=== PATIENT | female | born 1975 | race Caucasian/White ===

== ENCOUNTER → 2018-02-09 12:47 | Outpatient (CLI) | payer BC, SELFPAY ==
--- NOTE | 2018-02-10 11:01 | PFT ---
INTRODUCTION: The patient is a 42-year-old female currently under the care of Dr. Gonzalez that presents for pulmonary function testing secondary to a diagnosis of dyspnea. Respiratory therapy reports good patient effort and reports no other concerns. Bronchodilators were used during testing. INTERPRETATION: Forced expiration spirometry demonstrates no evidence of a large airways obstructive ventilatory defect. There was a significant response to aerosolized bronchodilators noted in both FVC and FEV1. Spirograms are of good quality and plateau normally. The respiratory flow volume loop appears normal. Body plethysmography was performed and reveals lung volumes to be within normal limits. Diffusing capacity by single breath CO is mildly reduced at 67% of predicted. IMPRESSION: These pulmonary function studies demonstrate the presence of a mild reduction in diffusing capacity. There was also a significant bronchodilator response noted. There are no previous pulmonary function studies available for comparison.
== END ==
PROVIDERS: Family Provider Family Medicine; PCP Family Medicine; Visit Provider Internal Medicine Critical Care Medicine
DX: R06.09 Other forms of dyspnea (principal)
CPT/HCPCS: 94060; 94726; 94729

== ENCOUNTER → 2018-03-22 07:48 | Outpatient (CLI) | payer BC, SELFPAY ==
--- NOTE | 2018-03-22 07:49 | CT_ITS ---
STUDY: CT CHEST WITHOUT CONTRAST REASON FOR EXAM: Female, 42 years old. Wheezing, hx asthma since childhood, denies chest pain or worsening SOB. RADIATION DOSAGE (If Supplied By Facility): CTDIvol = ( 20.10 ) mGy, DLP = ( 723.12 ) mGycm TECHNIQUE: Transaxial imaging was performed without the administration of intravenous contrast material. Individualized dose optimization techniques were used for this CT. COMPARISON: 02.08.14 FINDINGS: Calcified granuloma in the left midlung. This is stable. There is no demonstrated pleural abnormality. Normal heart and pericardium. Normal mediastinum. Normal hilar regions. Normal unenhanced pulmonary arteries. Normal aorta arch and descending thoracic aorta. There is endplate spondylosis of the vertebral body. The gallbladder is surgically absent. CT/Chest without Contrast IMPRESSION: Normal unenhanced CT Chest examination. Electronically Signed: Charles Rodríguez MD at 19:10 EDT , Service support ,
== END ==
PROVIDERS: Family Provider Family Medicine; PCP Family Medicine; Visit Provider Internal Medicine Critical Care Medicine
DX: J45.40 Moderate persistent asthma, uncomplicated (principal); R94.2 Abnormal results of pulmonary function studies
CPT/HCPCS: 71250

== ENCOUNTER → 2018-06-22 10:11 | Outpatient (CLI) | payer BC, SELFPAY ==
[2018-06-22 12:39] LABS: Absolute Lymphocyte Count 1.74 X10^3/ul (0.83-4.51); Absolute Neutrophil Count 6.9 X10^3/uL (2.0-7.7); Basophil# 0.02 X10^3/uL; Basophil% 0.2 % (0-1); Eosinophil# 0.16 X10^3/uL; Eosinophils% 1.7 % (0-5); Hematocrit 40.1 % (37-47); Hemoglobin 13.1 g/dl (12.0-15.0); Lymphocyte # 1.74 X10^3/ul (4.0); Mean Corp Hgb Conc 32.7 g/gl (32-36); Mean Corpuscular Hgb 29.4 pg (27.0-32.0); Mean Corpuscular Volume 89.9 fL (81-99); Mean Platelet Vol. 9.5 fl (6.2-12.0); Monocyte# 0.86 X10^3/uL; Monocyte% 8.9 % (0-10); Neutrophil # 6.87 X10^3/uL (2.7-7.7); Neutrophil % 70.9 % (47-70); POSITIVE COUNT NO; POSITIVE DIFFERENTIAL NO; POSITIVE MORPHOLOGY NO; Platelet Count 347 K/mm3 (150-450); RBC Distribution Width CV 13.3 % (11.6-14.6); RBC Distribution Width SD 43.1 fl (35.1-43.9); Red Blood Count 4.46 M/mm3 (4.2-5.4); White Blood Count 9.7 K/mm3 (4.4-11.0)
[2018-06-22 13:02] LABS: ALB/GLOB Ratio 0.8 RATIO (0.9-2.4); AST(SGOT) 14 U/L (15-37); Alanine Aminotransfer ALT/SGPT 21 U/L (13-56); Albumin, Serum 3.6 g/dL (3.2-5.0); Alkaline Phosphatase 70 U/L (45-117); Anion Gap 8 (5-15); BUN 13 mg/dL (7-18); BUN/Creat Ratio 10.9 RATIO (10-20); Calcium,Total 8.7 mg/dL (8.5-10.1); Chloride 106 mmol/L (98-107); Cholesterol 119 mg/dL (200); Creatinine, Serum 1.19 mg/dL (0.55-1.02); EST Glomerular Filtration Rate 52 mL/min (>60); Est Glom Filt Rate - Afr Amer 64 mL/min (>60); Free T3 1.7 pg/mL (2.18-3.98); Globulin 4.4 g/dL (2.2-4.2); Glucose 101 mg/dL (74-106); High Density Lipoprotein 40 mg/dL; Potassium 4.5 mmol/L (3.5-5.1); Sodium Level 138 mmol/L (136-145); T4 Free Direct 0.86 ng/dL (0.76-1.46); Thyroid Stim Hormone (TSH) 3.71 uIU/mL (0.358-3.74); Triglycerides 115 mg/dL; Very Low Density Lipoprotein 23 mg/dL (5-40)
== END ==
PROVIDERS: Visit Provider Family Medicine
DX: Z00.00 Encounter for general adult medical examination without abnormal findings (principal); E03.9 Hypothyroidism, unspecified; J45.909 Unspecified asthma, uncomplicated; K21.9 Gastro-esophageal reflux disease without esophagitis
CPT/HCPCS: 36415; 80053; 80061; 84439; 84443; 84481; 85025

== ENCOUNTER 2018-08-20 21:03 | Emergency (ER) | payer BC, SELFPAY ==
[2018-08-20 21:05] VITALS: BP 107/71; PULSE 88; RESP 16; TEMP 36.4; O2SAT 97; BMI 37.5
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
[2018-08-20 22:19] VITALS: PULSE 87; RESP 16; O2SAT 97
--- NOTE | 2018-08-20 22:22 | ED.RN ---
REVIEWED D/C INSTRUCTIONS, FOLLOW UP CARE, AND S/S THAT WOULD WARRANT A RETURN TO THE ED WITH PT. PT VERBALIZED AN UNDERSTANDING AND DENIES FURTHER QUESTIONS FOR THIS RN. PT SKIN P/W/D, RESP EVEN AND UNLABORED, PT A&O X 3, NO DISTRESS NOTED. PT AMBULATED OUT OF ED, GAIT STEADY.
== END 2018-08-20 22:24 | disposition home or self-care (01) ==
PROVIDERS: Emergency Provider Emergency Medicine; Family Provider Family Medicine; PCP Family Medicine
DX: S16.1XXA Strain of muscle, fascia and tendon at neck level, initial encounter (principal); S46.811A Strain of other muscles, fascia and tendons at shoulder and upper arm level, right arm, initial encounter; V43.62XA Car passenger injured in collision with other type car in traffic accident, initial encounter; Y93.89 Activity, other specified; Y92.410 Unspecified street and highway as the place of occurrence of the external cause; J45.909 Unspecified asthma, uncomplicated; F32.9 Major depressive disorder, single episode, unspecified; F41.9 Anxiety disorder, unspecified; Z79.899 Other long term (current) drug therapy
CPT/HCPCS: 99282

== ENCOUNTER → 2019-06-22 08:39 | Outpatient (CLI) | payer BC, SELFPAY ==
[2019-03-21 08:22] VITALS: BMI 37.8
[2019-06-22 12:12] LABS: Absolute Lymphocyte Count 1.57 X10^3/uL (0.83-4.51); Absolute Neutrophil Count 5.1 X10^3/uL (2.0-7.7); Basophil# 0.02 X10^3/uL; Basophil% 0.3 % (0-1); Eosinophil# 0.37 X10^3/uL; Eosinophils% 4.8 % (0-5); Hematocrit 38.4 % (37-47); Hemoglobin 12.6 g/dL (12.0-15.0); Lymphocyte # 1.57 X10^3/ul (4.0); Lymphocyte % 20.4 % (19-41); Mean Corp Hgb Conc 32.8 g/dL (32-36); Mean Corpuscular Hgb 30.1 pg (27.0-32.0); Mean Corpuscular Volume 91.6 fL (81-99); Mean Platelet Vol. 10.2 fl (6.2-12.0); Monocyte# 0.63 X10^3/uL; Monocyte% 8.2 % (0-10); NRBC Flagged by Analyzer 0 % (0-5); Neutrophil # 5.09 X10^3/uL (2.7-7.7); Platelet Count 308 K/mm3 (150-450); RBC Distribution Width SD 43.7 fl (35.1-43.9); Red Blood Count 4.19 M/mm3 (4.2-5.4); White Blood Count 7.7 K/mm3 (4.4-11.0)
[2019-06-22 12:50] LABS: Vitamin D,25 Hydroxy 10.4 ng/mL (29.95-100.01)
[2019-06-22 12:54] LABS: ALB/GLOB Ratio 0.8 RATIO (0.9-2.4); AST(SGOT) 11 U/L (15-37); Alanine Aminotransfer ALT/SGPT 18 U/L (13-56); Albumin, Serum 3.4 g/dL (3.2-5.0); Alkaline Phosphatase 67 U/L (45-117); Anion Gap 8 (5-15); BUN 12 mg/dL (7-18); BUN/Creat Ratio 11.7 RATIO (10-20); Calcium,Total 8.7 mg/dL (8.5-10.1); Chloride 107 mmol/L (98-107); Cholesterol 116 mg/dL (200); Creatinine, Serum 1.03 mg/dL (0.55-1.02); EST Glomerular Filtration Rate 62 mL/min (>60); Est Glom Filt Rate - Afr Amer 75 mL/min (>60); Globulin 4.2 g/dL (2.2-4.2); Glucose 118 mg/dL (74-106); High Density Lipoprotein 35 mg/dL; Potassium 3.7 mmol/L (3.5-5.1); Protein, Total 7.6 g/dL (6.4-8.2); Sodium Level 141 mmol/L (136-145); Thyroid Stim Hormone (TSH) 5.51 uIU/mL (0.358-3.74); Triglycerides 161 mg/dL; Very Low Density Lipoprotein 32 mg/dL (5-40)
== END ==
PROVIDERS: Family Provider Family Medicine; PCP Family Medicine; Visit Provider Family Medicine
DX: Z00.00 Encounter for general adult medical examination without abnormal findings (principal); E03.9 Hypothyroidism, unspecified; N18.3 Chronic kidney disease, stage 3 (moderate); E55.9 Vitamin D deficiency, unspecified
CPT/HCPCS: 36415; 80053; 80061; 82306; 84443; 85025

== ENCOUNTER → 2020-05-27 09:01 | Outpatient (CLI) | payer BC, SELFPAY ==
[2020-05-27 08:02] VITALS: BMI 39.9
== END ==
PROVIDERS: PCP Family Medicine; Visit Provider Nurse Practitioner Acute Care
DX: J45.40 Moderate persistent asthma, uncomplicated (principal)
CPT/HCPCS: 87070; 87205

== ENCOUNTER 2020-06-12 18:35 | Emergency (ER) | payer BC, SELFPAY ==
[2020-05-27 08:02] VITALS: BMI 39.9
[2020-06-12 18:36] VITALS: BP 155/83; PULSE 92; RESP 19; TEMP 36.8; O2SAT 100; BMI 40.0
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
--- NOTE | 2020-06-12 19:52 | ED.VISSUMM ---
- ER Visit Summary Date of Service: 06/12/20 Chief Complaint: Head injury History of Present Illness: The patient is a 44 F who presents with a head injury that occurred today. Patient states she bent over and hit her head on a metal pole. Patient admits to some dizziness but denies any loss of consciousness. Patient denies any paresthesias or weakness. Patient admits to an abrasion over the left eyebrow area near the nose. Patient admits to nausea but denies any vomiting. Patient denies any chest pain or shortness of breath. Patient denies any other injuries. Physical Examination: Vital signs are stable. Patient is afebrile. Patient is in no acute distress. Pupils are equal, round, and reactive to light bilaterally. Extraocular muscles are intact. Oral mucosa is pink and moist. Neck is supple. Trachea is midline. There is no JVD or lymphadenopathy. Cranial nerves II through XII are intact. Strength is 5/5 bilateral in the upper and lower extremities. There are no sensory deficits noted. Skin is warm dry. There is a superficial abrasion over the medial aspect of the left eyebrow near the nose. There is no active bleeding. There is no gapping of the wound margins. There is tenderness to palpation over this area. There is no bony crepitance or step-off noted. Test Results: CT scan of the brain was obtained. There is no acute intracranial abnormality. This was interpreted by the radiologist and reviewed by myself. Emergency Department Course and Treatment: Patient was given a tetanus booster. Patient was advised of her findings. Patient was instructed to take Tylenol as needed for pain. Patient was instructed to drink plenty of fluids. Patient was given head injury and concussion instructions. Patient was instructed to follow-up with her primary care physician in 5 to 7 days. Patient understood and was agreeable with the plan. All questions were answered. Disposition: Discharge home Impression: 1. Closed head injury This note was generated with [employer] dictation software. It may contain incorrect words, spelling, and punctuation that were not noted in review of the chart prior to signing ED Disposition - Plan for ED Patient: Disposition: Home or Assisted Living Diagnosis: Closed head injury Instructions: ED Head Injury Adult Referrals: Marlyn Smith MD [Primary Care Provider] - 5-7 Days
[2020-06-12] MEDS: Diphth,Pertuss(Acell),Tet Vac 0.5 ML Vial IM (20:37)
[2020-06-12] MEDS: Ketorolac 60 MG/2 ML Vial IM (20:39)
[2020-06-12 20:43] VITALS: RESP 16
== END 2020-06-12 20:49 | disposition home or self-care (01) ==
PROVIDERS: Emergency Provider Emergency Medicine; PCP Family Medicine
DX: S09.90XA Unspecified injury of head, initial encounter (principal); W22.8XXA Striking against or struck by other objects, initial encounter
CPT/HCPCS: 70450; 90471; 90715; 96372; 99283

== ENCOUNTER → 2020-06-27 11:35 | Outpatient (CLI) | payer BC, SELFPAY ==
[2020-06-12 18:36] VITALS: BMI 40.0
[2020-06-27 15:43] LABS: Absolute Lymphocyte Count 1.91 X10^3/uL (0.83-4.51); Absolute Neutrophil Count 6.4 X10^3/uL (2.0-7.7); Basophil# 0.03 X10^3/uL; Basophil% 0.3 % (0-1); Eosinophil# 0.19 X10^3/uL; Hematocrit 41.4 % (37-47); Hemoglobin 13.4 g/dL (12.0-15.0); Lymphocyte # 1.91 X10^3/ul (4.0); Lymphocyte % 20.5 % (19-41); Mean Corp Hgb Conc 32.4 g/dL (32-36); Mean Corpuscular Hgb 29.5 pg (27.0-32.0); Mean Corpuscular Volume 91.2 fL (81-99); Mean Platelet Vol. 10.1 fl (6.2-12.0); Monocyte# 0.68 X10^3/uL; Monocyte% 7.3 % (0-10); NRBC Flagged by Analyzer 0 % (0-5); Neutrophil # 6.43 X10^3/uL (2.7-7.7); Neutrophil % 69.3 % (47-70); Platelet Count 404 K/mm3 (150-450); RBC Distribution Width CV 12.4 % (11.6-14.6); RBC Distribution Width SD 41.1 fl (35.1-43.9); Red Blood Count 4.54 M/mm3 (4.2-5.4); White Blood Count 9.3 K/mm3 (4.4-11.0)
[2020-06-27 16:10] LABS: ALB/GLOB Ratio 0.8 RATIO (0.9-2.4); AST(SGOT) 26 U/L (15-37); Alanine Aminotransfer ALT/SGPT 33 U/L (13-56); Albumin, Serum 3.7 g/dL (3.2-5.0); Alkaline Phosphatase 73 U/L (45-117); Anion Gap 6 (5-15); BUN 11 mg/dL (7-18); Chloride 104 mmol/L (98-107); EST Glomerular Filtration Rate 64 mL/min (>60); Est Glom Filt Rate - Afr Amer 77 mL/min (>60); Globulin 4.4 g/dL (2.2-4.2); Glucose 107 mg/dL (74-106); Protein, Total 8.1 g/dL (6.4-8.2); Sodium Level 139 mmol/L (136-145); Thyroid Stim Hormone (TSH) 3.17 uIU/mL (0.358-3.74)
[2020-06-27 16:11] LABS: Vitamin D,25 Hydroxy 19.1 ng/mL
== END ==
PROVIDERS: PCP Family Medicine; Visit Provider Family Medicine
DX: E03.9 Hypothyroidism, unspecified (principal); N18.3 Chronic kidney disease, stage 3 (moderate); E55.9 Vitamin D deficiency, unspecified; Z83.3 Family history of diabetes mellitus
CPT/HCPCS: 36415; 80053; 82306; 84443; 85025

== ENCOUNTER → 2020-07-24 13:51 | Outpatient (CLI) | payer BC, SELFPAY ==
[2020-07-24 16:30] LABS: ALB/GLOB Ratio 0.9 RATIO (0.9-2.4); AST(SGOT) 17 U/L (15-37); Alanine Aminotransfer ALT/SGPT 21 U/L (13-56); Albumin, Serum 3.6 g/dL (3.2-5.0); Alkaline Phosphatase 76 U/L (45-117); Anion Gap 6 (5-15); BUN 13 mg/dL (7-18); Calcium,Total 9.3 mg/dL (8.5-10.1); Chloride 106 mmol/L (98-107); EST Glomerular Filtration Rate 64 mL/min (>60); Est Glom Filt Rate - Afr Amer 77 mL/min (>60); Globulin 4.2 g/dL (2.2-4.2); Glucose 97 mg/dL (74-106); Potassium 3.5 mmol/L (3.5-5.1); Protein, Total 7.8 g/dL (6.4-8.2); Sodium Level 140 mmol/L (136-145)
[2020-07-26 16:08] LABS: Endomysial Antibody IgA Negative (Negative)
[2020-07-26 17:11] LABS: Immunoglobulin A 283 mg/dL (87-352); t-Transglutaminase IgA <2 U/mL (0-3)
== END ==
PROVIDERS: PCP Family Medicine; Referring Provider Internal Medicine Gastroenterology; Visit Provider Internal Medicine Gastroenterology
DX: R19.7 Diarrhea, unspecified (principal)
CPT/HCPCS: 36415; 80053; 82784; 83516; 86140; 86255

== ENCOUNTER 2020-10-16 19:41 | Inpatient (IN) | payer BC, SELFPAY ==
[2020-10-16 19:42] VITALS: BP 106/86; PULSE 105; RESP 20; TEMP 37.4; O2SAT 98
[2020-10-16 19:43] VITALS: BP 106/86; PULSE 106; RESP 20; TEMP 37.4; O2SAT 98; BMI 41.7
--- NOTE | 2020-10-16 20:04 | CT_ITS ---
STUDY: CT ABDOMEN AND PELVIS WITH CONTRAST REASON FOR EXAM: Female, 45 years old. LOW ABD PAIN/CHILLS/SONGESTION/FEVER. Hx of IBS, hypothyroid, appendectomy, cholecystectomy, fistula(2013) and csection RADIATION DOSAGE (If Supplied By Facility): CTDIvol = ( 18.43 ) mGy, DLP = ( 1265.52 ) mGycm TECHNIQUE: Transaxial images were obtained from the dome of the diaphragm to the symphysis pubis without oral contrast. Oral and amp; IV Gastrografin and amp; 100mL Isovue-300 was administered. Sagittal and coronal images were reconstructed. Individualized dose optimization techniques were used for this CT. COMPARISON: None. FINDINGS: The visualized lung bases are unremarkable. The visualized portions of the heart are within normal limits. Normal liver. There are surgical clips in the gallbladder fossa consistent with a prior cholecystectomy. Normal spleen. Normal pancreas. Normal bilateral adrenal glands. Normal right kidney. Normal left kidney. Normal visualized stomach. Normal small intestine. There is diverticulosis, with thickening of the sigmoid colon wall, and pericolonic inflammation changes consistent with acute diverticulitis. There is punctate scattered air along the outside of the bowel extending superiorly along the course of the gonadal vein. There are surgical clips in the region of the appendix consistent with a prior appendectomy. Normal abdominal aorta. Normal inferior vena cava. Periaortic scattered likely reactive lymph nodes are present. Normal urinary bladder. Normal abdominal wall. Normal osseous structures. CT/Abdomen/Pelvis WITH Contrast IMPRESSION: 1. Sigmoid diverticulitis with mild areas of punctate air extending along the course of the gonadal vein consistent with a small perforation with no evidence of fluid collection or abscess. Otherwise no additional acute intra-abdominal process. Electronically Signed: Curt Almendarez DO at 22:10 EST , Service support ,
[2020-10-16] MEDS: 0.9% Normal Saline 1,000 ML 1000 ML IV (20:28)
[2020-10-16] MEDS: Morphine 4 MG/ML Syringe IV ×2 (20:28→23:24)
[2020-10-16 20:29] LABS: Absolute Lymphocyte Count 1.22 X10^3/uL (0.83-4.51); Basophil# 0.03 X10^3/uL; Basophil% 0.2 % (0-1); Eosinophil# 0.11 X10^3/uL; Eosinophils% 0.7 % (0-5); Hematocrit 42.4 % (37-47); Hemoglobin 14.1 g/dL (12.0-15.0); Lymphocyte # 1.22 X10^3/ul (4.0); Lymphocyte % 8.1 % (19-41); Mean Corp Hgb Conc 33.3 g/dL (32-36); Mean Corpuscular Hgb 29.7 pg (27.0-32.0); Mean Corpuscular Volume 89.5 fL (81-99); Mean Platelet Vol. 8.9 fl (6.2-12.0); Monocyte# 0.64 X10^3/uL; Monocyte% 4.2 % (0-10); NRBC Flagged by Analyzer 0 % (0-5); Neutrophil # 12.99 X10^3/uL (2.7-7.7); Neutrophil % 86.3 % (47-70); Platelet Count 305 K/mm3 (150-450); RBC Distribution Width CV 12.4 % (11.6-14.6); RBC Distribution Width SD 40.6 fl (35.1-43.9); Red Blood Count 4.74 M/mm3 (4.2-5.4); White Blood Count 15.1 K/mm3 (4.4-11.0)
--- NOTE | 2020-10-16 20:32 | ED.DCSUM_ITS ---
- ER Visit Summary Date of Service: 10/16/20 Chief Complaint: Abdominal pain History of Present Illness: The patient is a 45 F who presents with abdominal pain that began approximately 1-1/2 hours prior to arrival. Patient states the pain began suddenly. Patient states the pain is worse over the lower abdomen but is diffuse. Patient describes it as sharp and aching. Patient states nothing makes it better or worse. Patient admits to nausea but denies any vomiting. Patient was given Zofran by EMS and states the nausea is improved. Patient denies any diarrhea, melena, or hematochezia. Patient denies any dysuria or hematuria. Patient states her last menstrual period was 1 month ago but states they are somewhat irregular. Physical Examination: Vital signs are stable except for mild tachycardia of 105. Patient is afebrile. Patient is in no acute distress. Oral mucosa is pink and moist. Neck is supple. Trachea is midline. There is no JVD noted. Heart was regular and slightly tachycardic. Lungs are clear and equal bilaterally. Abdomen is soft. Bowel sounds are normal. There is lower abdominal tenderness. There is no rebound or guarding noted. Skin is warm dry. Cranial nerves II through XII are intact. There are no focal motor or sensory deficits noted. Extremities are intact. There is no calf tenderness or edema. Test Results: CBC shows a leukocytosis of 15.1. Comprehensive metabolic profile and lipase were within normal limits. Urinalysis was obtained. There is no evidence of urinary tract infection. Serum hCG was negative. CT scan of the abdomen pelvis with oral and IV contrast shows sigmoid diverticulitis with mild areas of punctate air consistent with a small perforation but no evidence of fluid collection or abscess. This was interpreted by the radiologist and reviewed by myself. Emergency Department Course and Treatment: Patient was given IV fluids and morphine. Patient was feeling better on reevaluation. Patient was started on Rocephin and Flagyl. Case was discussed with Dr. Brandan Reyes from general surgery. He recommended admitting to medicine and keeping the patient n.p.o. Case was discussed with the hospitalist. He will admit the patient to his service. Patient understood and was agreeable with the plan. All questions were answered. Disposition: Admit to hospital Impression: 1. Diverticulitis This note was generated with [employer] software. It may contain incorrect words, spelling, and punctuation that were not noted in review of the chart prior to signing ED Disposition - Plan for ED Patient: Disposition: Acute Care Hospital [facility] Diagnosis: Diverticulitis Referrals: Marlyn Smith MD [Primary Care Provider] -
[2020-10-16 20:40] LABS: Internal QC Validated? YES +Cl - CLEAR BKGD; Pregnancy, Serum, hCG Quali. NEGATIVE Negative
[2020-10-16 20:44] LABS: ALB/GLOB Ratio 0.9 RATIO (0.9-2.4); AST(SGOT) 13 U/L (15-37); Alanine Aminotransfer ALT/SGPT 22 U/L (13-56); Albumin, Serum 3.8 g/dL (3.2-5.0); Alkaline Phosphatase 72 U/L (45-117); Anion Gap 7 (5-15); BUN 14 mg/dL (7-18); Calcium,Total 9.1 mg/dL (8.5-10.1); Chloride 104 mmol/L (98-107); EST Glomerular Filtration Rate 64 mL/min (>60); Est Glom Filt Rate - Afr Amer 77 mL/min (>60); Globulin 4.4 g/dL (2.2-4.2); Glucose 135 mg/dL (74-106); Lipase 77 U/L (73-393); Protein, Total 8.2 g/dL (6.4-8.2); Sodium Level 138 mmol/L (136-145)
[2020-10-16 21:28] LABS: Bacteria 0 SEEN /hpf (None Seen); Mucous, Urine 0 SEEN /hpf (<or=2+); Red Blood Cells-Urine 0 SEEN /hpf (0-5); White Blood Cells 0 SEEN /hpf (0-5)
[2020-10-16 21:39] LABS: Color, Urine Yellow (Yellow); Glucose, Dipstick Normal (Normal); Ketone-Dipstick Negative (Negative); Leukocyte Esterase-Dipstick Negative /ul (Negative); Nitrite-Dipstick Negative (Negative); Occult Blood-Urine Negative /ul (Negative); Protein-Dipstick Negative (Negative); Urine Bilirubin Dipstick Negative (Negative); Urine Clarity Sl. Cloudy (Clear); Urine Urobilinogen Normal (Normal)
[2020-10-16 21:45] LABS: Squamous Epithelial Cells - UA 0-5 SEEN /hpf (5-10)
[2020-10-16 21:59] VITALS: BP 121/67; PULSE 110; RESP 17; O2SAT 98
[2020-10-16] MEDS: Ceftriaxone 1 GM/50 ML BAG IV (22:47)
[2020-10-16 22:53] VITALS: BP 95/75; PULSE 110; RESP 15; O2SAT 99
--- NOTE | 2020-10-16 23:08 | PCM.HP.STD ---
Problem List (1) Perforation of sigmoid colon due to diverticulitis Status: Acute (2) Diverticulitis Status: Acute (3) Obesity (BMI 30-39.9) Status: Chronic (4) Asthma, moderate persistent Status: Chronic Qualifiers: Asthma complication type: uncomplicated Qualified Code(s): J45.40 - Moderate persistent asthma, uncomplicated (5) Abnormal PFT Status: Chronic (6) Asthma, moderate persistent, poorly-controlled Status: Chronic (7) FREDY (obstructive sleep apnea) Status: Chronic (8) Fistula Status: Chronic (9) History of carpal tunnel surgery Status: Chronic (10) Hx of appendectomy Status: Chronic (11) S/P cholecystectomy Status: Chronic (12) [place] teeth extracted Status: Chronic (13) delivery delivered Status: Chronic (14) lazy eye repair Status: Chronic (15) Allergic rhinitis Status: Chronic Qualifiers: Allergic rhinitis trigger: pollen Allergic rhinitis seasonality: seasonal Qualified Code(s): J30.1 - Allergic rhinitis due to pollen (16) IBS (irritable bowel syndrome) Status: Chronic (17) Hypothyroid Status: Chronic (18) Anxiety Status: Chronic (19) PTSD (post-traumatic stress disorder) Status: Chronic (20) Sciatica Status: Chronic (21) Obesity Status: Chronic (22) Depression Status: Chronic (23) Asthma Status: Chronic History of Present Illness Date of Admission: 10/16/20 Chief Complaint: Abdominal pain The patient is a 45 year old F with a significant history of allergic rhinitis; anxiety; asthma; IBS; morbid obesity; and appendectomy who presents to the emergency department with sudden onset excruciating lower abdominal pain that started about 1 hour prior to presentation. Her pain was so excruciating that she doubled over and she could not move. She had to crawl. Her son had to call paramedics who brought patient to the emergency department. Her pain radiates to her pelvic area. Her pain was persistent and it progressively got worse. She described her pain as sharp and achy. She denies any ameliorating factors to the pain. Walking made the pain worse. En-route to the hospital she was nauseous and she was given nausea medicine by paramedics. Past Medical History Past Medical History (Chronic Problems): Chronic Problems (Last Reviewed 10/16/20 @ 23:[address] Jamil Perez MD) Obesity (BMI 30-39.9) (Chronic) Asthma, moderate persistent (Chronic) Abnormal PFT (Chronic) Asthma, moderate persistent, poorly-controlled (Chronic) FREDY (obstructive sleep apnea) (Chronic) Fistula (Chronic) History of carpal tunnel surgery (Chronic) Hx of appendectomy (Chronic) S/P cholecystectomy (Chronic) [place] teeth extracted (Chronic) delivery delivered (Chronic) lazy eye repair (Chronic) Allergic rhinitis (Chronic) IBS (irritable bowel syndrome) (Chronic) Hypothyroid (Chronic) Anxiety (Chronic) PTSD (post-traumatic stress disorder) (Chronic) Sciatica (Chronic) Obesity (Chronic) Depression (Chronic) Asthma (Chronic) Medical History: Medical History (Last Reviewed 10/16/20 @ 23:[address] Jamil Perez MD) Bronchitis (Inactive) J40 Allergic rhinitis (Chronic) J30.9 IBS (irritable bowel syndrome) (Chronic) K58.9 Hypothyroid (Chronic) E03.9 Anxiety (Chronic) F41.9 PTSD (post-traumatic stress disorder) (Chronic) F43.10 Sciatica (Chronic) M54.30 Obesity (Chronic) E66.9 Depression (Chronic) F32.9 Asthma (Chronic) J45.909 Allergies venom-honey bee [bee venom (honey bee)] Allergy (Severe, Verified 10/16/20 19:42) Anaphylaxis amoxicillin [From Augmentin] Allergy (Verified 10/16/20 19:42) Hives clavulanic acid [From Augmentin] Allergy (Verified 10/16/20 19:42) Hives fluticasone [From Advair Diskus] Allergy (Verified 10/16/20 19:42) Anaphylaxis salmeterol [From Advair Diskus] Allergy (Verified 10/16/20 19:42) Anaphylaxis ciprofloxacin [From Cipro] Adverse Reaction (Verified 10/16/20 19:42) Nausea/Vom/Diarrhea ENVIRONMENTAL Allergy (Mild, Uncoded 06/12/20 18:39) Other Home Medications: Ambulatory Orders Medication Instructions Recorded Levothyroxine [Synthroid] 88 mcg PO DAILY 02/01/14 fluticasone propionate 50 50 mcg INTRANASAL BID PRN 12/29/17 mcg/actuation nasal spray,suspension cetirizine 10 mg tablet 10 mg PO QDAY PRN 06/14/18 budesonide-formoterol HFA 160 2 puff INHALATION Q12H #3 device 02/27/20 mcg-4.5 mcg/actuation aerosol inhaler albuterol sulfate 2.5 mg INHALATION Q4H PRN #180 ml 04/26/20 benzonatate 200 mg capsule 200 mg PO TID PRN #90 cap 05/27/20 albuterol sulfate 90 mcg/actuation 2 puff INHALATION Q4H PRN PRN #3 08/26/20 aerosol inhaler device Pantoprazole Sodium [Protonix] 20 mg PO DAILY PRN 10/16/20 Surgical History: Surgical History (Last Reviewed 10/16/20 @ 23:[address] Jamil Perez MD) Fistula (Chronic) L98.8 History of carpal tunnel surgery (Chronic) Z92.89 Hx of appendectomy (Chronic) Z98.890, Z90.49 S/P cholecystectomy (Chronic) Z90.49 [place] teeth extracted (Chronic) Z98.890, K08.409 delivery delivered (Chronic) O82 lazy eye repair (Chronic) Surgical History: appendectomy, cholecystectomy, tubal ligation Smoking Status: Former smoker - Tried smoking when she was a teenager Review of Systems Constitutional: Reports: Anorexia, Chills, - - Rigors. Denies: Fever, Weight Change HEENT: Denies: Head Aches, Sinus Congestion, Sinus Drainage Cardiovascular: Denies: Chest Pain, Palpitations Respiratory: Denies: Cough, Shortness of breath at rest, Sputum production Gastrointestinal: Reports: Abdominal Pain, Nausea. Denies: Vomiting Genitourinary: Denies: Dysuria Musculoskeletal: Denies: Joint Pain, Joint Tenderness Skin: Denies: Rash, Wounds Neurological: Denies: Numbness, Tingling, Focal weakness Psychiatric: Denies: Anxiety, Depression, Homicidal Ideations, Suicidal Ideations Hematologic/ Lymphatic: Denies: Easy Bruising, Easy Bleeding VTE Information - Inpt Only VTE Present on Admission: No VTE Mechan Device Prophylaxis: SCD's VTE Pharm Prophylaxis ordered?: No Patient Problems: Active and Suspected Problems (Last Reviewed 10/16/20 @ 23:[address] Jamil Perez MD) Diverticulitis (Acute) Perforation of sigmoid colon due to diverticulitis (Acute) - Physical Exam Vitals/I&O's: Vital Signs Temp Pulse Resp BP Pulse Ox 99.4 F H 110 H 15 95/75 99 10/16/20 19:43 10/16/20 22:53 10/16/20 22:53 10/16/20 22:53 10/16/20 22:53 Oxygen Delivery Method Room Air Weight: 103.4 kg Body Mass Index (BMI) 41.7 Intake and Output for Last 24 Hours 10/14/20 10/15/20 10/16/20 23:59 23:59 23:59 Intake Total 1000 / 1000 Balance 1000 / 1000 General: Alert, Oriented x3, Cooperative HEENT: Atraumatic, PERRLA, EOMI, Normocephalic Neck: Supple, No JVD, Negative Carotid Bruits Lungs: Clear to auscultation, Normal air movement, No rhonchi, No wheeze, No rales Cardiovascular: Regular rate, Regular Rhythm, Normal S1, Normal S2, No murmurs Abdomen: Soft, Hyperactive Bowel Sounds, Tender Extremities: No edema, Capillary Refill Less than 3 Seconds Skin: No rashes, No breakdown Musculoskeletal: No Tenderness to Palpation of Joints or Extremities Neurological: Cranial nerves II-XII grossly intact Psych/Mental Status: Normal Affect, Appropriate Laboratory Results 10/16/20 20:15: WBC 15.1 H, RBC 4.74, Hgb 14.1, Hct 42.4, MCV 89.5, MCH 29.7, MCHC 33.3, RDW Std Deviation 40.6, RDW Coeff of [place] 12.4, Plt Count 305, MPV 8.9, Immature Gran % (Auto) 0.500, Neut % (Auto) 86.3 H, Lymph % (Auto) 8.1 L, [place] % (Auto) 4.2, Eos % (Auto) 0.7, Baso % (Auto) 0.2, Absolute Neuts (auto) 13.0 H, Absolute Lymphs (auto) 1.22, Nucleated RBC % 0 10/16/20 20:15: Sodium 138, Potassium 4.0, Chloride 104, Carbon Dioxide 27.0, Anion Gap 7, BUN 14, Creatinine 1.00, Estim Creat Clear Calc 55.60, Est GFR (MDRD) Af Amer 77, Est GFR (MDRD) Non-Af 64, BUN/Creatinine Ratio 14.0, Glucose 135 H, Calcium 9.1, Total Bilirubin 0.90, AST 13 L, ALT 22, Alkaline Phosphatase 72, Total Protein 8.2, Albumin 3.8, Globulin 4.4 H, Albumin/Globulin Ratio 0.9, Lipase 77 10/16/20 20:15: Serum , Qual NEGATIVE 10/16/20 21:25: Urine Color Yellow, Urine Clarity Sl. Cloudy, Urine pH 6.0, Ur Specific [place] 1.010, Urine Protein Negative, Urine Glucose (UA) Normal, Urine Ketones Negative, Urine Occult Blood Negative, Urine Nitrite Negative, Urine Bilirubin Negative, Urine Urobilinogen Normal, Ur Leukocyte Esterase Negative, Urine RBC 0 SEEN, Urine WBC 0 SEEN, Ur Squamous Epith Cells 0-5 SEEN, Urine Bacteria 0 SEEN, Urine Mucus 0 SEEN Current Medications Metronidazole (Flagyl) 500 mg in 100 mls @ 100 mls/hr IV X1 ONE Stop: 10/16/20 23:28 Assessment/Plan All Active Problems (Last Reviewed 10/16/20 @ 23:[address] Jamil Perez MD) Diverticulitis (Acute) Perforation of sigmoid colon due to diverticulitis (Acute) The patient is a 45 year old F with a significant history of allergic rhinitis; anxiety; asthma; IBS; morbid obesity; and appendectomy who presents emergency department with sudden onset excruciating lower abdominal pain and nausea and found to have abdominal tenderness and radiographic findings of acute sigmoid diverticulitis with small perforation on imaging Acute sigmoid diverticulitis with small perforation Impression of abdominal/pelvis CT: Sigmoid diverticulitis with mild areas of punctate air extending along the course of the gonadal vein consistent with a small perforation with no evidence of fluid collection or abscess. Actual abdomen/pelvis CT was independently interpreted. I agree with the radiologist interpretation. Received morphine IV x2 doses at emergency department. Morphine IV as needed for pain ordered. Zofran IV pain ordered. Supportive treatment with normal saline with 20 mEq of potassium ordered Received ceftriaxone and Flagyl at emergency department. Patient is allergic to ciprofloxacin. Ceftriaxone and metronidazole IV ordered inpatient. Emergency department doctor discussed the case with general surgery who recommended that patient be kept n.p.o. Per emergent department doctor general surgery will follow on consult. Order for n.p.o. placed. General surgery consult. GERD On home Protonix p.o.. Changed to Protonix IV in the setting of n.p.o. Hypothyroidism On home Synthroid. Hold home p.o. Synthroid in the setting of n.p.o status. Asthma and allergies Albuterol as needed continued. On home ceftriaxone as needed; hold in the setting of n.p.o. Fluticasone as needed continued. Obstructive sleep apnea Nursing communication to order CPAP/BiPAP nightly and as needed if patient uses same at home. Morbid Obesity: BMI: 41.7 kg/m?. Complicates care. Lifestyle modification recommended. DVT prophylaxis SCD ordered. Inpatient E&M: 00434 Init Hosp L3
[2020-10-16] MEDS: metroNIDAZOLE 500 MG/100 ML BAG 100 MG IV (23:26)
[2020-10-16 23:31] VITALS: BP 101/68; PULSE 110; RESP 15; TEMP 37.4; O2SAT 97
[2020-10-16 23:59] VITALS: BMI 39.5
[2020-10-17] VITALS (12 sets, daily range): BP systolic 98–107; BP diastolic 55–63; PULSE 76–108; RESP 16–18; TEMP 37.1–39.1; O2SAT 94–98; BMI 39.6
[2020-10-17] MEDS: Acetaminophen 325 MG Tablet 650 MG PO (01:07)
[2020-10-17] MEDS: Morphine 2 MG/ML Syringe IV ×6 (01:09→23:59)
--- NOTE | 2020-10-17 05:47 | CON.PCM_ITS ---
Problem List (1) Diverticulitis Status: Acute (2) Perforation of sigmoid colon due to diverticulitis Status: Acute Reason for Consult Date of Consultation: 10/17/20 History of Present Illness: The patient is a 45 year old F who I have been asked to see by surgical consultation regarding acute sigmoid diverticulitis with perforation and a written copy of my surgical consult recommendations will present in the charting. The patient states that yesterday she had acute onset of severe low abdominal pain. I asked her whether she had had any previous episodes and she thought for a minute and then said she did not think so. She states that the pain was very severe yesterday but has improved today. On her presentation to the emergency room her white blood cell count was 15.1 with a hemoglobin 14.1 hematocrit 42.4 platelet count of 305,000 with 86% neutrophils. BUN is 14 and creatinine 1. Liver function tests essentially normal. Lipase normal. CT scan was obtained with contrast. There is pericolonic inflammation consistent with acute diverticulitis punctate scattered air along the outside of the bowel extending superiorly on the course of the gonadal vein. Surgical clips in the region of the appendix. The impression was sigmoid diverticulitis with what was felt to be a small perforation with no fluid collection or abscess. She states that August 2020 Dr. Urban Bojorquez did a colonoscopy for her. She states that she had diverticulosis. She states he took biopsies. She states she was told everything was okay. She does have a family history with father and uncle both who had colon cancer. She states she has not had colon polyps nor malignancy. She does state that she thinks she might be prediabetic. She denies any history of DVT. She denies potential exposure to COVID-19 Her surgical history is complicated she states that several years ago I assisted her with a fistula in anal. She has had a previous cholecystectomy 1998. She states that in 2008 when she was she had acute appendicitis that required then a infraumbilical midline incision for appendectomy. She states that the wound dehisced and she had to have delayed superficial wound healing. Apparently she was able to deliver her child without consequence. Past Medical History Past Medical History (Chronic Problems): Chronic Problems (Last Reviewed 10/16/20 @ 23:[address] Jamil Perez MD) Obesity (BMI 30-39.9) (Chronic) Asthma, moderate persistent (Chronic) Abnormal PFT (Chronic) Asthma, moderate persistent, poorly-controlled (Chronic) FREDY (obstructive sleep apnea) (Chronic) Fistula (Chronic) History of carpal tunnel surgery (Chronic) Hx of appendectomy (Chronic) S/P cholecystectomy (Chronic) [place] teeth extracted (Chronic) delivery delivered (Chronic) lazy eye repair (Chronic) Allergic rhinitis (Chronic) IBS (irritable bowel syndrome) (Chronic) Hypothyroid (Chronic) Anxiety (Chronic) PTSD (post-traumatic stress disorder) (Chronic) Sciatica (Chronic) Obesity (Chronic) Depression (Chronic) Asthma (Chronic) Medical History: Medical History (Last Reviewed 10/16/20 @ 23:[address] Jamil Perez MD) Bronchitis (Inactive) J40 Allergic rhinitis (Chronic) J30.9 IBS (irritable bowel syndrome) (Chronic) K58.9 Hypothyroid (Chronic) E03.9 Anxiety (Chronic) F41.9 PTSD (post-traumatic stress disorder) (Chronic) F43.10 Sciatica (Chronic) M54.30 Obesity (Chronic) E66.9 Depression (Chronic) F32.9 Asthma (Chronic) J45.909 Allergies venom-honey bee [bee venom (honey bee)] Allergy (Severe, Verified 10/16/20 19:42) Anaphylaxis amoxicillin [From Augmentin] Allergy (Verified 10/16/20 19:42) Hives clavulanic acid [From Augmentin] Allergy (Verified 10/16/20 19:42) Hives fluticasone [From Advair Diskus] Allergy (Verified 10/16/20 19:42) Anaphylaxis salmeterol [From Advair Diskus] Allergy (Verified 10/16/20 19:42) Anaphylaxis ciprofloxacin [From Cipro] Adverse Reaction (Verified 10/16/20 19:42) Nausea/Vom/Diarrhea ENVIRONMENTAL Allergy (Mild, Uncoded 06/12/20 18:39) Other Home Medications: Ambulatory Orders Medication Instructions Recorded Levothyroxine [Synthroid] 88 mcg PO DAILY 02/01/14 fluticasone propionate 50 50 mcg INTRANASAL BID PRN PRN 12/29/17 mcg/actuation nasal spray,suspension cetirizine 10 mg tablet 10 mg PO QDAY PRN 06/14/18 budesonide-formoterol HFA 160 2 puff INHALATION Q12H #3 device 02/27/20 mcg-4.5 mcg/actuation aerosol inhaler albuterol sulfate 2.5 mg INHALATION Q4H PRN #180 ml 04/26/20 benzonatate 200 mg capsule 200 mg PO TID PRN #90 cap 05/27/20 albuterol sulfate 90 mcg/actuation 2 puff INHALATION Q4H PRN PRN #3 08/26/20 aerosol inhaler device Pantoprazole Sodium [Protonix] 20 mg PO DAILY PRN 10/16/20 Surgical History: Surgical History (Last Reviewed 10/16/20 @ 23:[address] Jamil Perez MD) Fistula (Chronic) L98.8 History of carpal tunnel surgery (Chronic) Z92.89 Hx of appendectomy (Chronic) Z98.890, Z90.49 S/P cholecystectomy (Chronic) Z90.49 [place] teeth extracted (Chronic) Z98.890, K08.409 delivery delivered (Chronic) O82 lazy eye repair (Chronic) Surgical History: appendectomy, cholecystectomy, tubal ligation Smoking Status: Never smoker Review of Systems HEENT: Denies: Difficulty Swallowing Cardiovascular: Denies: Chest Pain Respiratory: Denies: Cough, Shortness of Breath Gastrointestinal: Reports: Abdominal Pain. Denies: Melena, Vomiting Genitourinary: Denies: Dysuria Psychiatric: Reports: Anxiety Endocrine: Denies: Change in Body Habitus Patient Problems: Active and Suspected Problems (Last Reviewed 10/16/20 @ 23:[address] Jamil Perez MD) Diverticulitis (Acute) Perforation of sigmoid colon due to diverticulitis (Acute) - Physical Exam Vitals/I&O's: Vital Signs Temp Pulse Resp BP Pulse Ox 101.0 F H 108 H 18 107/55 L 97 10/17/20 02:36 10/17/20 00:30 10/17/20 00:21 10/17/20 00:21 10/17/20 00:32 Oxygen Delivery Method Room Air Weight: 216 lb 4.375 oz Body Mass Index (BMI) 39.5 Intake and Output for Last 24 Hours 10/15/20 10/16/20 10/17/20 23:59 23:59 23:59 Intake Total 1050 / 1050 100 / 100 Balance 1050 / 1050 100 / 100 General: Alert, Oriented x3, Cooperative, No apparent distress HEENT: Atraumatic Oral: Moist Mucosa Neck: Supple Lungs: Clear to auscultation, Normal air movement Cardiovascular: Regular rate, Regular Rhythm Abdomen: Soft, No Hepato-splenomegaly, Hypoactive Bowel Sounds, - - Diffusely tender throughout the lower abdomen. Right lower quadrant tenderness noted, left lower quadrant tenderness noted with guarding. Broad though healed infraumbilical midline incision Extremities: No Calf Tenderness Skin: No rashes Neurological: - - Normal cognition Psych/Mental Status: Anxious Laboratory Results 10/16/20 20:15: WBC 15.1 H, RBC 4.74, Hgb 14.1, Hct 42.4, MCV 89.5, MCH 29.7, MCHC 33.3, RDW Std Deviation 40.6, RDW Coeff of [place]eb[place] 12.4, Plt Count 305, MPV 8.9, Immature Gran % (Auto) 0.500, Neut % (Auto) 86.3 H, Lymph % (Auto) 8.1 L, [place] % (Auto) 4.2, Eos % (Auto) 0.7, Baso % (Auto) 0.2, Absolute Neuts (auto) 13.0 H, Absolute Lymphs (auto) 1.22, Nucleated RBC % 0 10/16/20 20:15: Sodium 138, Potassium 4.0, Chloride 104, Carbon Dioxide 27.0, Anion Gap 7, BUN 14, Creatinine 1.00, Estim Creat Clear Calc 55.60, Est GFR (MDRD) Af Amer 77, Est GFR (MDRD) Non-Af 64, BUN/Creatinine Ratio 14.0, Glucose 135 H, Calcium 9.1, Total Bilirubin 0.90, AST 13 L, ALT 22, Alkaline Phosphatase 72, Total Protein 8.2, Albumin 3.8, Globulin 4.4 H, Albumin/Globulin Ratio 0.9, Lipase 77 10/16/20 20:15: Serum , Qual NEGATIVE 10/16/20 21:25: Urine Color Yellow, Urine Clarity Sl. Cloudy, Urine pH 6.0, Ur Specific Ord 1.010, Urine Protein Negative, Urine Glucose (UA) Normal, Urine Ketones Negative, Urine Occult Blood Negative, Urine Nitrite Negative, Urine Bilirubin Negative, Urine Urobilinogen Normal, Ur Leukocyte Esterase Negative, Urine RBC 0 SEEN, Urine WBC 0 SEEN, Ur Squamous Epith Cells 0-5 SEEN, Urine Bacteria 0 SEEN, Urine Mucus 0 SEEN Current Medications Acetaminophen (Acetaminophen 325 Mg Tablet) 650 mg PO Q6H PRN PRN PRN Reason: fever >100.4 Last Admin: 10/17/20 01:07 Dose: 650 mg Documented by: Albuterol Sulfate (Albuterol 2.5 Mg/3 Ml Vial.Neb.) 2.5 mg INHALATION Q6HWA.RT [facility] Budesonide (Budesonide Respules 0.5 Mg/2 Ml Ampul.Neb.) 0.5 mg INHALATION Q12H.RT [facility] Fluticasone Propionate (Fluticasone 0.05% 1 [place] Nasal.Sry) 1 spray NASAL BID PRN PRN Reason: ALLERGIES Potassium Chloride/Sodium Chloride () 1,000 mls @ 75 mls/hr IV .[id number] [facility] Last Admin: 10/17/20 00:24 Dose: 75 mls/hr Documented by: Metronidazole (Flagyl) 500 mg in 100 mls @ 100 mls/hr IV Q8H [facility] Ceftriaxone Sodium (Rocephin) 1 gm in 50 mls @ 100 mls/hr IV Q24H [facility] Pantoprazole Sodium 40 mg/ (Sodium Chloride) 110 mls @ 330 mls/hr IV Q24 [facility] Sodium Chloride () 250 mls @ 15 mls/hr IV .[id number] PRN PRN Reason: Saline Flush Sodium Chloride () 250 mls @ 15 mls/hr IV .[id number] PRN PRN Reason: Additional IVPB Infusion Morphine Sulfate (Morphine 2 Mg/Ml Syringe) 2 mg IV Q3H PRN PRN PRN Reason: Pain Score 6-10 Last Admin: 10/17/20 01:09 Dose: 2 mg Documented by: Ondansetron HCl (Ondansetron 4 Mg/2 Ml Vial) 4 mg IV Q8H PRN PRN PRN Reason: NAUSEA/VOMITING Sodium Chloride (0.9% Saline Lock 10 Ml Syringe) 10 - 40 ml IV UD PRN PRN Reason: SALINE FLUSH Assessment/Plan All Active Problems (Last Reviewed 10/16/20 @ 23:[address] Jamil Perez MD) Diverticulitis (Acute) Perforation of sigmoid colon due to diverticulitis (Acute) 45-year-old female. Presentation consistent with acute sigmoid diverticulitis with perforation. I have personally reviewed her films and they are rather impressive. There is not an insignificant amount of air along the wall of the colon. Patient is aged 45. Body weight 216 pounds with a BMI of 39. She has had previous abdominal surgery including an open appendectomy with and by patient report incisional dehiscence. I certainly recommend aggressive effort at nonoperative medical management. She has had a recent colonoscopy and we will try to obtain reports from that procedure and pathology. She will not be requiring an update on that investigation. I have encouraged the patient to mobilize and utilize her incentive spirometer. At this point we will continue to hold her on sips and chips of water. I would not advance the diet at this point. Clearly she needs ongoing hospitalization and IV antibiotics. She has multiple drug allergies additionally complicating her medical treatment. I appreciate the opportunity of assisting with her surgical care. She is aware of the potential need for surgical intervention. She is aware that this could require a laparoscopic or open procedure. Could involve a sigmoid colectomy or a Theresa procedure with diverting colostomy. Ideally she will improve and resolved with medical treatment. I believe we need to be cautious in this case that she is at higher risk for developing a pericolonic abscess. If that is a single abscess that could potentially be drained. She is at risk for multiple smaller abscesses. We will follow with you. Brandan Reyes M.D., F.A.C.S.
[2020-10-17] MEDS: metroNIDAZOLE 500 MG/100 ML BAG 100 MG IV ×3 (06:31→21:48)
[2020-10-17 07:14] LABS: Absolute Lymphocyte Count 1.55 X10^3/uL (0.83-4.51); Basophil# 0.03 X10^3/uL; Basophil% 0.3 % (0-1); Eosinophil# 0.06 X10^3/uL; Eosinophils% 0.5 % (0-5); Hematocrit 37.3 % (37-47); Hemoglobin 12.2 g/dL (12.0-15.0); Lymphocyte # 1.55 X10^3/ul (4.0); Lymphocyte % 13.6 % (19-41); Mean Corp Hgb Conc 32.7 g/dL (32-36); Mean Corpuscular Hgb 29.5 pg (27.0-32.0); Mean Corpuscular Volume 90.3 fL (81-99); Mean Platelet Vol. 9.1 fl (6.2-12.0); Monocyte# 0.65 X10^3/uL; Monocyte% 5.7 % (0-10); NRBC Flagged by Analyzer 0 % (0-5); Neutrophil # 9.03 X10^3/uL (2.7-7.7); Neutrophil % 79.5 % (47-70); Platelet Count 270 K/mm3 (150-450); RBC Distribution Width CV 12.8 % (11.6-14.6); RBC Distribution Width SD 42.5 fl (35.1-43.9); Red Blood Count 4.13 M/mm3 (4.2-5.4); White Blood Count 11.4 K/mm3 (4.4-11.0)
[2020-10-17] MEDS: Budesonide Respules 0.5 MG/2 ML AMPUL.NEB. INHALATION ×2 (07:19→18:35)
[2020-10-17] MEDS: Albuterol 2.5 MG/3 ML VIAL.NEB. INHALATION ×3 (07:19→18:34)
[2020-10-17 07:35] LABS: Anion Gap 5 (5-15); BUN 10 mg/dL (7-18); BUN/Creat Ratio 9.9 RATIO (10-20); Calcium,Total 8.4 mg/dL (8.5-10.1); Chloride 106 mmol/L (98-107); Creatinine, Serum 1.01 mg/dL (0.55-1.02); EST Glomerular Filtration Rate 63 mL/min (>60); Est Glom Filt Rate - Afr Amer 76 mL/min (>60); Estimated Creatinine Clearance 55.05 ml/min; Glucose 157 mg/dL (74-106); Potassium 3.8 mmol/L (3.5-5.1); Sodium Level 138 mmol/L (136-145)
--- NOTE | 2020-10-17 08:11 | PCM.PN.HOSP ---
Patient Problems: Active and Suspected Problems (Last Reviewed 10/16/20 @ 23:[address] Jamil Perez MD) Diverticulitis (Acute) Perforation of sigmoid colon due to diverticulitis (Acute) Reason for Visit: Acute sigmoid diverticulitis with microperforation Subjective: Patient is a 45-year-old lady who presented with abdominal pain imaging studies obtained was consistent with acute sigmoid diverticulitis with small perforation with no evidence of fluid collection or abscess started on broad-spectrum antibiotic therapy admitted to regular nursing floor with consultation placed to general surgery Objective: GENERAL: cooperative HEENT: Atraumatic; EYES; Anicteric, Normal Conjunctiva NECK; supple, normal thyroid, RESPIRATORY: Diminished to auscultation CARDIOVASCULAR: Regular S1 S2, GI: soft, normoactive bowel sounds, abdominal tenderness : No Renal angle tenderness; EXTREMITIES: No edema, no clubbing, MUSCULOSKELETAL: no muscle waisting NEURO: Awake; no lateralizing signs. SKIN: No Rash PSYCH; Flat affect Vitals/I&O's: Vital Signs Temp Pulse Resp BP Pulse Ox 99.1 F 93 18 100/59 L 94 10/17/20 06:00 10/17/20 06:00 10/17/20 06:00 10/17/20 06:00 10/17/20 06:00 Oxygen Delivery Method Room Air Weight: 98.1 kg Body Mass Index (BMI) 39.5 Intake and Output for Last 24 Hours 10/15/20 10/16/20 10/17/20 23:59 23:59 23:59 Intake Total 1050 / 1050 200 / 200 Balance 1050 / 1050 200 / 200 Laboratory Results 10/16/20 20:15: WBC 15.1 H, RBC 4.74, Hgb 14.1, Hct 42.4, MCV 89.5, MCH 29.7, MCHC 33.3, RDW Std Deviation 40.6, RDW Coeff of Bebo 12.4, Plt Count 305, MPV 8.9, Immature Gran % (Auto) 0.500, Neut % (Auto) 86.3 H, Lymph % (Auto) 8.1 L, [place] % (Auto) 4.2, Eos % (Auto) 0.7, Baso % (Auto) 0.2, Absolute Neuts (auto) 13.0 H, Absolute Lymphs (auto) 1.22, Nucleated RBC % 0 10/16/20 20:15: Sodium 138, Potassium 4.0, Chloride 104, Carbon Dioxide 27.0, Anion Gap 7, BUN 14, Creatinine 1.00, Estim Creat Clear Calc 55.60, Est GFR (MDRD) Af Amer 77, Est GFR (MDRD) Non-Af 64, BUN/Creatinine Ratio 14.0, Glucose 135 H, Calcium 9.1, Total Bilirubin 0.90, AST 13 L, ALT 22, Alkaline Phosphatase 72, Total Protein 8.2, Albumin 3.8, Globulin 4.4 H, Albumin/Globulin Ratio 0.9, Lipase 77 10/16/20 20:15: Serum , Qual NEGATIVE 10/16/20 21:25: Urine Color Yellow, Urine Clarity Sl. Cloudy, Urine pH 6.0, Ur Specific [place] 1.010, Urine Protein Negative, Urine Glucose (UA) Normal, Urine Ketones Negative, Urine Occult Blood Negative, Urine Nitrite Negative, Urine Bilirubin Negative, Urine Urobilinogen Normal, Ur Leukocyte Esterase Negative, Urine RBC 0 SEEN, Urine WBC 0 SEEN, Ur Squamous Epith Cells 0-5 SEEN, Urine Bacteria 0 SEEN, Urine Mucus 0 SEEN 10/17/20 06:26: WBC 11.4 H, RBC 4.13 L, Hgb 12.2, Hct 37.3, MCV 90.3, MCH 29.5, MCHC 32.7, RDW Std Deviation 42.5, RDW Coeff of Bebo 12.8, Plt Count 270, MPV 9.1, Immature Gran % (Auto) 0.400, Neut % (Auto) 79.5 H, Lymph % (Auto) 13.6 L, [place] % (Auto) 5.7, Eos % (Auto) 0.5, Baso % (Auto) 0.3, Absolute Neuts (auto) 9.0 H, Absolute Lymphs (auto) 1.55, Nucleated RBC % 0 10/17/20 06:26: Sodium 138, Potassium 3.8, Chloride 106, Carbon Dioxide 27.0, Anion Gap 5, BUN 10, Creatinine 1.01, Estim Creat Clear Calc 55.05, Est GFR (MDRD) Af Amer 76, Est GFR (MDRD) Non-Af 63, BUN/Creatinine Ratio 9.9 L, Glucose 157 H, Calcium 8.4 L Current Medications Acetaminophen (Acetaminophen 325 Mg Tablet) 650 mg PO Q6H PRN PRN PRN Reason: fever >100.4 Last Admin: 10/17/20 01:07 Dose: 650 mg Documented by: Albuterol Sulfate (Albuterol 2.5 Mg/3 Ml Vial.Neb.) 2.5 mg INHALATION Q6HWA.RT [facility] Last Admin: 10/17/20 07:19 Dose: 2.5 mg Documented by: Budesonide (Budesonide Respules 0.5 Mg/2 Ml Ampul.Neb.) 0.5 mg INHALATION Q12H.RT [facility] Last Admin: 10/17/20 07:19 Dose: 0.5 mg Documented by: Fluticasone Propionate (Fluticasone 0.05% 1 [place] Nasal.Sry) 1 spray NASAL BID PRN PRN Reason: ALLERGIES Potassium Chloride/Sodium Chloride () 1,000 mls @ 75 mls/hr IV .[id number] [facility] Last Admin: 10/17/20 00:24 Dose: 75 mls/hr Documented by: Metronidazole (Flagyl) 500 mg in 100 mls @ 100 mls/hr IV Q8H [facility] Last Infusion: 10/17/20 07:31 Dose: Infused Documented by: Ceftriaxone Sodium (Rocephin) 1 gm in 50 mls @ 100 mls/hr IV Q24H [facility] Pantoprazole Sodium 40 mg/ (Sodium Chloride) 110 mls @ 330 mls/hr IV Q24 CARLOS Sodium Chloride () 250 mls @ 15 mls/hr IV .[id number] PRN PRN Reason: Saline Flush Sodium Chloride () 250 mls @ 15 mls/hr IV .[id number] PRN PRN Reason: Additional IVPB Infusion Morphine Sulfate (Morphine 2 Mg/Ml Syringe) 2 mg IV Q3H PRN PRN PRN Reason: Pain Score 6-10 Last Admin: 10/17/20 06:27 Dose: 2 mg Documented by: Ondansetron HCl (Ondansetron 4 Mg/2 Ml Vial) 4 mg IV Q8H PRN PRN PRN Reason: NAUSEA/VOMITING Sodium Chloride (0.9% Saline Lock 10 Ml Syringe) 10 - 40 ml IV UD PRN PRN Reason: SALINE FLUSH STROKE Vital Signs/Narrative: Vital Signs Temp Pulse Resp BP Pulse Ox 10/17/20 06:00 99.1 F 93 18 100/59 L 94 Medical Necessity - Tobacco Use Smoking Status: Never smoker Assessment/Plan All Active Problems (Last Reviewed 10/16/20 @ 23:[address] Jamil Perez MD) Diverticulitis (Acute) Perforation of sigmoid colon due to diverticulitis (Acute) Patient is a 45-year-old lady who presented with abdominal pain imaging studies obtained was consistent with acute sigmoid diverticulitis with small perforation with no evidence of fluid collection or abscess started on broad-spectrum antibiotic therapy admitted to regular nursing floor with consultation placed to general surgery 1. Acute sigmoid diverticulitis with microperforation ?Admitted to regular nursing floor started on hospital antibiotic therapy, IV fluids, pain medications, consult was placed to general surgery patient has been seen by Dr. Brandan Reyes his notes and recommendations reviewed 2. GERD ?Patient is on PPI 3. Hypothyroidism - Patient is on levothyroxine home dose continued 4. Allergic rhinitis ?Patient is on fluticasone did continue 5. Obstructive sleep apnea ?Patient is on CPAP at night 6. Morbid obesity with BMI of 39.6 ?Weight loss advised 7. DVT prophylaxis ?Lovenox Inpatient E&M: [id number] [facility] L3
[2020-10-17] MEDS: 0.9% Saline Lock 10 ML Syringe IV ×3 (10:05→18:00)
[2020-10-17] MEDS: Enoxaparin 40 MG/0.4 ML Syringe SC (10:06)
--- NOTE | 2020-10-17 11:50 | CASEMGMT ---
RN CM CHINA PAINTER CM to room to meet with patient for initial transition planning/care coordination assessment. RN ABRAHAM introduced self and role at [facility]. Pt voices understanding and consents to assessment at this time. Pt resting in bed in no distress at this time. Pt is A/O at this time and answers all questions appropriately. Care providers, pharmacy, and demographics verified/updated at this time. PCP: Dr Smith Specialists: Dr Bojorquez--GI, Dr Gonzalez--pulmonology, Dr Drummond--ENT Preferred Pharmacy: [facility] Insurance: [place] Prescription Benefit: Yes Living Will/HPOA: States does not have LW or HCPOA . Interested in more information but states does not want to talk with SW at this time to complete paperwork. Provided information on advanced directives and given Social Service rac card with number to call if chooses in the future to utilize [facility] social work for advanced directive completion. LNOK: , [place] Living Arrangements: Lives w/her and 11-yr-old daughter. Independent Transportation: Pt states drives self and states no transportation concerns at this time. DME: States has the following DME: CP)AP, nebulizer Pt states no need for further DME at this time. Pt wishes to return home and states has no concerns with going home at time of discharge. CM to follow for any discharge planning/needs. Pt voices no concerns/needs at this time. Advised pt to ask for CM if any questions/concerns/needs arise. Voices understanding. PLAN: Home Fouzia RAMIREZ RN, CM
--- NOTE | 2020-10-17 14:33 | PCM.PN.BLA ---
Progress Note Spoke with Dr. Childers in regards to appropriate antibiotic dosing. It was recommend to increase Rocephin to 2 gm every [address] Reyes patient to have an additional 1 gm now due to under dosing. STROKE Vital Signs/Narrative: Vital Signs Temp Pulse Resp BP Pulse Ox 10/17/20 12:58 79 16 10/17/20 10:52 98.7 F 102 H 18 98/61 95
[2020-10-17] MEDS: Ceftriaxone 1 GM/50 ML BAG IV (15:43)
[2020-10-18] VITALS (8 sets, daily range): BP systolic 101–119; BP diastolic 59–76; PULSE 88–111; RESP 16–20; TEMP 37–38.4; O2SAT 94–98
--- NOTE | 2020-10-18 05:53 | PN.SURG_ITS ---
Patient Problems: Active and Suspected Problems (Last Reviewed 10/16/20 @ 23:[address] Jamil Perez MD) Diverticulitis (Acute) Perforation of sigmoid colon due to diverticulitis (Acute) Subjective: Patient was soundly asleep. She is feeling some better but still is quite uncomfortable particularly with movement and walking. She has had some flatus no stool. Persistent fever to 100 was noted still yesterday. - Physical Exam Vitals/I&O's: Vital Signs Temp Pulse Resp BP Pulse Ox 99.0 F 102 H 18 103/61 94 10/18/20 03:00 10/18/20 03:00 10/18/20 03:00 10/18/20 03:00 10/18/20 03:00 Oxygen Delivery Method Room Air Weight: 216 lb 4.375 oz Body Mass Index (BMI) 39.5 Intake and Output for Last 24 Hours 10/16/20 10/17/20 10/18/20 23:59 23:59 23:59 Intake Total 1050 / 1050 2078.75 / 2128.75 50 / 50 Output Total 1150 / 1150 Balance 1050 / 1050 928.75 / 978.75 50 / 50 Abdomen: Bowel Sounds Present - Tender to palpation right and left lower quadrant. Guarding persistently noted left lower quadrant., Soft Microbiology Past 72 Hours 10/17/20 10:15 Mucosa - Nose SARS-CoV-2 Antigen (Rapid) - Final Laboratory Results 10/17/20 06:26: WBC 11.4 H, RBC 4.13 L, Hgb 12.2, Hct 37.3, MCV 90.3, MCH 29.5, MCHC 32.7, RDW Std Deviation 42.5, RDW Coeff of Bebo 12.8, Plt Count 270, MPV 9.1, Immature Gran % (Auto) 0.400, Neut % (Auto) 79.5 H, Lymph % (Auto) 13.6 L, [place] % (Auto) 5.7, Eos % (Auto) 0.5, Baso % (Auto) 0.3, Absolute Neuts (auto) 9.0 H, Absolute Lymphs (auto) 1.55, Nucleated RBC % 0 10/17/20 06:26: Sodium 138, Potassium 3.8, Chloride 106, Carbon Dioxide 27.0, Anion Gap 5, BUN 10, Creatinine 1.01, Estim Creat Clear Calc 55.05, Est GFR (MDRD) Af Amer 76, Est GFR (MDRD) Non-Af 63, BUN/Creatinine Ratio 9.9 L, Glucose 157 H, Calcium 8.4 L Current Medications Acetaminophen (Acetaminophen 325 Mg Tablet) 650 mg PO Q6H PRN PRN PRN Reason: fever >100.4 Last Admin: 10/17/20 01:07 Dose: 650 mg Documented by: Albuterol Sulfate (Albuterol 2.5 Mg/3 Ml Vial.Neb.) 2.5 mg INHALATION Q6HWA.RT [facility] Last Admin: 10/17/20 18:34 Dose: 2.5 mg Documented by: Budesonide (Budesonide Respules 0.5 Mg/2 Ml Ampul.Neb.) 0.5 mg INHALATION Q12H.RT [facility] Last Admin: 10/17/20 18:35 Dose: 0.5 mg Documented by: Enoxaparin Sodium (Enoxaparin 40 Mg/0.4 Ml Syringe) 40 mg SC DAILY [facility] Last Admin: 10/17/20 10:06 Dose: 40 mg Documented by: Fluticasone Propionate (Fluticasone 0.05% 1 [place] Nasal.Sry) 1 spray NASAL BID PRN PRN Reason: ALLERGIES Potassium Chloride/Sodium Chloride () 1,000 mls @ 75 mls/hr IV .[id number] [facility] Last Infusion: 10/17/20 22:48 Dose: 75 mls/hr Documented by: Metronidazole (Flagyl) 500 mg in 100 mls @ 100 mls/hr IV Q8H [facility] Last Infusion: 10/17/20 22:48 Dose: Infused Documented by: Pantoprazole Sodium 40 mg/ (Sodium Chloride) 110 mls @ 330 mls/hr IV Q24 [facility] Last Infusion: 10/17/20 10:25 Dose: Infused Documented by: Sodium Chloride () 250 mls @ 15 mls/hr IV .[id number] PRN PRN Reason: Saline Flush Sodium Chloride () 250 mls @ 15 mls/hr IV .[id number] PRN PRN Reason: Additional IVPB Infusion Sodium Chloride () 250 mls @ 15 mls/hr IV .[id number] PRN PRN Reason: Saline Flush Sodium Chloride () 250 mls @ 15 mls/hr IV .[id number] PRN PRN Reason: Additional IVPB Infusion Ceftriaxone Sodium 2 gm/ (Sodium Chloride) 50 mls @ 100 mls/hr IV Q24H [facility] Last Infusion: 10/17/20 21:43 Dose: Infused Documented by: Morphine Sulfate (Morphine 2 Mg/Ml Syringe) 2 mg IV Q3H PRN PRN PRN Reason: Pain Score 6-10 Last Admin: 10/17/20 23:59 Dose: 2 mg Documented by: Ondansetron HCl (Ondansetron 4 Mg/2 Ml Vial) 4 mg IV Q8H PRN PRN PRN Reason: NAUSEA/VOMITING Sodium Chloride (0.9% Saline Lock 10 Ml Syringe) 10 - 40 ml IV UD PRN PRN Reason: SALINE FLUSH Last Admin: 10/17/20 18:00 Dose: 10 ml Documented by: Medical Necessity - Tobacco Use Smoking Status: Never smoker Assessment/Plan All Active Problems (Last Reviewed 10/16/20 @ 23:[address] Jamil Perez MD) Diverticulitis (Acute) Perforation of sigmoid colon due to diverticulitis (Acute) Patient with a complicated sigmoid diverticulitis with perforation and extensive pericolonic air although without free perforation. Persistent tenderness. Persistent intermittent fever. She is currently strictly n.p.o. except water and ice. I will await current laboratory. She might be allowed minimal sips of clears. She clearly is persistently symptomatic. She will require ongoing medical care and intravenous antibiotics. She is still at significant risk for abscess formation or requirement for surgical intervention. Brandan Reyes M.D., F.A.C.S. Leukocytosis and left shift persist. We will allow minimal sips of clears. No carbonation
[2020-10-18] MEDS: metroNIDAZOLE 500 MG/100 ML BAG 100 MG IV ×3 (06:09→22:24)
[2020-10-18] MEDS: Morphine 2 MG/ML Syringe IV ×3 (06:14→15:51)
[2020-10-18] MEDS: Albuterol 2.5 MG/3 ML VIAL.NEB. INHALATION ×3 (07:09→19:57)
[2020-10-18] MEDS: Budesonide Respules 0.5 MG/2 ML AMPUL.NEB. INHALATION ×2 (07:09→19:57)
[2020-10-18 07:22] LABS: Absolute Lymphocyte Count 1.17 X10^3/uL (0.83-4.51); Absolute Neutrophil Count 9.1 X10^3/uL (2.0-7.7); Basophil# 0.02 X10^3/uL; Basophil% 0.2 % (0-1); Eosinophil# 0.21 X10^3/uL; Eosinophils% 1.9 % (0-5); Hematocrit 37.2 % (37-47); Hemoglobin 11.7 g/dL (12.0-15.0); Lymphocyte # 1.17 X10^3/ul (4.0); Lymphocyte % 10.6 % (19-41); Mean Corp Hgb Conc 31.5 g/dL (32-36); Mean Corpuscular Hgb 28.9 pg (27.0-32.0); Mean Corpuscular Volume 91.9 fL (81-99); Mean Platelet Vol. 8.9 fl (6.2-12.0); Monocyte% 5.4 % (0-10); NRBC Flagged by Analyzer 0 % (0-5); Neutrophil # 9.05 X10^3/uL (2.7-7.7); Neutrophil % 81.6 % (47-70); Platelet Count 258 K/mm3 (150-450); RBC Distribution Width CV 12.8 % (11.6-14.6); Red Blood Count 4.05 M/mm3 (4.2-5.4); White Blood Count 11.1 K/mm3 (4.4-11.0)
[2020-10-18 07:54] LABS: Anion Gap 6 (5-15); BUN 7 mg/dL (7-18); BUN/Creat Ratio 7.7 RATIO (10-20); Calcium,Total 8.7 mg/dL (8.5-10.1); Chloride 105 mmol/L (98-107); Creatinine, Serum 0.91 mg/dL (0.55-1.02); EST Glomerular Filtration Rate 71 mL/min (>60); Est Glom Filt Rate - Afr Amer 85 mL/min (>60); Glucose 140 mg/dL (74-106); Magnesium 2.1 mg/dL (1.6-2.6); Potassium 4.1 mmol/L (3.5-5.1); Sodium Level 136 mmol/L (136-145)
--- NOTE | 2020-10-18 08:25 | PN_ITS ---
Patient Problems: Active and Suspected Problems (Last Reviewed 10/16/20 @ 23:[address] Jamil Perez MD) Diverticulitis (Acute) Perforation of sigmoid colon due to diverticulitis (Acute) Reason for Visit: Acute diverticulitis with microperforation Subjective: Patient is a 45-year-old lady who presented with abdominal pain imaging studies obtained was consistent with acute sigmoid diverticulitis with small perforation with no evidence of fluid collection or abscess started on broad-spectrum antibi otic therapy admitted to regular nursing floor with consultation placed to general surgery 10/18/2020. Patient seen still complains of lower abdominal pain admitted to have not passed gas and bowel movement. Patient still remains n.p.o. and on broad-spectrum antibiotics Objective: GENERAL: cooperative HEENT: Atraumatic; EYES; Anicteric, Normal Conjunctiva NECK; supple, normal thyroid, RESPIRATORY: Diminished to auscultation CARDIOVASCULAR: Regular S1 S2, GI: soft, normoactive bowel sounds, abdominal tenderness : No Renal angle tenderness; EXTREMITIES: No edema, no clubbing, MUSCULOSKELETAL: no muscle waisting NEURO: Awake; no lateralizing signs. SKIN: No Rash PSYCH; Flat affect Vitals/I&O's: Vital Signs Temp Pulse Resp BP Pulse Ox 99.0 F 88 20 H 103/61 98 10/18/20 03:00 10/18/20 07:09 10/18/20 07:09 10/18/20 03:00 10/18/20 07:09 Oxygen Delivery Method Room Air Weight: 98.1 kg Body Mass Index (BMI) 39.5 Intake and Output for Last 24 Hours 10/16/20 10/17/20 10/18/20 23:59 23:59 23:59 Intake Total 1050 / 1050 2078.75 / 2128.75 731.25 / 731.25 Output Total 1150 / 1150 Balance 1050 / 1050 928.75 / 978.75 731.25 / 731.25 Microbiology Past 72 Hours 10/17/20 10:15 Mucosa - Nose SARS-CoV-2 Antigen (Rapid) - Final Laboratory Results 10/18/20 06:59: WBC 11.1 H, RBC 4.05 L, Hgb 11.7 L, Hct 37.2, MCV 91.9, MCH 28.9, MCHC 31.5 L, RDW Std Deviation 43.0, RDW Coeff of Bebo 12.8, Plt Count 258, MPV 8.9, Immature Gran % (Auto) 0.300, Neut % (Auto) 81.6 H, Lymph % (Auto) 10.6 L, [place] % (Auto) 5.4, Eos % (Auto) 1.9, Baso % (Auto) 0.2, Absolute Neuts (auto) 9.1 H, Absolute Lymphs (auto) 1.17, Nucleated RBC % 0 10/18/20 06:59: Sodium 136, Potassium 4.1, Chloride 105, Carbon Dioxide 25.0, Anion Gap 6, BUN 7, Creatinine 0.91, Estim Creat Clear Calc 61.10, Est GFR (MDRD) Af Amer 85, Est GFR (MDRD) Non-Af 71, BUN/Creatinine Ratio 7.7 L, Glucose 140 H, Calcium 8.7, Magnesium 2.1 Current Medications Acetaminophen (Acetaminophen 325 Mg Tablet) 650 mg PO Q6H PRN PRN PRN Reason: fever >100.4 Last Admin: 10/17/20 01:07 Dose: 650 mg Documented by: Albuterol Sulfate (Albuterol 2.5 Mg/3 Ml Vial.Neb.) 2.5 mg INHALATION Q6HWA.RT [facility] Last Admin: 10/18/20 07:09 Dose: 2.5 mg Documented by: Budesonide (Budesonide Respules 0.5 Mg/2 Ml Ampul.Neb.) 0.5 mg INHALATION Q12H.RT [facility] Last Admin: 10/18/20 07:09 Dose: 0.5 mg Documented by: Enoxaparin Sodium (Enoxaparin 40 Mg/0.4 Ml Syringe) 40 mg SC DAILY [facility] Last Admin: 10/17/20 10:06 Dose: 40 mg Documented by: Fluticasone Propionate (Fluticasone 0.05% 1 [place] Nasal.Sry) 1 spray NASAL BID PRN PRN Reason: ALLERGIES Potassium Chloride/Sodium Chloride () 1,000 mls @ 75 mls/hr IV .[id number] [facility] Last Admin: 10/18/20 06:09 Dose: 75 mls/hr Documented by: Metronidazole (Flagyl) 500 mg in 100 mls @ 100 mls/hr IV Q8H [facility] Last Infusion: 10/18/20 07:09 Dose: Infused Documented by: Pantoprazole Sodium 40 mg/ (Sodium Chloride) 110 mls @ 330 mls/hr IV Q24 [facility] Last Infusion: 10/17/20 10:25 Dose: Infused Documented by: Sodium Chloride () 250 mls @ 15 mls/hr IV .[id number] PRN PRN Reason: Saline Flush Sodium Chloride () 250 mls @ 15 mls/hr IV .[id number] PRN PRN Reason: Additional IVPB Infusion Sodium Chloride () 250 mls @ 15 mls/hr IV .[id number] PRN PRN Reason: Saline Flush Sodium Chloride () 250 mls @ 15 mls/hr IV .[id number] PRN PRN Reason: Additional IVPB Infusion Ceftriaxone Sodium 2 gm/ (Sodium Chloride) 50 mls @ 100 mls/hr IV Q24H [facility] Last Infusion: 10/17/20 21:43 Dose: Infused Documented by: Morphine Sulfate (Morphine 2 Mg/Ml Syringe) 2 mg IV Q3H PRN PRN PRN Reason: Pain Score 6-10 Last Admin: 10/18/20 06:14 Dose: 2 mg Documented by: Ondansetron HCl (Ondansetron 4 Mg/2 Ml Vial) 4 mg IV Q8H PRN PRN PRN Reason: NAUSEA/VOMITING Sodium Chloride (0.9% Saline Lock 10 Ml Syringe) 10 - 40 ml IV UD PRN PRN Reason: SALINE FLUSH Last Admin: 10/17/20 18:00 Dose: 10 ml Documented by: STROKE Vital Signs/Narrative: Vital Signs Pulse Resp Pulse Ox 10/18/20 07:09 88 20 H 98 Medical Necessity - Tobacco Use Smoking Status: Never smoker Assessment/Plan All Active Problems (Last Reviewed 10/16/20 @ 23:[address] Jamil Perez MD) Diverticulitis (Acute) Perforation of sigmoid colon due to diverticulitis (Acute) Patient is a 45-year-old lady who presented with abdominal pain imaging studies obtained was consistent with acute sigmoid diverticulitis with small perforation with no evidence of fluid collection or abscess started on broad-spectrum antibiotic therapy admitted to regular nursing floor with consultation placed to general surgery 1. Acute sigmoid diverticulitis with microperforation ?Admitted to regular nursing floor started on hospital antibiotic therapy, IV fluids, pain medications, consult was placed to general surgery patient has been seen by Dr. Brandan Reyes his notes and recommendations reviewed - 10/18/2020. Patient seen still complains of lower abdominal pain admitted to have not passed gas and bowel movement. Patient still remains n.p.o. and on broad-spectrum antibiotics 2. GERD ?Patient is on PPI 3. Hypothyroidism - Patient is on levothyroxine home dose continued 4. Allergic rhinitis ?Patient is on fluticasone did continue 5. Obstructive sleep apnea ?Patient is on CPAP at night 6. Morbid obesity with BMI of 39.6 ?Weight loss advised 7. DVT prophylaxis ?[facility] Inpatient E&M: [id number] [facility] H[facility] L2
[2020-10-18] MEDS: Enoxaparin 40 MG/0.4 ML Syringe SC (09:35)
[2020-10-18] MEDS: 0.9% Saline Lock 10 ML Syringe IV ×2 (09:48→15:53)
--- NOTE | 2020-10-18 20:12 | PCS.PANDOC ---
PANDEMIC DOCUMENTATION INITIATED: Date: 10/18/20 Time: 1904
[2020-10-18] MEDS: Acetaminophen 325 MG Tablet 650 MG PO (20:50)
[2020-10-19] VITALS (7 sets, daily range): BP systolic 105–129; BP diastolic 70–96; PULSE 86–106; RESP 18–20; TEMP 36.9–37.3; O2SAT 96–99
--- NOTE | 2020-10-19 06:24 | PN.SURG_ITS ---
Patient Problems: Active and Suspected Problems (Last Reviewed 10/16/20 @ 23:[address] Jamil Perez MD) Diverticulitis (Acute) Perforation of sigmoid colon due to diverticulitis (Acute) Subjective: Patient noted that when she was walking yesterday evening she had some increased pain and just was not feeling well. She has been having some loose stools. Temperature slightly elevated last night to 99.6. She generally claims that her abdominal pain is better. - Physical Exam Vitals/I&O's: Vital Signs Temp Pulse Resp BP Pulse Ox 98.6 F 91 18 107/70 96 10/19/20 03:20 10/19/20 03:20 10/19/20 03:20 10/19/20 03:20 10/19/20 03:20 Oxygen Delivery Method Room Air Weight: 216 lb 4.375 oz Body Mass Index (BMI) 39.5 Intake and Output for Last 24 Hours 10/17/20 10/18/20 10/19/20 23:59 23:59 23:59 Intake Total 2078.75 / 2128.75 2820.00 / 2820.00 Output Total 1150 / 1150 1500 / 1500 Balance 928.75 / 978.75 1320.00 / 1320.00 Abdomen: - - Persistent mild tenderness right lower quadrant with persistent focal tenderness left lower quadrant with persistent guarding Microbiology Past 72 Hours 10/17/20 10:15 Mucosa - Nose SARS-CoV-2 Antigen (Rapid) - Final Laboratory Results 10/18/20 06:59: WBC 11.1 H, RBC 4.05 L, Hgb 11.7 L, Hct 37.2, MCV 91.9, MCH 28.9, MCHC 31.5 L, RDW Std Deviation 43.0, RDW Coeff of Bebo 12.8, Plt Count 258, MPV 8.9, Immature Gran % (Auto) 0.300, Neut % (Auto) 81.6 H, Lymph % (Auto) 10.6 L, [place] % (Auto) 5.4, Eos % (Auto) 1.9, Baso % (Auto) 0.2, Absolute Neuts (auto) 9.1 H, Absolute Lymphs (auto) 1.17, Nucleated RBC % 0 10/18/20 06:59: Sodium 136, Potassium 4.1, Chloride 105, Carbon Dioxide 25.0, Anion Gap 6, BUN 7, Creatinine 0.91, Estim Creat Clear Calc 61.10, Est GFR (MDRD) Af Amer 85, Est GFR (MDRD) Non-Af 71, BUN/Creatinine Ratio 7.7 L, Glucose 140 H, Calcium 8.7, Magnesium 2.1 Current Medications Acetaminophen (Acetaminophen 325 Mg Tablet) 650 mg PO Q6H PRN PRN PRN Reason: fever >100.4 Last Admin: 10/18/20 20:50 Dose: 650 mg Documented by: Albuterol Sulfate (Albuterol 2.5 Mg/3 Ml Vial.Neb.) 2.5 mg INHALATION Q6HWA.RT [facility] Last Admin: 10/18/20 19:57 Dose: 2.5 mg Documented by: Budesonide (Budesonide Respules 0.5 Mg/2 Ml Ampul.Neb.) 0.5 mg INHALATION Q12H.RT [facility] Last Admin: 10/18/20 19:57 Dose: 0.5 mg Documented by: Enoxaparin Sodium (Enoxaparin 40 Mg/0.4 Ml Syringe) 40 mg SC DAILY [facility] Last Admin: 10/18/20 09:35 Dose: 40 mg Documented by: Fluticasone Propionate (Fluticasone 0.05% 1 [place] Nasal.Sry) 1 spray NASAL BID PRN PRN Reason: ALLERGIES Potassium Chloride/Sodium Chloride () 1,000 mls @ 75 mls/hr IV .[id number] [facility] Last Admin: 10/18/20 19:04 Dose: 75 mls/hr Documented by: Metronidazole (Flagyl) 500 mg in 100 mls @ 100 mls/hr IV Q8H [facility] Last Infusion: 10/18/20 23:35 Dose: Infused Documented by: Pantoprazole Sodium 40 mg/ (Sodium Chloride) 110 mls @ 330 mls/hr IV Q24 [facility] Last Infusion: 10/18/20 09:54 Dose: Infused Documented by: Sodium Chloride () 250 mls @ 15 mls/hr IV .[id number] PRN PRN Reason: Saline Flush Sodium Chloride () 250 mls @ 15 mls/hr IV .[id number] PRN PRN Reason: Additional IVPB Infusion Sodium Chloride () 250 mls @ 15 mls/hr IV .[id number] PRN PRN Reason: Saline Flush Sodium Chloride () 250 mls @ 15 mls/hr IV .[id number] PRN PRN Reason: Additional IVPB Infusion Ceftriaxone Sodium 2 gm/ (Sodium Chloride) 50 mls @ 100 mls/hr IV Q24H [facility] Last Infusion: 10/18/20 22:00 Dose: Infused Documented by: Morphine Sulfate (Morphine 2 Mg/Ml Syringe) 2 mg IV Q3H PRN PRN PRN Reason: Pain Score 6-10 Last Admin: 10/18/20 15:51 Dose: 2 mg Documented by: Ondansetron HCl (Ondansetron 4 Mg/2 Ml Vial) 4 mg IV Q8H PRN PRN PRN Reason: NAUSEA/VOMITING Sodium Chloride (0.9% Saline Lock 10 Ml Syringe) 10 - 40 ml IV UD PRN PRN Reason: SALINE FLUSH Last Admin: 10/18/20 15:53 Dose: 10 ml Documented by: Medical Necessity - Tobacco Use Smoking Status: Never smoker Assessment/Plan All Active Problems (Last Reviewed 10/16/20 @ 23:[address] Jamil Perez MD) Diverticulitis (Acute) Perforation of sigmoid colon due to diverticulitis (Acute) With the slight cyclical evening fever I am suspicious about an evolving abscess. I will plan a CT scan of the pelvis tomorrow. I have contacted CT and tentatively arrange for possible CT scan guided drainage of the abscess on Wednesday. If a multifocal abscess is identified and not treatable by CT drainage then I have discussed with the patient anticipation for a sigmoid colectomy on Wednesday. She is encouraged to remain mobilized. We will allow clear liquids and I will keep the patient n.p.o. after midnight on Wednesday. I will allow further time to evolve so as to hopefully better distinguish phlegmon from an abscess and will hold the CAT scan till tomorrow so that then more definitive plans can be made for Wednesday. Brandan Reyes M.D., F.A.C.S.
[2020-10-19] MEDS: metroNIDAZOLE 500 MG/100 ML BAG 100 MG IV ×3 (06:34→21:43)
[2020-10-19] MEDS: Albuterol 2.5 MG/3 ML VIAL.NEB. INHALATION ×2 (06:50→18:49)
[2020-10-19] MEDS: Budesonide Respules 0.5 MG/2 ML AMPUL.NEB. INHALATION ×2 (06:51→18:49)
[2020-10-19 07:12] LABS: Absolute Lymphocyte Count 0.86 X10^3/uL (0.83-4.51); Absolute Neutrophil Count 5.8 X10^3/uL (2.0-7.7); Basophil# 0.01 X10^3/uL; Basophil% 0.1 % (0-1); Eosinophil# 0.24 X10^3/uL; Eosinophils% 3.2 % (0-5); Hematocrit 36.6 % (37-47); Hemoglobin 11.8 g/dL (12.0-15.0); Lymphocyte # 0.86 X10^3/ul (4.0); Lymphocyte % 11.6 % (19-41); Mean Corp Hgb Conc 32.2 g/dL (32-36); Mean Corpuscular Hgb 29.5 pg (27.0-32.0); Mean Corpuscular Volume 91.5 fL (81-99); Mean Platelet Vol. 9.1 fl (6.2-12.0); Monocyte# 0.49 X10^3/uL; Monocyte% 6.6 % (0-10); NRBC Flagged by Analyzer 0 % (0-5); Neutrophil # 5.78 X10^3/uL (2.7-7.7); Neutrophil % 78.1 % (47-70); Platelet Count 243 K/mm3 (150-450); RBC Distribution Width CV 12.7 % (11.6-14.6); RBC Distribution Width SD 42.5 fl (35.1-43.9); White Blood Count 7.4 K/mm3 (4.4-11.0)
[2020-10-19 07:43] LABS: Anion Gap 4 (5-15); BUN 6 mg/dL (7-18); BUN/Creat Ratio 7.1 RATIO (10-20); Calcium,Total 8.8 mg/dL (8.5-10.1); Chloride 107 mmol/L (98-107); Creatinine, Serum 0.85 mg/dL (0.55-1.02); EST Glomerular Filtration Rate 76 mL/min (>60); Est Glom Filt Rate - Afr Amer 93 mL/min (>60); Estimated Creatinine Clearance 65.41 ml/min; Glucose 119 mg/dL (74-106); Potassium 4.1 mmol/L (3.5-5.1); Sodium Level 137 mmol/L (136-145)
--- NOTE | 2020-10-19 07:44 | PCM.PN.HOSP ---
Patient Problems: Active and Suspected Problems (Last Reviewed 10/16/20 @ 23:[address] Jamil Perez MD) Diverticulitis (Acute) Perforation of sigmoid colon due to diverticulitis (Acute) Reason for Visit: Acute sigmoid diverticulitis Subjective: Patient seen has intermittent pain. Has been seen by Dr. Reyes who ordered CT of the abdomen and pelvis for subsequent evaluation. Patient may either undergo CT-guided drainage or sigmoid electively based on findings on CT Objective: GENERAL: cooperative HEENT: Atraumatic; EYES; Anicteric, Normal Conjunctiva NECK; supple, normal thyroid, RESPIRATORY: Diminished to auscultation CARDIOVASCULAR: Regular S1 S2, GI: soft, normoactive bowel sounds, abdominal tenderness : No Renal angle tenderness; EXTREMITIES: No edema, no clubbing, MUSCULOSKELETAL: no muscle waisting NEURO: Awake; no lateralizing signs. SKIN: No Rash PSYCH; Flat affect Vitals/I&O's: Vital Signs Temp Pulse Resp BP Pulse Ox 98.6 F 100 20 H 107/70 96 10/19/20 03:20 10/19/20 07:23 10/19/20 07:23 10/19/20 03:20 10/19/20 03:20 Oxygen Delivery Method Room Air Weight: 98.1 kg Body Mass Index (BMI) 39.5 Intake and Output for Last 24 Hours 10/17/20 10/18/20 10/19/20 23:59 23:59 23:59 Intake Total 2078.75 / 2128.75 2820.00 / 2820.00 991.25 / 991.25 Output Total 1150 / 1150 1500 / 1500 325 / 325 Balance 928.75 / 978.75 1320.00 / 1320.00 666.25 / 666.25 Microbiology Past 72 Hours 10/17/20 10:15 Mucosa - Nose SARS-CoV-2 Antigen (Rapid) - Final Laboratory Results 10/18/20 06:59: Sodium 136, Potassium 4.1, Chloride 105, Carbon Dioxide 25.0, Anion Gap 6, BUN 7, Creatinine 0.91, Estim Creat Clear Calc 61.10, Est GFR (MDRD) Af Amer 85, Est GFR (MDRD) Non-Af 71, BUN/Creatinine Ratio 7.7 L, Glucose 140 H, Calcium 8.7, Magnesium 2.1 10/19/20 06:40: WBC 7.4, RBC 4.00 L, Hgb 11.8 L, Hct 36.6 L, MCV 91.5, MCH 29.5, MCHC 32.2, RDW Std Deviation 42.5, RDW Coeff of Bebo 12.7, Plt Count 243, MPV 9.1, Immature Gran % (Auto) 0.400, Neut % (Auto) 78.1 H, Lymph % (Auto) 11.6 L, [place] % (Auto) 6.6, Eos % (Auto) 3.2, Baso % (Auto) 0.1, Absolute Neuts (auto) 5.8, Absolute Lymphs (auto) 0.86, Nucleated RBC % 0 10/19/20 06:40: Sodium 137, Potassium 4.1, Chloride 107, Carbon Dioxide 26.0, Anion Gap 4 L, BUN 6 L, Creatinine 0.85, Estim Creat Clear Calc 65.41, Est GFR (MDRD) Af Amer 93, Est GFR (MDRD) Non-Af 76, BUN/Creatinine Ratio 7.1 L, Glucose 119 H, Calcium 8.8 Current Medications Acetaminophen (Acetaminophen 325 Mg Tablet) 650 mg PO Q6H PRN PRN PRN Reason: fever >100.4 Last Admin: 10/18/20 20:50 Dose: 650 mg Documented by: Albuterol Sulfate (Albuterol 2.5 Mg/3 Ml Vial.Neb.) 2.5 mg INHALATION Q6HWA.RT [facility] Last Admin: 10/19/20 06:50 Dose: 2.5 mg Documented by: Budesonide (Budesonide Respules 0.5 Mg/2 Ml Ampul.Neb.) 0.5 mg INHALATION Q12H.RT [facility] Last Admin: 10/19/20 06:51 Dose: 0.5 mg Documented by: Enoxaparin Sodium (Enoxaparin 40 Mg/0.4 Ml Syringe) 40 mg SC DAILY [facility] Last Admin: 10/18/20 09:35 Dose: 40 mg Documented by: Fluticasone Propionate (Fluticasone 0.05% 1 [place] Nasal.Sry) 1 spray NASAL BID PRN PRN Reason: ALLERGIES Potassium Chloride/Sodium Chloride () 1,000 mls @ 75 mls/hr IV .[id number] [facility] Last Admin: 10/19/20 06:57 Dose: 75 mls/hr Documented by: Metronidazole (Flagyl) 500 mg in 100 mls @ 100 mls/hr IV Q8H [facility] Last Admin: 10/19/20 06:34 Dose: 100 mls/hr Documented by: Pantoprazole Sodium 40 mg/ (Sodium Chloride) 110 mls @ 330 mls/hr IV Q24 [facility] Last Infusion: 10/18/20 09:54 Dose: Infused Documented by: Sodium Chloride () 250 mls @ 15 mls/hr IV .[id number] PRN PRN Reason: Saline Flush Sodium Chloride () 250 mls @ 15 mls/hr IV .[id number] PRN PRN Reason: Additional IVPB Infusion Sodium Chloride () 250 mls @ 15 mls/hr IV .[id number] PRN PRN Reason: Saline Flush Sodium Chloride () 250 mls @ 15 mls/hr IV .[id number] PRN PRN Reason: Additional IVPB Infusion Ceftriaxone Sodium 2 gm/ (Sodium Chloride) 50 mls @ 100 mls/hr IV Q24H [facility] Last Infusion: 10/18/20 22:00 Dose: Infused Documented by: Morphine Sulfate (Morphine 2 Mg/Ml Syringe) 2 mg IV Q3H PRN PRN PRN Reason: Pain Score 6-10 Last Admin: 10/18/20 15:51 Dose: 2 mg Documented by: Ondansetron HCl (Ondansetron 4 Mg/2 Ml Vial) 4 mg IV Q8H PRN PRN PRN Reason: NAUSEA/VOMITING Sodium Chloride (0.9% Saline Lock 10 Ml Syringe) 10 - 40 ml IV UD PRN PRN Reason: SALINE FLUSH Last Admin: 10/18/20 15:53 Dose: 10 ml Documented by: STROKE Vital Signs/Narrative: Vital Signs Pulse Resp 10/19/20 07:23 100 20 H Medical Necessity - Tobacco Use Smoking Status: Never smoker Assessment/Plan All Active Problems (Last Reviewed 10/16/20 @ 23:[address] Jamil Perez MD) Diverticulitis (Acute) Perforation of sigmoid colon due to diverticulitis (Acute) Patient is a 45-year-old lady who presented with abdominal pain imaging studies obtained was consistent with acute sigmoid diverticulitis with small perforation with no evidence of fluid collection or abscess started on broad-spectrum antibiotic therapy admitted to regular nursing floor with consultation placed to general surgery 1. Acute sigmoid diverticulitis with microperforation ?Admitted to regular nursing floor started on hospital antibiotic therapy, IV fluids, pain medications, consult was placed to general surgery patient has been seen by Dr. Brandan Reyes his notes and recommendations reviewed - 10/18/2020. Patient seen still complains of lower abdominal pain admitted to have not passed gas and bowel movement. Patient still remains n.p.o. and on broad-spectrum antibiotics -10/19/2020 Patient seen has intermittent pain. Has been seen by Dr. Reyes who ordered CT of the abdomen and pelvis for subsequent evaluation. Patient may either undergo CT-guided drainage or sigmoid electively based on findings on CT 2. GERD ?Patient is on PPI 3. Hypothyroidism - Patient is on levothyroxine home dose continued 4. Allergic rhinitis ?Patient is on fluticasone did continue 5. Obstructive sleep apnea ?Patient is on CPAP at night 6. Morbid obesity with BMI of 39.6 ?Weight loss advised 7. [facility] [id number] L2
[2020-10-19] MEDS: Morphine 2 MG/ML Syringe IV ×5 (09:52→22:52)
[2020-10-19] MEDS: Enoxaparin 40 MG/0.4 ML Syringe SC (09:56)
[2020-10-19] MEDS: 0.9% Saline Lock 10 ML Syringe IV ×2 (19:48→22:52)
[2020-10-20] VITALS (8 sets, daily range): BP systolic 105–110; BP diastolic 67–70; PULSE 72–107; RESP 16–18; TEMP 36.7–36.9; O2SAT 95–98
[2020-10-20] MEDS: metroNIDAZOLE 500 MG/100 ML BAG 100 MG IV ×3 (06:01→21:42)
--- NOTE | 2020-10-20 07:03 | PN.SURG_ITS ---
Patient Problems: Active and Suspected Problems (Last Reviewed 10/16/20 @ 23:[address] Jamil Perez MD) Diverticulitis (Acute) Perforation of sigmoid colon due to diverticulitis (Acute) Subjective: Patient states her left lower quadrant pain is a little bit better rates it 4?5/10. Patient is drinking her contrast for her CT this morning. White blood count still normal. - Physical Exam Vitals/I&O's: Vital Signs Temp Pulse Resp BP Pulse Ox 98.2 F 86 16 108/68 98 10/20/20 05:58 10/20/20 05:58 10/20/20 05:58 10/20/20 05:58 10/20/20 05:58 Oxygen Delivery Method Room Air Weight: 216 lb 4.375 oz Body Mass Index (BMI) 39.5 Intake and Output for Last 24 Hours 10/18/20 10/19/20 10/20/20 23:59 23:59 23:59 Intake Total 2820.00 / 2820.00 2651.25 / 2851.25 947.5 / 947.5 Output Total 1500 / 1500 1875 / 2200 1125 / 1125 Balance 1320.00 / 1320.00 776.25 / 651.25 -177.5 / -177.5 General: Alert, Oriented x3, Cooperative, No apparent distress HEENT: Atraumatic Lungs: Normal air movement Cardiovascular: Regular rate Abdomen: Soft, Non-Distended, Tender - Left lower quadrant, mild, no peritoneal signs Extremities: No clubbing, No cyanosis, No edema Neurological: Cranial nerves II-XII grossly intact Psych/Mental Status: Normal Affect Microbiology Past 72 Hours 10/17/20 10:15 Mucosa - Nose SARS-CoV-2 Antigen (Rapid) - Final Laboratory Results 10/19/20 06:40: WBC 7.4, RBC 4.00 L, Hgb 11.8 L, Hct 36.6 L, MCV 91.5, MCH 29.5, MCHC 32.2, RDW Std Deviation 42.5, RDW Coeff of Bebo 12.7, Plt Count 243, MPV 9.1, Immature Gran % (Auto) 0.400, Neut % (Auto) 78.1 H, Lymph % (Auto) 11.6 L, [place] % (Auto) 6.6, Eos % (Auto) 3.2, Baso % (Auto) 0.1, Absolute Neuts (auto) 5.8, Absolute Lymphs (auto) 0.86, Nucleated RBC % 0 10/19/20 06:40: Sodium 137, Potassium 4.1, Chloride 107, Carbon Dioxide 26.0, Anion Gap 4 L, BUN 6 L, Creatinine 0.85, Estim Creat Clear Calc 65.41, Est GFR (MDRD) Af Amer 93, Est GFR (MDRD) Non-Af 76, BUN/Creatinine Ratio 7.1 L, Glucose 119 H, Calcium 8.8 Current Medications Acetaminophen (Acetaminophen 325 Mg Tablet) 650 mg PO Q6H PRN PRN PRN Reason: fever >100.4 Last Admin: 10/18/20 20:50 Dose: 650 mg Documented by: Albuterol Sulfate (Albuterol 2.5 Mg/3 Ml Vial.Neb.) 2.5 mg INHALATION Q6HWA.RT [facility] Last Admin: 10/19/20 18:49 Dose: 2.5 mg Documented by: Budesonide (Budesonide Respules 0.5 Mg/2 Ml Ampul.Neb.) 0.5 mg INHALATION Q12H.RT [facility] Last Admin: 10/19/20 18:49 Dose: 0.5 mg Documented by: Enoxaparin Sodium (Enoxaparin 40 Mg/0.4 Ml Syringe) 40 mg SC DAILY [facility] Last Admin: 10/19/20 09:56 Dose: 40 mg Documented by: Fluticasone Propionate (Fluticasone 0.05% 1 [place] Nasal.Sry) 1 spray NASAL BID PRN PRN Reason: ALLERGIES Potassium Chloride/Sodium Chloride () 1,000 mls @ 75 mls/hr IV .[id number] [facility] Last Infusion: 10/20/20 06:01 Dose: 0 mls/hr Documented by: Metronidazole (Flagyl) 500 mg in 100 mls @ 100 mls/hr IV Q8H [facility] Last Admin: 10/20/20 06:01 Dose: 100 mls/hr Documented by: Pantoprazole Sodium 40 mg/ (Sodium Chloride) 110 mls @ 330 mls/hr IV Q24 [facility] Last Infusion: 10/19/20 10:16 Dose: Infused Documented by: Sodium Chloride () 250 mls @ 15 mls/hr IV .[id number] PRN PRN Reason: Saline Flush Sodium Chloride () 250 mls @ 15 mls/hr IV .[id number] PRN PRN Reason: Additional IVPB Infusion Sodium Chloride () 250 mls @ 15 mls/hr IV .[id number] PRN PRN Reason: Saline Flush Sodium Chloride () 250 mls @ 15 mls/hr IV .[id number] PRN PRN Reason: Additional IVPB Infusion Ceftriaxone Sodium 2 gm/ (Sodium Chloride) 50 mls @ 100 mls/hr IV Q24H [facility] Last Infusion: 10/19/20 23:22 Dose: Infused Documented by: Morphine Sulfate (Morphine 2 Mg/Ml Syringe) 2 mg IV Q3H PRN PRN PRN Reason: Pain Score 6-10 Last Admin: 10/19/20 22:52 Dose: 2 mg Documented by: Ondansetron HCl (Ondansetron 4 Mg/2 Ml Vial) 4 mg IV Q8H PRN PRN PRN Reason: NAUSEA/VOMITING Sodium Chloride (0.9% Saline Lock 10 Ml Syringe) 10 - 40 ml IV UD PRN PRN Reason: SALINE FLUSH Last Admin: 10/19/20 22:52 Dose: 10 ml Documented by: Medical Necessity - Tobacco Use Smoking Status: Never smoker Assessment/Plan All Active Problems (Last Reviewed 10/16/20 @ 23:[address] Jamil Perez MD) Diverticulitis (Acute) Perforation of sigmoid colon due to diverticulitis (Acute) -Continue clear liquids today plan to be n.p.o. at midnight ?Continue IV antibiotics ?CT pelvis planned for this morning. Fely Herrera M.D. Pager: [phone] [facility] [address] [place] [address], Outpatient [place], [address] [place] [address] Office: [phone] Inpatient E&M: [id number] [facility] L[facility]
--- NOTE | 2020-10-20 07:05 | PCS.PANDOC ---
PANDEMIC DOCUMENTATION INITIATED: Date: 10/16/2020 Time: 2300
[2020-10-20 07:28] LABS: Absolute Lymphocyte Count 0.87 X10^3/uL (0.83-4.51); Absolute Neutrophil Count 4.9 X10^3/uL (2.0-7.7); Basophil# 0.02 X10^3/uL; Basophil% 0.3 % (0-1); Eosinophil# 0.19 X10^3/uL; Eosinophils% 2.9 % (0-5); Hematocrit 37.1 % (37-47); Hemoglobin 11.9 g/dL (12.0-15.0); Lymphocyte # 0.87 X10^3/ul (4.0); Lymphocyte % 13.2 % (19-41); Mean Corp Hgb Conc 32.1 g/dL (32-36); Mean Corpuscular Hgb 29.2 pg (27.0-32.0); Mean Corpuscular Volume 91.2 fL (81-99); Mean Platelet Vol. 8.7 fl (6.2-12.0); Monocyte# 0.58 X10^3/uL; Monocyte% 8.8 % (0-10); NRBC Flagged by Analyzer 0 % (0-5); Neutrophil % 74.3 % (47-70); Platelet Count 271 K/mm3 (150-450); RBC Distribution Width CV 12.8 % (11.6-14.6); RBC Distribution Width SD 42.5 fl (35.1-43.9); Red Blood Count 4.07 M/mm3 (4.2-5.4); White Blood Count 6.6 K/mm3 (4.4-11.0)
--- NOTE | 2020-10-20 07:48 | PCM.PN.HOSP ---
Patient Problems: Active and Suspected Problems (Last Reviewed 10/16/20 @ 23:[address] Jamil Perez MD) Diverticulitis (Acute) Perforation of sigmoid colon due to diverticulitis (Acute) Reason for Visit: Acute sigmoid diverticulitis Subjective: Patient seen has intermittent pain. Has been seen by Dr. Reyes who ordered CT of the abdomen and pelvis for subsequent evaluation. Patient may either undergo CT-guided drainage or sigmoid electively based on findings on CT 10/20/2020; CT scheduled to be performed this morning Objective: GENERAL: cooperative HEENT: Atraumatic; EYES; Anicteric, Normal Conjunctiva NECK; supple, normal thyroid, RESPIRATORY: Diminished to auscultation CARDIOVASCULAR: Regular S1 S2, GI: soft, normoactive bowel sounds, abdominal tenderness : No Renal angle tenderness; EXTREMITIES: No edema, no clubbing, MUSCULOSKELETAL: no muscle waisting NEURO: Awake; no lateralizing signs. SKIN: No Rash PSYCH; Flat affect Vitals/I&O's: Vital Signs Temp Pulse Resp BP Pulse Ox 98.2 F 86 16 108/68 98 10/20/20 05:58 10/20/20 05:58 10/20/20 05:58 10/20/20 05:58 10/20/20 05:58 Oxygen Delivery Method Room Air Weight: 98.1 kg Body Mass Index (BMI) 39.5 Intake and Output for Last 24 Hours 10/18/20 10/19/20 10/20/20 23:59 23:59 23:59 Intake Total 2820.00 / 2820.00 2651.25 / 2851.25 1047.5 / 1047.5 Output Total 1500 / 1500 1875 / 2200 1125 / 1125 Balance 1320.00 / 1320.00 776.25 / 651.25 -77.5 / -77.5 Microbiology Past 72 Hours 10/17/20 10:15 Mucosa - Nose SARS-CoV-2 Antigen (Rapid) - Final Laboratory Results 10/20/20 07:20: WBC 6.6, RBC 4.07 L, Hgb 11.9 L, Hct 37.1, MCV 91.2, MCH 29.2, MCHC 32.1, RDW Std Deviation 42.5, RDW Coeff of Bebo 12.8, Plt Count 271, MPV 8.7, Immature Gran % (Auto) 0.500, Neut % (Auto) 74.3 H, Lymph % (Auto) 13.2 L, [place] % (Auto) 8.8, Eos % (Auto) 2.9, Baso % (Auto) 0.3, Absolute Neuts (auto) 4.9, Absolute Lymphs (auto) 0.87, Nucleated RBC % 0 10/20/20 07:20: Sodium Pending, Potassium Pending, Chloride Pending, Carbon Dioxide Pending, Anion Gap Pending, BUN Pending, Creatinine Pending, Est GFR (MDRD) Af Amer Pending, Est GFR (MDRD) Non-Af Pending, BUN/Creatinine Ratio Pending, Glucose Pending, Calcium Pending Current Medications Acetaminophen (Acetaminophen 325 Mg Tablet) 650 mg PO Q6H PRN PRN PRN Reason: fever >100.4 Last Admin: 10/18/20 20:50 Dose: 650 mg Documented by: Albuterol Sulfate (Albuterol 2.5 Mg/3 Ml Vial.Neb.) 2.5 mg INHALATION Q6HWA.RT [facility] Last Admin: 10/19/20 18:49 Dose: 2.5 mg Documented by: Budesonide (Budesonide Respules 0.5 Mg/2 Ml Ampul.Neb.) 0.5 mg INHALATION Q12H.RT [facility] Last Admin: 10/19/20 18:49 Dose: 0.5 mg Documented by: Enoxaparin Sodium (Enoxaparin 40 Mg/0.4 Ml Syringe) 40 mg SC DAILY [facility] Last Admin: 10/19/20 09:56 Dose: 40 mg Documented by: Fluticasone Propionate (Fluticasone 0.05% 1 [place] Nasal.Sry) 1 spray NASAL BID PRN PRN Reason: ALLERGIES Potassium Chloride/Sodium Chloride () 1,000 mls @ 75 mls/hr IV .[id number] [facility] Last Infusion: 10/20/20 07:04 Dose: 75 mls/hr Documented by: Metronidazole (Flagyl) 500 mg in 100 mls @ 100 mls/hr IV Q8H [facility] Last Infusion: 10/20/20 07:04 Dose: Infused Documented by: Pantoprazole Sodium 40 mg/ (Sodium Chloride) 110 mls @ 330 mls/hr IV Q24 [facility] Last Infusion: 10/19/20 10:16 Dose: Infused Documented by: Sodium Chloride () 250 mls @ 15 mls/hr IV .[id number] PRN PRN Reason: Saline Flush Sodium Chloride () 250 mls @ 15 mls/hr IV .[id number] PRN PRN Reason: Additional IVPB Infusion Sodium Chloride () 250 mls @ 15 mls/hr IV .[id number] PRN PRN Reason: Saline Flush Sodium Chloride () 250 mls @ 15 mls/hr IV .[id number] PRN PRN Reason: Additional IVPB Infusion Ceftriaxone Sodium 2 gm/ (Sodium Chloride) 50 mls @ 100 mls/hr IV Q24H [facility] Last Infusion: 10/19/20 23:22 Dose: Infused Documented by: Morphine Sulfate (Morphine 2 Mg/Ml Syringe) 2 mg IV Q3H PRN PRN PRN Reason: Pain Score 6-10 Last Admin: 10/19/20 22:52 Dose: 2 mg Documented by: Ondansetron HCl (Ondansetron 4 Mg/2 Ml Vial) 4 mg IV Q8H PRN PRN PRN Reason: NAUSEA/VOMITING Sodium Chloride (0.9% Saline Lock 10 Ml Syringe) 10 - 40 ml IV UD PRN PRN Reason: SALINE FLUSH Last Admin: 10/19/20 22:52 Dose: 10 ml Documented by: STROKE Vital Signs/Narrative: Vital Signs Temp Pulse Resp BP Pulse Ox 10/20/20 05:58 98.2 F 86 16 108/68 98 Medical Necessity - Tobacco Use Smoking Status: Never smoker Assessment/Plan All Active Problems (Last Reviewed 10/16/20 @ 23:[address] Jamil Perez MD) Diverticulitis (Acute) Perforation of sigmoid colon due to diverticulitis (Acute) Patient is a 45-year-old lady who presented with abdominal pain imaging studies obtained was consistent with acute sigmoid diverticulitis with small perforation with no evidence of fluid collection or abscess started on broad-spectrum antibiotic therapy admitted to regular nursing floor with consultation placed to general surgery 1. Acute sigmoid diverticulitis with microperforation ?Admitted to regular nursing floor started on hospital antibiotic therapy, IV fluids, pain medications, consult was placed to general surgery patient has been seen by Dr. Brandan Reyes his notes and recommendations reviewed - 10/18/2020. Patient seen still complains of lower abdominal pain admitted to have not passed gas and bowel movement. Patient still remains n.p.o. and on broad-spectrum antibiotics -10/19/2020 Patient seen has intermittent pain. Has been seen by Dr. Reyes who ordered CT of the abdomen and pelvis for subsequent evaluation. Patient may either undergo CT-guided drainage or sigmoid electively based on findings on CT -10/20/2020; 10/20/2020; CT scheduled to be performed this morning 2. GERD ?Patient is on PPI 3. Hypothyroidism - Patient is on levothyroxine home dose continued 4. Allergic rhinitis ?Patient is on fluticasone did continue 5. Obstructive sleep apnea ?Patient is on CPAP at night 6. Morbid obesity with BMI of 39.6 ?Weight loss advised 7. DVT prophylaxis ?Lovenox Inpatient E&M: [id number] [facility] Hosp L2
[2020-10-20 07:50] LABS: Anion Gap 5 (5-15); BUN 8 mg/dL (7-18); BUN/Creat Ratio 9.8 RATIO (10-20); Calcium,Total 8.9 mg/dL (8.5-10.1); Chloride 107 mmol/L (98-107); Creatinine, Serum 0.82 mg/dL (0.55-1.02); EST Glomerular Filtration Rate 80 mL/min (>60); Est Glom Filt Rate - Afr Amer 97 mL/min (>60); Glucose 109 mg/dL (74-106); Potassium 4.6 mmol/L (3.5-5.1); Sodium Level 136 mmol/L (136-145)
[2020-10-20] MEDS: Budesonide Respules 0.5 MG/2 ML AMPUL.NEB. INHALATION ×2 (07:51→19:37)
[2020-10-20] MEDS: Albuterol 2.5 MG/3 ML VIAL.NEB. INHALATION ×2 (07:51→19:37)
--- NOTE | 2020-10-20 09:00 | CT_ITS ---
STUDY: CT ABDOMEN AND PELVIS WITH CONTRAST REASON FOR EXAM: Female, 45 years old. SIGMOID DIVERTICULITIS W/ PERFORATION -- HAS BEEN ON ANTIBIOTICS X6 DAYS -- SURG-APPY,GB,ANAL FISTULA REPAIR, X2 RADIATION DOSAGE (If Supplied By Facility): CTDIvol = ( 16.63 ) mGy, DLP = ( 1189.35 ) mGycm TECHNIQUE: Transaxial images were obtained from the dome of the diaphragm to the symphysis pubis with oral contrast. 100 mL of IV ISOVUE-300 was administered. Sagittal and coronal images were reconstructed. Individualized dose optimization techniques were used for this CT. COMPARISON: CT abdomen and pelvis with contrast 10/16/2020. FINDINGS: The visualized lung bases are unremarkable. The visualized portions of the heart are within normal limits. Moderate diffuse hepatic steatosis is unchanged. The liver measures 23.4 cm craniocaudally. Postsurgical absence of the gallbladder. Normal spleen. Normal pancreas. Normal bilateral adrenal glands. Normal right kidney. Normal left kidney. Normal visualized stomach. Normal small intestine. Multiple small pockets of rim-enhancing hypodense abscesses along the sigmoid colon but mild improvement of the inflammatory stranding of the pericolic fat. Postsurgical absence of the appendix. Normal abdominal aorta. Normal inferior vena cava. Normal retroperitoneum. Normal nearly empty urinary bladder. No suspicious abnormality of the minimally retroverted uterus. Normal abdominal wall. Normal osseous structures. CT/Abdomen/Pelvis WITH Contrast IMPRESSION: 1. Multiple small pockets of rim-enhancing early abscesses along the sigmoid colon but improving inflammatory changes of the pericolic fat when compared to 10/16/2020. 2. Hepatomegaly with moderate hepatic steatosis is unchanged. 3. No other additional findings or changes. Electronically Signed: Chip Beasley MD at 10:01 EST , Service support ,
[2020-10-20] MEDS: 0.9% Saline Lock 10 ML Syringe IV ×2 (09:24→21:08)
[2020-10-20] MEDS: Enoxaparin 40 MG/0.4 ML Syringe SC (10:36)
[2020-10-20] MEDS: Ondansetron 4 MG/2 ML Vial IV ×2 (13:30→22:31)
[2020-10-20] MEDS: proMETHazine 25 MG/ML Syringe 12.5 MG IM ×2 (14:47→23:55)
[2020-10-21] VITALS (16 sets, daily range): BP systolic 99–130; BP diastolic 60–88; PULSE 79–97; RESP 16–18; TEMP 36.3–37; O2SAT 92–100; BMI 39.5
[2020-10-21] MEDS: Morphine 2 MG/ML Syringe IV ×2 (02:49→20:41)
[2020-10-21] MEDS: 0.9% Saline Lock 10 ML Syringe IV (02:49)
[2020-10-21 05:12] LABS: Absolute Lymphocyte Count 1.41 X10^3/uL (0.83-4.51); Absolute Neutrophil Count 7.1 X10^3/uL (2.0-7.7); Basophil# 0.03 X10^3/uL; Basophil% 0.3 % (0-1); Eosinophil# 0.12 X10^3/uL; Eosinophils% 1.3 % (0-5); Hematocrit 38.2 % (37-47); Hemoglobin 12.3 g/dL (12.0-15.0); Lymphocyte # 1.41 X10^3/ul (4.0); Lymphocyte % 14.9 % (19-41); Mean Corp Hgb Conc 32.2 g/dL (32-36); Mean Corpuscular Hgb 29.2 pg (27.0-32.0); Mean Corpuscular Volume 90.7 fL (81-99); Mean Platelet Vol. 8.9 fl (6.2-12.0); Monocyte# 0.72 X10^3/uL; Monocyte% 7.6 % (0-10); NRBC Flagged by Analyzer 0 % (0-5); Neutrophil # 7.14 X10^3/uL (2.7-7.7); Neutrophil % 75.5 % (47-70); Platelet Count 313 K/mm3 (150-450); RBC Distribution Width CV 12.6 % (11.6-14.6); RBC Distribution Width SD 41.6 fl (35.1-43.9); Red Blood Count 4.21 M/mm3 (4.2-5.4); White Blood Count 9.5 K/mm3 (4.4-11.0)
[2020-10-21] MEDS: metroNIDAZOLE 500 MG/100 ML BAG 100 MG IV ×3 (05:22→21:54)
--- NOTE | 2020-10-21 05:36 | PCM.PN.SRG ---
Patient Problems: Active and Suspected Problems (Last Reviewed 10/16/20 @ 23:[address] Jamil Perez MD) Diverticulitis (Acute) Perforation of sigmoid colon due to diverticulitis (Acute) Subjective: Patient is still having soreness left lower quadrant. She was intolerant to the oral antibiotic prep utilized for colectomies. She had severe nausea and additional dosing had to be held. - Physical Exam Vitals/I&O's: Vital Signs Temp Pulse Resp BP Pulse Ox 98.6 F 89 18 103/61 97 10/21/20 02:43 10/21/20 02:43 10/21/20 02:43 10/21/20 02:43 10/21/20 02:43 Oxygen Delivery Method Room Air Weight: 216 lb 4.375 oz Body Mass Index (BMI) 39.5 Intake and Output for Last 24 Hours 10/19/20 10/20/20 10/21/20 23:59 23:59 23:59 Intake Total 2651.25 / 2851.25 2297.50 / 2697.50 893.75 / 893.75 Output Total 1875 / 2200 2725 / 2725 550 / 550 Balance 776.25 / 651.25 -427.50 / -27.50 343.75 / 343.75 Abdomen: - - Persistent left greater than right lower quadrant tenderness to light palpation, guarding persists on the left Laboratory Results 10/20/20 07:20: WBC 6.6, RBC 4.07 L, Hgb 11.9 L, Hct 37.1, MCV 91.2, MCH 29.2, MCHC 32.1, RDW Std Deviation 42.5, RDW Coeff of Bebo 12.8, Plt Count 271, MPV 8.7, Immature Gran % (Auto) 0.500, Neut % (Auto) 74.3 H, Lymph % (Auto) 13.2 L, [place] % (Auto) 8.8, Eos % (Auto) 2.9, Baso % (Auto) 0.3, Absolute Neuts (auto) 4.9, Absolute Lymphs (auto) 0.87, Nucleated RBC % 0 10/20/20 07:20: Sodium 136, Potassium 4.6, Chloride 107, Carbon Dioxide 24.0, Anion Gap 5, BUN 8, Creatinine 0.82, Estim Creat Clear Calc 67.80, Est GFR (MDRD) Af Amer 97, Est GFR (MDRD) Non-Af 80, BUN/Creatinine Ratio 9.8 L, Glucose 109 H, Calcium 8.9 10/21/20 04:47: WBC 9.5, RBC 4.21, Hgb 12.3, Hct 38.2, MCV 90.7, MCH 29.2, MCHC 32.2, RDW Std Deviation 41.6, RDW Coeff of Bebo 12.6, Plt Count 313, MPV 8.9, Immature Gran % (Auto) 0.400, Neut % (Auto) 75.5 H, Lymph % (Auto) 14.9 L, [place] % (Auto) 7.6, Eos % (Auto) 1.3, Baso % (Auto) 0.3, Absolute Neuts (auto) 7.1, Absolute Lymphs (auto) 1.41, Nucleated RBC % 0 10/21/20 04:47: TSH 10.80 H Current Medications Acetaminophen (Acetaminophen 325 Mg Tablet) 650 mg PO Q6H PRN PRN PRN Reason: fever >100.4 Last Admin: 10/18/20 20:50 Dose: 650 mg Documented by: Albuterol Sulfate (Albuterol 2.5 Mg/3 Ml Vial.Neb.) 2.5 mg INHALATION Q6HWA.RT [facility] Last Admin: 10/20/20 19:37 Dose: 2.5 mg Documented by: Budesonide (Budesonide Respules 0.5 Mg/2 Ml Ampul.Neb.) 0.5 mg INHALATION Q12H.RT [facility] Last Admin: 10/20/20 19:37 Dose: 0.5 mg Documented by: Enoxaparin Sodium (Enoxaparin 40 Mg/0.4 Ml Syringe) 40 mg SC DAILY [facility] Last Admin: 10/20/20 10:36 Dose: 40 mg Documented by: Fluticasone Propionate (Fluticasone 0.05% 1 [place] Nasal.Sry) 1 spray NASAL BID PRN PRN Reason: ALLERGIES Potassium Chloride/Sodium Chloride () 1,000 mls @ 75 mls/hr IV .[id number] [facility] Last Infusion: 10/21/20 05:22 Dose: 0 mls/hr Documented by: Metronidazole (Flagyl) 500 mg in 100 mls @ 100 mls/hr IV Q8H [facility] Last Admin: 10/21/20 05:22 Dose: 100 mls/hr Documented by: Pantoprazole Sodium 40 mg/ (Sodium Chloride) 110 mls @ 330 mls/hr IV Q24 [facility] Last Infusion: 10/20/20 09:43 Dose: Infused Documented by: Sodium Chloride () 250 mls @ 15 mls/hr IV .[id number] PRN PRN Reason: Saline Flush Sodium Chloride () 250 mls @ 15 mls/hr IV .[id number] PRN PRN Reason: Additional IVPB Infusion Sodium Chloride () 250 mls @ 15 mls/hr IV .[id number] PRN PRN Reason: Saline Flush Sodium Chloride () 250 mls @ 15 mls/hr IV .[id number] PRN PRN Reason: Additional IVPB Infusion Ceftriaxone Sodium 2 gm/ (Sodium Chloride) 50 mls @ 100 mls/hr IV Q24H [facility] Last Infusion: 10/20/20 21:39 Dose: Infused Documented by: Morphine Sulfate (Morphine 2 Mg/Ml Syringe) 2 mg IV Q3H PRN PRN PRN Reason: Pain Score 6-10 Last Admin: 10/21/20 02:49 Dose: 2 mg Documented by: Ondansetron HCl (Ondansetron 4 Mg/2 Ml Vial) 4 mg IV Q8H PRN PRN PRN Reason: NAUSEA/VOMITING Last Admin: 10/20/20 22:31 Dose: 4 mg Documented by: Prochlorperazine Edisylate (Prochlorperazine 10 Mg/2 Ml Vial) 5 mg IV Q6H PRN PRN PRN Reason: NAUSEA/VOMITING Sodium Chloride (0.9% Saline Lock 10 Ml Syringe) 10 - 40 ml IV UD PRN PRN Reason: SALINE FLUSH Last Admin: 10/21/20 02:49 Dose: 10 ml Documented by: Medical Necessity - Tobacco Use Smoking Status: Never smoker Assessment/Plan All Active Problems (Last Reviewed 10/16/20 @ 23:[address] Jamil Perez MD) Diverticulitis (Acute) Perforation of sigmoid colon due to diverticulitis (Acute) I have personally reviewed the patient's CT scan and the sigmoid colon has evidence of multiple abscesses. I do not believe that this will resolve with ongoing nonoperative management. The number of abscesses present prohibit attempts at percutaneous drainage. I have asked extensively discussed with her recommendations for a laparoscopic possible hand-assisted possible open sigmoid colectomy. We have discussed the potential need for a Theresa procedure with diverting sigmoid colostomy. We have additionally potentially discussed the need for diverting ileostomy. She is aware of technique, benefit, risks, alternatives. We will proceed as noted as timing permits in the operating room today. Brandan Reyes M.D., F.A.C.S.
--- NOTE | 2020-10-21 05:55 | EKG12_ITS ---
Test Reason : AM EKG Blood Pressure : / mmHG Vent. Rate : 080 BPM Atrial Rate : 080 BPM P-R Int : 174 ms QRS Dur : 088 ms QT Int : 414 ms P-R-T Axes : 042 090 033 degrees QTc Int : 477 ms Normal sinus rhythm Low voltage QRS Borderline ECG Confirmed by LARRY NGUYEN, MAYRA ([id number]), associate entertainment editor GEMMA RODRIGUEZ ([id number]) on 10/24/2020 8:49:19 AM Referred By: GHANSHYAM Confirmed By:MAYRA JUAREZ MD
[2020-10-21] MEDS: Budesonide Respules 0.5 MG/2 ML AMPUL.NEB. INHALATION (07:15)
[2020-10-21] MEDS: Albuterol 2.5 MG/3 ML VIAL.NEB. INHALATION (07:15)
--- NOTE | 2020-10-21 10:43 | PCM.PN.HOSP ---
Patient Problems: Active and Suspected Problems (Last Reviewed 10/16/20 @ 23:[address] Jamil Perez MD) Diverticulitis (Acute) Perforation of sigmoid colon due to diverticulitis (Acute) Subjective: CT shows multiple abscesses. Pt having continued LLQ pain. OR today per Dr. Reyes's note Vitals/I&O's: Vital Signs Temp Pulse Resp BP Pulse Ox 98.4 F 90 16 99/60 97 10/21/20 07:38 10/21/20 07:38 10/21/20 07:38 10/21/20 07:38 10/21/20 07:38 Oxygen Delivery Method Room Air Weight: 98.1 kg Body Mass Index (BMI) 39.5 Intake and Output for Last 24 Hours 10/19/20 10/20/20 10/21/20 23:59 23:59 23:59 Intake Total 2651.25 / 2851.25 2297.50 / 2697.50 1293.75 / 1293.75 Output Total 1875 / 2200 2725 / 2725 550 / 550 Balance 776.25 / 651.25 -427.50 / -27.50 743.75 / 743.75 General: Alert, Oriented x3, Cooperative, No apparent distress, Well developed, Well nourished Oral: Moist Mucosa Lungs: Clear to auscultation, Normal air movement, No rhonchi, No wheeze, No rales, Diminished Cardiovascular: Regular rate, Regular Rhythm, Normal S1, Normal S2, No murmurs, No Ectopic Activity, No rub noted, No Gallop Abdomen: Bowel Sounds Present, Soft, Non-Distended, Tender - LLQ Extremities: No clubbing, No cyanosis, No edema, Capillary Refill Less than 3 Seconds, Peripheral Pulses Normal Neurological: Cranial nerves II-XII grossly intact, Neuro grossly intact Psych/Mental Status: Normal Affect, Appropriate Laboratory Results 10/21/20 04:47: WBC 9.5, RBC 4.21, Hgb 12.3, Hct 38.2, MCV 90.7, MCH 29.2, MCHC 32.2, RDW Std Deviation 41.6, RDW Coeff of Bebo 12.6, Plt Count 313, MPV 8.9, Immature Gran % (Auto) 0.400, Neut % (Auto) 75.5 H, Lymph % (Auto) 14.9 L, [place] % (Auto) 7.6, Eos % (Auto) 1.3, Baso % (Auto) 0.3, Absolute Neuts (auto) 7.1, Absolute Lymphs (auto) 1.41, Nucleated RBC % 0 10/21/20 04:47: TSH 10.80 H Current Medications Acetaminophen (Acetaminophen 325 Mg Tablet) 650 mg PO Q6H PRN PRN PRN Reason: fever >100.4 Last Admin: 10/18/20 20:50 Dose: 650 mg Documented by: Albuterol Sulfate (Albuterol 2.5 Mg/3 Ml Vial.Neb.) 2.5 mg INHALATION Q6HWA.RT [facility] Last Admin: 10/21/20 07:15 Dose: 2.5 mg Documented by: Budesonide (Budesonide Respules 0.5 Mg/2 Ml Ampul.Neb.) 0.5 mg INHALATION Q12H.RT [facility] Last Admin: 10/21/20 07:15 Dose: 0.5 mg Documented by: Enoxaparin Sodium (Enoxaparin 40 Mg/0.4 Ml Syringe) 40 mg SC DAILY [facility] Last Admin: 10/20/20 10:36 Dose: 40 mg Documented by: Fluticasone Propionate (Fluticasone 0.05% 1 [place] Nasal.Sry) 1 spray NASAL BID PRN PRN Reason: ALLERGIES Potassium Chloride/Sodium Chloride () 1,000 mls @ 75 mls/hr IV .[id number] [facility] Last Infusion: 10/21/20 09:45 Dose: 75 mls/hr Documented by: Metronidazole (Flagyl) 500 mg in 100 mls @ 100 mls/hr IV Q8H [facility] Last Infusion: 10/21/20 06:22 Dose: Infused Documented by: Pantoprazole Sodium 40 mg/ (Sodium Chloride) 110 mls @ 330 mls/hr IV Q24 [facility] Last Infusion: 10/21/20 09:46 Dose: Infused Documented by: Sodium Chloride () 250 mls @ 15 mls/hr IV .[id number] PRN PRN Reason: Saline Flush Sodium Chloride () 250 mls @ 15 mls/hr IV .[id number] PRN PRN Reason: Additional IVPB Infusion Sodium Chloride () 250 mls @ 15 mls/hr IV .[id number] PRN PRN Reason: Saline Flush Sodium Chloride () 250 mls @ 15 mls/hr IV .[id number] PRN PRN Reason: Additional IVPB Infusion Ceftriaxone Sodium 2 gm/ (Sodium Chloride) 50 mls @ 100 mls/hr IV Q24H [facility] Last Infusion: 10/20/20 21:39 Dose: Infused Documented by: Morphine Sulfate (Morphine 2 Mg/Ml Syringe) 2 mg IV Q3H PRN PRN PRN Reason: Pain Score 6-10 Last Admin: 10/21/20 02:49 Dose: 2 mg Documented by: Ondansetron HCl (Ondansetron 4 Mg/2 Ml Vial) 4 mg IV Q8H PRN PRN PRN Reason: NAUSEA/VOMITING Last Admin: 10/20/20 22:31 Dose: 4 mg Documented by: Prochlorperazine Edisylate (Prochlorperazine 10 Mg/2 Ml Vial) 5 mg IV Q6H PRN PRN PRN Reason: NAUSEA/VOMITING Sodium Chloride (0.9% Saline Lock 10 Ml Syringe) 10 - 40 ml IV UD PRN PRN Reason: SALINE FLUSH Last Admin: 10/21/20 02:49 Dose: 10 ml Documented by: STROKE Vital Signs/Narrative: Vital Signs Temp Pulse Resp BP Pulse Ox 10/21/20 07:38 98.4 F 90 16 99/60 97 10/21/20 07:16 86 18 Medical Necessity - Tobacco Use Smoking Status: Never smoker Assessment/Plan All Active Problems (Last Reviewed 10/16/20 @ 23:[address] Jamil Perez MD) Diverticulitis (Acute) Perforation of sigmoid colon due to diverticulitis (Acute) Acute Diverticulitis with Perforation -multiple abscesses on CT--> too many for perc drainage -OR today for Lap nae vs possible open and potential Theresa procedure with diverting ostomy -OR time unknown -NPO -cont IVF -pain meds per surgery -continue abx CTX/Flagyl Leukocytosis -Resolved GERD -PPI Hypothryoism -Elevated TSH -10.8 -check Free T4 and r/o euthyroid sick -continue synthroid doseing Allergic Rhinitis -continue fluticasone NS Asthma -cont home inhalers FREDY -CPAP ordered MO -recommend wgt loss DVT Prophylaxis -Lovenox -on hold for OR Code Status -Full Inpatient E&M: 56866 Subs Hosp L2
--- NOTE | 2020-10-21 12:07 | NURSING ---
pt left for surgery
--- NOTE | 2020-10-21 13:30 | COL_PTH ---
PATIENT: MADDIE JONES LOC: [facility]3 U#:[id number] AGE/SX: 45/F ROOM: MS309 RE10/16/[address]: Dr. Macario Hartley DO : 1975 BED: 1 DIS: 10/24/2020 SPEC #: [id number] RECD: 10/22/20 08:04 STATUS: RADHA REQ #: [id number] MILIND: 10/21/20 13:[address]: Brandan Reyes DEPT: SURGICAL PATHOLOGY RECD BY: Gemini Greenfield ENTERED: 10/22/20 08:49 SP TYPE: COLON OTHR DR: MD Dr. Jamil Rios MD Dr. Kathryn Lee, DO Dr. Robert D Cebul, MD Tissues: A - Colon, NOS B - Colon Donuts C - Colon Donuts Procedures: Surgery Specimen Level III Surgery Specimen Level V Comments: @ Ordering doctor for SUIII edited from to @ ryan COTE at 10/22/20 0946 @ Ordering doctor for SUV edited from to @ ryan COTE at 10/22/20 0946 @ Submitting doctor edited from to @ ryan COTE at 10/22/2046 HEADER OPERATION: Laparoscopic possible open sigmoid colectomy PRE-OP DIAGNOSIS: Diverticulitis, perforation of sigmoid colon due to diverticulitis TISSUE SUBMITTED: A - Sigmoid colon, B - Proximal donut, C - Distal donut MICROSCOPIC DIAGNOSIS A. Sigmoid colon, colectomy: Diverticulosis and diverticulitis. Two pericolonic lymph nodes with reactive changes. B. Proximal donut: Colonic donut, no pathologic diagnosis. C. Distal donut: Colonic donut, no pathologic diagnosis. SJ:jazlyn 10/24/20 MICROSCOPIC DESCRIPTION Slides are reviewed. GROSS DESCRIPTION A - Received in fixative is one container labeled with the patient's name and designated sigmoid colon. The specimen consists of a segment of colon with attached pericolonic adipose tissue measuring 16 cm in length. The serosa focally shows area of hemorrhage and covered with cash, purulent exudate. One resection margin is stapled and other resection margin is open. The mucosa does not reveal any obvious mass lesion. Also present in the container are multiple fragments of blood clot measuring in aggregate 6 x 7 x 3 cm and weighing 45 gm. More dictation will follow after overnight fixation. / : 10/22/20 Sections reveal multiple diverticula. Many of the diverticula are protruding up through the pericolonic adipose tissue. Focal areas suspicious for ruptured diverticula are noted. Sections of pericolonic adipose tissue do not reveal any obviously enlarged lymph node. Provider Relations Representative sections are submitted in eight cassettes as follows: 1 - open resection margin, 2 - stapled resection margin, 3-5 - diverticula, 6 & 7 - area of diverticular rupture, 8 - pericolonic adipose tissue. / : 10/23/20 B - Received in fixative is one container labeled with the patient's name and designated distal donut. The specimen consists of a donut-shaped piece of colonic tissue measuring 1.5 x 1.5 x 1 cm. Multiple sutures are noted. Provider Relations Representative sections are submitted in one cassette. / : 10/22/20 C - Received in fixative is one container labeled with the patient's name and designated distal donut. The specimen consists of a donut-shaped piece of colonic tissue measuring 1.5 x 1.5 x 1.5 cm. The mucosa is focally congested. The entire specimen is submitted in one cassette. / : 10/22/20 TC:5 CPT: 77100, 27810 x2
[2020-10-21] MEDS: Lubricating Jelly 60 GM Tube 30 GM TOPICAL (15:15)
[2020-10-21] MEDS: Bupivacaine 0.25% 30 ML Vial (16:04)
[2020-10-21] MEDS: 0.9% Normal Saline (Pres. free 10 ML Vial (16:04)
[2020-10-21] MEDS: BUPIVACAINE LIPOSOME/PF 20 ML VIAL OPERA.SITE (16:04)
--- NOTE | 2020-10-21 16:10 | PCM.OPRPT ---
Problem List (1) Diverticulitis Status: Acute (2) Perforation of sigmoid colon due to diverticulitis Status: Acute (3) Intra-abdominal adhesions Status: Acute (4) Abscess of sigmoid colon due to diverticulitis Status: Acute Report of Operation Date of Procedure: 10/21/20 Pre-Operative Diagnosis: Multiple sigmoid abscesses secondary to diverticular perforation Post-Operative Diagnosis: Multiple sigmoid abscesses secondary to diverticular perforation, multiple intra-abdominal adhesions from previous surgery Surgery/Procedure Performed:: Laparoscopic lysis of intra-abdominal adhesions, conversion to hand-assisted sigmoid colectomy. Bilateral tap block Description of Surgical Findings:: Timeout and informed consent was obtained. 45-year-old female was taken the operating placed supine on the table underwent general endotracheal intubation esthesia she is on therapeutic Rocephin and metronidazole. She was placed in a low lithotomy position. Beanbag was in place. The abdomen and perineum were sterilely prepped and draped. [place]an draping was utilized to help hold dressings in place. The to the right of the umbilicus 20 cc of Exparel diluted with 60 cc of 0.5% Marcaine and then diluted with normal saline 200 cc was used as my local anesthetic throughout the entire procedure.. Once again accessed using a 5 mm Visiport technology cleanly without any evidence of bowel injury the abdomen was insufflated with CO2 to a pressure of 15 mmHg pressure required because of the patient's body habitus with a BMI of approximately 40. I placed 2 more 5 mm trochars in the right lower quadrant. There were extensive adhesions of omentum to the anterior abdominal wall superior to the umbilicus all the way down to the pelvis. I had to transect those carefully with Enseal device. This gave range then to the sigmoid colon which was densely adherent to the left tube and ovary and upon mobilizing that laparoscopically purulence emanated them there from from an abscess. Specimen was attempted be obtained for Gram stain OVERSIZE LOAD PILOT ESCORT. That was irrigated and aspirated. Upon further inspection it was apparent that there was pretty significantly dense adhesions and I did not feel was good to be able to expeditiously identify the course of the colon and remove the specimen. My typical Pfannenstiel incision would be inappropriate due to the overlying pannus. I elected then to convert at this point to a hand-assisted approach. Prior to doing that I did a laparoscopic and controlled bilateral tap block with a local anesthetic including the Exparel. I then made a infraumbilical vertical incision approximately 6 cm. That was carried down through the fibrofatty tissue and the fascia was incised. I placed a GelPort. The abdomen was reinsufflated. I was then able to finger fracture and bluntly dissected free the sigmoid colon from the left pelvic sidewall. The abscess was involving the left tube and ovary. I was able to debride that. I then was able to do finger fracture and released the distal sigmoid rectosigmoid area. I used the Enseal device to transect the mesentery of the bowel close to the bowel down to the pelvic rim superior to the pelvic reflection however due to the urgency of the case and quite a sizable uterus making more distal inspection quite difficult. I freed up the white line of Toldt all the way up to the spleen. For some reason there were adhesions of omentum to the anterior and left abdominal wall up at the level of the spleen I did not transect all of those adhesions. I was able to get the entire descending colon however freed up with simple hand dissection. I then was able to transect the distal sigmoid using single firing of the 60 mm [place]. This was using a heavy gold load. I remove the sigmoid colon out through the hand port finished the dissection the mesentery up to the bowel used a Hanh clamp transected the bowel placed a whip suture of 2-0 Prolene in placed a 29 mm anvil as a larger one would not fit. I secured the pursestring of Prolene and actually had to place a slight second 1 to assure good positioning. I then placed that back within the abdomen. wet process miller head assistant assisted with irrigating the rectum with dilute Betadine. Then the circular anastomotic stapler was very carefully inserted per rectum and I helped guided into position. We came just short of the staple line at that point I elected to take it out the anterior surface of the rectosigmoid. Under careful palpation visualization the trocar was exited. I made it to the antral and then I cleanly assured good approximation. The device was then fired. After appropriate waiting time the device was removed the donuts were inspected and noted to be completely intact. I then placed fluid in the pelvis and a rigid sigmoidoscope was inserted air was insufflated and there was absolutely no evidence of any air leak. The pelvis was then irrigated and aspirated free. Hemostasis was nicely intact. I made a stab incision in the left lower quadrant placed a 15 round ES drain trimmed that to length so that the tip would be very close to the abscess cavity at the left tube and ovary but I did not extend the drain down to the staple line. That drain was secured to skin with interrupted 3-0 nylon. I closed the 10 mm trocar site which I had upsized in the right lower quadrant with a simple suture of a 0 Vicryl using a GraNee needle. Having achieved that final trochars were removed after the air was exited through an antiviral valve. The abdomen was allowed to deflate appropriate. The midline wound was then closed carefully with a small bite technique with a running #1 Prolene. The greater omentum then placed overlying the small bowel the greater omentum would not reach the pelvis per se. The trocar sites were closed with interrupted 4-0 Monocryl subdermal stitches. A 1/2 inch Humaira drain was placed in the base of the midline incision and it was secured at the inferior portion with to holding sutures of 3-0 nylon and a safety pin. That midline wound was loosely closed with interrupted 4-0 Monocryl subdermal stitches. The drain was placed to close suction. Sponge and instrument and needle counts were reported to the surgeon to be correct. Blood loss 250 cc. Specimen includes the sigmoid colon with 2 donuts. Drains include a 15 round ES to the left lower quadrant and 1/2 inch [place] drain to the subcutaneous tissue of the midline wound. Blood loss 250 cc. The patient was taken to the recovery area in satisfactory edition without apparent complication Brandan Reyes M.D., F.A.C.S. Type of Anesthesia:: General Anesthesiologist: Ashley Bell
[2020-10-22 02:35] VITALS: BP 127/71; PULSE 85; RESP 18; TEMP 37.2; O2SAT 95
[2020-10-22] MEDS: Morphine 2 MG/ML Syringe IV ×3 (02:36→18:18)
--- NOTE | 2020-10-22 05:37 | PN.SURG_ITS ---
Patient Problems: Active and Suspected Problems (Last Reviewed 10/16/20 @ 23:[address] Jamil Perez MD) Diverticulitis (Acute) Perforation of sigmoid colon due to diverticulitis (Acute) Intra-abdominal adhesions (Acute) Abscess of sigmoid colon due to diverticulitis (Acute) Subjective: Notes abdominal soreness. She did have some nausea overnight. Nursing has had some difficulty in getting her to mobilize. - Physical Exam Vitals/I&O's: Vital Signs Temp Pulse Resp BP Pulse Ox 98.9 F 85 18 127/71 H 95 10/22/20 02:35 10/22/20 02:35 10/22/20 02:35 10/22/20 02:35 10/22/20 02:35 Oxygen Flow Rate (L/min) 2 Oxygen Delivery Method Nasal Cannula Weight: 216 lb 4.375 oz Body Mass Index (BMI) 39.5 Intake and Output for Last 24 Hours 10/20/20 10/21/20 10/22/20 23:59 23:59 23:59 Intake Total 2297.50 / 2697.50 1922.50 / 1922.50 296.25 / 296.25 Output Total 2725 / 2725 2305 / 2305 Balance -427.50 / -27.50 -382.50 / -382.50 296.25 / 296.25 General: Alert, Oriented x3 Abdomen: Soft, Bowel Sounds Not Present Current Medications Acetaminophen (Acetaminophen 325 Mg Tablet) 650 mg PO Q6H PRN PRN PRN Reason: fever >100.4 Last Admin: 10/18/20 20:50 Dose: 650 mg Documented by: Albuterol Sulfate (Albuterol 2.5 Mg/3 Ml Vial.Neb.) 2.5 mg INHALATION Q6HWA.RT [facility] Last Admin: 10/21/20 07:15 Dose: 2.5 mg Documented by: Budesonide (Budesonide Respules 0.5 Mg/2 Ml Ampul.Neb.) 0.5 mg INHALATION Q12H.RT [facility] Last Admin: 10/21/20 07:15 Dose: 0.5 mg Documented by: Enoxaparin Sodium (Enoxaparin 40 Mg/0.4 Ml Syringe) 40 mg SC DAILY [facility] Last Admin: 10/20/20 10:36 Dose: 40 mg Documented by: Fluticasone Propionate (Fluticasone 0.05% 1 [place] Nasal.Sry) 1 spray NASAL BID PRN PRN Reason: ALLERGIES Potassium Chloride/Sodium Chloride () 1,000 mls @ 75 mls/hr IV .[id number] [facility] Last Admin: 10/22/20 02:51 Dose: 75 mls/hr Documented by: Metronidazole (Flagyl) 500 mg in 100 mls @ 100 mls/hr IV Q8H [facility] Last Infusion: 10/21/20 22:54 Dose: Infused Documented by: Pantoprazole Sodium 40 mg/ (Sodium Chloride) 110 mls @ 330 mls/hr IV Q24 [facility] Last Infusion: 10/21/20 09:46 Dose: Infused Documented by: Ceftriaxone Sodium 2 gm/ (Sodium Chloride) 50 mls @ 100 mls/hr IV Q24H [facility] Last Infusion: 10/21/20 21:51 Dose: Infused Documented by: Morphine Sulfate (Morphine 2 Mg/Ml Syringe) 2 mg IV Q3H PRN PRN PRN Reason: Pain Score 6-10 Last Admin: 10/22/20 02:36 Dose: 2 mg Documented by: Ondansetron HCl (Ondansetron 4 Mg/2 Ml Vial) 4 mg IV Q8H PRN PRN PRN Reason: NAUSEA/VOMITING Last Admin: 10/20/20 22:31 Dose: 4 mg Documented by: Prochlorperazine Edisylate (Prochlorperazine 10 Mg/2 Ml Vial) 5 mg IV Q6H PRN PRN PRN Reason: NAUSEA/VOMITING Medical Necessity - Tobacco Use Smoking Status: Never smoker Assessment/Plan All Active Problems (Last Reviewed 10/16/20 @ 23:[address] Jamil Perez MD) Diverticulitis (Acute) Perforation of sigmoid colon due to diverticulitis (Acute) Intra-abdominal adhesions (Acute) Abscess of sigmoid colon due to diverticulitis (Acute) Patient underwent a hand-assisted laparoscopic sigmoid colectomy with lysis of intra-abdominal adhesions a primary anastomosis. A ES drain was left on left lower quadrant and [place] drain was left in the incision. A bilateral tap block was performed as well. At this point I have strongly encouraged the patient on the critical nature of mobilization. I am hoping that she will spend the majority of the day out of bed either sitting in a chair hopefully going for walks. The ES drain is not draining much and it appears quite benign. Anticipate ES drain removal tomorrow. Patient has a Humaira drain in the midline plan on advancing that drain tomorrow. Dressing changes were ordered for today. We will start clear liquids and remove the Lezama catheter in moderate IV fluids
[2020-10-22] MEDS: metroNIDAZOLE 500 MG/100 ML BAG 100 MG IV ×3 (05:40→22:01)
--- NOTE | 2020-10-22 06:24 | PCM.DC.GS ---
<Brandan Reyes - Last Filed: 10/22/20 06:24> Discharge Diet: Light diet - advance as tolerated - if you have questions about your diet instructions, please talk to you doctor. Discharge Activity: May Not Drive - for 1 week or while taking narcotic pain medicine. May shower in (days): 0 - May shower after the Humaira incisional drain is removed Lifting Restrictions: 10 pounds Call your doctor if your incision/area has: Continuous Slow Oozing, Sudden Increased Bleeding, Increased Pain/ Swelling, Increased Redness, Foul Smelling Discharge Call your doctor if you observe: Fever of 101 or Higher Suture Line Care: Avoid Pulling/Pushing, Avoid Pinching/Bending Additional Dressing/Incision Instructions:: Please daily change dry absorptive dressings to the left lower quadrant ES drain site and to the midline incisional wound to keep clean and dry. You may remove the plastic dressings in 2 days. Leave the Steri-Strips in place for 1 week. Allergies/Adverse Reactions: Allergies venom-honey bee [bee venom (honey bee)] Allergy (Severe, Verified 10/16/20 19:42) Anaphylaxis amoxicillin [From Augmentin] Allergy (Verified 10/16/20 19:42) Hives clavulanic acid [From Augmentin] Allergy (Verified 10/16/20 19:42) Hives fluticasone [From Advair Diskus] Allergy (Verified 10/16/20 19:42) Anaphylaxis salmeterol [From Advair Diskus] Allergy (Verified 10/16/20 19:42) Anaphylaxis ciprofloxacin [From Cipro] Adverse Reaction (Verified 10/16/20 19:42) Nausea/Vom/Diarrhea ENVIRONMENTAL Allergy (Mild, Uncoded 06/12/20 18:39) Other Medications to take at Discharge Levothyroxine [Synthroid] 88 mcg PO DAILY 02/01/14 fluticasone propionate 50 mcg/actuation nasal spray,suspension 50 mcg INTRANASAL BID PRN PRN 12/29/17 cetirizine 10 mg tablet 10 mg PO QDAY PRN 06/14/18 budesonide-formoterol HFA 160 mcg-4.5 mcg/actuation aerosol inhaler 2 puff INHALATION Q12H #3 device 02/27/20 albuterol sulfate 2.5 mg INHALATION Q4H PRN #180 ml 04/26/20 benzonatate 200 mg capsule 200 mg PO TID PRN #90 cap 05/27/20 albuterol sulfate 90 mcg/actuation aerosol inhaler 2 puff INHALATION Q4H PRN PRN #3 device 08/26/20 Pantoprazole Sodium [Protonix] 20 mg PO DAILY PRN 10/16/20 Ketorolac [Toradol] 10 mg PO Q6H PRN PRN 5 Days #18 tab 10/23/20 Levofloxacin 750 mg PO DAILY 3 Days #3 tab 10/23/20 metroNIDAZOLE [Flagyl] 500 mg PO Q6H 3 Days #9 tab 10/23/20 The following prescriptions were given: metroNIDAZOLE [Flagyl] 500 mg PO Q6H 3 Days #9 tab Transmission Status: Received by [id number] Levofloxacin 750 mg PO DAILY 3 Days #3 tab Transmission Status: Received by [id number] Ketorolac [Toradol] 10 mg PO Q6H PRN PRN 5 Days #18 tab PRN Reason: Pain Score 1-10 Transmission Status: Received by [id number] Primary Care Physician: Marlyn Smith MD [Primary Care Provider] - Test Results: Test results from this visit will be discussed in further detail at your follow-up appointment, if applicable. Please Follow Up With: Brandan Reyes MD - [phone] When: Call to make an appointment to be seen in about 10 days. <Leigh Ann Martinez - Last Filed: 10/24/20 08:38> Discharge Diet: - - Recommend full liquid diet with applesauce and mashed potatoes Additional Instructions: Recommend Heating pad throughout the day. Dressing supplies will include ABD pads (thick pads), 4 x 4 gauze dressings, paper tape. Change dressings daily until we see you in the office. May shower once left lower quadrant and midline drain sites are completely closed. You will be taking an antibiotic for 7 additional days from discharge. Recommend alternating Toradol and Tylenol throughout the day for pain control as needed. If you become nauseated with your diet once at home, go back down to just drinking clear liquids for 1-2 days. Recommend supplemental nutrition with Ensure or [place] breakfast for protein. Dr. Dejesus is the on-call surgeon this weekend. Please call [phone] Test Results: Test results from this visit will be discussed in further detail at your follow-up appointment, if applicable. When: Appointment scheduled for Wednesday at 1:00 pm in our office. Proposed Discharge Date: 10/23/20
[2020-10-22 06:45] LABS: Absolute Lymphocyte Count 0.57 X10^3/uL (0.83-4.51); Absolute Neutrophil Count 13.2 X10^3/uL (2.0-7.7); Basophil# 0.02 X10^3/uL; Basophil% 0.1 % (0-1); Hematocrit 36.7 % (37-47); Hemoglobin 11.7 g/dL (12.0-15.0); Lymphocyte # 0.57 X10^3/ul (4.0); Lymphocyte % 3.9 % (19-41); Mean Corp Hgb Conc 31.9 g/dL (32-36); Mean Corpuscular Hgb 28.8 pg (27.0-32.0); Mean Corpuscular Volume 90.4 fL (81-99); Monocyte# 0.64 X10^3/uL; Monocyte% 4.4 % (0-10); NRBC Flagged by Analyzer 0 % (0-5); Neutrophil # 13.19 X10^3/uL (2.7-7.7); POSITIVE DIFFERENTIAL YES; Platelet Count 367 K/mm3 (150-450); RBC Distribution Width CV 12.5 % (11.6-14.6); RBC Distribution Width SD 41.4 fl (35.1-43.9); Red Blood Count 4.06 M/mm3 (4.2-5.4); White Blood Count 14.5 K/mm3 (4.4-11.0)
[2020-10-22 06:46] LABS: Differential Indicated SCAN CRITERIA MET
[2020-10-22] MEDS: Ketorolac 10 MG Tablet PO ×2 (06:48→19:38)
[2020-10-22 06:56] VITALS: PULSE 88; RESP 20; O2SAT 94
[2020-10-22] MEDS: Budesonide Respules 0.5 MG/2 ML AMPUL.NEB. INHALATION (06:56)
[2020-10-22] MEDS: Albuterol 2.5 MG/3 ML VIAL.NEB. INHALATION ×2 (06:56→13:08)
[2020-10-22 07:08] LABS: Anion Gap 7 (5-15); BUN 10 mg/dL (7-18); BUN/Creat Ratio 11.9 RATIO (10-20); Calcium,Total 8.3 mg/dL (8.5-10.1); Chloride 109 mmol/L (98-107); Creatinine, Serum 0.84 mg/dL (0.55-1.02); EST Glomerular Filtration Rate 77 mL/min (>60); Est Glom Filt Rate - Afr Amer 94 mL/min (>60); Estimated Creatinine Clearance 66.19 ml/min; Glucose 167 mg/dL (74-106); Potassium 4.5 mmol/L (3.5-5.1); Sodium Level 136 mmol/L (136-145); T4 Free Direct 1.14 ng/dL (0.76-1.46)
[2020-10-22 07:21] VITALS: BP 112/70; PULSE 93; RESP 16; TEMP 36.9; O2SAT 97
[2020-10-22 07:26] LABS: Differential Comment SCANNED
[2020-10-22] MEDS: Magnesium Chloride 64 MG Delay Rel.Tablet 128 MG PO (10:06)
[2020-10-22] MEDS: Enoxaparin 40 MG/0.4 ML Syringe SC (10:06)
[2020-10-22] MEDS: Pantoprazole Sodium 40 MG Tablet PO (10:07)
[2020-10-22] MEDS: Docusate Sodium 100 MG Capsule PO ×2 (10:07→21:27)
[2020-10-22] MEDS: Ensure Clear 120 ML Liquid PO ×3 (10:41→21:31)
[2020-10-22] MEDS: 0.9% Saline Lock 10 ML Syringe IV (10:44)
--- NOTE | 2020-10-22 12:01 | PN_ITS ---
Patient Problems: Active and Suspected Problems (Last Reviewed 10/16/20 @ 23:[address] Jamil Perez MD) Diverticulitis (Acute) Perforation of sigmoid colon due to diverticulitis (Acute) Intra-abdominal adhesions (Acute) Abscess of sigmoid colon due to diverticulitis (Acute) Subjective: Feeling ok. Tolerating CLD. NO flatus. Is sitting up and has been walking the halls. Vitals/I&O's: Vital Signs Temp Pulse Resp BP Pulse Ox 98.4 F 93 16 112/70 97 10/22/20 07:21 10/22/20 07:21 10/22/20 07:21 10/22/20 07:21 10/22/20 07:21 Oxygen Flow Rate (L/min) 2 Oxygen Delivery Method Room Air Weight: 98.1 kg Body Mass Index (BMI) 39.5 Intake and Output for Last 24 Hours 10/20/20 10/21/20 10/22/20 23:59 23:59 23:59 Intake Total 2297.50 / 2697.50 1922.50 / 1922.50 610.00 / 610.00 Output Total 2725 / 2725 2305 / 2305 835 / 835 Balance -427.50 / -27.50 -382.50 / -382.50 -225.00 / -225.00 General: Alert, Oriented x3, Cooperative, No apparent distress, Well developed, Well nourished, - - middle aged WF sitting up in bed, appears comfortable Lungs: Clear to auscultation, Normal air movement, No rhonchi, No wheeze, No rales Cardiovascular: Regular rate, Regular Rhythm, Normal S1, Normal S2, No murmurs, No Ectopic Activity, No rub noted, No Gallop Abdomen: Soft, Non-Distended, Hypoactive Bowel Sounds, Tender, - - drain in place with minimal drainage, incision is CDI Extremities: No clubbing, No cyanosis, No edema, Capillary Refill Less than 3 Seconds, Peripheral Pulses Normal Neurological: Cranial nerves II-XII grossly intact, Neuro grossly intact Psych/Mental Status: Normal Affect, Appropriate Microbiology Past 72 Hours 10/21/20 14:30 Aspirate - Abdominal Gram Stain - Final 10/21/20 14:30 Aspirate - Abdominal Wound Culture - Preliminary GPC Poss Enterococcus sp Laboratory Results 10/22/20 06:00: WBC 14.5 H, RBC 4.06 L, Hgb 11.7 L, Hct 36.7 L, MCV 90.4, MCH 28.8, MCHC 31.9 L, RDW Std Deviation 41.4, RDW Coeff of Bebo 12.5, Plt Count 367, MPV 9.0, Immature Gran % (Auto) 0.600, Neut % (Auto) 91.0 H, Lymph % (Auto) 3.9 L, [place] % (Auto) 4.4, Eos % (Auto) 0.0, Baso % (Auto) 0.1, Absolute Neuts (auto) 13.2 H, Absolute Lymphs (auto) 0.57 L, Nucleated RBC % 0, Differential Comment SCANNED 10/22/20 06:00: Sodium 136, Potassium 4.5, Chloride 109 H, Carbon Dioxide 20.0 L , Anion Gap 7, BUN 10, Creatinine 0.84, Estim Creat Clear Calc 66.19, Est GFR (MDRD) Af Amer 94, Est GFR (MDRD) Non-Af 77, BUN/Creatinine Ratio 11.9, Glucose 167 H, Calcium 8.3 L, Free T4 1.14 Current Medications Acetaminophen (Acetaminophen 325 Mg Tablet) 650 mg PO Q6H PRN PRN PRN Reason: fever >100.4 Last Admin: 10/18/20 20:50 Dose: 650 mg Documented by: Albuterol Sulfate (Albuterol 2.5 Mg/3 Ml Vial.Neb.) 2.5 mg INHALATION Q6HWA.RT [facility] Last Admin: 10/22/20 06:56 Dose: 2.5 mg Documented by: Budesonide (Budesonide Respules 0.5 Mg/2 Ml Ampul.Neb.) 0.5 mg INHALATION Q12H.RT [facility] Last Admin: 10/22/20 06:56 Dose: 0.5 mg Documented by: Docusate Sodium (Docusate Sodium 100 Mg Capsule) 100 mg PO BID [facility] Last Admin: 10/22/20 10:07 Dose: 100 mg Documented by: Enoxaparin Sodium (Enoxaparin 40 Mg/0.4 Ml Syringe) 40 mg SC DAILY [facility] Last Admin: 10/22/20 10:06 Dose: 40 mg Documented by: Fluticasone Propionate (Fluticasone 0.05% 1 [place] Nasal.Sry) 1 spray NASAL BID PRN PRN Reason: ALLERGIES Potassium Chloride/Sodium Chloride () 1,000 mls @ 30 mls/hr IV .[id number] [facility] Last Infusion: 10/22/20 06:34 Dose: 30 mls/hr Documented by: Metronidazole (Flagyl) 500 mg in 100 mls @ 100 mls/hr IV Q8H [facility] Last Infusion: 10/22/20 06:40 Dose: Infused Documented by: Ceftriaxone Sodium 2 gm/ (Sodium Chloride) 50 mls @ 100 mls/hr IV Q24H [facility] Last Infusion: 10/21/20 21:51 Dose: Infused Documented by: Ketorolac Tromethamine (Ketorolac 10 Mg Tablet) 10 mg PO Q6H PRN PRN PRN Reason: Pain Score 1-10 Stop: 10/27/20 06:19 Last Admin: 10/22/20 06:48 Dose: 10 mg Documented by: Magnesium Chloride (Magnesium Chloride 64 Mg Delay Rel.Tablet) 128 mg PO DAILY [facility] Last Admin: 10/22/20 10:06 Dose: 128 mg Documented by: Morphine Sulfate (Morphine 2 Mg/Ml Syringe) 1 - 2 mg IV Q3H PRN PRN PRN Reason: Pain Score 6-10 Last Admin: 10/22/20 10:44 Dose: 1 mg Documented by: Nutritional Formula (Lactose Free) (Ensure Clear 120 Ml Liquid) 120 ml PO 4X/DAY [facility] Last Admin: 10/22/20 10:41 Dose: 120 ml Documented by: Ondansetron HCl (Ondansetron 4 Mg/2 Ml Vial) 4 mg IV Q8H PRN PRN PRN Reason: NAUSEA/VOMITING Last Admin: 10/20/20 22:31 Dose: 4 mg Documented by: Pantoprazole Sodium (Pantoprazole Sodium 40 Mg Tablet) 40 mg PO DAILY [facility] Last Admin: 10/22/20 10:07 Dose: 40 mg Documented by: Prochlorperazine Edisylate (Prochlorperazine 10 Mg/2 Ml Vial) 5 mg IV Q6H PRN PRN PRN Reason: NAUSEA/VOMITING Medical Necessity - Tobacco Use Smoking Status: Never smoker Assessment/Plan All Active Problems (Last Reviewed 10/16/20 @ 23:[address] Jamil Perez MD) Diverticulitis (Acute) Perforation of sigmoid colon due to diverticulitis (Acute) Intra-abdominal adhesions (Acute) Abscess of sigmoid colon due to diverticulitis (Acute) Acute Diverticulitis with Perforation S/P Laparoscopic lysis of intra-abdominal adhesions, conversion to hand-assisted sigmoid colectomy and Bilateral tap block -multiple abscesses on CT--> too many for perc drainage -OR on 10/21 for sigmoid colectomy (Dr. Reyes) -continue abx CTX/Flagyl with abscesses -CLD per GS -ES in place but removal is anticipated for tomorrow -continue IVF for now -intraoperative cx sent Leukocytosis -up a bit today but suspect reactive from surgery -had normalized -repeat in am GERD -PPI Mild Anemia -monitor Hypothyroidism -Elevated TSH -10.8 -check Free T4 and r/o euthyroid sick -continue Synthroid dosing Allergic Rhinitis -continue fluticasone NS Asthma -cont home inhalers FREDY -CPAP ordered [place] -recommend wgt loss DVT Prophylaxis -Lovenox Code Status -Full Inpatient E&M: 38114 Subs Hosp L2
[2020-10-22 13:08] VITALS: PULSE 82; RESP 16
[2020-10-22 13:48] VITALS: BP 94/58; PULSE 89; RESP 16; TEMP 36.8; O2SAT 97
[2020-10-22] MEDS: Acetaminophen 325 MG Tablet 650 MG PO (19:39)
[2020-10-22 20:30] VITALS: BP 98/60; PULSE 83; RESP 18; TEMP 36.8; O2SAT 96
[2020-10-23] MEDS: Acetaminophen 325 MG Tablet 650 MG PO ×2 (01:44→16:31)
[2020-10-23] MEDS: Ketorolac 10 MG Tablet PO ×3 (01:44→19:48)
[2020-10-23 01:54] VITALS: BP 97/62; PULSE 79; RESP 18; TEMP 36.9; O2SAT 97
[2020-10-23] MEDS: metroNIDAZOLE 500 MG/100 ML BAG 100 MG IV ×3 (05:00→21:40)
[2020-10-23 06:33] LABS: Absolute Lymphocyte Count 2.23 X10^3/uL (0.83-4.51); Absolute Neutrophil Count 9.4 X10^3/uL (2.0-7.7); Basophil# 0.03 X10^3/uL; Basophil% 0.2 % (0-1); Eosinophil# 0.18 X10^3/uL; Eosinophils% 1.4 % (0-5); Hematocrit 36.4 % (37-47); Hemoglobin 11.5 g/dL (12.0-15.0); Lymphocyte # 2.23 X10^3/ul (4.0); Lymphocyte % 17.6 % (19-41); Mean Corp Hgb Conc 31.6 g/dL (32-36); Mean Corpuscular Hgb 28.8 pg (27.0-32.0); Mean Platelet Vol. 8.9 fl (6.2-12.0); Monocyte# 0.74 X10^3/uL; Monocyte% 5.8 % (0-10); NRBC Flagged by Analyzer 0 % (0-5); Neutrophil % 74.3 % (47-70); Platelet Count 392 K/mm3 (150-450); RBC Distribution Width CV 12.9 % (11.6-14.6); RBC Distribution Width SD 43.3 fl (35.1-43.9); White Blood Count 12.7 K/mm3 (4.4-11.0)
[2020-10-23] MEDS: Albuterol 2.5 MG/3 ML VIAL.NEB. INHALATION ×2 (06:55→20:17)
[2020-10-23] MEDS: Budesonide Respules 0.5 MG/2 ML AMPUL.NEB. INHALATION ×2 (06:55→20:17)
[2020-10-23 06:57] LABS: Anion Gap 8 (5-15); BUN 11 mg/dL (7-18); BUN/Creat Ratio 12.8 RATIO (10-20); Calcium,Total 8.7 mg/dL (8.5-10.1); Chloride 108 mmol/L (98-107); Creatinine, Serum 0.86 mg/dL (0.55-1.02); EST Glomerular Filtration Rate 75 mL/min (>60); Est Glom Filt Rate - Afr Amer 91 mL/min (>60); Estimated Creatinine Clearance 64.65 ml/min; Glucose 110 mg/dL (74-106); Potassium 3.6 mmol/L (3.5-5.1); Sodium Level 138 mmol/L (136-145)
[2020-10-23 06:59] VITALS: PULSE 91; RESP 20; O2SAT 96
[2020-10-23] MEDS: Ensure Clear 120 ML Liquid PO ×4 (07:56→19:50)
[2020-10-23 08:07] VITALS: RESP 18; O2SAT 95
[2020-10-23 08:12] VITALS: BP 112/77; PULSE 60; RESP 18; TEMP 37.1; O2SAT 95
[2020-10-23] MEDS: Enoxaparin 40 MG/0.4 ML Syringe SC (09:09)
[2020-10-23] MEDS: Pantoprazole Sodium 40 MG Tablet PO (09:10)
[2020-10-23] MEDS: Docusate Sodium 100 MG Capsule PO ×2 (09:10→21:03)
--- NOTE | 2020-10-23 09:30 | PN.SURG_ITS ---
Patient Problems: Active and Suspected Problems (Last Reviewed 10/16/20 @ 23:[address] Jamil Perez MD) Diverticulitis (Acute) Perforation of sigmoid colon due to diverticulitis (Acute) Intra-abdominal adhesions (Acute) Abscess of sigmoid colon due to diverticulitis (Acute) Subjective: Patient evaluated resting comfortably in bed. She denies nausea, vomiting and fever. She notes pain has improved although still uncomfortable with movement. Negative flatus, BM. Tolerating clear liquid diet. Urinating well. She has walked the halls twice already this morning. She notes the Toradol and Tylenol combination has worked well for pain management for her. Microbiology grew out enterococcus faecalis. - Physical Exam Vitals/I&O's: Vital Signs Temp Pulse Resp BP Pulse Ox 98.7 F 60 18 112/77 95 10/23/20 08:12 10/23/20 08:12 10/23/20 08:12 10/23/20 08:12 10/23/20 08:12 Oxygen Flow Rate (L/min) 2 Oxygen Delivery Method Room Air Weight: 216 lb 4.375 oz Body Mass Index (BMI) 39.5 Intake and Output for Last 24 Hours 10/21/20 10/22/20 10/23/20 23:59 23:59 23:59 Intake Total 1922.50 / 1922.50 1306.50 / 1306.50 377.0 / 377.0 Output Total 2305 / 2305 835 / 1345 920 / 920 Balance -382.50 / -382.50 471.50 / -38.50 -543.0 / -543.0 General: Alert, Oriented x3, Cooperative Abdomen: Soft, Hypoactive Bowel Sounds, Distended - slightly, Obese, Tender - slightly generalized, - - ES drain was removed and dressing placed. NO bleeding noted and tip of drain intact. [place]air[place] drain advanced. ABD dressing and gauze dressing placed. Op-sites removed from all incisions. Microbiology Past 72 Hours 10/21/20 14:30 Aspirate - Abdominal Gram Stain - Final 10/21/20 14:30 Aspirate - Abdominal Wound Culture - Final Enterococcus faecalis 10/21/20 14:30 Aspirate - Abdominal Anaerobic Culture - Preliminary Checking for anaerobes, further studies to follow. Laboratory Results 10/23/20 05:35: WBC 12.7 H, RBC 4.00 L, Hgb 11.5 L, Hct 36.4 L, MCV 91.0, MCH 28.8, MCHC 31.6 L, RDW Std Deviation 43.3, RDW Coeff of Bebo 12.9, Plt Count 392, MPV 8.9, Immature Gran % (Auto) 0.700, Neut % (Auto) 74.3 H, Lymph % (Auto) 17.6 L, [place] % (Auto) 5.8, Eos % (Auto) 1.4, Baso % (Auto) 0.2, Absolute Neuts (auto) 9.4 H, Absolute Lymphs (auto) 2.23, Nucleated RBC % 0 10/23/20 05:35: Sodium 138, Potassium 3.6, Chloride 108 H, Carbon Dioxide 22.0, Anion Gap 8, BUN 11, Creatinine 0.86, Estim Creat Clear Calc 64.65, Est GFR (MDRD) Af Amer 91, Est GFR (MDRD) Non-Af 75, BUN/Creatinine Ratio 12.8, Glucose 110 H, Calcium 8.7 Current Medications Acetaminophen (Acetaminophen 325 Mg Tablet) 650 mg PO Q6H PRN PRN PRN Reason: fever >100.4 Last Admin: 10/23/20 01:44 Dose: 650 mg Documented by: Albuterol Sulfate (Albuterol 2.5 Mg/3 Ml Vial.Neb.) 2.5 mg INHALATION Q6HWA.RT [facility] Last Admin: 10/23/20 06:55 Dose: 2.5 mg Documented by: Budesonide (Budesonide Respules 0.5 Mg/2 Ml Ampul.Neb.) 0.5 mg INHALATION Q12H.RT [facility] [place] Last Admin: 10/23/20 06:55 Dose: 0.5 mg Documented by: Docusate Sodium (Docusate Sodium 100 Mg Capsule) 100 mg PO BID [facility] [place] Last Admin: 10/23/20 09:10 Dose: 100 mg Documented by: Enoxaparin Sodium (Enoxaparin 40 Mg/0.4 Ml Syringe) 40 mg SC DAILY [facility] Last Admin: 10/23/20 09:09 Dose: 40 mg Documented by: Fluticasone Propionate (Fluticasone 0.05% 1 [place] Nasal.Sry) 1 spray NASAL BID PRN PRN Reason: ALLERGIES Potassium Chloride/Sodium Chloride () 1,000 mls @ 30 mls/hr IV .[id number] [facility] [place] Last Admin: 10/23/20 09:15 Dose: 30 mls/hr Documented by: Metronidazole (Flagyl) 500 mg in 100 mls @ 100 mls/hr IV Q8H [facility] Last Infusion: 10/23/20 06:00 Dose: Infused Documented by: Ceftriaxone Sodium 2 gm/ (Sodium Chloride) 50 mls @ 100 mls/hr IV Q24H [facility] [place] Last Infusion: 10/22/20 21:57 Dose: Infused Documented by: Ketorolac Tromethamine (Ketorolac 10 Mg Tablet) 10 mg PO Q6H PRN PRN PRN Reason: Pain Score 1-10 Stop: 10/27/20 06:19 Last Admin: 10/23/20 09:08 Dose: 10 mg Documented by: Magnesium Chloride (Magnesium Chloride 64 Mg Delay Rel.Tablet) 128 mg PO DAILY [facility] [place] Last Admin: 10/22/20 10:06 Dose: 128 mg Documented by: Morphine Sulfate (Morphine 2 Mg/Ml Syringe) 1 - 2 mg IV Q3H PRN PRN PRN Reason: Pain Score 6-10 Last Admin: 10/22/20 18:18 Dose: 2 mg Documented by: Nutritional Formula (Lactose Free) (Ensure Clear 120 Ml Liquid) 120 ml PO 4X/DAY [facility] Last Admin: 10/23/20 07:56 Dose: 120 ml Documented by: Ondansetron HCl (Ondansetron 4 Mg/2 Ml Vial) 4 mg IV Q8H PRN PRN PRN Reason: NAUSEA/VOMITING Last Admin: 10/20/20 22:31 Dose: 4 mg Documented by: Pantoprazole Sodium (Pantoprazole Sodium 40 Mg Tablet) 40 mg PO DAILY [facility] [place] Last Admin: 10/23/20 09:10 Dose: 40 mg Documented by: Prochlorperazine Edisylate (Prochlorperazine 10 Mg/2 Ml Vial) 5 mg IV Q6H PRN PRN PRN Reason: NAUSEA/VOMITING Medical Necessity - Tobacco Use Smoking Status: Never smoker Assessment/Plan All Active Problems (Last Reviewed 10/16/20 @ 23:[address] Jamil Perez MD) Diverticulitis (Acute) Perforation of sigmoid colon due to diverticulitis (Acute) Intra-abdominal adhesions (Acute) Abscess of sigmoid colon due to diverticulitis (Acute) I am following this patient in conjunction with Dr. Dejesus in Dr. Reyes's absence S/p Laparoscopic lysis of intra-abdominal adhesions, conversion to hand-assisted sigmoid colectomy. Bilateral tap block WBC decreasing Pain is improving. Will switch to all oral pain medication today. Will advance diet to full liquids with applesauce and mashed potatoes. She will go home on this diet. Will plan to send patient home on 3 days worth of oral antibiotics Plan to remove humaira drain tomorrow morning Discharge planning for tomorrow morning We will continue to monitor this patient
--- NOTE | 2020-10-23 14:54 | PN_ITS ---
Patient Problems: Active and Suspected Problems (Last Reviewed 10/16/20 @ 23:[address] Jamil Perez MD) Diverticulitis (Acute) Perforation of sigmoid colon due to diverticulitis (Acute) Intra-abdominal adhesions (Acute) Abscess of sigmoid colon due to diverticulitis (Acute) Reason for Visit: diverticulitis Subjective: minimal flatus Vitals/I&O's: Vital Signs Temp Pulse Resp BP Pulse Ox 37.1 C 60 18 112/77 95 10/23/20 08:12 10/23/20 08:12 10/23/20 08:12 10/23/20 08:12 10/23/20 08:12 Oxygen Flow Rate (L/min) 2 Oxygen Delivery Method Room Air Weight: 98.1 kg Body Mass Index (BMI) 39.5 Intake and Output for Last 24 Hours 10/21/20 10/22/20 10/23/20 23:59 23:59 23:59 Intake Total 1922.50 / 1922.50 1306.50 / 1306.50 716.5 / 716.5 Output Total 2305 / 2305 835 / 1345 1220 / 1220 Balance -382.50 / -382.50 471.50 / -38.50 -503.5 / -503.5 General: Alert, No apparent distress HEENT: Atraumatic, Normocephalic Oral: Moist Mucosa, No Gingival or Mucosal Lesions/ Ulcerations Neck: No Nodes, Thyroid Normal Size and Texture Lungs: Clear to auscultation, Normal air movement, No rhonchi, No wheeze Cardiovascular: Regular rate, Regular Rhythm, Normal S1, Normal S2 Abdomen: Soft, Hypoactive Bowel Sounds, Distended, Tender Extremities: No edema, No Calf Tenderness Psych/Mental Status: Normal Affect, Appropriate Microbiology Past 72 Hours 10/21/20 14:30 Aspirate - Abdominal Gram Stain - Final 10/21/20 14:30 Aspirate - Abdominal Wound Culture - Final Enterococcus faecalis 10/21/20 14:30 Aspirate - Abdominal Anaerobic Culture - Preliminary Checking for anaerobes, further studies to follow. Laboratory Results 10/23/20 05:35: WBC 12.7 H, RBC 4.00 L, Hgb 11.5 L, Hct 36.4 L, MCV 91.0, MCH 28.8, MCHC 31.6 L, RDW Std Deviation 43.3, RDW Coeff of Bebo 12.9, Plt Count 392, MPV 8.9, Immature Gran % (Auto) 0.700, Neut % (Auto) 74.3 H, Lymph % (Auto) 17.6 L, [place] % (Auto) 5.8, Eos % (Auto) 1.4, Baso % (Auto) 0.2, Absolute Neuts (auto) 9.4 H, Absolute Lymphs (auto) 2.23, Nucleated RBC % 0 10/23/20 05:35: Sodium 138, Potassium 3.6, Chloride 108 H, Carbon Dioxide 22.0, Anion Gap 8, BUN 11, Creatinine 0.86, Estim Creat Clear Calc 64.65, Est GFR (MDRD) Af Amer 91, Est GFR (MDRD) Non-Af 75, BUN/Creatinine Ratio 12.8, Glucose 110 H, Calcium 8.7 Current Medications Acetaminophen (Acetaminophen 325 Mg Tablet) 650 mg PO Q6H PRN PRN PRN Reason: fever >100.4 Last Admin: 10/23/20 01:44 Dose: 650 mg Documented by: Albuterol Sulfate (Albuterol 2.5 Mg/3 Ml Vial.Neb.) 2.5 mg INHALATION Q6HWA.RT [facility] Last Admin: 10/23/20 06:55 Dose: 2.5 mg Documented by: Budesonide (Budesonide Respules 0.5 Mg/2 Ml Ampul.Neb.) 0.5 mg INHALATION Q12H.RT [facility] Last Admin: 10/23/20 06:55 Dose: 0.5 mg Documented by: Docusate Sodium (Docusate Sodium 100 Mg Capsule) 100 mg PO BID [facility] Last Admin: 10/23/20 09:10 Dose: 100 mg Documented by: Enoxaparin Sodium (Enoxaparin 40 Mg/0.4 Ml Syringe) 40 mg SC DAILY [facility] Last Admin: 10/23/20 09:09 Dose: 40 mg Documented by: Fluticasone Propionate (Fluticasone 0.05% 1 [place] Nasal.Sry) 1 spray NASAL BID PRN PRN Reason: ALLERGIES Potassium Chloride/Sodium Chloride () 1,000 mls @ 30 mls/hr IV .[id number] [facility] Last Admin: 10/23/20 10:34 Dose: 30 mls/hr Documented by: Metronidazole (Flagyl) 500 mg in 100 mls @ 100 mls/hr IV Q8H [facility] Last Admin: 10/23/20 14:05 Dose: 100 mls/hr Documented by: Ceftriaxone Sodium 2 gm/ (Sodium Chloride) 50 mls @ 100 mls/hr IV Q24H [facility] Last Infusion: 10/22/20 21:57 Dose: Infused Documented by: Ketorolac Tromethamine (Ketorolac 10 Mg Tablet) 10 mg PO Q6H PRN PRN PRN Reason: Pain Score 1-10 Stop: 10/27/20 06:19 Last Admin: 10/23/20 09:08 Dose: 10 mg Documented by: Magnesium Chloride (Magnesium Chloride 64 Mg Delay Rel.Tablet) 128 mg PO DAILY [facility] Last Admin: 10/22/20 10:06 Dose: 128 mg Documented by: Morphine Sulfate (Morphine 2 Mg/Ml Syringe) 1 - 2 mg IV Q3H PRN PRN PRN Reason: Pain Score 6-10 Last Admin: 10/22/20 18:18 Dose: 2 mg Documented by: Nutritional Formula (Lactose Free) (Ensure Clear 120 Ml Liquid) 120 ml PO 4X/DAY [facility] Last Admin: 10/23/20 14:05 Dose: 120 ml Documented by: Ondansetron HCl (Ondansetron 4 Mg/2 Ml Vial) 4 mg IV Q8H PRN PRN PRN Reason: NAUSEA/VOMITING Last Admin: 10/20/20 22:31 Dose: 4 mg Documented by: Pantoprazole Sodium (Pantoprazole Sodium 40 Mg Tablet) 40 mg PO DAILY [facility] Last Admin: 10/23/20 09:10 Dose: 40 mg Documented by: Prochlorperazine Edisylate (Prochlorperazine 10 Mg/2 Ml Vial) 5 mg IV Q6H PRN PRN PRN Reason: NAUSEA/VOMITING Medical Necessity - Tobacco Use Smoking Status: Never smoker Assessment/Plan All Active Problems (Last Reviewed 10/16/20 @ 23:[address] Jamil Perez MD) Diverticulitis (Acute) Perforation of sigmoid colon due to diverticulitis (Acute) Intra-abdominal adhesions (Acute) Abscess of sigmoid colon due to diverticulitis (Acute) 1. acute diverticulitis * s/p sigmoid colectomy 10/21 * on ctx and metronidazole * diet advanced to fulls * possible DC 10/24 2. leukocytosis * improving * monitor 3. chronic condition: * GERD: PPI * anemia: stable * hypothyroidism: TSH 10.8, however, free T4 1.14. * allergic rhinitis * asthma: BDs * FREDY: CPAP * morbid obesity: weight loss 4. VTE prophylaxis: LMWH Inpatient E&M: 98972 Subs Hosp L2
[2020-10-23] MEDS: Magnesium Chloride 64 MG Delay Rel.Tablet 128 MG PO (16:32)
[2020-10-23 19:30] VITALS: BP 106/63; PULSE 91; RESP 18; TEMP 36.8; O2SAT 97
[2020-10-23 20:17] VITALS: PULSE 92; RESP 18
[2020-10-24 01:50] VITALS: BP 105/63; PULSE 86; RESP 18; TEMP 36.9; O2SAT 97
[2020-10-24] MEDS: Ketorolac 10 MG Tablet PO ×2 (05:26→11:30)
[2020-10-24] MEDS: metroNIDAZOLE 500 MG/100 ML BAG 100 MG IV (05:26)
[2020-10-24 05:56] LABS: Absolute Lymphocyte Count 1.51 X10^3/uL (0.83-4.51); Absolute Neutrophil Count 5.6 X10^3/uL (2.0-7.7); Basophil# 0.02 X10^3/uL; Basophil% 0.3 % (0-1); Eosinophil# 0.22 X10^3/uL; Eosinophils% 2.8 % (0-5); Hematocrit 33.4 % (37-47); Hemoglobin 10.5 g/dL (12.0-15.0); Lymphocyte # 1.51 X10^3/ul (4.0); Lymphocyte % 19.1 % (19-41); Mean Corp Hgb Conc 31.4 g/dL (32-36); Mean Corpuscular Hgb 28.8 pg (27.0-32.0); Mean Corpuscular Volume 91.5 fL (81-99); Monocyte# 0.48 X10^3/uL; Monocyte% 6.1 % (0-10); NRBC Flagged by Analyzer 0 % (0-5); Neutrophil # 5.58 X10^3/uL (2.7-7.7); Neutrophil % 70.7 % (47-70); Platelet Count 325 K/mm3 (150-450); RBC Distribution Width CV 12.8 % (11.6-14.6); RBC Distribution Width SD 42.5 fl (35.1-43.9); Red Blood Count 3.65 M/mm3 (4.2-5.4); White Blood Count 7.9 K/mm3 (4.4-11.0)
[2020-10-24 06:19] LABS: Anion Gap 6 (5-15); BUN 7 mg/dL (7-18); BUN/Creat Ratio 9.8 RATIO (10-20); Calcium,Total 8.4 mg/dL (8.5-10.1); Chloride 111 mmol/L (98-107); Creatinine, Serum 0.71 mg/dL (0.55-1.02); EST Glomerular Filtration Rate 94 mL/min (>60); Est Glom Filt Rate - Afr Amer 114 mL/min (>60); Estimated Creatinine Clearance 78.31 ml/min; Glucose 115 mg/dL (74-106); Potassium 3.5 mmol/L (3.5-5.1); Sodium Level 140 mmol/L (136-145)
[2020-10-24] MEDS: Albuterol 2.5 MG/3 ML VIAL.NEB. INHALATION (07:23)
[2020-10-24 07:24] VITALS: PULSE 95; RESP 18; O2SAT 95
[2020-10-24] MEDS: Budesonide Respules 0.5 MG/2 ML AMPUL.NEB. INHALATION (07:24)
[2020-10-24 07:41] VITALS: BP 110/67; PULSE 92; RESP 14; TEMP 36.6; O2SAT 95
--- NOTE | 2020-10-24 08:38 | PN_ITS ---
Progress Note Patient evaluated. Positive flatus and two loose BM's. Negative nausea, vomiting. Tolerating full liquid diet with mashed potatoes and applesauce. [place] drain completely removed. Dressing midline and ES changed this morning. Diet reviewed with patient. STROKE Vital Signs/Narrative: Vital Signs Temp Pulse Resp BP Pulse Ox 10/24/20 07:41 97.8 F 92 14 110/67 95 Inpatient E&M: 22604 Subs Hosp L1 - No charge
[2020-10-24] MEDS: Magnesium Chloride 64 MG Delay Rel.Tablet 128 MG PO (09:50)
[2020-10-24] MEDS: Enoxaparin 40 MG/0.4 ML Syringe SC (09:50)
[2020-10-24] MEDS: Acetaminophen 325 MG Tablet 650 MG PO (09:51)
[2020-10-24] MEDS: Pantoprazole Sodium 40 MG Tablet PO (09:51)
--- NOTE | 2020-10-24 10:21 | PCM.DC.SUM ---
Discharge Date and Diagnosis - Problem List Patient Problems: Active and Suspected Problems (Last Reviewed 10/16/20 @ 23:[address] Jamil Perez MD) Diverticulitis (Acute) Perforation of sigmoid colon due to diverticulitis (Acute) Intra-abdominal adhesions (Acute) Abscess of sigmoid colon due to diverticulitis (Acute) Date of Admission: 10/16/20 Date of Discharge: 10/24/20 - Primary Discharge Diagnosis Acute Problems: Active Problems (Last Reviewed 10/16/20 @ 23:[address] Jamil Perez MD) Diverticulitis (Acute) Perforation of sigmoid colon due to diverticulitis (Acute) Intra-abdominal adhesions (Acute) Abscess of sigmoid colon due to diverticulitis (Acute) - Secondary Discharge Diagnosis Chronic Problems: Chronic Problems (Last Reviewed 10/16/20 @ 23:[address] Jamil Perez MD) Obesity (BMI 30-39.9) (Chronic) Asthma, moderate persistent (Chronic) Abnormal PFT (Chronic) Asthma, moderate persistent, poorly-controlled (Chronic) FREDY (obstructive sleep apnea) (Chronic) Fistula (Chronic) History of carpal tunnel surgery (Chronic) Hx of appendectomy (Chronic) S/P cholecystectomy (Chronic) [place] teeth extracted (Chronic) delivery delivered (Chronic) lazy eye repair (Chronic) Allergic rhinitis (Chronic) IBS (irritable bowel syndrome) (Chronic) Hypothyroid (Chronic) Anxiety (Chronic) PTSD (post-traumatic stress disorder) (Chronic) Sciatica (Chronic) Obesity (Chronic) Depression (Chronic) Asthma (Chronic) Hospital Course and Treatment Operations: colectomy - Laparoscopic lysis of intra-abdominal adhesions, conversion to hand-assisted sigmoid colectomy. Bilateral tap block Summary of Care Provided: The patient is a 45 year old F who presented with abdominal pain. CT scan of the ab/pel demonstrated IMPRESSION: 1. Multiple small pockets of rim-enhancing early abscesses along the sigmoid colon but improving inflammatory changes of the pericolic fat when compared to 10/16/2020. 2. Hepatomegaly with moderate hepatic steatosis is unchanged. 3. No other additional findings or changes. Patient was observed with bowel rest, IV antibiotics. Her symptoms progressed and Dr. Reyes performed a Laparoscopic lysis of intra-abdominal adhesions, conversion to hand-assisted sigmoid colectomy. Bilateral tap block on 08/21/2020. Patient had an uncomplicated hospitalization. Upon discharge, patient tolerated a full liquid diet. She had passed multiple bouts of gas. She has had bowel movements. She denies nausea, vomiting. She is urinating well. ES drain and dar drain was removed prior to discharge. Patient was discharged home on full liquids, 3 days of antibiotics, dressing change instructions, pain medication as needed. Patient Problems: Active and Suspected Problems (Last Reviewed 10/16/20 @ 23:[address] Jamil Perez MD) Diverticulitis (Acute) Perforation of sigmoid colon due to diverticulitis (Acute) Intra-abdominal adhesions (Acute) Abscess of sigmoid colon due to diverticulitis (Acute) - Physical Exam Vitals/I&O's: Vital Signs Temp Pulse Resp BP Pulse Ox 97.8 F 92 14 110/67 95 10/24/20 07:41 10/24/20 07:41 10/24/20 07:41 10/24/20 07:41 10/24/20 07:41 Oxygen Flow Rate (L/min) 2 Oxygen Delivery Method Room Air Weight: 216 lb 4.375 oz Body Mass Index (BMI) 39.5 Intake and Output for Last 24 Hours 10/22/20 10/23/20 10/24/20 23:59 23:59 23:59 Intake Total 1306.50 / 1306.50 1072.0 / 1072.0 405.0 / 405.0 Output Total 835 / 1345 1220 / 1520 700 / 700 Balance 471.50 / -38.50 -148.0 / -448.0 -295.0 / -295.0 General: Alert, Oriented x3, Cooperative Abdomen: Bowel Sounds Present, Soft, Tender - slightly generalized, - - Incisions clean and intact. Small amount of drainage from midline incision Microbiology Past 72 Hours 10/21/20 14:30 Aspirate - Abdominal Gram Stain - Final 10/21/20 14:30 Aspirate - Abdominal Wound Culture - Final Enterococcus faecalis 10/21/20 14:30 Aspirate - Abdominal Anaerobic Culture - Final No anaerobic bacteria isolated. Laboratory Results 10/24/20 05:35: WBC 7.9, RBC 3.65 L, Hgb 10.5 L, Hct 33.4 L, MCV 91.5, MCH 28.8, MCHC 31.4 L, RDW Std Deviation 42.5, RDW Coeff of Bebo 12.8, Plt Count 325, MPV 9.0, Immature Gran % (Auto) 1.000 H, Neut % (Auto) 70.7 H, Lymph % (Auto) 19.1, [place] % (Auto) 6.1, Eos % (Auto) 2.8, Baso % (Auto) 0.3, Absolute Neuts (auto) 5.6, Absolute Lymphs (auto) 1.51, Nucleated RBC % 0 10/24/20 05:35: Sodium 140, Potassium 3.5, Chloride 111 H, Carbon Dioxide 23.0, Anion Gap 6, BUN 7, Creatinine 0.71, Estim Creat Clear Calc 78.31, Est GFR (MDRD) Af Amer 114, Est GFR (MDRD) Non-Af 94, BUN/Creatinine Ratio 9.8 L, Glucose 115 H, Calcium 8.4 L Current Medications Acetaminophen (Acetaminophen 325 Mg Tablet) 650 mg PO Q6H PRN PRN PRN Reason: fever >100.4 Last Admin: 10/24/20 09:51 Dose: 650 mg Documented by: Albuterol Sulfate (Albuterol 2.5 Mg/3 Ml Vial.Neb.) 2.5 mg INHALATION Q6HWA.RT [facility] Last Admin: 10/24/20 07:23 Dose: 2.5 mg Documented by: Budesonide (Budesonide Respules 0.5 Mg/2 Ml Ampul.Neb.) 0.5 mg INHALATION Q12H.RT [facility] Last Admin: 10/24/20 07:24 Dose: 0.5 mg Documented by: Docusate Sodium (Docusate Sodium 100 Mg Capsule) 100 mg PO BID [facility] Last Admin: 10/24/20 09:52 Dose: Not Given Documented by: Enoxaparin Sodium (Enoxaparin 40 Mg/0.4 Ml Syringe) 40 mg SC DAILY [facility] Last Admin: 10/24/20 09:50 Dose: 40 mg Documented by: Fluticasone Propionate (Fluticasone 0.05% 1 [place] Nasal.Sry) 1 spray NASAL BID PRN PRN Reason: ALLERGIES Potassium Chloride/Sodium Chloride () 1,000 mls @ 30 mls/hr IV .[id number] [facility] Last Admin: 10/24/20 09:52 Dose: Not Given Documented by: Metronidazole (Flagyl) 500 mg in 100 mls @ 100 mls/hr IV Q8H [facility] Last Infusion: 10/24/20 06:26 Dose: Infused Documented by: Ceftriaxone Sodium 2 gm/ (Sodium Chloride) 50 mls @ 100 mls/hr IV Q24H [facility] Last Infusion: 10/23/20 21:33 Dose: Infused Documented by: Ketorolac Tromethamine (Ketorolac 10 Mg Tablet) 10 mg PO Q6H PRN PRN PRN Reason: Pain Score 1-10 Stop: 10/27/20 06:19 Last Admin: 10/24/20 05:26 Dose: 10 mg Documented by: Magnesium Chloride (Magnesium Chloride 64 Mg Delay Rel.Tablet) 128 mg PO DAILY [facility] Last Admin: 10/24/20 09:50 Dose: 128 mg Documented by: Morphine Sulfate (Morphine 2 Mg/Ml Syringe) 1 - 2 mg IV Q3H PRN PRN PRN Reason: Pain Score 6-10 Last Admin: 10/22/20 18:18 Dose: 2 mg Documented by: Nutritional Formula (Lactose Free) (Ensure Clear 120 Ml Liquid) 120 ml PO 4X/DAY [facility] Last Admin: 10/24/20 09:52 Dose: Not Given Documented by: Ondansetron HCl (Ondansetron 4 Mg/2 Ml Vial) 4 mg IV Q8H PRN PRN PRN Reason: NAUSEA/VOMITING Last Admin: 10/20/20 22:31 Dose: 4 mg Documented by: Pantoprazole Sodium (Pantoprazole Sodium 40 Mg Tablet) 40 mg PO DAILY [facility] Last Admin: 10/24/20 09:51 Dose: 40 mg Documented by: Prochlorperazine Edisylate (Prochlorperazine 10 Mg/2 Ml Vial) 5 mg IV Q6H PRN PRN PRN Reason: NAUSEA/VOMITING Discharge Diet: - - Recommend full liquid diet with applesauce and mashed potatoes Discharge Activity: May Not Drive - for 1 week or while taking narcotic pain medicine. May shower in (days): 0 - May shower after the [place] incisional drain is removed Call your doctor if your incision/area has: Continuous Slow Oozing, Sudden Increased Bleeding, Increased Pain/ Swelling, Increased Redness, Foul Smelling Discharge Call your doctor if you observe: Fever of 101 or Higher Suture Line Care: Avoid Pulling/Pushing, Avoid Pinching/Bending Additional Dressing/Incision Instructions:: Please daily change dry absorptive dressings to the left lower quadrant ES drain site and to the midline incisional wound to keep clean and dry. You may remove the plastic dressings in 2 days. Leave the Steri-Strips in place for 1 week. Home Medications: Medications to take at Discharge Levothyroxine [Synthroid] 88 mcg PO DAILY 02/01/14 fluticasone propionate 50 mcg/actuation nasal spray,suspension 50 mcg INTRANASAL BID PRN PRN 12/29/17 cetirizine 10 mg tablet 10 mg PO QDAY PRN 06/14/18 budesonide-formoterol HFA 160 mcg-4.5 mcg/actuation aerosol inhaler 2 puff INHALATION Q12H #3 device 02/27/20 albuterol sulfate 2.5 mg INHALATION Q4H PRN #180 ml 04/26/20 benzonatate 200 mg capsule 200 mg PO TID PRN #90 cap 05/27/20 albuterol sulfate 90 mcg/actuation aerosol inhaler 2 puff INHALATION Q4H PRN PRN #3 device 08/26/20 Pantoprazole Sodium [Protonix] 20 mg PO DAILY PRN 10/16/20 Ketorolac [Toradol] 10 mg PO Q6H PRN PRN 5 Days #18 tab 10/23/20 Levofloxacin 750 mg PO DAILY 3 Days #3 tab 10/23/20 metroNIDAZOLE [Flagyl] 500 mg PO Q6H 3 Days #9 tab 10/23/20 Following Prescriptions Were Given to Patient: metroNIDAZOLE [Flagyl] 500 mg PO Q6H 3 Days #9 tab Transmission Status: Received by [id number] Levofloxacin 750 mg PO DAILY 3 Days #3 tab Transmission Status: Received by [id number] Ketorolac [Toradol] 10 mg PO Q6H PRN PRN 5 Days #18 tab PRN Reason: Pain Score 1-10 Transmission Status: Received by [id number] Primary Care Physician: Marlyn Smith MD [Primary Care Provider] - Please Follow Up With: Brandan Reyes MD - [phone] When: Appointment scheduled for Wednesday at 1:00 pm in our office. Additional Instructions: Recommend Heating pad throughout the day. Dressing supplies will include ABD pads (thick pads), 4 x 4 gauze dressings, paper tape. Change dressings daily until we see you in the office. May shower once left lower quadrant and midline drain sites are completely closed. You will be taking an antibiotic for 7 additional days from discharge. Recommend alternating Toradol and Tylenol throughout the day for pain control as needed. If you become nauseated with your diet once at home, go back down to just drinking clear liquids for 1-2 days. Recommend supplemental nutrition with Ensure or [place] breakfast for protein. Dr. Dejesus is the on-call surgeon this weekend. Please call [phone] Medical Necessity - Tobacco Use Smoking Status: Never smoker Meaningful Use Info Meaningful Use Diagnoses (Choose all that apply): None applicable Inpatient E&M: 93716 Disch Hosp
--- NOTE | 2020-10-24 12:12 | PN_ITS ---
Patient Problems: Active and Suspected Problems (Last Reviewed 10/16/20 @ 23:[address] Jamil Perez MD) Diverticulitis (Acute) Perforation of sigmoid colon due to diverticulitis (Acute) Intra-abdominal adhesions (Acute) Abscess of sigmoid colon due to diverticulitis (Acute) Subjective: Feeling well. +Flatus. Vitals/I&O's: Vital Signs Temp Pulse Resp BP Pulse Ox 36.6 C 92 14 110/67 95 10/24/20 07:41 10/24/20 07:41 10/24/20 07:41 10/24/20 07:41 10/24/20 07:41 Oxygen Flow Rate (L/min) 2 Oxygen Delivery Method Room Air Weight: 98.1 kg Body Mass Index (BMI) 39.5 Intake and Output for Last 24 Hours 10/22/20 10/23/20 10/24/20 23:59 23:59 23:59 Intake Total 1306.50 / 1306.50 1072.0 / 1072.0 405.0 / 405.0 Output Total 835 / 1345 1220 / 1520 700 / 700 Balance 471.50 / -38.50 -148.0 / -448.0 -295.0 / -295.0 General: Alert, No apparent distress HEENT: Atraumatic, Normocephalic Oral: Moist Mucosa, No Gingival or Mucosal Lesions/ Ulcerations Neck: No Nodes, Thyroid Normal Size and Texture Lungs: Clear to auscultation, Normal air movement, No rhonchi, No wheeze, No rales Cardiovascular: Regular rate, Regular Rhythm, Normal S1, Normal S2, No murmurs Abdomen: Bowel Sounds Present, Soft, Non Tender, Non-Distended Extremities: No edema, No Calf Tenderness Microbiology Past 72 Hours 10/21/20 14:30 Aspirate - Abdominal Gram Stain - Final 10/21/20 14:30 Aspirate - Abdominal Wound Culture - Final Enterococcus faecalis 10/21/20 14:30 Aspirate - Abdominal Anaerobic Culture - Final No anaerobic bacteria isolated. Laboratory Results 10/24/20 05:35: WBC 7.9, RBC 3.65 L, Hgb 10.5 L, Hct 33.4 L, MCV 91.5, MCH 28.8, MCHC 31.4 L, RDW Std Deviation 42.5, RDW Coeff of Bebo 12.8, Plt Count 325, MPV 9.0, Immature Gran % (Auto) 1.000 H, Neut % (Auto) 70.7 H, Lymph % (Auto) 19.1, [place] % (Auto) 6.1, Eos % (Auto) 2.8, Baso % (Auto) 0.3, Absolute Neuts (auto) 5.6, Absolute Lymphs (auto) 1.51, Nucleated RBC % 0 10/24/20 05:35: Sodium 140, Potassium 3.5, Chloride 111 H, Carbon Dioxide 23.0, Anion Gap 6, BUN 7, Creatinine 0.71, Estim Creat Clear Calc 78.31, Est GFR (MDRD) Af Amer 114, Est GFR (MDRD) Non-Af 94, BUN/Creatinine Ratio 9.8 L, Glucose 115 H, Calcium 8.4 L Medical Necessity - Tobacco Use Smoking Status: Never smoker Assessment/Plan All Active Problems (Last Reviewed 10/16/20 @ 23:[address] Jamil Perez MD) Diverticulitis (Acute) Perforation of sigmoid colon due to diverticulitis (Acute) Intra-abdominal adhesions (Acute) Abscess of sigmoid colon due to diverticulitis (Acute) 1. acute diverticulitis * s/p sigmoid colectomy 10/21 * on ctx and metronidazole * diet advanced to fulls * possible DC 10/24 2. leukocytosis * improving * monitor 3. chronic condition: * GERD: PPI * anemia: stable * hypothyroidism: TSH 10.8, however, free T4 1.14. * allergic rhinitis * asthma: BDs * FREDY: CPAP * morbid obesity: weight loss 4. VTE prophylaxis: LMWH DW Surgery, pt to be discharged home. Inpatient E&M: 33778 Subs Hosp L2
--- NOTE | 2020-10-29 14:02 | CASEMGMT ---
CLARA ROSARIO Discharge Follow-Up Phone Call. Lace: 14 Strata: 4 Discharge Date: 10/24/20 Adm Dx: Acute sigmoid diverticulitis Attempted discharge f/u phone call. No answer. VM left for pt to return call if she has any questions/needs/concerns. Phone number provided. Fouzia RAMIREZ RN CM
== END 2020-10-24 11:48 | disposition home or self-care (01) | DRG 330 ==
LOC: ED 22:56 → MS3 23:35
PROVIDERS: Anesthesiology; Internal Medicine; Surgery; Admitting Provider Hospitalist; Emergency Provider Emergency Medicine; PCP Family Medicine
PROC: 0DTN0ZZ Resection of Sigmoid Colon, Open Approach (ICD-10-PCS; CPT 44204; principal; 2020-10-21 13:05)
DX: K57.20 Diverticulitis of large intestine with perforation and abscess without bleeding (principal); K57.30 Diverticulosis of large intestine without perforation or abscess without bleeding; Z68.41 Body mass index [BMI] 40.0-44.9, adult; B95.2 Enterococcus as the cause of diseases classified elsewhere; K21.9 Gastro-esophageal reflux disease without esophagitis; D64.9 Anemia, unspecified; K66.0 Peritoneal adhesions (postprocedural) (postinfection); E66.01 Morbid (severe) obesity due to excess calories; J45.40 Moderate persistent asthma, uncomplicated; G47.33 Obstructive sleep apnea (adult) (pediatric); K58.9 Irritable bowel syndrome, unspecified; E03.9 Hypothyroidism, unspecified; F32.9 Major depressive disorder, single episode, unspecified; F41.9 Anxiety disorder, unspecified; F43.12 Post-traumatic stress disorder, chronic; Z90.49 Acquired absence of other specified parts of digestive tract; Z88.1 Allergy status to other antibiotic agents; Z79.890 Hormone replacement therapy; Z79.899 Other long term (current) drug therapy; Z87.891 Personal history of nicotine dependence; Z80.0 Family history of malignant neoplasm of digestive organs
CPT/HCPCS: 36415; 74177; 80048; 80053; 81001; 83690; 83735; 84439; 84443; 84703; 85025; 87070; 87075; 87077; 87186; 87205; 87426; 88304; 88307; 93005; 94640; 94762; 99284; J7030; J7120; Q9967; A4216; C1760; J0696; J2405; J3490

== ENCOUNTER → 2020-11-21 10:22 | Outpatient (CLI) | payer BC, SELFPAY ==
[2020-10-21 12:25] VITALS: BMI 39.5
[2020-11-21 12:23] LABS: Erythrocyte Sedimentation Rate 23 mm/hr (0-30)
[2020-11-21 12:25] LABS: Absolute Neutrophil Count 4.3 X10^3/uL (2.0-7.7); Basophil# 0.04 X10^3/uL; Basophil% 0.6 % (0-1); Eosinophil# 0.34 X10^3/uL; Hematocrit 37.3 % (37-47); Lymphocyte % 23.6 % (19-41); Mean Corp Hgb Conc 32.2 g/dL (32-36); Mean Corpuscular Hgb 29.9 pg (27.0-32.0); Mean Corpuscular Volume 92.8 fL (81-99); Mean Platelet Vol. 10.2 fl (6.2-12.0); Monocyte% 7.4 % (0-10); NRBC Flagged by Analyzer 0 % (0-5); Neutrophil # 4.27 X10^3/uL (2.7-7.7); Neutrophil % 63.1 % (47-70); Platelet Count 364 K/mm3 (150-450); RBC Distribution Width CV 13.2 % (11.6-14.6); Red Blood Count 4.02 M/mm3 (4.2-5.4); White Blood Count 6.8 K/mm3 (4.4-11.0)
[2020-11-25 14:09] LABS: B. henselae IgG Negative titer (Neg:<1:320); B. henselae IgM Negative titer (Neg:<1:100); B. quintana IgG Negative titer (Neg:<1:320)
[2020-11-25 18:52] LABS: Angiotensin Convert Enzyme 18 U/L (14-82); B. quintana IgM Negative titer (Neg:<1:100)
== END ==
PROVIDERS: PCP Family Medicine; Referring Provider Ophthalmology; Visit Provider Ophthalmology
DX: H47.332 Pseudopapilledema of optic disc, left eye (principal)
CPT/HCPCS: 36415; 82164; 85025; 85652; 86140; 86611

== ENCOUNTER → 2020-11-26 10:43 | Outpatient (CLI) | payer BC, SELFPAY ==
[2020-10-21 12:25] VITALS: BMI 39.5
--- NOTE | 2020-11-26 11:30 | MRI_ITS ---
STUDY: MRI BRAIN WITH AND WITHOUT CONTRAST REASON FOR EXAM: Female, 45 years old. Pseudopapilledema of LEFT optic disc TECHNIQUE: Standardized multiplanar fat and water weighted pulse sequences were obtained. IV 19 Dotarem was administered for the contrast portion of the examination. COMPARISON: None. FINDINGS: Normal size of the ventricles and extra-axial spaces for the patient''s age. Normal white matter tracts of the supratentorial brain. There is no evidence for recent intracranial ischemia or other cause of cytotoxic edema on diffusion weighted imaging (DWI). Normal T2* images of the brain without demonstrated susceptibility artifact. There is no demonstrated hemosiderin stain. Normal bilateral basal ganglia. Normal thalami. There is no extra-axial fluid accumulation. Normal flow voids within the major intracranial circulation suggesting patency by spin echo criteria. Normal venous enhancement. There is no enhancing intra-axial or extra-axial abnormality. Normal sella turcica, pituitary gland, infundibular stalk, optic chiasm and hypothalamus. Normal tectal plate and pineal gland. Normal midbrain, nani and medulla. Normal cerebellum. Normal basal cisterns. Normal bilateral temporal bones. Normal bilateral internal auditory canals. No demonstrated orbital abnormality, within the constraints of a routine brain study. Normal visualized paranasal sinuses. Normal calvarium and skull base. Normal visualized soft tissue structures. Normal visualized upper cervical spine. MRI/Brain W/WO Contrast IMPRESSION: Normal unenhanced and enhanced MRI of the brain. No MR evidence of idiopathic intracranial hypertension (pseudotumor cerebri). Electronically Signed: Tim Manzo MD at 12:37 EST Tel , Service support ,
== END ==
PROVIDERS: PCP Family Medicine; Referring Provider Ophthalmology; Visit Provider Ophthalmology
DX: H47.332 Pseudopapilledema of optic disc, left eye (principal)
CPT/HCPCS: 70553; A9575

== ENCOUNTER 2021-03-24 21:23 | Emergency (ER) | payer BC, SELFPAY ==
[2020-10-21 12:25] VITALS: BMI 39.5
[2021-03-24 21:24] VITALS: BP 119/78; PULSE 90; RESP 18; TEMP 36.2; O2SAT 96; BMI 38.9
--- NOTE | 2021-03-24 21:46 | EDS_ITS ---
HPI History of Present Illness Chief Complaint: Back Informant: patient Onset/Context/Timing Onset: Days Context: Sudden Onset (Became suddenly worse this morning) Injury: - (Patient reports her back pain was so severe this morning she was unable to get out of bed.) Quality: Dull and Aching Location: Lumbar and Buttock Current Severity: Moderate Maximum Severity: Severe Worsened by: improves with Movement, Ambulation, Bending and Lifting Relieved by: Nothing Associated Symptoms Associated Symptoms: Negative for Numbness, Tingling, Radiation to Right Leg, Radiation to Left Leg, Abdominal Pain, Dysuria, Unable to Transfer, Urinary Retention, Urinary Incontinence, Constipation and Fecal Incontinence Narrative Narrative: Is a 44-year-old heavyset woman who presents with low back pain that radiates to the right and left iliac crest. She also reports pain in her buttocks. She denies pain going down her legs. She denies bowel or bladder dysfunction. She denies saddle paresthesia or anesthesia. She denies foot drop or dragging either leg. She denies buckling of her knees going up or down steps. She has taken [id number] NSAIDs with no relief. She does have history of asthma and hypothyroidism. She denies fever, chills night sweats. She denies any recent back trauma. She has no other complaints. Prior similar symptoms: Yes and With Prior Back Pain Recent Illness/Hospitalization: [facility] Medical History (Updated 03/24/21 @ 22:[address] Wali Carlton MD) Abnormal PFT Abscess of sigmoid colon due to diverticulitis Allergic rhinitis Anxiety Asthma Asthma, moderate persistent Asthma, moderate persistent, poorly-controlled Bronchitis Depression Diverticulitis Dyspnea Hypothyroid IBS (irritable bowel syndrome) Intra-abdominal adhesions Obesity Obesity (BMI 30-39.9) FREDY (obstructive sleep apnea) Perforation of sigmoid colon due to diverticulitis PTSD (post-traumatic stress disorder) Sciatica Home Medications levothyroxine 88 mcg PO DAILY 02/01/14 [History Last Taken 10/16/20] fluticasone propionate 50 mcg/actuation nasal spray,suspension 50 mcg INTRANASAL BID PRN PRN 12/29/17 [History Last Taken Unknown] cetirizine 10 mg tablet 10 mg PO QDAY PRN 06/14/18 [History Last Taken Unknown] budesonide-formoterol HFA 160 mcg-4.5 mcg/actuation aerosol inhaler 2 puff INHALATION Q12H #3 device 02/27/20 [Rx Last Taken 10/16/20] albuterol sulfate 2.5 mg INHALATION Q4H PRN #180 ml 04/26/20 [Rx Last Taken Unknown] benzonatate 200 mg capsule 200 mg PO TID PRN #90 cap 05/27/20 [Rx Last Taken Unknown] albuterol sulfate 90 mcg/actuation aerosol inhaler 2 puff INHALATION Q4H PRN PRN #3 device 08/26/20 [Rx Last Taken 10/15/20] pantoprazole 20 mg PO DAILY PRN 10/16/20 [History Last Taken 10/15/20] naproxen 500 mg PO BID #14 tab 03/24/21 [Rx Last Taken Unknown] oxycodone-acetaminophen 1 tab PO Q6H PRN PRN 3 Days #12 tablet 03/24/21 [Rx Last Taken Unknown] Allergy/AdvReac Type Severity Reaction Status Date / Time venom-honey bee Allergy Severe Anaphylaxis Verified 10/29/20 13:04 [bee venom (honey bee)] amoxicillin [From Augmentin] Allergy Hives Verified 10/29/20 13:04 clavulanic acid Allergy Hives Verified 10/29/20 13:04 [From Augmentin] fluticasone Allergy Anaphylaxis Verified 10/29/20 13:04 [From Advair Diskus] salmeterol Allergy Anaphylaxis Verified 10/29/20 13:04 [From Advair Diskus] ciprofloxacin [From Cipro] AdvReac Nausea/Vom/ Verified 10/29/20 13:04 Diarrhea ENVIRONMENTAL Allergy Mild Other Uncoded 06/12/20 18:39 Family History Mother Depression Anxiety Arthritis Thyroid disorder COPD (chronic obstructive pulmonary disease) Cancer Father Arthritis Depression Alcohol abuse Sister Anxiety Depression Arthritis Cancer Brother Anxiety Depression HIV (human immunodeficiency virus infection) Hepatitis Surgical History delivery delivered Fistula History of carpal tunnel surgery History of colectomy (~10/21/20) Hx of appendectomy lazy eye repair S/P cholecystectomy [place] teeth extracted Social History Smoking Status: Never smoker second hand exposure: No alcohol intake: current alcohol intake frequency: holidays/special occasions only substance use type: does not use ROS ROS ED Constitutional Constitutional ED: Denies chills, fever(s) or subjective Eyes Eyes: Denies blurry vision or change in vision ENT ENT ED: Denies ear pain or rhinorrhea Cardiovascular Cardiovascular: Denies chest pain, palpitations or racing heartbeat Respiratory/Chest Respiratory/Chest: Denies dyspnea Gastrointestinal Gastrointestinal: Denies abdominal pain, nausea or vomiting Genitourinary Genitourinary ED: Denies dysuria, hematuria or urinary frequency Musculoskeletal Musculoskeletal: Reports back pain; Denies arthralgias or myalgias Integumentary Denies rash Neurologic Neurologic: Denies paresthesias or weakness Hematologic/Lymphatic Hematologic/Lymphatic: Denies easy bruising EXAM Physical Exam Const Vital Signs: 03/24/21 21:24 Temperature 97.2 F L Temperature Source Temporal Pulse Rate 90 Respiratory Rate 18 Blood Pressure 119/78 Blood Pressure Mean 91 Pulse Ox 96 Oxygen Delivery Method Room Air Positive well nourished, well developed and obese General Appearance ED: well developed Nutritional Appearance: obese HEENT HEENT Narrative: Head is symmetric. Ears are normal. Nares is normal. There is no evidence of angioedema. Eyes PERRL and EOMs intact bilaterally General Eye ED: Negative for pale conjunctiva or scleral icterus Neck no lymphadenopathy, supple and no JVD Resp normal respiratory effort and clear to auscultation bilaterally Cardio regular rate, regular rhythm, S1 normal heart sound, S2 normal heart sound and no murmurs GI normal to inspection, nondistended, normoactive bowel sounds Back/Spine normal to inspection Thoracic Spine / Upper Back: paraspinal muscle tenderness Lumbar Spine / Lower Back: straight leg raise negative bilaterally Extremity normal to inspection and no clubbing, cyanosis or edema General Extremety ED: Negative for edema or tenderness General Extremity: Negative for edema Neuro oriented x3 and no sensory deficits noted Neuro Narrative: Motor strength is 5/5 with dorsi and plantarflexion of the foot. EHL is in tact bilaterally. There is no weakness of the quadricep mechanism with flexion extension of the knee. Sensorium / Orientation: alert Motor Exam: strength 5/5 throughout Deep Tendon Reflexes: Rt Patellar (L4): 2+, Lt Patellar (L4): 2+, Rt Ankle (S1): 2+ and Lt Ankle (S1): 2+ Deep Tendon Reflexes Back: Rt Patellar (L4): 2+, Lt Patellar (L4): 2+, Rt Ankle (S1): 2+ and Lt Ankle (S1): 2+ Plantar Reflex: Downgoing: bilateral Psych mental status grossly normal Skin no rashes or lesions noted MDM MDM MDM Narrative Medical decision making narrative: Patient with acute exacerbation of chronic back pain. Her exam is not consistent with a herniated disc or concern for epidural abscess. There is also no concern for cauda equina or cord compression. IV was established and patient received IV medication. Will reassess in 30 minutes. Patient was reassessed at 2235. She states she feels markedly better. Plan is additional dose of morphine and discharged to home with her . Discharge Plan Triage Chief Complaint: Back ED Provider: Wali Carlton Dx/Rx/DC Orders Clinical Impression: Low back pain Instructions: ED Back Care Tips, ED Back Pain (Acute or Chronic) Prescriptions: New oxycodone-acetaminophen [oxycodone-acetaminophen] 1 TABLET tablet 1 tab PO Q6H PRN PRN (Reason: Pain) 3 Days Qty: 12 RF: 0 naproxen 500 MG tablet 500 mg PO BID Qty: 14 RF: 0 No Action fluticasone propionate 50 mcg/actuation spray,suspension 50 mcg INTRANASAL BID PRN PRN (Reason: Allergies) RF: 0 cetirizine [Zyrtec] 10 mg tablet 10 mg PO QDAY PRN (Reason: Allergies) RF: 0 benzonatate 200 mg capsule 200 mg PO TID PRN (Reason: cough) Qty: 90 RF: 0 levothyroxine 88 MCG tablet 88 mcg PO DAILY RF: 0 pantoprazole 20 MG tablet 20 mg PO DAILY PRN (Reason: gerd) RF: 0 Symbicort 160-4.5 mcg/actuation HFA aerosol inhaler 2 puff INHALATION Q12H Qty: 3 RF: 3 albuterol sulfate 2.5 mg /3 mL (0.083 %) solution for nebulization 2.5 mg INHALATION Q4H PRN (Reason: Sob &/Or Wheezing) Qty: 180 RF: 3 albuterol sulfate 90 mcg/actuation HFA aerosol inhaler 2 puff INHALATION Q4H PRN PRN (Reason: Shortness Of Breath) Qty: 3 RF: 6 Primary Care Provider: Marlyn Smith Referrals: Marlyn Smith MD [Primary Care Provider] - 3-5 Days if not improving Disposition Disposition: Home, self care
[2021-03-24] MEDS: morphine 8 MG/ML Syringe IV (22:07)
[2021-03-24] MEDS: Ketorolac 15 MG/ML Vial IV (22:07)
[2021-03-24] MEDS: Ondansetron 4 MG/2 ML Vial IV (22:07)
== END 2021-03-24 22:48 | disposition home or self-care (01) ==
PROVIDERS: Emergency Provider Emergency Medicine; PCP Family Medicine
DX: M54.5 Low back pain (principal); G89.29 Other chronic pain; E03.9 Hypothyroidism, unspecified; E66.9 Obesity, unspecified; Z68.38 Body mass index [BMI] 38.0-38.9, adult; Z79.899 Other long term (current) drug therapy
CPT/HCPCS: 96374; 96375; 99282; A4216; J2405

== ENCOUNTER 2021-04-28 18:36 | Emergency (ER) | payer BC, SELFPAY ==
[2021-04-28 18:36] VITALS: BP 125/72; PULSE 94; RESP 18; TEMP 37.1; O2SAT 97; BMI 39.4
--- NOTE | 2021-04-28 21:45 | CT_ITS ---
EXAMINATION : Head CT w/out contrast HISTORY : Near syncope COMPARISON : None. TECHNIQUE : Multiple contiguous axial images were obtained from the skull base to the vertex without intravenous contrast. A radiation dose optimization technique was used for this scan. FINDINGS : The ventricles and sulci are normal in size. There is no evidence for acute intracranial hemorrhage, mass effect, or midline shift. There is no extra-axial fluid collection. There is normal kan-white differentiation, without CT evidence of acute ischemia or infarct. The skull base and calvarium are unremarkable. The orbits are unremarkable. The paranasal sinuses are clear. The mastoid air cells are well-aerated. The soft tissues are unremarkable. CT/Brain/Head without Contrast IMPRESSION: No acute intracranial abnormality. Electronically Signed: Mike Gtz MD at 22:55 EDT Tel , Service support ,
--- NOTE | 2021-04-28 21:46 | EKG12_ITS ---
Test Reason : DIZZY/EAR PAIN Blood Pressure : / mmHG Vent. Rate : 082 BPM Atrial Rate : 082 BPM P-R Int : 182 ms QRS Dur : 090 ms QT Int : 404 ms P-R-T Axes : 066 090 036 degrees QTc Int : 472 ms Normal sinus rhythm Rightward axis Low voltage QRS Borderline ECG Confirmed by LARRY NGUYEN, MAYRA ([id number]), commissioning editor GEMMA RODRIGUEZ ([id number]) on 05/07/2021 2:12:31 PM Referred By: CIPRIANO Confirmed By:MAYRA JUAREZ MD
--- NOTE | 2021-04-28 22:36 | RAD_ITS ---
EXAM: XR CHEST, 1 VIEW : 1975 CLINICAL INDICATION: Weakness TECHNIQUE: Frontal view of the chest. This report was created using [employer] report generation technology. COMPARISON: 04/07/2017 FINDINGS: LUNGS AND PLEURAL SPACES: Unremarkable. No consolidation or edema. No pneumothorax. No effusion. HEART: Unremarkable. Cardiac silhouette not enlarged. MEDIASTINUM: Central airways and mediastinal contour are unremarkable. BONES/JOINTS: Unremarkable. SOFT TISSUES: Unremarkable. RAD/Chest 1 View (Portable) IMPRESSION: No radiographic evidence of acute cardiopulmonary disease. at 2319 Reported and signed by: Conrad Bunch MD Electronically Signed: Conrad Bunch MD at 23:18 EDT Tel , Service support ,
[2021-04-28] MEDS: 0.9% Normal Saline 1,000 ML 1000 ML IV (22:46)
[2021-04-28 22:49] VITALS: BP 111/83; BP 112/84; BP 113/79; PULSE 85; PULSE 92
[2021-04-28 22:56] LABS: Absolute Lymphocyte Count 2.53 X10^3/uL (0.83-4.51); Absolute Neutrophil Count 5.6 X10^3/uL (2.0-7.7); Basophil# 0.02 X10^3/uL; Basophil% 0.2 % (0-1); Eosinophils% 2.2 % (0-5); Hematocrit 38.9 % (37-47); Lymphocyte # 2.53 X10^3/ul (0.83-4.51); Mean Corp Hgb Conc 33.4 g/dL (32-36); Mean Corpuscular Hgb 29.2 pg (27.0-32.0); Mean Corpuscular Volume 87.4 fL (81-99); Mean Platelet Vol. 8.7 fl (6.2-12.0); Monocyte% 7.7 % (0-10); NRBC Flagged by Analyzer 0 % (0-5); Neutrophil # 5.56 X10^3/uL (2.7-7.7); Neutrophil % 61.6 % (47-70); Platelet Count 307 K/mm3 (150-450); RBC Distribution Width CV 12.5 % (11.6-14.6); Red Blood Count 4.45 M/mm3 (4.2-5.4)
[2021-04-28 23:18] LABS: ALB/GLOB Ratio 0.8 RATIO (0.9-2.4); AST(SGOT) 24 U/L (15-37); Alanine Aminotransfer ALT/SGPT 23 U/L (13-56); Albumin, Serum 3.5 g/dL (3.2-5.0); Alkaline Phosphatase 76 U/L (45-117); Anion Gap 9 (5-15); BUN 12 mg/dL (7-18); BUN/Creat Ratio 13.5 RATIO (10-20); Calcium,Total 8.8 mg/dL (8.5-10.1); Chloride 103 mmol/L (98-107); Creatinine, Serum 0.89 mg/dL (0.55-1.02); EST Glomerular Filtration Rate 73 mL/min (>60); Est Glom Filt Rate - Afr Amer 88 mL/min (>60); Estimated Creatinine Clearance 62.47 ml/min; Globulin 4.2 g/dL (2.2-4.2); Glucose 153 mg/dL (74-106); Potassium 3.6 mmol/L (3.5-5.1); Protein, Total 7.7 g/dL (6.4-8.2); Sodium Level 138 mmol/L (136-145); Troponin-I HS < 3.0 pg/mL (3.0-53.7)
[2021-04-28 23:42] VITALS: BP 109/78; PULSE 85; RESP 16; O2SAT 96
--- NOTE | 2021-04-29 00:13 | EX.ED.DYSGE1 ---
HPI History of Present Illness Chief Complaint: Ear Problem Informant: patient Onset/Context/Timing Onset: Days (4) Context: Gradual Onset Timing: Intermittent Quality: Aching Location: Right ear Worsened by: Nothing Relieved by: Nothing Narrative Narrative: Patient presents with dizziness, lightheadedness, and right ear pain that has been intermittent over the last 4 days. Patient states her right ear is aching. Patient states she feels lightheaded and like she might pass out. Patient states nothing makes it better or worse. Patient denies any chest pain or palpitations. Patient denies any fevers or chills. Patient denies any nausea or vomiting. Patient denies any headaches. [facility] Medical History (Updated 04/29/21 @ 00:[address] Macario Farah, DO) Abnormal PFT Abscess of sigmoid colon due to diverticulitis Allergic rhinitis Anxiety Asthma Asthma, moderate persistent Asthma, moderate persistent, poorly-controlled Bronchitis Depression Diverticulitis Dyspnea Hypothyroid IBS (irritable bowel syndrome) Intra-abdominal adhesions Obesity Obesity (BMI 30-39.9) FREDY (obstructive sleep apnea) Perforation of sigmoid colon due to diverticulitis PTSD (post-traumatic stress disorder) Sciatica Home Medications levothyroxine 88 mcg PO DAILY 02/01/14 [History Last Taken 10/16/20] fluticasone propionate 50 mcg/actuation nasal spray,suspension 50 mcg INTRANASAL BID PRN PRN 12/29/17 [History Last Taken Unknown] cetirizine 10 mg tablet 10 mg PO QDAY PRN 06/14/18 [History Last Taken Unknown] budesonide-formoterol HFA 160 mcg-4.5 mcg/actuation aerosol inhaler 2 puff INHALATION Q12H #3 device 02/27/20 [Rx Last Taken 10/16/20] albuterol sulfate 2.5 mg INHALATION Q4H PRN #180 ml 04/26/20 [Rx Last Taken Unknown] benzonatate 200 mg capsule 200 mg PO TID PRN #90 cap 05/27/20 [Rx Last Taken Unknown] albuterol sulfate 90 mcg/actuation aerosol inhaler 2 puff INHALATION Q4H PRN PRN #3 device 08/26/20 [Rx Last Taken 10/15/20] pantoprazole 20 mg PO DAILY PRN 10/16/20 [History Last Taken 10/15/20] bupropion HCl [Wellbutrin XL] 150 mg PO DAILY 04/28/21 [History Last Taken Unknown] buspirone [BuSpar] 10 mg PO PRN PRN 04/28/21 [History Last Taken Unknown] naproxen 500 mg PO PRN PRN 04/28/21 [History Last Taken Unknown] pseudoephedrine HCl [12 Hour Decongestant] 120 mg PO Q12H PRN #14 tab 04/29/21 [Rx Last Taken Unknown] Allergy/AdvReac Type Severity Reaction Status Date / Time venom-honey bee Allergy Severe Anaphylaxis Verified 04/28/21 18:39 [bee venom (honey bee)] amoxicillin [From Augmentin] Allergy Hives Verified 04/28/21 18:39 clavulanic acid Allergy Hives Verified 04/28/21 18:39 [From Augmentin] fluticasone Allergy Anaphylaxis Verified 04/28/21 18:39 [From Advair Diskus] salmeterol Allergy Anaphylaxis Verified 04/28/21 18:39 [From Advair Diskus] ciprofloxacin [From Cipro] AdvReac Nausea/Vom/ Verified 04/28/21 18:39 Diarrhea ENVIRONMENTAL Allergy Mild Other Uncoded 04/28/21 18:39 Family History Mother Depression Anxiety Arthritis Thyroid disorder COPD (chronic obstructive pulmonary disease) Cancer Father Arthritis Depression Alcohol abuse Sister Anxiety Depression Arthritis Cancer Brother Anxiety Depression HIV (human immunodeficiency virus infection) Hepatitis Surgical History delivery delivered Fistula History of carpal tunnel surgery History of colectomy (~10/21/20) Hx of appendectomy lazy eye repair S/P cholecystectomy [place] teeth extracted Social History Smoking Status: Never smoker second hand exposure: No alcohol intake: current alcohol intake frequency: holidays/special occasions only substance use type: does not use ROS ROS ED Constitutional Constitutional ED: Denies chills or fever(s) Eyes Eyes: Denies blurry vision or change in vision ENT ENT ED: Reports ear pain right; Denies rhinorrhea or sore throat Cardiovascular Cardiovascular: Denies chest pain or palpitations Respiratory/Chest Respiratory/Chest: Denies cough or dyspnea Gastrointestinal Gastrointestinal: Denies nausea or vomiting Genitourinary Genitourinary ED: Denies dysuria or hematuria Musculoskeletal Musculoskeletal: Denies back pain or neck pain Integumentary Denies abscess or rash Neurologic Neurologic: Denies headache(s) or weakness Allergic/Immunologic Allergic/Immunologic ED: Denies mouth swelling or urticaria EXAM Physical Exam Const Vital Signs: 04/28/21 18:36 04/28/21 22:49 04/28/21 23:42 Temperature 98.7 F Temperature Source Temporal Pulse Rate 94 85 Pulse Rate [Lying] 85 Pulse Rate [Sitting] 85 Pulse Rate [Standing] 92 Respiratory Rate 18 16 Blood Pressure 125/72 H 109/78 Blood Pressure [Lying] 112/84 H Blood Pressure [Sitting] 111/83 H Blood Pressure [Standing] 113/79 Blood Pressure Mean 89 88 Blood Pressure Mean [Lying] 93 Blood Pressure Mean [Sitting] 92 Blood Pressure Mean [Standing] 90 Pulse Ox 97 96 Oxygen Delivery Method Room Air Room Air Positive well nourished, well developed and obese General Appearance ED: well developed Nutritional Appearance: obese HEENT Reports moist mucous membranes HEENT Narrative: The right tympanic membrane had a moderate effusion. There is no erythema of the tympanic membrane. The left tympanic membrane was clear. Neck supple and no JVD Resp normal respiratory effort and clear to auscultation bilaterally Cardio regular rate, regular rhythm and no murmurs GI normal to inspection, nondistended, normoactive bowel sounds and non-tender Palpation: soft Extremity normal to inspection General Extremety ED: Negative for edema or tenderness General Extremity: Negative for edema Neuro oriented x3, CN's II-XII intact bilaterally and no sensory deficits noted Sensorium / Orientation: alert Motor Exam: strength 5/5 throughout Psych mental status grossly normal Skin no rashes or lesions noted MDM MDM MDM Narrative Medical decision making narrative: Patient was given IV fluids. Orthostatic vital signs were obtained were within normal limits. CBC and comprehensive metabolic profile was normal. Troponin was normal. EKG was obtained. On my interpretation, it showed a normal sinus rhythm with a rate of 82. LA interval, QRS interval, and QTc intervals were all normal. [place] was normal. There are no acute ST or T wave changes. Portable 1 view chest x-ray was obtained. On my interpretation, lung orosco are clear. There is normal cardiac silhouette. Bony thorax is normal. There is no acute process noted. Radiologist also interpreted the x-ray and agrees. CT scan of the brain was obtained. There is no acute intracranial abnormality. This was interpreted by the radiologist and reviewed by myself. Lab Data Attestation: I reviewed the patient's lab results. Labs: Laboratory Results - last 24 hr 04/28/21 04/28/21 22:45 22:45 WBC 9.0 RBC 4.45 Hgb 13.0 Hct 38.9 MCV 87.4 MCH 29.2 MCHC 33.4 RDW Std Deviation 40.0 RDW Coeff of Bebo 12.5 Plt Count 307 MPV 8.7 Immature Gran % (Auto) 0.300 Neut % (Auto) 61.6 Lymph % (Auto) 28.0 [place] % (Auto) 7.7 Eos % (Auto) 2.2 Baso % (Auto) 0.2 Absolute Neuts (auto) 5.6 Absolute Lymphs (auto) 2.53 Nucleated RBC % 0 Sodium 138 Potassium 3.6 Chloride 103 Carbon Dioxide 26.0 Anion Gap 9 BUN 12 Creatinine 0.89 Estim Creat Clear Calc 62.47 Est GFR (MDRD) Af Amer 88 Est GFR (MDRD) Non-Af 73 BUN/Creatinine Ratio 13.5 Glucose 153 H Calcium 8.8 Total Bilirubin 0.90 AST 24 ALT 23 Alkaline Phosphatase 76 Troponin I High Sens < 3.0 L Total Protein 7.7 Albumin 3.5 Globulin 4.2 Albumin/Globulin Ratio 0.8 L Radiography Chest X-Ray - ED: 1 View, Read by ED Physician, Read by Radiologist and Normal Diagnostic Testing: Radiology Impression Brain CT 04/28/21 21:45 IMPRESSION: No acute intracranial abnormality. Electronically Signed: Mike Gtz MD at 22:55 EDT Tel , Service support , Chest X-Ray 04/28/21 22:36 IMPRESSION: No radiographic evidence of acute cardiopulmonary disease. at 2319 Reported and signed by: Conrad Bunch MD Electronically Signed: Conrad Bunch MD at 23:18 EDT Tel , Service support , EKG Initial EKG: Attestation: I personally reviewed and interpreted this EKG as follows: Interpretation: Sinus Rhythm and No Acute Injury Pattern Discharge Plan Triage Chief Complaint: Ear Problem ED Provider: Macario Farah Dx/Rx/DC Orders Clinical Impression: Lightheadedness, Right serous otitis media Instructions: ED Dizziness, Uncertain Cause, ED Earache Without Infection (Adult) Prescriptions: New pseudoephedrine HCl [12 Hour Decongestant] 120 mg tablet extended release 120 mg PO Q12H PRN (Reason: nasal congestion) Qty: 14 RF: 0 No Action fluticasone propionate 50 mcg/actuation spray,suspension 50 mcg INTRANASAL BID PRN PRN (Reason: Allergies) RF: 0 cetirizine [Zyrtec] 10 mg tablet 10 mg PO QDAY PRN (Reason: Allergies) RF: 0 benzonatate 200 mg capsule 200 mg PO TID PRN (Reason: cough) Qty: 90 RF: 0 levothyroxine 88 MCG tablet 88 mcg PO DAILY RF: 0 pantoprazole 20 MG tablet 20 mg PO DAILY PRN (Reason: gerd) RF: 0 buspirone [BuSpar] 10 mg Tablet 10 mg PO PRN PRN (Reason: Anxiety) RF: 0 bupropion HCl [Wellbutrin XL] 150 mg Tablet Extended Release 24 Hr 150 mg PO DAILY RF: 0 naproxen 500 MG tablet 500 mg PO PRN PRN (Reason: Pain) RF: 0 Symbicort 160-4.5 mcg/actuation HFA aerosol inhaler 2 puff INHALATION Q12H Qty: 3 RF: 3 albuterol sulfate 2.5 mg /3 mL (0.083 %) solution for nebulization 2.5 mg INHALATION Q4H PRN (Reason: Sob &/Or Wheezing) Qty: 180 RF: 3 albuterol sulfate 90 mcg/actuation HFA aerosol inhaler 2 puff INHALATION Q4H PRN PRN (Reason: Shortness Of Breath) Qty: 3 RF: 6 Primary Care Provider: Marlyn Smith Referrals: Marlyn Smith MD [Primary Care Provider] - 3-5 Days Disposition Disposition: Home, Self Care
[2021-04-29 00:46] VITALS: BP 109/75; PULSE 70; RESP 16; O2SAT 99
== END 2021-04-29 00:46 | disposition home or self-care (01) ==
PROVIDERS: Emergency Provider Emergency Medicine; PCP Family Medicine
DX: R42 Dizziness and giddiness (principal); H65.91 Unspecified nonsuppurative otitis media, right ear; E66.9 Obesity, unspecified; E03.9 Hypothyroidism, unspecified; J45.40 Moderate persistent asthma, uncomplicated; F32.9 Major depressive disorder, single episode, unspecified; Z79.899 Other long term (current) drug therapy; Z79.51 Long term (current) use of inhaled steroids
CPT/HCPCS: 70450; 71045; 80053; 84484; 85025; 87426; 93005; 96360; 96361; 99285; J7030

== ENCOUNTER → 2021-06-14 10:21 | Outpatient (CLI) | payer BC, SELFPAY ==
[2021-06-14 11:16] LABS: ALB/GLOB Ratio 0.8 RATIO (0.9-2.4); AST(SGOT) 22 U/L (15-37); Alanine Aminotransfer ALT/SGPT 27 U/L (13-56); Albumin, Serum 3.3 g/dL (3.2-5.0); Alkaline Phosphatase 75 U/L (45-117); Anion Gap 4 (5-15); BUN 13 mg/dL (7-18); BUN/Creat Ratio 16.1 RATIO (10-20); Calcium,Total 8.8 mg/dL (8.5-10.1); Chloride 106 mmol/L (98-107); Cholesterol 143 mg/dL (200); Creatinine, Serum 0.81 mg/dL (0.55-1.02); EST Glomerular Filtration Rate 81 mL/min (>60); Est Glom Filt Rate - Afr Amer 98 mL/min (>60); Globulin 3.9 g/dL (2.2-4.2); Glucose 208 mg/dL (74-106); High Density Lipoprotein 37 mg/dL; Potassium 3.8 mmol/L (3.5-5.1); Protein, Total 7.2 g/dL (6.4-8.2); Sodium Level 138 mmol/L (136-145); Triglycerides 255 mg/dL; Very Low Density Lipoprotein 51 mg/dL (5-40)
[2021-06-14 11:55] LABS: Hemoglobin A1c 9.3 % (3.8-5.6)
== END ==
PROVIDERS: PCP Family Medicine; Referring Provider Family Medicine; Visit Provider Family Medicine
DX: H47.013 Ischemic optic neuropathy, bilateral (principal)
CPT/HCPCS: 36415; 80053; 80061; 83036; 86140

== ENCOUNTER 2021-08-21 15:44 | Emergency (ER) | payer BC, SELFPAY ==
[2021-08-21 15:45] VITALS: BP 128/82; PULSE 82; RESP 16; TEMP 36.6; O2SAT 95; BMI 37.5
--- NOTE | 2021-08-21 15:48 | EKG12_ITS ---
Test Reason : PALP Blood Pressure : / mmHG Vent. Rate : 084 BPM Atrial Rate : 084 BPM P-R Int : 164 ms QRS Dur : 086 ms QT Int : 386 ms P-R-T Axes : 048 098 031 degrees QTc Int : 456 ms Normal sinus rhythm Low voltage QRS Borderline ECG Confirmed by ALESSANDRA NGUYEN, LEONARDO ([id number]), editorial project manager JASMINE MANTILLA ([id number]) on 08/26/2021 8:39:40 AM Referred By: Confirmed By:LEONARDO APARICIO MD
[2021-08-21 16:16] LABS: Absolute Lymphocyte Count 1.94 X10^3/uL (0.83-4.51); Absolute Neutrophil Count 6.5 X10^3/uL (2.0-7.7); Basophil# 0.02 X10^3/uL; Basophil% 0.2 % (0-1); Eosinophil# 0.16 X10^3/uL; Eosinophils% 1.7 % (0-5); Hematocrit 39.3 % (37-47); Hemoglobin 13.2 g/dL (12.0-15.0); Lymphocyte # 1.94 X10^3/ul (0.83-4.51); Lymphocyte % 21.1 % (19-41); Mean Corp Hgb Conc 33.6 g/dL (32-36); Mean Corpuscular Hgb 29.1 pg (27.0-32.0); Mean Corpuscular Volume 86.8 fL (81-99); Mean Platelet Vol. 8.9 fl (6.2-12.0); Monocyte% 5.4 % (0-10); NRBC Flagged by Analyzer 0 % (0-5); Neutrophil # 6.54 X10^3/uL (2.7-7.7); Neutrophil % 71.3 % (47-70); Platelet Count 341 K/mm3 (150-450); RBC Distribution Width SD 38.3 fl (35.1-43.9); Red Blood Count 4.53 M/mm3 (4.2-5.4); White Blood Count 9.2 K/mm3 (4.4-11.0)
--- NOTE | 2021-08-21 16:26 | EDS_ITS ---
HPI History of Present Illness Chief Complaint: Palpitations Informant: patient Onset/Context/Timing Context: Sudden Onset Timing: Intermittent (x2) and Lasts (20 minutes or so each) Quality: racing HB Location: chest Current Severity: Gone Maximum Severity: Moderate Worsened by: nothing Relieved by: nothing in particular Associated Symptoms Associated Symptoms: anxious after sx onset, but no other sx Narrative Narrative: Palpitations that occurred spontaneously upon waking up this morning, she had another episode couple hours later. No lightheadedness or presyncope/syncope, chest discomfort, shortness of breath, vomiting. No recent illnesses or injuries. She does not use illicit drugs or smoke. She does drink a good amount of caffeine per day, 1 cup of coffee in the morning, maybe 3 diet Cokes per day, and occasional caffeinated ice tea. But today, she had no caffeine prior to waking up with the symptoms. Never had this before. No history of heart problems. Knows that her blood pressure was 130s/70s, she thought that was very high for her, and the last couple days whenever she checked it. States she was feeling a little malaise but had no other specific symptoms with it. She is diabetic. She does not have a history of panic disorder. Whenever she has anxiety, it is usually triggered by something which she has had no attacks lately. [facility] Medical History (Updated 08/21/21 @ 17:[address] Steffen Silva MD) Abnormal PFT Abscess of sigmoid colon due to diverticulitis Allergic rhinitis Anxiety Asthma Asthma, moderate persistent Asthma, moderate persistent, poorly-controlled Bronchitis Depression Diverticulitis Dyspnea Hypothyroid IBS (irritable bowel syndrome) Intra-abdominal adhesions Obesity Obesity (BMI 30-39.9) FREDY (obstructive sleep apnea) Perforation of sigmoid colon due to diverticulitis PTSD (post-traumatic stress disorder) Sciatica Home Medications levothyroxine 88 mcg PO DAILY 02/01/14 [History Last Taken 10/16/20] fluticasone propionate 50 mcg/actuation nasal spray,suspension 50 mcg INTRANASAL BID PRN PRN 12/29/17 [History Last Taken Unknown] cetirizine 10 mg tablet 10 mg PO QDAY PRN 06/14/18 [History Last Taken Unknown] budesonide-formoterol HFA 160 mcg-4.5 mcg/actuation aerosol inhaler 2 puff INHALATION Q12H #3 device 02/27/20 [Rx Last Taken 10/16/20] albuterol sulfate 2.5 mg INHALATION Q4H PRN #180 ml 04/26/20 [Rx Last Taken Unknown] benzonatate 200 mg capsule 200 mg PO TID PRN #90 cap 05/27/20 [Rx Last Taken Unknown] albuterol sulfate 90 mcg/actuation aerosol inhaler 2 puff INHALATION Q4H PRN PRN #3 device 08/26/20 [Rx Last Taken 10/15/20] pantoprazole 20 mg PO DAILY PRN 10/16/20 [History Last Taken 10/15/20] bupropion HCl [Wellbutrin XL] 150 mg PO DAILY 04/28/21 [History Last Taken Unknown] naproxen 500 mg PO PRN PRN 04/28/21 [History Last Taken Unknown] insulin detemir U-100 [Levemir FlexTouch U-100 Insuln] 18 unit SUBCUT QHS 08/21/21 [History Last Taken Unknown] metformin 500 mg PO BID 08/21/21 [History Last Taken Unknown] Allergy/AdvReac Type Severity Reaction Status Date / Time venom-honey bee Allergy Severe Anaphylaxis Verified 08/21/21 15:48 [bee venom (honey bee)] amoxicillin [From Augmentin] Allergy Hives Verified 08/21/21 15:48 clavulanic acid Allergy Hives Verified 08/21/21 15:48 [From Augmentin] fluticasone Allergy Anaphylaxis Verified 08/21/21 15:48 [From Advair Diskus] salmeterol Allergy Anaphylaxis Verified 08/21/21 15:48 [From Advair Diskus] ciprofloxacin [From Cipro] AdvReac Nausea/Vom/ Verified 08/21/21 15:48 Diarrhea ENVIRONMENTAL Allergy Mild Other Uncoded 08/21/21 15:48 Family History Mother Depression Anxiety Arthritis Thyroid disorder COPD (chronic obstructive pulmonary disease) Cancer Father Arthritis Depression Alcohol abuse Sister Anxiety Depression Arthritis Cancer Brother Anxiety Depression HIV (human immunodeficiency virus infection) Hepatitis Surgical History delivery delivered Fistula History of carpal tunnel surgery History of colectomy (~10/21/20) Hx of appendectomy lazy eye repair S/P cholecystectomy [place] teeth extracted Social History Smoking Status: Never smoker second hand exposure: No alcohol intake: current alcohol intake frequency: holidays/special occasions only substance use type: does not use ROS ROS ED Constitutional Constitutional ED: Denies chills or fever(s) Eyes Eyes: Denies change in vision or diplopia ENT ENT ED: Denies rhinorrhea or sore throat Cardiovascular Cardiovascular: Reports palpitations; Denies chest pain Respiratory/Chest Respiratory/Chest: Denies cough or dyspnea Gastrointestinal Gastrointestinal: Denies abdominal pain, diarrhea, nausea or vomiting Genitourinary Genitourinary ED: Denies dysuria or hematuria Musculoskeletal Musculoskeletal: Denies back pain or neck pain Integumentary Denies abscess or rash Neurologic Neurologic: Denies headache(s), paresthesias or weakness Psychiatric Psychiatric: Denies anxiety or suicidal thoughts EXAM Physical Exam Const Vital Signs: 08/21/21 15:45 08/21/21 16:10 08/21/21 16:47 Temperature 97.9 F Temperature Source Temporal Pulse Rate 82 86 Respiratory Rate 16 11 L Respiratory Effort Normal Non-Labored Respiratory Pattern Normal Blood Pressure 128/82 H 105/70 Blood Pressure Mean 97 81 Pulse Ox 95 95 Oxygen Delivery Method Room Air Positive well nourished, well developed and obese General Appearance ED: well developed and NAD Nutritional Appearance: obese HEENT Reports moist mucous membranes normocephalic and atraumatic Eyes PERRL and EOMs intact bilaterally Neck full ROM and supple Resp normal respiratory effort and clear to auscultation bilaterally Cardio regular rate, regular rhythm and no murmurs GI non-tender and non-distended Auscultation: normoactive bowel sounds Palpation: soft Back/Spine no CVA tenderness General Back: other FROM Extremity normal to inspection General Extremety ED: Negative for edema, pulses abnormal or tenderness General Extremity: Negative for edema or pulses abnormal Neuro oriented x3, CN's II-XII intact bilaterally and no sensory deficits noted Sensorium / Orientation: awake and alert Motor Exam: strength 5/5 throughout Skin no rashes or lesions noted and no wounds MDM MDM MDM Narrative Medical decision making narrative: Labs unremarkable. No further symptoms or events while here in the emergency department on the monitor. Her EKG is normal. No recent symptoms to indicate obvious explanation for this. She needs a diagnosis before any treatment can be undertaken. We will have respiratory place a 24-hour Holter monitor on her and then she can follow-up with cardiology as an outpatient. I reassured her about her blood pressure is 130 they are not likely related. Lab Data Attestation: I reviewed the patient's lab results. Labs: Laboratory Results - last 24 hr 08/21/21 08/21/21 16:00 16:00 WBC 9.2 RBC 4.53 Hgb 13.2 Hct 39.3 MCV 86.8 MCH 29.1 MCHC 33.6 RDW Std Deviation 38.3 RDW Coeff of Bebo 12.0 Plt Count 341 MPV 8.9 Immature Gran % (Auto) 0.300 Neut % (Auto) 71.3 H Lymph % (Auto) 21.1 [place] % (Auto) 5.4 Eos % (Auto) 1.7 Baso % (Auto) 0.2 Absolute Neuts (auto) 6.5 Absolute Lymphs (auto) 1.94 Nucleated RBC % 0 Sodium 137 Potassium 3.9 Chloride 104 Carbon Dioxide 27.0 Anion Gap 6 BUN 17 Creatinine 0.89 Estim Creat Clear Calc 62.47 Est GFR (MDRD) Af Amer 87 Est GFR (MDRD) Non-Af 72 BUN/Creatinine Ratio 19.1 Glucose 127 H Calcium 9.3 Troponin I High Sens < 3 L EKG Initial EKG: Attestation: I personally reviewed and interpreted this EKG as follows: Interpretation: Sinus Rhythm and No Acute Injury Pattern Comments: Unremarkable EKG Discharge Plan Triage Chief Complaint: Palpitations ED Provider: Steffen Silva Dx/Rx/DC Orders Clinical Impression: Palpitations Instructions: ED Palpitations Prescriptions: No Action fluticasone propionate 50 mcg/actuation spray,suspension 50 mcg INTRANASAL BID PRN PRN (Reason: Allergies) RF: 0 cetirizine [Zyrtec] 10 mg tablet 10 mg PO QDAY PRN (Reason: Allergies) RF: 0 benzonatate 200 mg capsule 200 mg PO TID PRN (Reason: cough) Qty: 90 RF: 0 levothyroxine 88 MCG tablet 88 mcg PO DAILY RF: 0 pantoprazole 20 MG tablet 20 mg PO DAILY PRN (Reason: gerd) RF: 0 bupropion HCl [Wellbutrin XL] 150 mg Tablet Extended Release 24 Hr 150 mg PO DAILY RF: 0 naproxen 500 MG tablet 500 mg PO PRN PRN (Reason: Pain) RF: 0 metformin 500 mg tablet 500 mg PO BID RF: 0 Levemir FlexTouch U-100 Insuln 100 unit/mL (3 mL) insulin pen 18 unit SUBCUT QHS RF: 0 Symbicort 160-4.5 mcg/actuation HFA aerosol inhaler 2 puff INHALATION Q12H Qty: 3 RF: 3 albuterol sulfate 2.5 mg /3 mL (0.083 %) solution for nebulization 2.5 mg INHALATION Q4H PRN (Reason: Sob &/Or Wheezing) Qty: 180 RF: 3 albuterol sulfate 90 mcg/actuation HFA aerosol inhaler 2 puff INHALATION Q4H PRN PRN (Reason: Shortness Of Breath) Qty: 3 RF: 6 Primary Care Provider: Marlyn Smith Referrals: Marlyn Smith MD [Primary Care Provider] - Glenys Portillo MD [STAFF PHYSICIAN] - 1 Week (Call and make an appointment for first available automotive service assistant to be seen after your Holter is turned in.) Disposition Disposition: Home, Self Care
[2021-08-21 16:34] LABS: Anion Gap 6 (5-15); BUN 17 mg/dL (7-18); BUN/Creat Ratio 19.1 RATIO (10-20); Calcium,Total 9.3 mg/dL (8.5-10.1); Chloride 104 mmol/L (98-107); Creatinine, Serum 0.89 mg/dL (0.55-1.02); EST Glomerular Filtration Rate 72 mL/min (>60); Est Glom Filt Rate - Afr Amer 87 mL/min (>60); Estimated Creatinine Clearance 62.47 ml/min; Glucose 127 mg/dL (74-106); Potassium 3.9 mmol/L (3.5-5.1); Sodium Level 137 mmol/L (136-145); Troponin-I HS < 3 pg/mL (3.0-54.0)
[2021-08-21 16:47] VITALS: BP 105/70; PULSE 86; RESP 11; O2SAT 95
[2021-08-21 17:21] VITALS: BP 113/65; PULSE 75
== END 2021-08-21 17:22 | disposition home or self-care (01) ==
PROVIDERS: Emergency Provider Emergency Medicine; PCP Family Medicine
DX: R00.2 Palpitations (principal); J45.40 Moderate persistent asthma, uncomplicated; E03.9 Hypothyroidism, unspecified; E11.9 Type 2 diabetes mellitus without complications; F32.A Depression, unspecified; E66.9 Obesity, unspecified; Z68.37 Body mass index [BMI] 37.0-37.9, adult; Z79.4 Long term (current) use of insulin; Z79.51 Long term (current) use of inhaled steroids; Z79.84 Long term (current) use of oral hypoglycemic drugs; Z79.899 Other long term (current) drug therapy
CPT/HCPCS: 80048; 84484; 85025; 93005; 99283

== ENCOUNTER → 2021-08-26 13:55 | Outpatient (CLI) | payer BC, SELFPAY | PROVIDERS: PCP Family Medicine; Referring Provider Emergency Medicine; Visit Provider Emergency Medicine | DX: R00.2 Palpitations (principal) | CPT/HCPCS: 93225; 93226 ==

== ENCOUNTER 2021-09-30 08:19 | Emergency (ER) | payer BC, SELFPAY ==
[2021-09-30 08:19] VITALS: BP 119/76; PULSE 82; RESP 16; TEMP 36.4; O2SAT 98; BMI 37.1
[2021-09-30 08:55] LABS: Absolute Lymphocyte Count 1.77 X10^3/uL (0.83-4.51); Absolute Neutrophil Count 7.1 X10^3/uL (2.0-7.7); Basophil# 0.02 X10^3/uL; Basophil% 0.2 % (0-1); Eosinophil# 0.16 X10^3/uL; Eosinophils% 1.7 % (0-5); Hematocrit 42.9 % (37-47); Hemoglobin 14.3 g/dL (12.0-15.0); Lymphocyte # 1.77 X10^3/ul (0.83-4.51); Lymphocyte % 18.4 % (19-41); Mean Corp Hgb Conc 33.3 g/dL (32-36); Mean Platelet Vol. 8.8 fl (6.2-12.0); Monocyte# 0.59 X10^3/uL; Monocyte% 6.1 % (0-10); NRBC Flagged by Analyzer 0 % (0-5); Neutrophil # 7.05 X10^3/uL (2.7-7.7); Neutrophil % 73.3 % (47-70); Platelet Count 351 K/mm3 (150-450); RBC Distribution Width CV 12.2 % (11.6-14.6); RBC Distribution Width SD 39.4 fl (35.1-43.9); Red Blood Count 4.93 M/mm3 (4.2-5.4); White Blood Count 9.6 K/mm3 (4.4-11.0)
[2021-09-30] MEDS: 0.9% Normal Saline 1,000 ML 1000 ML IV (09:12)
[2021-09-30] MEDS: Dicyclomine 20 MG/2 ML Vial IM (09:14)
[2021-09-30 09:18] LABS: ALB/GLOB Ratio 0.8 RATIO (0.9-2.4); AST(SGOT) 15 U/L (15-37); Alanine Aminotransfer ALT/SGPT 20 U/L (13-56); Albumin, Serum 3.8 g/dL (3.2-5.0); Alkaline Phosphatase 67 U/L (45-117); Anion Gap 4 (5-15); BUN 18 mg/dL (7-18); BUN/Creat Ratio 17.1 RATIO (10-20); Calcium,Total 9.6 mg/dL (8.5-10.1); Chloride 105 mmol/L (98-107); Creatinine, Serum 1.05 mg/dL (0.55-1.02); EST Glomerular Filtration Rate 60 mL/min (>60); Est Glom Filt Rate - Afr Amer 72 mL/min (>60); Estimated Creatinine Clearance 52.95 ml/min; Globulin 4.6 g/dL (2.2-4.2); Glucose 120 mg/dL (74-106); Lipase 115 U/L (73-393); Potassium 4.4 mmol/L (3.5-5.1); Protein, Total 8.4 g/dL (6.4-8.2); Sodium Level 137 mmol/L (136-145)
[2021-09-30] MEDS: Ketorolac 15 MG/ML Vial IV (09:18)
[2021-09-30] MEDS: Ondansetron 4 MG/2 ML Vial IV (09:20)
--- NOTE | 2021-09-30 11:22 | EDS_ITS ---
HPI HPI - GI History of Present Illness Chief Complaint: Abd Pain Informant: patient Abdominal Pain/Flank Pain Onset: Yesterday (overnight) Context: Gradual Onset Timing: Continuous Quality: Cramping and Sharp Location: - (periumbilical) Current Severity: Moderate Maximum Severity: Moderate Worsened by: - (vomiting) Relieved by: Nothing Nausea/Vomiting/Emesis GI Symptom: Positive for Nausea and Vomiting Onset: Yesterday (overnight) Quality: Positive for Nonbilious; Negative for Blood streaks, Coffee ground and Hematemesis Diarrhea/Melena/Hematochezia GI Symptom: Positive for Diarrhea; Negative for Melena and Hematochezia Onset: Yesterday Stool Quality: Positive for Watery; Negative for Black and BRB per rectum Episodes: 10 Associated Symptoms Associated Symptoms: Negative for Dysuria, Frequency, Hematuria and Urgency Narrative Narrative: nausea for couple days, overnight started w/ v/d and sharp abd pains. hx of perf'd diverticulitis that she had surgery for remotely. no colostomy/ileostomy. no fevrs/chills. no recent travel out of area. no suspicious food intake such as undercooked meats or nonrefrigerated leftovers. [facility] Medical History (Updated 09/30/21 @ 11:[address] Steffen Silva MD) Abnormal PFT Abscess of sigmoid colon due to diverticulitis Allergic rhinitis Anxiety Asthma Asthma, moderate persistent Asthma, moderate persistent, poorly-controlled Bronchitis Depression Diverticulitis Dyspnea Hypothyroid IBS (irritable bowel syndrome) Intra-abdominal adhesions Obesity Obesity (BMI 30-39.9) FREDY (obstructive sleep apnea) Perforation of sigmoid colon due to diverticulitis PTSD (post-traumatic stress disorder) Sciatica Home Medications levothyroxine 88 mcg PO DAILY 02/01/14 [History Last Taken 10/16/20] fluticasone propionate 50 mcg/actuation nasal spray,suspension 50 mcg INTRANASAL BID PRN PRN 12/29/17 [History Last Taken Unknown] cetirizine 10 mg tablet 10 mg PO QDAY PRN 06/14/18 [History Last Taken Unknown] budesonide-formoterol HFA 160 mcg-4.5 mcg/actuation aerosol inhaler 2 puff INHALATION Q12H #3 device 02/27/20 [Rx Last Taken 10/16/20] albuterol sulfate 2.5 mg INHALATION Q4H PRN #180 ml 04/26/20 [Rx Last Taken Unknown] benzonatate 200 mg capsule 200 mg PO TID PRN #90 cap 05/27/20 [Rx Last Taken Unknown] albuterol sulfate 90 mcg/actuation aerosol inhaler 2 puff INHALATION Q4H PRN PRN #3 device 08/26/20 [Rx Last Taken 10/15/20] pantoprazole 20 mg PO DAILY PRN 10/16/20 [History Last Taken 10/15/20] bupropion HCl [Wellbutrin XL] 150 mg PO DAILY 04/28/21 [History Last Taken Unknown] naproxen 500 mg PO PRN PRN 04/28/21 [History Last Taken Unknown] insulin detemir U-100 [Levemir FlexTouch U-100 Insuln] 18 unit SUBCUT QHS 08/21/21 [History Last Taken Unknown] metformin 500 mg PO BID 08/21/21 [History Last Taken Unknown] dicyclomine 20 mg PO .q4-6h PRN #20 capsule 09/30/21 [Rx Last Taken Unknown] hydrocortisone-pramoxine [Proctofoam HC] 1 applic MT QHS PRN #10 g 09/30/21 [Rx Last Taken Unknown] ondansetron 8 mg PO Q8H PRN PRN #20 tab 09/30/21 [Rx Last Taken Unknown] Allergy/AdvReac Type Severity Reaction Status Date / Time venom-honey bee Allergy Severe Anaphylaxis Verified 09/30/21 08:22 [bee venom (honey bee)] amoxicillin [From Augmentin] Allergy Hives Verified 09/30/21 08:22 clavulanic acid Allergy Hives Verified 09/30/21 08:22 [From Augmentin] fluticasone Allergy Anaphylaxis Verified 09/30/21 08:22 [From Advair Diskus] salmeterol Allergy Anaphylaxis Verified 09/30/21 08:22 [From Advair Diskus] ciprofloxacin [From Cipro] AdvReac Nausea/Vom/ Verified 09/30/21 08:22 Diarrhea ENVIRONMENTAL Allergy Mild Other Uncoded 09/30/21 08:22 Family History Mother Depression Anxiety Arthritis Thyroid disorder COPD (chronic obstructive pulmonary disease) Cancer Father Arthritis Depression Alcohol abuse Sister Anxiety Depression Arthritis Cancer Brother Anxiety Depression HIV (human immunodeficiency virus infection) Hepatitis Surgical History delivery delivered [place] History of carpal tunnel surgery History of colectomy (~10/21/20) Hx of appendectomy lazy eye repair S/P cholecystectomy [place] teeth extracted Social History Smoking Status: Never smoker second hand exposure: No alcohol intake: current alcohol intake frequency: holidays/special occasions only substance use type: does not use ROS ROS ED Constitutional Constitutional ED: Reports malaise; Denies chills or fever(s) Eyes Eyes: Denies change in vision or diplopia ENT ENT ED: Denies rhinorrhea or sore throat Cardiovascular Cardiovascular: Denies chest pain or palpitations Respiratory/Chest Respiratory/Chest: Denies cough or dyspnea Gastrointestinal Gastrointestinal: Reports as per HPI, abdominal pain, diarrhea, nausea, vomiting and other Details: uncomfortable lump now getting painful in anus only present when bears down x 2 months total Genitourinary Genitourinary ED: Denies dysuria or hematuria Musculoskeletal Musculoskeletal: Denies back pain or neck pain Integumentary Denies abscess or rash Neurologic Neurologic: Denies headache(s), paresthesias or weakness Psychiatric Psychiatric: Denies anxiety or suicidal thoughts EXAM Physical Exam Const Vital Signs: 09/30/21 08:19 Temperature 97.6 F L Temperature Source Temporal Pulse Rate 82 Respiratory Rate 16 Blood Pressure 119/76 Blood Pressure Mean 90 Pulse Ox 98 Oxygen Delivery Method Room Air Positive well nourished and well developed General Appearance ED: well developed and NAD HEENT Reports moist mucous membranes normocephalic and atraumatic Eyes PERRL and EOMs intact bilaterally Neck full ROM and supple Resp normal respiratory effort and clear to auscultation bilaterally Cardio regular rate, regular rhythm and no murmurs GI non-tender and non-distended GI Narrative: nml nontender anal exam, no hemorrhoids visible Auscultation: hyperactive bowel sounds Palpation: soft Back/Spine no CVA tenderness General Back: other FROM Extremity normal to inspection General Extremety ED: Negative for edema, pulses abnormal or tenderness General Extremity: Negative for edema or pulses abnormal Neuro oriented x3, CN's II-XII intact bilaterally and no sensory deficits noted Sensorium / Orientation: awake and alert Motor Exam: strength 5/5 throughout Skin no rashes or lesions noted and no wounds MDM MDM MDM Narrative Medical decision making narrative: labs unremarkable. feeling much better after IVF, christian l[facility]o. suspect gastroenteritis. did not have diarrhea here to send for bacterial testing, but that's ok since pt has no red flags. her abd is nontender and pain is consistent w/ intestinal spasm. supportive care and hydration advised, I don't think she needs a CT at this time, which we discussed, but if pain becomes focal in a quadrant, I would suggest reevaluation. She is comfortable w/ that plan. also advised intraanal hemorrhoid tx empirically for poss internal hemorrhoids and to follow up for reeval and poss scoping if persistent. Lab Data Attestation: I reviewed the patient's lab results. Labs: Laboratory Results - last 24 hr 09/30/21 09/30/21 08:40 08:40 WBC 9.6 RBC 4.93 Hgb 14.3 Hct 42.9 MCV 87.0 MCH 29.0 MCHC 33.3 RDW Std Deviation 39.4 RDW Coeff of Beb[place] 12.2 Plt Count 351 MPV 8.8 Immature Gran % (Auto) 0.300 Neut % (Auto) 73.3 H Lymph % (Auto) 18.4 L [place] % (Auto) 6.1 Eos % (Auto) 1.7 Baso % (Auto) 0.2 Absolute Neuts (auto) 7.1 Absolute Lymphs (auto) 1.77 Nucleated RBC % 0 Sodium 137 Potassium 4.4 Chloride 105 Carbon Dioxide 28.0 Anion Gap 4 L BUN 18 Creatinine 1.05 H Estim Creat Clear Calc 52.95 Est GFR (MDRD) Af Amer 72 Est GFR (MDRD) Non-Af 60 BUN/Creatinine Ratio 17.1 Glucose 120 H Calcium 9.6 Total Bilirubin 0.80 AST 15 ALT 20 Alkaline Phosphatase 67 Total Protein 8.4 H Albumin 3.8 Globulin 4.6 H Albumin/Globulin Ratio 0.8 L Lipase 115 Discharge Plan Triage Chief Complaint: Abd Pain ED Provider: Steffen Silva Dx/Rx/DC Orders Clinical Impression: Gastroenteritis, Periumbilical abdominal pain Instructions: ED Hemorrhoids, ED Gastroenteritis, Viral (Adult) Prescriptions: New dicyclomine 10 MG capsule 20 mg PO .q4-6h PRN (Reason: abdominal discomfort) Qty: 20 RF: 0 ondansetron [ondansetron] 4 MG tablet 8 mg PO Q8H PRN PRN (Reason: Nausea) Qty: 20 RF: 0 Proctofoam HC 1-1 % foam 1 applic MT QHS PRN (Reason: hemorrhoids) Qty: 10 RF: 0 No Action fluticasone propionate 50 mcg/actuation spray,suspension 50 mcg INTRANASAL BID PRN PRN (Reason: Allergies) RF: 0 cetirizine [Zyrtec] 10 mg tablet 10 mg PO QDAY PRN (Reason: Allergies) RF: 0 benzonatate 200 mg capsule 200 mg PO TID PRN (Reason: cough) Qty: 90 RF: 0 levothyroxine 88 MCG tablet 88 mcg PO DAILY RF: 0 pantoprazole 20 MG tablet 20 mg PO DAILY PRN (Reason: gerd) RF: 0 bupropion HCl [Wellbutrin XL] 150 mg Tablet Extended Release 24 Hr 150 mg PO DAILY RF: 0 naproxen 500 MG tablet 500 mg PO PRN PRN (Reason: Pain) RF: 0 metformin 500 mg tablet 500 mg PO BID RF: 0 Levemir FlexTouch U-100 Insuln 100 unit/mL (3 mL) insulin pen 18 unit SUBCUT QHS RF: 0 Symbicort 160-4.5 mcg/actuation HFA aerosol inhaler 2 puff INHALATION Q12H Qty: 3 RF: 3 albuterol sulfate 2.5 mg /3 mL (0.083 %) solution for nebulization 2.5 mg INHALATION Q4H PRN (Reason: Sob &/Or Wheezing) Qty: 180 RF: 3 albuterol sulfate 90 mcg/actuation HFA aerosol inhaler 2 puff INHALATION Q4H PRN PRN (Reason: Shortness Of Breath) Qty: 3 RF: 6 Primary Care Provider: Marlyn Smith Referrals: Marlyn Smith MD [Primary Care Provider] - 3-5 Days if not improving Disposition Disposition: Home, Self Care
== END 2021-09-30 11:42 | disposition home or self-care (01) ==
PROVIDERS: Emergency Provider Emergency Medicine; PCP Family Medicine
DX: K52.9 Noninfective gastroenteritis and colitis, unspecified (principal); R10.33 Periumbilical pain; G47.33 Obstructive sleep apnea (adult) (pediatric)
CPT/HCPCS: 80053; 83690; 85025; 96361; 96372; 96374; 96375; 99283; J7030; A4216; J2405

== ENCOUNTER 2021-12-11 16:51 | Outpatient (CLI) | payer BC, SELFPAY ==
--- NOTE | 2021-12-11 16:56 | MRI_ITS ---
HISTORY: Left RADICULOPATHY EXAMINATION: MR Spine Cervical W/O Contrast TECHNIQUE: Multiplanar and multisequence MR images of the cervical spine were performed. IV Contrast dosage and agent: None COMPARISON: None FINDINGS: VERTEBRAE: Straightening of the normal cervical lordosis without listhesis. No fracture or compression deformity. No aggressive osseous lesion. CORD: Unremarkable in signal and morphology. C2/C3: Normal disc height and morphology. Normal spinal canal and neuroforamina. C3/C4: Small posterior central disc osteophyte complex with mild spinal canal stenosis C4/C5: Normal disc height and morphology. Normal spinal canal and neuroforamina. C5/C6: Normal disc height and morphology. Normal spinal canal and neuroforamina. C6/C7: Small broad-based posterior disc osteophyte complex with mild to moderate spinal canal stenosis, slightly effacing the anterior cord with mild right and moderate to severe left neuroforaminal stenosis. C7/T1: Normal disc height and morphology. Normal spinal canal and neuroforamina. NECK SOFT TISSUES: No prevertebral soft tissue swelling. There is no cervical adenopathy. MRI/Spine Cervical (Routine) IMPRESSION: Focal C6-C7 broad-based posterior disc osteophyte complex with mild to moderate spinal stenosis slightly effacing the left anterior cord and moderate to severe left neuroforaminal narrowing. Mild right neuroforaminal narrowing. Small posterior central disc osteophyte complex C3-C4 is mild spinal canal stenosis. at 0451 Reported and signed by: Emmanuel Goetz MD Electronically Signed: Emmanuel Goetz MD at 4:50 EST ,
== END 2021-12-11 23:59 | disposition home or self-care (01) ==
PROVIDERS: PCP Family Medicine; Visit Provider Family Medicine
DX: M48.02 Spinal stenosis, cervical region (principal); M25.78 Osteophyte, vertebrae; M54.12 Radiculopathy, cervical region
CPT/HCPCS: 72141

== ENCOUNTER 2022-01-21 18:30 | Outpatient (RCR) | payer BC, SELFPAY ==
--- NOTE | 2022-01-19 09:35 | HP.PTEVAL_ITS ---
Patient's Visit Information MADDIE JONES is a 46 year old F referred to Physical Therapy by Dr. Marlyn Smith MD with a diagnosis of L sided cervical radiculopathy. Date of Evaluation: 01/14/22 Physical Therapist: Evan Garvey DPT - Visit Plan Frequency: 2x /Week Duration: 4 Weeks Plan: Start with manual traction with slight flexion and slight R side bend to decrease stress to L lateral foramina. Add in light cervical iso retraction, scapular strengthening as tolerated - Subjective Pt. is here today for her initial visit with diagnosis of cervical radiculopathy L side. She reports having increased pain in the L side of her neck and shoulder since 2020. Pt has some N/T in same region down to lateral forearm at times. Pt. reports no mech of injury. She did have an MRI showing broad based osteophyte complex with mild/moderate stenosis, slightly effacing the L anterior cord and moderate/severe L neuroforaminal stenosis and C6-C7. She has trialed chiro with minimal to no relief, meds have not provided much relief either. She reports she is sleeping okay, but does wake her up at night. PMH: 2019 colon perforated diverticulitis. She developed increased visual difficulty. She is not able to see much now. Pt. uses to assist with getting around, holds on to his arm. 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 - Pain L side of Cervical spine Pain Intensity (Out of 10): 5 Pain Intensity Range: 4, 10 L UT region Pain Intensity (Out of 10): 5 Pain Intensity Range: 4, 10 - Objective POSTURE: pt. has slight fwrd head posture. Pt. has rounded shoulders as well. Patient is able to improve, but difficutly maintaining. PALPATION: Pt. had tenderness at L UT and L side of cervical erector spine. NEURO: Pt. has normal DTR and normal sensation to light and sharp touch. ROM: CERVICAL SPINE: flexion nil loss NE, ext min/mod loss increase NW, SB min loss yuridia increase NW to L side. rotation min/mod loss bilat increase NW, retraction: small motion okay. B shoulders: Pt. has normal ROM without increase in symptoms. MMT: Pt. has decent strength of BUEs, no marked myotomal weakness noted. 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 Normal cervical isometrics noted. - Special Tests C/S Radiculapathy - Left Upper limb tension test: Negative C/S Radiculapathy - Right Upper limb tension test: Negative C/S Radiculapathy - Left Spurlings: Positive C/S Radiculapathy - Right Spurlings: Negative C/S Radiculapathy - Left Cervical distraction: Negative C/S Radiculapathy - Right Cervical distraction: Negative C/S Radiculapathy - Left Relief test: Positive C/S Radiculapathy - Right Relief test: Negative Cervical Sitting: Protrusion - Mechanical Response: No effect Cervical Sitting: Protrusion - Symptoms During Testing: No effect Cervical Sitting: Protrusion - Symptoms After Testing: No effect Cervical Sitting: Retraction - Mechanical Response: No effect Cervical Sitting: Retraction - Symptoms During Testing: Decreases Cervical Sitting: Retraction - Symptoms After Testing: No better Cervical Sitting: Retraction-Extension - Mechanical Response: No effect Cerv Sitting: Retraction-Extension - Symptoms During Testing: Increases Cerv Sitting: Retraction-Extension - Symptoms After Testing: No worse Cervical Sitting: Sidebend Right - Mechanical Response: No effect Cervical Sitting: Sidebend Right - Symptoms During Testing: No effect Cervical Sitting: Sidebend Right - Symptoms After Testing: No effect Cervical Sitting: Sidebend Left - Mechanical Response: No effect Cervical Sitting: Sidebend Left - Symptoms During Testing: Increases Cervical Sitting: Sidebend Left - Symptoms After Testing: No worse Cervical Sitting: Rotation Right - Mechanical Response: No effect Cervical Sitting: Rotation Right - Symptoms During Testing: No effect Cervical Sitting: Rotation Right - Symptoms After Testing: No effect Cervical Sitting: Rotation Left - Mechanical Response: No effect Cervical Sitting: Rotation Left - Symptoms During Testing: Increases Cervical Sitting: Rotation Left - Symptoms After Testing: No worse Cervical Sitting: Flexion - Mechanical Response: No effect Cervical Sitting: Flexion - Symptoms During Testing: No effect Cervical Sitting: Flexion - Symptoms After Testing: No effect Cervical Lying: Retraction - Mechanical Response: No effect Cervical Lying: Retraction - Symptoms During Testing: Decreases Cervical Lying: Retraction - Symptoms After Testing: No better - Balance/Special Test Scores Oswestry Neck Score: 22 - Goals Goal 1:: LTG: Pt to be I with HEP. Goal Time Frame: 2-4 Weeks Goal 2:: STG: pt. to sleep throughout the night without increase in symptoms. Goal Time Frame: 2 Weeks Goal 3:: LTG: Pt. have decreased LUE pain to 0-2/10 pain throughout the day. Goal Time Frame: 2-4 Weeks Goal 4:: LTG: Pt. to demonstrate proper posture throughout therapy session indicating increased postural awareness. Goal Time Frame: 2-4 Weeks - Rehabilitation Potential Physical Therapy Diagnosis: Pt. has signs and symptoms consistent with L sided cervical radiculopathy. Pt. - Anticipated Interventions Patient/Client Instruction: Educate patient on: Condition, Plan of Care, Risk Factors, Benefits of Fitness Program For the Purpose of:: To improve decision making, To facilitate caregiver knowledge, To improve self management, To prevent re-injury, To improve ability to perform tasks related to life management, To improve tolerance to ADL's Therapeutic Exercise to Include: Strength training, Body mechanics, Postural training, Flexibilty training, Passive ROM, Active ROM, Ronal Exercises, Scapular Strength/Stabilization For the Purpose of:: To decrease pain, To decrease swelling/inflammation, To i ncrease ROM, To improve nutrient delivery to tissue, To increase oxygenation perfusion, To improve muscle performance and motor function, To improve ability to perform ADL's, To decrease soft tissue restriction, To increase flexibility/ROM Manual Therapy Techniques to Include: Mobilization, Passive ROM, Functional dry needling, Soft tissue mobilization Comment: manual traction For the Purpose of:: To decrease pain, To decrease swelling/inflammation, To increase ROM Cryotherapy (ice pack, ice massage): Yes Intermittent cervical traction: Yes For the Purpose of:: To decrease pain, To decrease swelling/inflammation, To increase ROM, To improve nutrient delivery to tissue, To increase oxygenation perfusion, To improve muscle performance and motor function Thank you for the opportunity to evaluate your patient. For Medicare and Medicare HMO plans, please review the plan of care and approve it. It will need to be FAXED BACK to us at [phone] for Medicare purposes. For Medicare only, by signing this I certify the plan of care. Please let me know if there are questions or concerns regarding this plan of care. Physician Signature: Date:
--- NOTE | 2022-04-29 11:08 | HP.PTDCNRP_ITS ---
MADIDE JONES was seen in my office for initial evaluation on 01/14/22. The following Plan of Care was established for this patient: Initial Frequency: 2x /Week Initial Duration: 4 Weeks Patient/Client Instruction: Educate patient on: Condition, Plan of Care, Risk Factors, Benefits of Fitness Program For the Purpose of:: To improve decision making, To facilitate caregiver knowledge, To improve self management, To prevent re-injury, To improve ability to perform tasks related to life management, To improve tolerance to ADL's Therapeutic Exercise to Include: Strength training, Body mechanics, Postural training, Flexibilty training, Passive ROM, Active ROM, Ronal Exercises, Scapular Strength/Stabilization For the Purpose of:: To decrease pain, To decrease swelling/inflammation, To increase ROM, To improve nutrient delivery to tissue, To increase oxygenation perfusion, To improve muscle performance and motor function, To improve ability to perform ADL's, To decrease soft tissue restriction, To increase flexibility/R OM Manual Therapy Techniques to Include: Mobilization, Passive ROM, Functional dry needling, Soft tissue mobilization Comment: manual traction For the Purpose of:: To decrease pain, To decrease swelling/inflammation, To increase ROM Cryotherapy (ice pack, ice massage): Yes Intermittent cervical traction: Yes For the Purpose of:: To decrease pain, To decrease swelling/inflammation, To increase ROM, To improve nutrient delivery to tissue, To increase oxygenation perfusion, To improve muscle performance and motor function This patient was last seen in our office 01/21/22. Pertinent comments regarding their Physical therapy will appear below: Pt. was seen for her neck pain in PT. She was seen for 3 visits, but has not been seen in several months. Pt. will be DC from PT at this point in time. At this point I will be discontinuing this patient from physical therapy. I would be happy to see this patient again in the future if found appropriate by the physician. Thank you! Evan Garvey, DPT Balance/Gait/Functional tests - Balance/Special Test Scores Oswestry Neck Score: 22
== END 2022-01-21 19:00 | disposition home or self-care (01) ==
LOC: PT 18:30
PROVIDERS: PCP Family Medicine; Referring Provider Family Medicine; Visit Provider Family Medicine
DX: M54.12 Radiculopathy, cervical region (principal)
CPT/HCPCS: 97140; 97161

== ENCOUNTER 2022-02-25 12:15 | Emergency (ER) | payer BC, SELFPAY ==
[2022-02-25 12:15] VITALS: BP 125/82; PULSE 101; RESP 16; TEMP 36.4; O2SAT 97; BMI 35.8
--- NOTE | 2022-02-25 15:01 | EDS_ITS ---
HPI History of Present Illness Chief Complaint: GI Bleed Informant: patient Narrative Narrative: 46-year-old female presenting to the emergency department with rectal bleeding. Patient states that this morning around 1130 she had a bowel movement and noticed that there was blood in the water. This happened a second time she called her . Patient notes that she has some discomfort in the rectal area. She has had a partial colectomy due to perforated sigmoid colon by Dr. Reyes in the past. She states that she knows that she has hemorrhoidal tissue and with bowel movements has protrusion of hemorrhoids. She last had to use any Proctofoam several months ago. She notes that she does not typically have to strain due to her irritable bowel-ED disease. [facility] Medical History Abnormal PFT Abscess of sigmoid colon due to diverticulitis Allergic rhinitis Anxiety Asthma Asthma, moderate persistent Asthma, moderate persistent, poorly-controlled Bronchitis Depression Diverticulitis Dyspnea Hypothyroid IBS (irritable bowel syndrome) Intra-abdominal adhesions Obesity Obesity (BMI 30-39.9) FREDY (obstructive sleep apnea) Perforation of sigmoid colon due to diverticulitis PTSD (post-traumatic stress disorder) Sciatica Home Medications levothyroxine 88 mcg PO DAILY 02/01/14 [History Last Taken 10/16/20] fluticasone propionate 50 mcg/actuation nasal spray,suspension 50 mcg INTRANASAL BID PRN PRN 12/29/17 [History Last Taken Unknown] cetirizine 10 mg tablet 10 mg PO QDAY PRN 06/14/18 [History Last Taken Unknown] budesonide-formoterol HFA 160 mcg-4.5 mcg/actuation aerosol inhaler 2 puff INHALATION Q12H #3 device 02/27/20 [Rx Last Taken 10/16/20] albuterol sulfate 2.5 mg INHALATION Q4H PRN #180 ml 04/26/20 [Rx Last Taken Unknown] benzonatate 200 mg capsule 200 mg PO TID PRN #90 cap 05/27/20 [Rx Last Taken Unknown] albuterol sulfate 90 mcg/actuation aerosol inhaler 2 puff INHALATION Q4H PRN PRN #3 device 08/26/20 [Rx Last Taken 10/15/20] pantoprazole 20 mg PO DAILY PRN 10/16/20 [History Last Taken 10/15/20] bupropion HCl [Wellbutrin XL] 150 mg PO DAILY 04/28/21 [History Last Taken Unknown] naproxen 500 mg PO PRN PRN 04/28/21 [History Last Taken Unknown] insulin detemir U-100 [Levemir FlexTouch U-100 Insuln] 18 unit SUBCUT QHS 08/21/21 [History Last Taken Unknown] metformin 500 mg PO BID 08/21/21 [History Last Taken Unknown] dicyclomine 20 mg PO .q4-6h PRN #20 capsule 09/30/21 [Rx Last Taken Unknown] hydrocortisone-pramoxine [Proctofoam HC] 1 applic [place] QHS PRN #10 g 09/30/21 [Rx Last Taken Unknown] ondansetron 8 mg PO Q8H PRN PRN #20 tab 09/30/21 [Rx Last Taken Unknown] hydrocortisone-pramoxine [Proctofoam HC] 1 applic [place] BID PRN #10 g 02/25/22 [Rx Last Taken Unknown] Allergy/AdvReac Type Severity Reaction Status Date / Time venom-honey bee Allergy Severe Anaphylaxis Verified 02/25/22 12:17 [bee venom (honey bee)] amoxicillin [From Augmentin] Allergy Hives Verified 02/25/22 12:17 clavulanic acid Allergy Hives Verified 02/25/22 12:17 [From Augmentin] fluticasone Allergy Anaphylaxis Verified 02/25/22 12:17 [From Advair Diskus] salmeterol Allergy Anaphylaxis Verified 02/25/22 12:17 [From Advair Diskus] ciprofloxacin [From Cipro] AdvReac Nausea/Vom/ Verified 02/25/22 12:17 Diarrhea ENVIRONMENTAL Allergy Mild Other Uncoded 02/25/22 12:17 Family History Mother Depression Anxiety Arthritis Thyroid disorder COPD (chronic obstructive pulmonary disease) Cancer Father Arthritis Depression Alcohol abuse Sister Anxiety Depression Arthritis Cancer Brother Anxiety Depression HIV (human immunodeficiency virus infection) Hepatitis Surgical History delivery delivered [place] History of carpal tunnel surgery History of colectomy (~10/21/20) Hx of appendectomy lazy eye repair S/P cholecystectomy [place] teeth extracted Social History Smoking Status: Never smoker second hand exposure: No alcohol intake: current alcohol intake frequency: holidays/special occasions only substance use type: does not use ROS ROS ED Constitutional Constitutional ED: Denies chills, fever(s) or weight loss Eyes Eyes: Denies change in vision or diplopia ENT ENT ED: Denies ear pain, rhinorrhea or sore throat Cardiovascular Cardiovascular: Denies chest pain, orthopnea, palpitations or racing heartbeat Respiratory/Chest Respiratory/Chest: Denies cough, dyspnea or orthopnea Gastrointestinal Gastrointestinal: Reports other Details: BRBPR ; Denies abdominal pain, diarrhea, nausea or vomiting Genitourinary Genitourinary ED: Denies dysuria, hematuria or urinary frequency Musculoskeletal Musculoskeletal: Denies arthralgias or myalgias Integumentary Denies abscess or rash Neurologic Neurologic: Denies headache(s) or weakness Psychiatric Psychiatric: Denies anxiety, depression, suicidal ideation or suicidal thoughts Endocrine Endocrinology: Denies polydipsia, polyphagia or polyuria Allergic/Immunologic Allergic/Immunologic ED: Denies mouth swelling, tongue swelling or urticaria EXAM Physical Exam Const Vital Signs: 02/25/22 12:15 Temperature 97.6 F L Temperature Source Temporal Pulse Rate 101 H Respiratory Rate 16 Blood Pressure 125/82 H Blood Pressure Mean 96 Pulse Ox 97 Oxygen Delivery Method Room Air Positive well nourished and well developed General Appearance ED: well developed HEENT Reports normocephalic, head/scalp atraumatic, TM's clear and moist mucous membranes Negative for trauma Tympanic Membrane ED: Yes TM's clear Eyes PERRL and EOMs intact bilaterally Neck no lymphadenopathy, supple and no JVD Resp normal respiratory effort and clear to auscultation bilaterally Cardio regular rate, regular rhythm and no murmurs GI normal to inspection, nondistended, normoactive bowel sounds and non-tender Palpation: soft Narrative: On rectal exam there is mild external hemorrhoidal disease. I appreciate no fissures. On JOCELYN there is no blood on the glove. Immediately following withdrawal of the finger there was blood noted to be coming from a hemorrhoid. Patient did have discomfort with the JOCELYN Back/Spine no CVA tenderness and normal ROM Extremity normal to inspection General Extremety ED: Negative for edema General Extremity: Negative for edema Neuro oriented x3 and CN's II-XII intact bilaterally Sensorium / Orientation: alert Motor Exam: strength 5/5 throughout Psych mental status grossly normal Mood & Affect: Negative for depressed or tearful Skin no rashes or lesions noted and no wounds MDM MDM MDM Narrative Medical decision making narrative: Hemoglobin and hematocrit are stable. Patient will be discharged home with prescription for Proctofoam. Instructions to follow-up with her surgeon return if worsening or concerns Lab Data Attestation: I reviewed the patient's lab results. Labs: Laboratory Results - last 24 hr 02/25/22 15:10 Hgb 13.6 Hct 40.3 Discharge Plan Triage Chief Complaint: GI Bleed ED Provider: Johnathan Hall Dx/Rx/DC Orders Clinical Impression: Rectal bleed, Bleeding hemorrhoids Instructions: Treating Hemorrhoids: Self-Care Prescriptions: New Proctofoam HC 1-1 % foam 1 applic [place] BID PRN (Reason: hemorrhoids) Qty: 10 RF: 0 No Action fluticasone propionate 50 mcg/actuation spray,suspension 50 mcg INTRANASAL BID PRN PRN (Reason: Allergies) RF: 0 cetirizine [Zyrtec] 10 mg tablet 10 mg PO QDAY PRN (Reason: Allergies) RF: 0 benzonatate 200 mg capsule 200 mg PO TID PRN (Reason: cough) Qty: 90 RF: 0 levothyroxine 88 MCG tablet 88 mcg PO DAILY RF: 0 pantoprazole 20 MG tablet 20 mg PO DAILY PRN (Reason: gerd) RF: 0 bupropion HCl [Wellbutrin XL] 150 mg Tablet Extended Release 24 Hr 150 mg PO DAILY RF: 0 naproxen 500 MG tablet 500 mg PO PRN PRN (Reason: Pain) RF: 0 metformin 500 mg tablet 500 mg PO BID RF: 0 Levemir FlexTouch U-100 Insuln 100 unit/mL (3 mL) insulin pen 18 unit SUBCUT QHS RF: 0 dicyclomine 10 MG capsule 20 mg PO .q4-6h PRN (Reason: abdominal discomfort) Qty: 20 RF: 0 ondansetron [ondansetron] 4 MG tablet 8 mg PO Q8H PRN PRN (Reason: Nausea) Qty: 20 RF: 0 Proctofoam HC 1-1 % foam 1 applic [place] QHS PRN (Reason: hemorrhoids) Qty: 10 RF: 0 Symbicort 160-4.5 mcg/actuation HFA aerosol inhaler 2 puff INHALATION Q12H Qty: 3 RF: 3 albuterol sulfate 2.5 mg /3 mL (0.083 %) solution for nebulization 2.5 mg INHALATION Q4H PRN (Reason: Sob &/Or Wheezing) Qty: 180 RF: 3 albuterol sulfate 90 mcg/actuation HFA aerosol inhaler 2 puff INHALATION Q4H PRN PRN (Reason: Shortness Of Breath) Qty: 3 RF: 6 Primary Care Provider: Marlyn Smith Referrals: Marlyn Smith MD [Primary Care Provider] - Brandan Reyes MD [STAFF PHYSICIAN] - As Needed (if continued symptoms) Disposition Disposition: Home, Self Care
[2022-02-25 15:24] LABS: Hematocrit 40.3 % (37-47); Hemoglobin 13.6 g/dL (12.0-15.0)
--- NOTE | 2022-02-27 13:44 | CASEMGMT ---
CLARA ROSARIO f/u note: ED Visit: 02/25/22. Complaint: GI bleed Proctofoam 1% e-scribed to [facility]. Received fax from [facility] stating Proctofoam 1% is on back-order. CLARA ROSARIO placed call to [facility]. Medication is still on back-order and they do not know when it will be available. Call to pt and she was made aware. She states she tried Proctofoam for 2 months in Sep an Oct and stopped using it d/t it was not helping. She states she did inform the ED MD of this, but he wanted her to try it again. CLARA ROSARIO offered to contact other pharmacies to see if the Proctofoam is available elsewhere. Pt states she prefers to try something different and plans to call Dr Smith's office to inquire about getting a prescription for a different medication. Response to [facility] faxed to inform them Rx does not need filled. Fouzia RAMIREZ RN, CM
== END 2022-02-25 15:37 | disposition home or self-care (01) ==
PROVIDERS: Emergency Provider Emergency Medicine; PCP Family Medicine; Visit Provider Emergency Medicine
DX: K64.4 Residual hemorrhoidal skin tags (principal); K62.5 Hemorrhage of anus and rectum; E03.9 Hypothyroidism, unspecified; E66.9 Obesity, unspecified; F32.A Depression, unspecified; F41.9 Anxiety disorder, unspecified; Z68.35 Body mass index [BMI] 35.0-35.9, adult; Z90.49 Acquired absence of other specified parts of digestive tract; Z79.899 Other long term (current) drug therapy
CPT/HCPCS: 85014; 85018; 99282; A4216

== ENCOUNTER 2022-05-19 08:17 | Emergency (ER) | payer BC, SELFPAY ==
[2022-05-19] VITALS (8 sets, daily range): BP systolic 104–138; BP diastolic 68–87; PULSE 85–93; RESP 15–18; TEMP 36.6–36.8; O2SAT 92–98; BMI 35.6
--- NOTE | 2022-05-19 08:41 | EKG12_ITS ---
Test Reason : SOB Blood Pressure : / mmHG Vent. Rate : 092 BPM Atrial Rate : 092 BPM P-R Int : 156 ms QRS Dur : 084 ms QT Int : 380 ms P-R-T Axes : 041 069 023 degrees QTc Int : 469 ms Normal sinus rhythm Low voltage QRS Poor R wave Progression Confirmed by LARRY NGUYEN, MAYRA ([id number]), editor dictionary NOLAN HUMMEL ([id number]) on 05/22/2022 7:55:20 AM Referred By: Fernando Confirmed By:MAYRA JUAREZ MD
--- NOTE | 2022-05-19 08:46 | ED.VIS.DYS ---
HPI History of Present Illness Chief Complaint: Shortness of Breath Informant: patient Narrative Narrative: Patient is a 46-year-old female with history of moderate persistent asthma, diverticulitis, IBS, PTSD, anxiety and depression presenting for shortness of breath and cough. Patient states 2 weeks ago she started to have some sinus congestion. Over the past 3 days it is progressed to worsening cough and difficulty breathing. He states he is producing a lot of thick phlegm/mucus. States he has not slept in 3 days because of her symptoms. She saw her primary care physician 4 days ago and was prescribed prednisone taper. She just finished the first 3 days of 60 mg of prednisone. She went to urgent care this morning and they sent her to the emergency room for further evaluation. Patient denies any chest pain. She not had a chest x-ray or COVID test yet. She denies any nausea or vomiting. Has IBS but does not elicit any change in bowel movements. Does feel short of breath. No report of any fever or rash. No sick contacts. Denies any swelling of her legs. No other complaints at this time. [facility] Medical History (Updated 05/19/22 @ 11:[address] Kimberli King, DO) Abnormal PFT Abscess of sigmoid colon due to diverticulitis Allergic rhinitis Anxiety Asthma Asthma, moderate persistent Asthma, moderate persistent, poorly-controlled Bronchitis Depression Diverticulitis Dyspnea Hypothyroid IBS (irritable bowel syndrome) Intra-abdominal adhesions Obesity Obesity (BMI 30-39.9) FREDY (obstructive sleep apnea) Perforation of sigmoid colon due to diverticulitis PTSD (post-traumatic stress disorder) Sciatica Home Medications levothyroxine 88 mcg tablet 88 mcg PO DAILY hypothyroid 02/01/14 [History Last Taken 10/16/20] fluticasone propionate 50 mcg/actuation nasal spray,suspension 50 mcg intranasal BID PRN PRN Allergies 12/29/17 [History Last Taken Unknown] cetirizine 10 mg tablet (Zyrtec) 10 mg PO QDAY PRN Allergies 06/14/18 [History Last Taken Unknown] budesonide-formoterol HFA 160 mcg-4.5 mcg/actuation aerosol inhaler (Symbicort) 2 puff inhalation Q12H #3 device 02/27/20 [Rx Last Taken 10/16/20] albuterol sulfate 2.5 mg/3 mL (0.083 %) solution for nebulization 2.5 mg (3 mL) inhalation Q4H PRN Sob &/Or Wheezing #180 mL 04/26/20 [Rx Last Taken Unknown] albuterol sulfate 90 mcg/actuation aerosol inhaler 2 puff inhalation Q4H PRN PRN Shortness Of Breath #3 device 08/26/20 [Rx Last Taken 10/15/20] pantoprazole 20 mg tablet,delayed release 20 mg PO DAILY PRN gerd 10/16/20 [History Last Taken 10/15/20] naproxen 500 mg tablet 500 mg PO PRN PRN Pain 04/28/21 [History Last Taken Unknown] insulin detemir U-100 100 unit/mL (3 mL) subcutaneous pen (Levemir FlexTouch U-100 Insulin) 22 unit subcut QHS 08/21/21 [History Last Taken Unknown] metformin 500 mg tablet 1,000 mg PO BID 08/21/21 [History Last Taken Unknown] azithromycin 250 mg tablet 250 mg PO DAILY 4 days #4 tabs 05/19/22 [Rx Last Taken Unknown] codeine 10 mg-guaifenesin 100 mg/5 mL oral liquid 5 ml PO Q4H PRN cough #120 mL 05/19/22 [Rx Last Taken Unknown] dicyclomine 10 mg capsule 20 mg PO Q6H PRN PRN abdominal discomfort 05/19/22 [History Last Taken Unknown] ipratropium 0.5 mg-albuterol 3 mg (2.5 mg base)/3 mL nebulization soln 3 ml inhalation Q6H PRN shortness of breath or wheezing #90 mL 05/19/22 [Rx Last Taken Unknown] prednisolone acetate 1 % eye drops,suspension 1 drp ophthalmic (eye) DAILY 05/19/22 [History Last Taken Unknown] prednisone 20 mg tablet See Rx Instructions .Route .COMPLEX 05/19/22 [History Last Taken Unknown] timolol maleate 0.5 % eye drops 1 drp ophthalmic (eye) DAILY 05/19/22 [History Last Taken Unknown] Allergy/AdvReac Type Severity Reaction Status Date / Time venom-honey bee Allergy Severe Anaphylaxis Verified 05/19/22 08:20 [bee venom (honey bee)] amoxicillin [From Augmentin] Allergy Hives Verified 05/19/22 08:20 clavulanic acid Allergy Hives Verified 05/19/22 08:20 [From Augmentin] fluticasone Allergy Anaphylaxis Verified 05/19/22 08:20 [From Advair Diskus] salmeterol Allergy Anaphylaxis Verified 05/19/22 08:20 [From Advair Diskus] ciprofloxacin [From Cipro] AdvReac Nausea/Vom/ Verified 05/19/22 08:20 Diarrhea ENVIRONMENTAL Allergy Mild Other Uncoded 05/19/22 08:20 Family History Mother Depression Anxiety Arthritis Thyroid disorder COPD (chronic obstructive pulmonary disease) Cancer Father Arthritis Depression Alcohol abuse Sister Anxiety Depression Arthritis Cancer Brother Anxiety Depression HIV (human immunodeficiency virus infection) Hepatitis Surgical History delivery delivered Fistula History of carpal tunnel surgery History of colectomy (~10/21/20) Hx of appendectomy lazy eye repair S/P cholecystectomy [place] teeth extracted Social History Smoking Status: Never smoker second hand exposure: No alcohol intake: current alcohol intake frequency: holidays/special occasions only substance use type: does not use ROS ROS ED Constitutional Constitutional ED: Denies chills or fever(s) Eyes Eyes: Denies change in vision ENT ENT ED: Reports other Details: nasal congestion ; Denies rhinorrhea or sore throat Cardiovascular Cardiovascular: Denies chest pain Respiratory/Chest Respiratory/Chest: Reports cough and dyspnea Gastrointestinal Gastrointestinal: Denies abdominal pain, nausea or vomiting Genitourinary Genitourinary ED: Denies dysuria Musculoskeletal Musculoskeletal: Denies arthralgias or myalgias Integumentary Denies rash Neurologic Neurologic: Denies headache(s) or weakness Psychiatric Psychiatric: Denies anxiety EXAM Physical Exam Const Vital Signs: 05/19/22 08:17 05/19/22 08:25 05/19/22 08:26 Temperature 97.9 F 97.9 F Temperature Source Temporal Temporal Pulse Rate 88 88 Respiratory Rate 18 18 Respiratory Effort Short of Breath Respiratory Depth Normal Respiratory Pattern Tachypnea Blood Pressure 138/79 H 138/79 H Blood Pressure Mean 98 Pulse Ox 98 98 Oxygen Delivery Method Room Air Room Air Room Air 05/19/22 08:52 05/19/22 09:00 07/19/22 10:00 Temperature 98.0 F 98.2 F Temperature Source Temporal Temporal Pulse Rate 85 93 91 Respiratory Rate 18 18 15 Respiratory Effort Respiratory Depth Respiratory Pattern Blood Pressure 107/87 H 104/68 Blood Pressure Mean 93 80 Pulse Ox 93 94 Oxygen Delivery Method Room Air Room Air 05/19/22 11:00 Temperature 98.0 F Temperature Source Temporal Pulse Rate 93 Respiratory Rate 18 Respiratory Effort Respiratory Depth Respiratory Pattern Blood Pressure 105/72 Blood Pressure Mean 83 Pulse Ox 97 Oxygen Delivery Method Positive well nourished and well developed General Appearance ED: well developed HEENT Reports TM's clear and dry mucous membranes atraumatic Tympanic Membrane ED: Yes TM's clear Mouth ED: Yes dry mucous membranes Mouth: dry mucous membranes Eyes PERRL and EOMs intact bilaterally Neck supple, no meningeal signs and no JVD Neck Narrative: Hoarse voice on exam Resp clear to auscultation bilaterally Resp Narrative: Some upper respiratory noises but no wheezing, rhonchi or rales appreciated. Auscultation: Negative for rhonchi or wheezes Cardio regular rate, regular rhythm and no murmurs GI non-tender and non-distended Back/Spine no CVA tenderness Extremity normal to inspection General Extremety ED: Negative for edema or tenderness General Extremity: Negative for edema Neuro oriented x3 Neuro Narrative: No focal deficits Motor Exam: general weakness Psych mental status grossly normal Skin Lesions: no lesions Rashes: no rashes MDM MDM MDM Narrative Medical decision making narrative: Patient evaluated for cough and shortness of breath. She Grace for 2 weeks. Started with sinus congestion moved down to her chest. She is currently on steroids. Clinically this is most consistent bronchitis. I do not hear any significant wheezing however it is possible she could have some cough variant asthma. She is given a DuoNeb which does improve her slightly. She states she only has albuterol at home without not helping. CBC shows a mild leukocytosis with left shift however this could be secondary to her steroids that she is currently on. BMP largely unremarkable and her high since her troponin is less than 3. I do not think this is referred cardiac symptoms. COVID test is negative. Given that she is 2 weeks into her symptoms I do not think a PCR is indicated as it will not change her management. Patient has some slight associated laryngitis but is not having any airway compromise. She has no drooling or tripoding. She is ambulate in the ER and does not desaturate past 97%. Chest x-ray does not show any acute infiltrate as interpreted by myself as well as radiology. Patient is given IV fluids in the emergency room. She be discharged home with stronger cough medicine (Robitussin-AC), DuoNebs and azithromycin for possible bacterial infection given leukocytosis but more so for the anti-inflammatory properties. Patient counseled return precaution. She will follow-up with her primary care doctor. Lab Data Attestation: I reviewed the patient's lab results. Labs: Laboratory Results - last 24 hr 05/19/22 05/19/22 08:45 08:45 WBC 14.5 H RBC 4.47 Hgb 13.0 Hct 39.5 MCV 88.4 MCH 29.1 MCHC 32.9 RDW Std Deviation 41.0 RDW Coeff of Bebo 12.8 Plt Count 358 MPV 9.9 Immature Gran % (Auto) 2.000 H Neut % (Auto) 60.2 Lymph % (Auto) 28.7 [place] % (Auto) 7.7 Eos % (Auto) 0.8 Baso % (Auto) 0.6 Absolute Neuts (auto) 8.7 H Absolute Lymphs (auto) 4.16 Nucleated RBC % 0 Sodium 140 Potassium 3.8 Chloride 107 Carbon Dioxide 27.0 Anion Gap 6 BUN 20 H Creatinine 0.93 Estim Creat Clear Calc 59.15 Est GFR (MDRD) Af Amer 83 Est GFR (MDRD) Non-Af 69 BUN/Creatinine Ratio 21.6 H Glucose 96 Calcium 9.8 Troponin I High Sens < 3 L Radiography Chest X-Ray - ED: 2 View, Read by ED Physician, Read by Radiologist and No Acute Disease Diagnostic Testing: Clinical Impression(s) from Imaging Studies Chest X-Ray 05/19/22 09:04 IMPRESSION: Normal x-ray examination of the chest. Electronically Signed: Haider Purvis MD at 9:16 EDT , Rhythm Strip Rhythm Strip: Sinus Rhythm Rate: 92 Ectopy: None EKG Initial EKG: Attestation: I personally reviewed and interpreted this EKG as follows: Interpretation: Sinus Rhythm Comments: Normal sinus rhythm at a rate of 92 Normal axis Normal intervals Normal ST segments Low voltage QRS Discharge Plan Triage Chief Complaint: Shortness of Breath ED Provider: Kimberli King Dx/Rx/DC Orders Clinical Impression: Acute bronchitis, Leukocytosis Instructions: Acute Bronchitis Prescriptions: New azithromycin 250 mg tablet 250 mg PO DAILY 4 Days Qty: 4 0RF Rx Instructions: start on day 2 of therapy codeine-guaifenesin 10-100 mg/5 mL liquid 5 ml PO Q4H PRN (Reason: cough) Qty: 120 0RF ipratropium-albuterol 0.5 mg-3 mg(2.5 mg base)/3 mL solution for nebulization 3 ml inhalation Q6H PRN (Reason: shortness of breath or wheezing) Qty: 90 0RF No Action fluticasone propionate 50 mcg/actuation spray,suspension 50 mcg INTRANASAL BID PRN PRN (Reason: Allergies) cetirizine [Zyrtec] 10 mg tablet 10 mg PO QDAY PRN (Reason: Allergies) levothyroxine 88 MCG tablet 88 mcg PO DAILY pantoprazole 20 MG tablet 20 mg PO DAILY PRN (Reason: gerd) naproxen 500 MG tablet 500 mg PO PRN PRN (Reason: Pain) metformin 500 mg tablet 1,000 mg PO BID Levemir FlexTouch U-100 Insuln 100 unit/mL (3 mL) insulin pen 22 unit SUBCUT QHS dicyclomine 10 MG capsule 20 mg PO Q6H PRN PRN (Reason: abdominal discomfort) prednisone 20 mg tablet See Rx Instructions .ROUTE .COMPLEX Label Comments: PLEASE SEE ATTACHED FOR DETAILED DIRECTIONS Rx Instructions: taper dose prednisolone acetate 1 % drops,suspension 1 drp ophthalmic (eye) DAILY Label Comments: 1 drop into left eye once a day timolol maleate 0.5 % drops 1 drp ophthalmic (eye) DAILY Label Comments: 1 drop into both eyes once a day Symbicort 160-4.5 mcg/actuation HFA aerosol inhaler 2 puff INHALATION Q12H Qty: 3 3RF albuterol sulfate 2.5 mg /3 mL (0.083 %) solution for nebulization 2.5 mg INHALATION Q4H PRN (Reason: Sob &/Or Wheezing) Qty: 180 3RF albuterol sulfate 90 mcg/actuation HFA aerosol inhaler 2 puff INHALATION Q4H PRN PRN (Reason: Shortness Of Breath) Qty: 3 6RF Primary Care Provider: Marlyn Smith Referrals: Marlyn Smith MD [Primary Care Provider] - Disposition Disposition: Home, Self Care Discharge Date/Time: 05/19/22 11:36
[2022-05-19] MEDS: Ipratropium/Albuterol Sulfate 3 ML AMPUL.NEB INHALATION (08:51)
[2022-05-19] MEDS: 0.9% Normal Saline 1,000 ML 999 ML IV (08:55)
--- NOTE | 2022-05-19 09:04 | RAD_ITS ---
STUDY: X-RAY CHEST REASON FOR EXAM: Female, 46 years old. Cough, sob TECHNIQUE: PA and lateral views of the chest. COMPARISON: Comparison is made with prior study dated 04/28/2021. FINDINGS: EKG electrodes are seen. The lungs are clear and expanded. There is no demonstrated pleural abnormality. Normal size heart. Normal mediastinum and oneyda. Normal visualized pulmonary arteries. Normal visualized aortic arch and descending thoracic aorta. Normal visualized thoracic spine. Normal visualized ribs, clavicles, and shoulders. There is no demonstrated abnormality of the visualized soft tissue structures of the upper abdomen. RAD/Chest PA and Lateral IMPRESSION: Normal x-ray examination of the chest. Electronically Signed: Haider Purvis MD at 9:16 EDT ,
[2022-05-19 09:12] LABS: Absolute Lymphocyte Count 4.16 X10^3/uL (0.83-4.51); Absolute Neutrophil Count 8.7 X10^3/uL (2.0-7.7); Basophil# 0.08 X10^3/uL; Basophil% 0.6 % (0-1); Eosinophil# 0.11 X10^3/uL; Eosinophils% 0.8 % (0-5); Hematocrit 39.5 % (37-47); Lymphocyte # 4.16 X10^3/ul (0.83-4.51); Lymphocyte % 28.7 % (19-41); Mean Corp Hgb Conc 32.9 g/dL (32-36); Mean Corpuscular Hgb 29.1 pg (27.0-32.0); Mean Corpuscular Volume 88.4 fL (81-99); Mean Platelet Vol. 9.9 fl (6.2-12.0); Monocyte# 1.11 X10^3/uL; Monocyte% 7.7 % (0-10); NRBC Flagged by Analyzer 0 % (0-5); Neutrophil # 8.73 X10^3/uL (2.7-7.7); Neutrophil % 60.2 % (47-70); Platelet Count 358 K/mm3 (150-450); RBC Distribution Width CV 12.8 % (11.6-14.6); Red Blood Count 4.47 M/mm3 (4.2-5.4); White Blood Count 14.5 K/mm3 (4.4-11.0)
[2022-05-19 09:30] LABS: Anion Gap 6 (5-15); BUN 20 mg/dL (7-18); BUN/Creat Ratio 21.6 RATIO (10-20); Calcium,Total 9.8 mg/dL (8.5-10.1); Chloride 107 mmol/L (98-107); Creatinine, Serum 0.93 mg/dL (0.55-1.02); EST Glomerular Filtration Rate 69 mL/min (>60); Est Glom Filt Rate - Afr Amer 83 mL/min (>60); Estimated Creatinine Clearance 59.15 ml/min; Glucose 96 mg/dL (74-106); Potassium 3.8 mmol/L (3.5-5.1); Sodium Level 140 mmol/L (136-145); Troponin-I HS < 3 pg/mL (3.0-54.0)
[2022-05-19] MEDS: Azithromycin 250 MG Tablet 500 MG PO (11:26)
== END 2022-05-19 11:36 | disposition home or self-care (01) ==
PROVIDERS: Emergency Provider Emergency Medicine; PCP Family Medicine; Visit Provider Emergency Medicine
DX: J20.9 Acute bronchitis, unspecified (principal); F41.9 Anxiety disorder, unspecified; K58.9 Irritable bowel syndrome, unspecified; D72.829 Elevated white blood cell count, unspecified; J45.909 Unspecified asthma, uncomplicated; F32.A Depression, unspecified; E03.9 Hypothyroidism, unspecified; Z20.822 Contact with and (suspected) exposure to COVID-19
CPT/HCPCS: 71046; 80048; 84484; 85025; 87811; 93005; 94640; 96360; 96361; 99285; J7030; A4216

== ENCOUNTER → 2022-06-03 | Outpatient (CLI) | payer BC, SELFPAY ==
[2022-06-03 12:05] LABS: Absolute Lymphocyte Count 1.89 X10^3/uL (0.83-4.51); Absolute Neutrophil Count 4.5 X10^3/uL (2.0-7.7); Basophil# 0.03 X10^3/uL; Basophil% 0.4 % (0-1); Eosinophil# 0.23 X10^3/uL; Eosinophils% 3.2 % (0-5); Hematocrit 38.5 % (37-47); Hemoglobin 12.7 g/dL (12.0-15.0); Lymphocyte # 1.89 X10^3/ul (0.83-4.51); Mean Corpuscular Hgb 29.4 pg (27.0-32.0); Mean Corpuscular Volume 89.1 fL (81-99); Mean Platelet Vol. 9.5 fl (6.2-12.0); Monocyte# 0.58 X10^3/uL; NRBC Flagged by Analyzer 0 % (0-5); Neutrophil # 4.51 X10^3/uL (2.7-7.7); Neutrophil % 62.1 % (47-70); Platelet Count 295 K/mm3 (150-450); RBC Distribution Width CV 12.8 % (11.6-14.6); RBC Distribution Width SD 41.7 fl (35.1-43.9); Red Blood Count 4.32 M/mm3 (4.2-5.4); White Blood Count 7.3 K/mm3 (4.4-11.0)
[2022-06-03 12:27] LABS: ALB/GLOB Ratio 0.9 RATIO (0.9-2.4); AST(SGOT) 17 U/L (15-37); Alanine Aminotransfer ALT/SGPT 29 U/L (13-56); Albumin, Serum 3.6 g/dL (3.2-5.0); Alkaline Phosphatase 51 U/L (45-117); Anion Gap 5 (5-15); BUN 14 mg/dL (7-18); BUN/Creat Ratio 16.1 RATIO (10-20); Calcium,Total 8.8 mg/dL (8.5-10.1); Chloride 108 mmol/L (98-107); Cholesterol 145 mg/dL (200); Creatinine, Serum 0.87 mg/dL (0.55-1.02); EST Glomerular Filtration Rate 74 mL/min (>60); Est Glom Filt Rate - Afr Amer 89 mL/min (>60); Globulin 3.8 g/dL (2.2-4.2); Glucose 106 mg/dL (74-106); High Density Lipoprotein 38 mg/dL; Potassium 3.9 mmol/L (3.5-5.1); Protein, Total 7.4 g/dL (6.4-8.2); Sodium Level 138 mmol/L (136-145); Thyroid Stim Hormone (TSH) 3.51 uIU/mL (0.358-3.74); Triglycerides 253 mg/dL; Very Low Density Lipoprotein 51 mg/dL (5-40)
[2022-06-03 12:40] LABS: Hemoglobin A1c 6.1 % (3.8-5.6)
== END | disposition home or self-care (01) ==
LOC: MTLAB 10:42
PROVIDERS: PCP Family Medicine; Referring Provider Family Medicine; Visit Provider Family Medicine
DX: H47.013 Ischemic optic neuropathy, bilateral (principal); E11.9 Type 2 diabetes mellitus without complications; E03.9 Hypothyroidism, unspecified
CPT/HCPCS: 36415; 80053; 80061; 82043; 82570; 83036; 84443; 85025

== ENCOUNTER → 2022-06-04 | Outpatient (CLI) | payer BC, SELFPAY ==
[2022-06-04 10:58] LABS: Microalbumin,Random Urine < 5.0 mg/L (NO RANGE EST.)
== END | disposition home or self-care (01) ==
LOC: MTLAB 09:02
PROVIDERS: PCP Family Medicine; Referring Provider Family Medicine; Visit Provider Family Medicine
DX: H47.013 Ischemic optic neuropathy, bilateral (principal); E11.9 Type 2 diabetes mellitus without complications; E03.9 Hypothyroidism, unspecified
CPT/HCPCS: 82043; 82570

== ENCOUNTER → 2022-08-14 | Outpatient (CLI) | payer BC, SELFPAY ==
[2022-08-14 12:46] LABS: Erythrocyte Sedimentation Rate 11 mm/hr (0-30)
[2022-08-14 13:11] LABS: Rheumatoid Factor < 10.0 IU/mL (<15)
[2022-08-17 15:07] LABS: Angiotensin Convert Enzyme 16 U/L (14-82)
[2022-08-17 15:52] LABS: CCP IgG Antibodies 7 units (0-19)
== END | disposition home or self-care (01) ==
PROVIDERS: PCP Family Medicine; Referring Provider Ophthalmology; Visit Provider Ophthalmology
DX: H47.012 Ischemic optic neuropathy, left eye (principal); H20.042 Secondary noninfectious iridocyclitis, left eye
CPT/HCPCS: 36415; 82164; 85652; 86038; 86140; 86200; 86431

== ENCOUNTER → 2022-09-04 | Outpatient (CLI) | payer BC, SELFPAY ==
--- NOTE | 2022-09-04 14:12 | CDU_ITS ---
Reason For Study: Optic Neuropathy Rt. Velocities/BP Lt. Velocities/BP Prox CCA 103.4/17.5 cm/sec. Prox CCA 114.3/21.2 cm/sec. Mid CCA 97.9/17.5 cm/sec. Mid CCA 96.1/21.2 cm/sec. Dist CCA 101.6/17.5 cm/sec. Dist CCA 94.2/19.4 cm/sec. Prox ICA 86.4/16.0 cm/sec. Prox ICA 71.4/16.6 cm/sec. Mid ICA 74.3/21.5 cm/sec. Mid ICA 92.0/26.6 cm/sec. Dist ICA 62.9/23.2 cm/sec. Dist ICA 105.2/35.8 cm/sec. Rt. ICA/CCA = 0.9. Lt. ICA/CCA = 1.1. Prox ECA 66.7/9.1 cm/sec. Prox ECA 63.9/8.1 cm/sec. Rt. Vert. 45.7/16.0 cm/sec. Lt. Vert. 34.1/12.9 cm/sec. Right Extracranial There is homogeneous, irregular atherosclerotic plaque noted in the right common carotid artery. There is heterogeneous, irregular atherosclerotic plaque noted in the right internal carotid artery. There is intimal thickening but no significant atherosclerotic plaque noted in the right external carotid artery. Antegrade flow is noted in the right vertebral artery. Left Extracranial There is intimal thickening but no significant atherosclerotic plaque noted in the left common carotid artery. There is heterogeneous, irregular atherosclerotic plaque noted in the left internal carotid artery. There is intimal thickening but no significant atherosclerotic plaque noted in the left external carotid artery. Antegrade flow is noted in the left vertebral artery. Procedure Carotid Duplex [id number]. This is a Carotid Duplex examination using B-mode, color flow and specral Doppler. The exam was diagnostic. Exam performed in department. VL/Carotid Duplex Ultrasound Interpretation Summary Mild (<50%) stenosis right extracranial internal carotid. Mild (<50%) stenosis left extracranial internal carotid. Flow within the vertebral arteries is antegrade bilaterally. Ordering Physician: Jimmie Marrufo Referring Physician: Marlyn Smith Performed By: Ortiz Lema RVT
== END | disposition home or self-care (01) ==
LOC: CVS 13:42
PROVIDERS: PCP Family Medicine; Referring Provider Ophthalmology; Visit Provider Ophthalmology
DX: H53.122 Transient visual loss, left eye (principal); H47.012 Ischemic optic neuropathy, left eye; H20.042 Secondary noninfectious iridocyclitis, left eye; I65.23 Occlusion and stenosis of bilateral carotid arteries
CPT/HCPCS: 93880

== ENCOUNTER 2022-10-02 18:16 | Emergency (ER) | payer BC, SELFPAY ==
[2022-10-02 18:17] VITALS: BP 127/85; PULSE 94; RESP 18; TEMP 36.1; O2SAT 97; BMI 35.6
--- NOTE | 2022-10-02 18:49 | CT_ITS ---
INDICATION: abd pain EXAMINATION: CT ABDOMEN AND PELVIS WITH CONTRAST - CT Abdomen And Pelvis W/ Contrast Injection TECHNIQUE: Helically acquired images were obtained of the abdomen and pelvis following IV contrast. A radiation dose optimization technique was used for this scan. IV Contrast dosage and agent: 100 cc Isovue-370 Oral contrast: Yes COMPARISON: 10/20/2020 FINDINGS: LOWER CHEST: Lung bases are clear. No cardiomegaly or pericardial effusion. LIVER: Homogenous enlargement to 24 cm. No concerning focal mass. GALLBLADDER AND BILIARY TREE: Cholecystectomy. No intra- or extrahepatic biliary ductal dilation. PANCREAS: No focal cystic or solid mass. SPLEEN: Normal size without focal cystic or solid mass. ADRENAL GLANDS: No nodules. KIDNEYS AND URETERS: Normal renal size and position. No hydronephrosis. PERITONEUM: No ascites or free air. BOWEL: Prior appendectomy changes. No stomach or bowel distension. No focal inflammatory change. Anastomotic sutures in the mid sigmoid colon. LYMPH NODES: No enlarged mesenteric or retroperitoneal lymph nodes. VESSELS: Aorta is non-dilated. URINARY BLADDER: Unremarkable. REPRODUCTIVE ORGANS: No pelvic masses. ABDOMINAL WALL: Stable small fat-containing periumbilical ventral hernias. BONES: No acute or aggressive abnormality. CT/Abdomen/Pelvis WITH Contrast IMPRESSION: No acute findings in the abdomen or pelvis. Electronically Signed: Gabriel Gray MD at 21:35 EST ,
--- NOTE | 2022-10-02 18:50 | EX.ED.DYSGE1 ---
HPI History of Present Illness Chief Complaint: Abd Pain Informant: patient Onset/Context/Timing Onset: Days Context: Gradual Onset Current Severity: Moderate Maximum Severity: Moderate Narrative Narrative: Patient present secondary to abdominal pain with diarrhea. She is had some chills but no fever. She reports nausea with increased frequency of diarrhea for the past 5 days. Last evening she started getting right-sided abdominal pain. She has a history of perforated diverticulitis with partial colectomy secondary to abscess. She has had her appendix and gallbladder removed previously. [facility] Medical History (Updated 10/02/22 @ 22:[address] Yumiko Lyle MD) Abnormal PFT Abscess of sigmoid colon due to diverticulitis Allergic rhinitis Anxiety Asthma Asthma, moderate persistent Asthma, moderate persistent, poorly-controlled Bronchitis Depression Diverticulitis Dyspnea Hypothyroid IBS (irritable bowel syndrome) Intra-abdominal adhesions Obesity Obesity (BMI 30-39.9) FREDY (obstructive sleep apnea) Perforation of sigmoid colon due to diverticulitis PTSD (post-traumatic stress disorder) Sciatica Home Medications levothyroxine 88 mcg tablet 88 mcg PO DAILY hypothyroid 02/01/14 [History Last Taken 10/16/20] fluticasone propionate 50 mcg/actuation nasal spray,suspension 50 mcg intranasal BID PRN PRN Allergies 12/29/17 [History Last Taken Unknown] cetirizine 10 mg tablet (Zyrtec) 10 mg PO QDAY PRN Allergies 06/14/18 [History Last Taken Unknown] budesonide-formoterol HFA 160 mcg-4.5 mcg/actuation aerosol inhaler (Symbicort) 2 puff inhalation Q12H #3 device 02/27/20 [Rx Last Taken 10/16/20] albuterol sulfate 2.5 mg/3 mL (0.083 %) solution for nebulization 2.5 mg (3 mL) inhalation Q4H PRN Sob &/Or Wheezing #180 mL 04/26/20 [Rx Last Taken Unknown] albuterol sulfate 90 mcg/actuation aerosol inhaler 2 puff inhalation Q4H PRN PRN Shortness Of Breath #3 device 08/26/20 [Rx Last Taken 10/15/20] pantoprazole 20 mg tablet,delayed release 20 mg PO DAILY PRN gerd 10/16/20 [History Last Taken 10/15/20] naproxen 500 mg tablet 500 mg PO PRN PRN Pain 04/28/21 [History Last Taken Unknown] insulin detemir U-100 100 unit/mL (3 mL) subcutaneous pen (Levemir FlexTouch U-100 Insulin) 22 unit subcut QHS 08/21/21 [History Last Taken Unknown] metformin 500 mg tablet 1,000 mg PO BID 08/21/21 [History Last Taken Unknown] azithromycin 250 mg tablet 250 mg PO DAILY 4 days #4 tabs 05/19/22 [Rx Last Taken Unknown] codeine 10 mg-guaifenesin 100 mg/5 mL oral liquid 5 ml PO Q4H PRN cough #120 mL 05/19/22 [Rx Last Taken Unknown] dicyclomine 10 mg capsule 20 mg PO Q6H PRN PRN abdominal discomfort 05/19/22 [History Last Taken Unknown] ipratropium 0.5 mg-albuterol 3 mg (2.5 mg base)/3 mL nebulization soln 3 ml inhalation Q6H PRN shortness of breath or wheezing #90 mL 05/19/22 [Rx Last Taken Unknown] prednisolone acetate 1 % eye drops,suspension 1 drp ophthalmic (eye) DAILY 05/19/22 [History Last Taken Unknown] prednisone 20 mg tablet See Rx Instructions .Route .COMPLEX 05/19/22 [History Last Taken Unknown] timolol maleate 0.5 % eye drops 1 drp ophthalmic (eye) DAILY 05/19/22 [History Last Taken Unknown] dicyclomine 20 mg tablet 20 mg PO BID PRN abdominal cramping #10 tabs 10/02/22 [Rx Last Taken Unknown] hydrocodone-acetaminophen 5-325mg 5mg-325mg 1 tab PO Q6H PRN pain 3 days #10 tabs 10/02/22 [Rx Last Taken Unknown] ondansetron 4 mg disintegrating tablet 4 mg PO Q8H PRN nausea and vomiting #10 tabs 10/02/22 [Rx Last Taken Unknown] Allergy/AdvReac Type Severity Reaction Status Date / Time venom-honey bee Allergy Severe Anaphylaxis Verified 10/02/22 18:16 [bee venom (honey bee)] amoxicillin [From Augmentin] Allergy Hives Verified 10/02/22 18:16 clavulanic acid Allergy Hives Verified 10/02/22 18:16 [From Augmentin] fluticasone Allergy Anaphylaxis Verified 10/02/22 18:16 [From Advair Diskus] salmeterol Allergy Anaphylaxis Verified 10/02/22 18:16 [From Advair Diskus] ciprofloxacin [From Cipro] AdvReac Nausea/Vom/ Verified 10/02/22 18:16 Diarrhea Family History Mother Depression Anxiety Arthritis Thyroid disorder COPD (chronic obstructive pulmonary disease) Cancer Father Arthritis Depression Alcohol abuse Sister Anxiety Depression Arthritis Cancer Brother Anxiety Depression HIV (human immunodeficiency virus infection) Hepatitis Surgical History delivery delivered [place] History of carpal tunnel surgery History of colectomy (~10/21/20) Hx of appendectomy lazy eye repair S/P cholecystectomy [place] teeth extracted Social History Smoking Status: Never smoker second hand exposure: No alcohol intake: current alcohol intake frequency: holidays/special occasions only substance use type: does not use ROS ROS ED Constitutional Constitutional ED: Reports chills; Denies fever(s) Eyes Eyes: Denies change in vision or discharge from eye(s) ENT ENT ED: Denies discharge from eye(s), rhinorrhea or sore throat Cardiovascular Cardiovascular: Denies chest pain or palpitations Respiratory/Chest Respiratory/Chest: Denies cough or dyspnea Gastrointestinal Gastrointestinal: Reports abdominal pain and diarrhea; Denies nausea or vomiting Genitourinary Genitourinary ED: Denies dysuria Musculoskeletal Musculoskeletal: Denies back pain or extremity pain Integumentary Denies Abrasions or rash Neurologic Neurologic: Denies headache(s) or weakness Psychiatric Psychiatric: Denies anxiety or depression Allergic/Immunologic Allergic/Immunologic ED: Denies lip swelling or urticaria EXAM Physical Exam Const Vital Signs: 10/02/22 18:17 10/02/22 20:36 Temperature 97.0 F L Temperature Source Temporal Pulse Rate 94 74 Respiratory Rate 18 16 Blood Pressure 127/85 H 132/74 H Blood Pressure Mean 99 93 Pulse Ox 97 98 Oxygen Delivery Method Room Air Room Air Positive well nourished and well developed General Appearance ED: well developed HEENT Reports normocephalic and head/scalp atraumatic Eyes PERRL and EOMs intact bilaterally Neck supple Chest Wall inspection of chest normal and palpation of chest normal Resp normal respiratory effort and clear to auscultation bilaterally Cardio regular rate and regular rhythm GI GI Narrative: Right lower quadrant tenderness palpation. No guarding or rebound. Active bowel sounds are noted. Palpation: soft Extremity normal to inspection Neuro oriented x3 and no sensory deficits noted Sensorium / Orientation: alert Motor Exam: strength 5/5 throughout Psych mental status grossly normal Skin no rashes or lesions noted MDM MDM MDM Narrative Medical decision making narrative: Patient is given morphine and Zofran along with IV fluids. Lab work obtained, urinalysis, CT scan of the abdomen and pelvis. Lab Data Attestation: I reviewed the patient's lab results. Labs: Laboratory Results - last 24 hr 10/02/22 10/02/22 10/02/22 19:04 19:04 19:04 WBC 10.4 RBC 4.24 Hgb 12.3 Hct 37.2 MCV 87.7 MCH 29.0 MCHC 33.1 RDW Std Deviation 38.8 RDW Coeff of [place] 12.2 Plt Count 336 MPV 8.7 Immature Gran % (Auto) 0.300 Neut % (Auto) 63.1 Lymph % (Auto) 24.8 [place] % (Auto) 6.5 Eos % (Auto) 4.9 Baso % (Auto) 0.4 Absolute Neuts (auto) 6.6 Absolute Lymphs (auto) 2.58 Nucleated RBC % 0 Sodium 138 Potassium 3.9 Chloride 107 Carbon Dioxide 27.0 Anion Gap 4 L BUN 15 Creatinine 0.98 Estim Creat Clear Calc 56.13 Est GFR (MDRD) Af Amer 78 Est GFR (MDRD) Non-Af 64 BUN/Creatinine Ratio 15.2 Glucose 123 H Calcium 9.1 Total Bilirubin 0.90 Direct Bilirubin 0.20 AST 14 L ALT 21 Alkaline Phosphatase 55 Total Protein 7.5 Albumin 3.7 Globulin 3.8 Lipase 193 Serum , Qual NEGATIVE Urine Color Urine Clarity Urine pH Ur Specific [place] Urine Protein Urine Glucose (UA) Urine Ketones Urine Occult Blood Urine Nitrite Urine Bilirubin Urine Urobilinogen Ur Leukocyte Esterase Urine RBC Urine WBC Ur Squamous Epith Cells Urine Bacteria Urine Mucus 10/02/22 20:35 WBC RBC Hgb Hct MCV MCH MCHC RDW Std Deviation RDW Coeff of [place] Plt Count MPV Immature Gran % (Auto) Neut % (Auto) Lymph % (Auto) [place] % (Auto) Eos % (Auto) Baso % (Auto) Absolute Neuts (auto) Absolute Lymphs (auto) Nucleated RBC % Sodium Potassium Chloride Carbon Dioxide Anion Gap BUN Creatinine Estim Creat Clear Calc Est GFR (MDRD) Af Amer Est GFR (MDRD) Non-Af BUN/Creatinine Ratio Glucose Calcium Total Bilirubin Direct Bilirubin AST ALT Alkaline Phosphatase Total Protein Albumin Globulin Lipase Serum , Qual Urine Color Straw Urine Clarity Clear Urine pH 6.0 Ur Specific [place] 1.010 Urine Protein Negative Urine Glucose (UA) Normal Urine Ketones Negative Urine Occult Blood Negative Urine Nitrite Negative Urine Bilirubin Negative Urine Urobilinogen Normal Ur Leukocyte Esterase Negative Urine RBC 0 SEEN Urine WBC 0 SEEN Ur Squamous Epith Cells 0 SEEN Urine Bacteria 0 SEEN Urine Mucus 0 SEEN Radiography Diagnostic Testing: Clinical Impression(s) from Imaging Studies Abdomen/Pelvis CT 10/02/22 18:49 IMPRESSION: No acute findings in the abdomen or pelvis. Electronically Signed: Gabriel Gray MD at 21:35 EST , Treatment and Re-Evaluation Narrative: Lab work and urinalysis unremarkable. CT scan abdomen pelvis reveals no acute findings test results are discussed with the patient. She will be treated with Zofran, Bentyl, [place]. Return instructions are given. Discharge Plan Triage Chief Complaint: Abd Pain ED Provider: Yumiko Lyle Dx/Rx/DC Orders Clinical Impression: Abdominal pain Instructions: ED Abdominal Pain Unkn Cause Fem Prescriptions: New ondansetron 4 mg tablet,disintegrating 4 mg PO Q8H PRN (Reason: nausea and vomiting) Qty: 10 0RF dicyclomine 20 mg tablet 20 mg PO BID PRN (Reason: abdominal cramping) Qty: 10 0RF hydrocodone-acetaminophen 5-325 mg tablet 1 tab PO Q6H PRN (Reason: pain) 3 Days Qty: 10 0RF No Action fluticasone propionate 50 mcg/actuation spray,suspension 50 mcg INTRANASAL BID PRN PRN (Reason: Allergies) cetirizine [Zyrtec] 10 mg tablet 10 mg PO QDAY PRN (Reason: Allergies) levothyroxine 88 MCG tablet 88 mcg PO DAILY pantoprazole 20 MG tablet 20 mg PO DAILY PRN (Reason: gerd) naproxen 500 MG tablet 500 mg PO PRN PRN (Reason: Pain) metformin 500 mg tablet 1,000 mg PO BID Levemir FlexTouch U-100 Insuln 100 unit/mL (3 mL) insulin pen 22 unit SUBCUT QHS dicyclomine 10 MG capsule 20 mg PO Q6H PRN PRN (Reason: abdominal discomfort) prednisone 20 mg tablet See Rx Instructions .ROUTE .COMPLEX Label Comments: PLEASE SEE ATTACHED FOR DETAILED DIRECTIONS Rx Instructions: taper dose prednisolone acetate 1 % drops,suspension 1 drp ophthalmic (eye) DAILY Label Comments: 1 drop into left eye once a day timolol maleate 0.5 % drops 1 drp ophthalmic (eye) DAILY Label Comments: 1 drop into both eyes once a day azithromycin 250 mg tablet 250 mg PO DAILY 4 Days Qty: 4 0RF Rx Instructions: start on day 2 of therapy codeine-guaifenesin 10-100 mg/5 mL liquid 5 ml PO Q4H PRN (Reason: cough) Qty: 120 0RF ipratropium-albuterol 0.5 mg-3 mg(2.5 mg base)/3 mL solution for nebulization 3 ml inhalation Q6H PRN (Reason: shortness of breath or wheezing) Qty: 90 0RF Symbicort 160-4.5 mcg/actuation HFA aerosol inhaler 2 puff INHALATION Q12H Qty: 3 3RF albuterol sulfate 2.5 mg /3 mL (0.083 %) solution for nebulization 2.5 mg INHALATION Q4H PRN (Reason: Sob &/Or Wheezing) Qty: 180 3RF albuterol sulfate 90 mcg/actuation HFA aerosol inhaler 2 puff INHALATION Q4H PRN PRN (Reason: Shortness Of Breath) Qty: 3 6RF Primary Care Provider: Marlyn Smith Referrals: Marlyn Smith MD [Primary Care Provider] - 1 Week if not improving Disposition Disposition: Home, Self Care
[2022-10-02] MEDS: 0.9% Normal Saline 1,000 ML 1000 ML IV (19:00)
[2022-10-02] MEDS: Ondansetron 4 MG/2 ML Vial IV (19:00)
[2022-10-02] MEDS: Morphine 4 MG/ML Syringe IV ×2 (19:00→20:29)
[2022-10-02 19:11] LABS: Absolute Lymphocyte Count 2.58 X10^3/uL (0.83-4.51); Absolute Neutrophil Count 6.6 X10^3/uL (2.0-7.7); Basophil# 0.04 X10^3/uL; Basophil% 0.4 % (0-1); Eosinophil# 0.51 X10^3/uL; Eosinophils% 4.9 % (0-5); Hematocrit 37.2 % (37-47); Hemoglobin 12.3 g/dL (12.0-15.0); Lymphocyte # 2.58 X10^3/ul (0.83-4.51); Lymphocyte % 24.8 % (19-41); Mean Corp Hgb Conc 33.1 g/dL (32-36); Mean Corpuscular Volume 87.7 fL (81-99); Mean Platelet Vol. 8.7 fl (6.2-12.0); Monocyte# 0.68 X10^3/uL; Monocyte% 6.5 % (0-10); NRBC Flagged by Analyzer 0 % (0-5); Neutrophil # 6.58 X10^3/uL (2.7-7.7); Neutrophil % 63.1 % (47-70); Platelet Count 336 K/mm3 (150-450); RBC Distribution Width CV 12.2 % (11.6-14.6); RBC Distribution Width SD 38.8 fl (35.1-43.9); Red Blood Count 4.24 M/mm3 (4.2-5.4); White Blood Count 10.4 K/mm3 (4.4-11.0)
[2022-10-02 19:22] LABS: Internal QC Validated? YES +Cl - CLEAR BKGD; Pregnancy, Serum, hCG Quali. NEGATIVE Negative
[2022-10-02 19:28] LABS: AST(SGOT) 14 U/L (15-37); Alanine Aminotransfer ALT/SGPT 21 U/L (13-56); Albumin, Serum 3.7 g/dL (3.2-5.0); Alkaline Phosphatase 55 U/L (45-117); Anion Gap 4 (5-15); BUN 15 mg/dL (7-18); BUN/Creat Ratio 15.2 RATIO (10-20); Calcium,Total 9.1 mg/dL (8.5-10.1); Chloride 107 mmol/L (98-107); Creatinine, Serum 0.98 mg/dL (0.55-1.02); EST Glomerular Filtration Rate 64 mL/min (>60); Est Glom Filt Rate - Afr Amer 78 mL/min (>60); Estimated Creatinine Clearance 56.13 ml/min; Globulin 3.8 g/dL (2.2-4.2); Glucose 123 mg/dL (74-106); Lipase 193 U/L (73-393); Potassium 3.9 mmol/L (3.5-5.1); Protein, Total 7.5 g/dL (6.4-8.2); Sodium Level 138 mmol/L (136-145)
[2022-10-02] MEDS: 0.9% Normal Saline 1,000 ML 150 ML IV (20:29)
[2022-10-02 20:36] VITALS: BP 132/74; PULSE 74; RESP 16; O2SAT 98
[2022-10-02 20:41] LABS: Bacteria 0 SEEN /hpf (None Seen); Mucous, Urine 0 SEEN /hpf (<or=2+); Red Blood Cells-Urine 0 SEEN /hpf (0-5); Squamous Epithelial Cells - UA 0 SEEN /hpf (5-10); White Blood Cells 0 SEEN /hpf (0-5)
[2022-10-02 20:48] LABS: Color, Urine Straw (Yellow); Glucose, Dipstick Normal (Normal); Ketone-Dipstick Negative (Negative); Leukocyte Esterase-Dipstick Negative /ul (Negative); Nitrite-Dipstick Negative (Negative); Occult Blood-Urine Negative /ul (Negative); Protein-Dipstick Negative (Negative); Urine Bilirubin Dipstick Negative (Negative); Urine Clarity Clear (Clear); Urine Urobilinogen Normal (Normal)
[2022-10-02 22:15] VITALS: BP 104/68; PULSE 77; RESP 16; O2SAT 99
== END 2022-10-02 22:30 | disposition home or self-care (01) ==
PROVIDERS: Emergency Provider Emergency Medicine; PCP Family Medicine; Visit Provider Emergency Medicine
DX: R10.9 Unspecified abdominal pain (principal); Z79.4 Long term (current) use of insulin; R68.83 Chills (without fever); R19.7 Diarrhea, unspecified; R11.0 Nausea; J45.40 Moderate persistent asthma, uncomplicated; E03.9 Hypothyroidism, unspecified; G47.33 Obstructive sleep apnea (adult) (pediatric); E66.9 Obesity, unspecified; Z79.890 Hormone replacement therapy; Z79.899 Other long term (current) drug therapy; Z90.49 Acquired absence of other specified parts of digestive tract
CPT/HCPCS: 74177; 80048; 80076; 81001; 83690; 84703; 85025; 96361; 96374; 96375; 96376; 99283; J7030; Q9967; A4216; J2405

== ENCOUNTER 2023-01-07 07:30 | Emergency (ER) | payer BC, SELFPAY ==
[2023-01-07 07:31] VITALS: BP 132/85; PULSE 92; RESP 14; TEMP 36.2; O2SAT 98; BMI 35.5
[2023-01-07] MEDS: 0.9% Normal Saline 1,000 ML 1000 ML IV (08:27)
[2023-01-07 08:36] LABS: Absolute Lymphocyte Count 1.75 X10^3/uL (0.83-4.51); Absolute Neutrophil Count 8.1 X10^3/uL (2.0-7.7); Basophil# 0.01 X10^3/uL; Basophil% 0.1 % (0-1); Eosinophil# 0.43 X10^3/uL; Eosinophils% 3.9 % (0-5); Hematocrit 41.4 % (37-47); Hemoglobin 13.8 g/dL (12.0-15.0); Lymphocyte # 1.75 X10^3/ul (0.83-4.51); Lymphocyte % 15.9 % (19-41); Mean Corp Hgb Conc 33.3 g/dL (32-36); Mean Corpuscular Hgb 28.9 pg (27.0-32.0); Mean Corpuscular Volume 86.6 fL (81-99); Mean Platelet Vol. 8.6 fl (6.2-12.0); Monocyte# 0.64 X10^3/uL; Monocyte% 5.8 % (0-10); NRBC Flagged by Analyzer 0 % (0-5); Neutrophil # 8.12 X10^3/uL (2.7-7.7); Neutrophil % 73.8 % (47-70); Platelet Count 363 K/mm3 (150-450); RBC Distribution Width CV 12.5 % (11.6-14.6); RBC Distribution Width SD 39.8 fl (35.1-43.9); Red Blood Count 4.78 M/mm3 (4.2-5.4)
[2023-01-07 08:51] LABS: ALB/GLOB Ratio 0.9 RATIO (0.9-2.4); AST(SGOT) 7 U/L (15-37); Alanine Aminotransfer ALT/SGPT 21 U/L (13-56); Albumin, Serum 3.8 g/dL (3.2-5.0); Alkaline Phosphatase 58 U/L (45-117); Anion Gap 5 (5-15); BUN 16 mg/dL (7-18); Calcium,Total 9.5 mg/dL (8.5-10.1); Chloride 108 mmol/L (98-107); Creatinine, Serum 0.89 mg/dL (0.55-1.02); EST Glomerular Filtration Rate 72 mL/min (>60); Est Glom Filt Rate - Afr Amer 87 mL/min (>60); Estimated Creatinine Clearance 61.14 ml/min; Globulin 4.4 g/dL (2.2-4.2); Glucose 125 mg/dL (74-106); Lipase 112 U/L (73-393); Potassium 4.5 mmol/L (3.5-5.1); Protein, Total 8.2 g/dL (6.4-8.2); Sodium Level 138 mmol/L (136-145)
--- NOTE | 2023-01-07 08:57 | CT_ITS ---
STUDY: CT ABDOMEN AND PELVIS WITH CONTRAST REASON FOR EXAM: Female, 47 years old. Abd pain, diarrhea. HIRAM,APPY RADIATION DOSAGE (If Supplied By Facility): CTDIvol = ( 16.67 ) mGy, DLP = ( 1210.77 ) mGycm TECHNIQUE: Transaxial images were obtained from the dome of the diaphragm to the symphysis pubis without oral contrast. IV 100mL Isovue-300 was administered. Sagittal and coronal images were reconstructed. Individualized dose optimization techniques were used for this CT. COMPARISON: Comparison is made with prior study dated October 02, 2022. FINDINGS: The visualized lung bases are unremarkable. The visualized portions of the heart are within normal limits. There is decreased attenuation of the liver consistent with steatosis. There are surgical clips in the gallbladder fossa consistent with a prior cholecystectomy. Normal spleen. Normal pancreas. Normal bilateral adrenal glands. Normal right kidney. Normal left kidney. Normal visualized stomach. Normal small intestine. Normal colon. There are surgical clips in the region of the appendix consistent with a prior appendectomy. Normal abdominal aorta. Normal inferior vena cava. Normal retroperitoneum. Normal urinary bladder. There is a 2.7 cm cyst in the right ovary. Bilateral tubal ligation clips are seen. Anastomosis is seen in the rectosigmoid colon. There is a small umbilical hernia containing fat. Normal osseous structures. CT/Abdomen/Pelvis W IV Cont ONLY IMPRESSION: Fatty infiltration of the liver. 2.7 cm cyst in the right ovary. Electronically Signed: Haider Purvis MD at 10:20 EST ,
[2023-01-07] MEDS: Ondansetron 4 MG/2 ML Vial IV (09:04)
[2023-01-07] MEDS: morphine 8 MG/ML Syringe 6 MG IV (09:05)
[2023-01-07 09:39] LABS: Mucous, Urine 0 SEEN /hpf (<or=2+); White Blood Cells 0 SEEN /hpf (0-5)
[2023-01-07 09:42] LABS: Internal QC Validated? YES +Cl - CLEAR BKGD; Pregnancy, Urine Negative Negative
[2023-01-07 09:43] LABS: Color, Urine Yellow (Yellow); Glucose, Dipstick Normal (Normal); Ketone-Dipstick Negative (Negative); Leukocyte Esterase-Dipstick Negative /ul (Negative); Nitrite-Dipstick Negative (Negative); Occult Blood-Urine 10 /ul (Negative); Protein-Dipstick 15 mg/dl (Negative); Specific Gravity, Urine 1.025 (1.002-1.030); Urine Bilirubin Dipstick Negative (Negative); Urine Clarity Sl. Cloudy (Clear); Urine Urobilinogen Normal (Normal)
[2023-01-07 09:49] LABS: Bacteria 1+ /hpf (None Seen); Red Blood Cells-Urine 0-5 SEEN /hpf (0-5); Squamous Epithelial Cells - UA 0-5 SEEN /hpf (5-10)
[2023-01-07 09:50] LABS: Coarse Granular Cast 0-5 SEEN /lpf (0-5 /lpf)
[2023-01-07 10:06] VITALS: BP 101/70; PULSE 82; RESP 16; O2SAT 96
--- NOTE | 2023-01-07 11:47 | ED.VIS.GI ---
HPI HPI - GI History of Present Illness Chief Complaint: Abd Pain Informant: patient Narrative Narrative: Patient is a 47-year-old female with significant abdominal history including diverticulitis with perforation and status post hemicolectomy, IBS, prior , appendectomy and cholecystectomy. She is presenting with nausea, diarrhea and abdominal pain. She also notes that she has been having sulfur burps. She states the pain is more in her epigastric region. She states she was up all night with diarrhea and being on the toilet exacerbated her sciatica. The sciatica is on the left. She denies any bowel or bladder incontinence. Denies any black or blood in her stool. Denies any other complaints at this time. Did not take her Protonix yesterday with no help. Has been nauseous but even tried to make her self vomits but was not able to. Has had dry heaves. States she is exhausted because she could not sleep last night because of the diarrhea. No other complaints at this time. Denies any fever, skin changes, chest pain or difficulty breathing [facility] Medical History (Updated 01/07/23 @ 11:[address] Kimberli King, DO) Abnormal PFT Abscess of sigmoid colon due to diverticulitis Allergic rhinitis Anxiety Asthma Asthma, moderate persistent Asthma, moderate persistent, poorly-controlled Bronchitis Depression Diverticulitis Dyspnea Hypothyroid IBS (irritable bowel syndrome) Intra-abdominal adhesions Obesity Obesity (BMI 30-39.9) FREDY (obstructive sleep apnea) Perforation of sigmoid colon due to diverticulitis PTSD (post-traumatic stress disorder) Sciatica Home Medications levothyroxine 88 mcg tablet 88 mcg PO DAILY hypothyroid 02/01/14 [History Last Taken 10/16/20] fluticasone propionate 50 mcg/actuation nasal spray,suspension 50 mcg intranasal BID PRN PRN Allergies 12/29/17 [History Last Taken Unknown] cetirizine 10 mg tablet (Zyrtec) 10 mg PO QDAY PRN Allergies 06/14/18 [History Last Taken Unknown] budesonide-formoterol HFA 160 mcg-4.5 mcg/actuation aerosol inhaler (Symbicort) 2 puff inhalation Q12H #3 device 02/27/20 [Rx Last Taken 10/16/20] albuterol sulfate 2.5 mg/3 mL (0.083 %) solution for nebulization 2.5 mg (3 mL) inhalation Q4H PRN Sob &/Or Wheezing #180 mL 04/26/20 [Rx Last Taken Unknown] albuterol sulfate 90 mcg/actuation aerosol inhaler 2 puff inhalation Q4H PRN PRN Shortness Of Breath #3 device 08/26/20 [Rx Last Taken 10/15/20] pantoprazole 20 mg tablet,delayed release 20 mg PO DAILY PRN gerd 10/16/20 [History Last Taken 10/15/20] naproxen 500 mg tablet 500 mg PO PRN PRN Pain 04/28/21 [History Last Taken Unknown] insulin detemir U-100 100 unit/mL (3 mL) subcutaneous pen (Levemir FlexTouch U-100 Insulin) 22 unit subcut QHS 08/21/21 [History Last Taken Unknown] metformin 500 mg tablet 1,000 mg PO BID 08/21/21 [History Last Taken Unknown] azithromycin 250 mg tablet 250 mg PO DAILY 4 days #4 tabs 05/19/22 [Rx Last Taken Unknown] codeine 10 mg-guaifenesin 100 mg/5 mL oral liquid 5 ml PO Q4H PRN cough #120 mL 05/19/22 [Rx Last Taken Unknown] dicyclomine 10 mg capsule 20 mg PO Q6H PRN PRN abdominal discomfort 05/19/22 [History Last Taken Unknown] ipratropium 0.5 mg-albuterol 3 mg (2.5 mg base)/3 mL nebulization soln 3 ml inhalation Q6H PRN shortness of breath or wheezing #90 mL 05/19/22 [Rx Last Taken Unknown] prednisolone acetate 1 % eye drops,suspension 1 drp ophthalmic (eye) DAILY 05/19/22 [History Last Taken Unknown] prednisone 20 mg tablet See Rx Instructions .Route .COMPLEX 05/19/22 [History Last Taken Unknown] timolol maleate 0.5 % eye drops 1 drp ophthalmic (eye) DAILY 05/19/22 [History Last Taken Unknown] dicyclomine 20 mg tablet 20 mg PO BID PRN abdominal cramping #10 tabs 10/02/22 [Rx Last Taken Unknown] hydrocodone-acetaminophen 5-325mg 5mg-325mg 1 tab PO Q6H PRN pain 3 days #10 tabs 10/02/22 [Rx Last Taken Unknown] ondansetron 4 mg disintegrating tablet 4 mg PO Q8H PRN nausea and vomiting #10 tabs 10/02/22 [Rx Last Taken Unknown] ondansetron 4 mg disintegrating tablet 4 mg PO Q6H PRN nausea and vomiting #20 tabs 01/07/23 [Rx Last Taken Unknown] Allergy/AdvReac Type Severity Reaction Status Date / Time venom-honey bee Allergy Severe Anaphylaxis Verified 10/02/22 18:16 [bee venom (honey bee)] amoxicillin [From Augmentin] Allergy Hives Verified 10/02/22 18:16 clavulanic acid Allergy Hives Verified 10/02/22 18:16 [From Augmentin] fluticasone Allergy Anaphylaxis Verified 10/02/22 18:16 [From Advair Diskus] salmeterol Allergy Anaphylaxis Verified 10/02/22 18:16 [From Advair Diskus] ciprofloxacin [From Cipro] AdvReac Nausea/Vom/ Verified 10/02/22 18:16 Diarrhea Family History Mother Depression Anxiety Arthritis Thyroid disorder COPD (chronic obstructive pulmonary disease) Cancer Father Arthritis Depression Alcohol abuse Sister Anxiety Depression Arthritis Cancer Brother Anxiety Depression HIV (human immunodeficiency virus infection) Hepatitis Surgical History delivery delivered [place] History of carpal tunnel surgery History of colectomy (~10/21/20) Hx of appendectomy lazy eye repair S/P cholecystectomy [place] teeth extracted Social History Smoking Status: Never smoker second hand exposure: No alcohol intake: current alcohol intake frequency: holidays/special occasions only substance use type: does not use ROS ROS ED Constitutional Constitutional ED: Denies chills or fever(s) ENT ENT ED: Denies sore throat Cardiovascular Cardiovascular: Denies chest pain Respiratory/Chest Respiratory/Chest: Denies cough or dyspnea Gastrointestinal Gastrointestinal: Reports abdominal pain, diarrhea and nausea; Denies melena or vomiting Genitourinary Genitourinary ED: Denies dysuria or urinary frequency Musculoskeletal Musculoskeletal: Denies arthralgias or myalgias Integumentary Denies rash Neurologic Neurologic: Reports weakness; Denies headache(s) Hematologic/Lymphatic Hematologic/Lymphatic: Denies easy bleeding or easy bruising EXAM Physical Exam Const Vital Signs: 01/07/23 07:31 01/07/23 10:06 01/07/23 12:02 Temperature 97.2 F L Temperature Source Temporal Pulse Rate 92 82 82 Respiratory Rate 14 16 16 Blood Pressure 132/85 H 101/70 102/72 Blood Pressure Mean 100 80 Pulse Ox 98 96 96 Oxygen Delivery Method Room Air Room Air 01/07/23 12:02 Temperature Temperature Source Pulse Rate 82 Respiratory Rate 16 Blood Pressure 102/72 Blood Pressure Mean 82 Pulse Ox 96 Oxygen Delivery Method Room Air Positive well nourished, well developed and obese General Appearance ED: well developed and NAD Nutritional Appearance: obese HEENT Reports dry mucous membranes normocephalic and atraumatic Mouth ED: Yes dry mucous membranes Mouth: dry mucous membranes Eyes PERRL and EOMs intact bilaterally Neck supple Resp normal respiratory effort and clear to auscultation bilaterally Cardio regular rate, regular rhythm and no murmurs GI non-distended GI Narrative: Mild epigastric tenderness to palpation. Surgical scars present on the abdomen. Auscultation: hypoactive bowel sounds Palpation: soft; Negative for guarding or rigid Extremity full ROM General Extremety ED: Negative for edema or tenderness General Extremity: Negative for edema Neuro moves all extremities and no sensory deficits noted Sensorium / Orientation: alert Motor Exam: Negative for general weakness Psych mental status grossly normal and thought process normal Skin General Skin Exam: Negative for jaundice Rashes: no rashes MDM MDM MDM Narrative Medical decision making narrative: Patient is evaluated for about a day of nausea and diarrhea. Patient appears nontoxic but mildly uncomfortable. Is given IV fluids and Zofran as well as 1 dose of morphine. On repeat evaluation she is much improved. Differential includes electrolyte abnormality, small bowel obstruction, colitis and gastroenteritis. Patient does not have any fever, leukocytosis or other symptoms more consistent with an infection/bacterial infection. CMP largely unremarkable with no significant electrolyte derangement. Given her surgical history CT the abdomen pelvis obtained which does not show any acute intra-abdominal pathology. She does have a 2.7 cm cyst of the right ovary but I do not think that is contributing to her pain or diarrhea. Patient will be discharged home with prescription for Zofran and to encourage fluids. Counseled at this time there is not appear to be any acute surgical abnormality and we will treat this as a gastroenteritis. Given return precautions to the ER. She verbalizes agreement understand this plan. Discharged home in stable condition. Lab Data Labs: Laboratory Results - last 24 hr 01/07/23 01/07/23 01/07/23 08:20 08:20 09:30 WBC 11.0 RBC 4.78 Hgb 13.8 Hct 41.4 MCV 86.6 MCH 28.9 MCHC 33.3 RDW Std Deviation 39.8 RDW Coeff of [place] 12.5 Plt Count 363 MPV 8.6 Immature Gran % (Auto) 0.500 Neut % (Auto) 73.8 H Lymph % (Auto) 15.9 L [place] % (Auto) 5.8 Eos % (Auto) 3.9 Baso % (Auto) 0.1 Absolute Neuts (auto) 8.1 H Absolute Lymphs (auto) 1.75 Nucleated RBC % 0 Sodium 138 Potassium 4.5 Chloride 108 H Carbon Dioxide 25.0 Anion Gap 5 BUN 16 Creatinine 0.89 Estim Creat Clear Calc 61.14 Est GFR (MDRD) Af Amer 87 Est GFR (MDRD) Non-Af 72 BUN/Creatinine Ratio 18.0 Glucose 125 H Calcium 9.5 Total Bilirubin 1.00 AST 7 L ALT 21 Alkaline Phosphatase 58 Total Protein 8.2 Albumin 3.8 Globulin 4.4 H Albumin/Globulin Ratio 0.9 Lipase 112 Urine Color Urine Clarity Urine pH Ur Specific [place] Urine Protein Urine Glucose (UA) Urine Ketones Urine Occult Blood Urine Nitrite Urine Bilirubin Urine Urobilinogen Ur Leukocyte Esterase Urine RBC Urine WBC Ur Squamous Epith Cells Urine Bacteria Coarse Granular Casts Urine Mucus Urine Test Negative 01/07/23 09:30 WBC RBC Hgb Hct MCV MCH MCHC RDW Std Deviation RDW Coeff of [place] Plt Count MPV Immature Gran % (Auto) Neut % (Auto) Lymph % (Auto) [place] % (Auto) Eos % (Auto) Baso % (Auto) Absolute Neuts (auto) Absolute Lymphs (auto) Nucleated RBC % Sodium Potassium Chloride Carbon Dioxide Anion Gap BUN Creatinine Estim Creat Clear Calc Est GFR (MDRD) Af Amer Est GFR (MDRD) Non-Af BUN/Creatinine Ratio Glucose Calcium Total Bilirubin AST ALT Alkaline Phosphatase Total Protein Albumin Globulin Albumin/Globulin Ratio Lipase Urine Color Yellow Urine Clarity Sl. Cloudy Urine pH 5.0 Ur Specific [place] 1.025 Urine Protein 15 H Urine Glucose (UA) Normal Urine Ketones Negative Urine Occult Blood 10 H Urine Nitrite Negative Urine Bilirubin Negative Urine Urobilinogen Normal Ur Leukocyte Esterase Negative Urine RBC 0-5 SEEN Urine WBC 0 SEEN Ur Squamous Epith Cells 0-5 SEEN Urine Bacteria 1+ Coarse Granular Casts 0-5 SEEN Urine Mucus 0 SEEN Urine Test Radiography Diagnostic Testing: Clinical Impression(s) from Imaging Studies Abdomen/Pelvis CT 01/07/23 08:57 IMPRESSION: Fatty infiltration of the liver. 2.7 cm cyst in the right ovary. Electronically Signed: Haider Purvis MD at 10:20 EST , Discharge Plan Triage Chief Complaint: Abd Pain ED Provider: Kimberli King Dx/Rx/DC Orders Clinical Impression: Nausea, Diarrhea Instructions: ED Diet Vomiting Diarrhea, ED Gastroenteritis, Viral (Adult) Prescriptions: New ondansetron 4 mg tablet,disintegrating 4 mg PO Q6H PRN (Reason: nausea and vomiting) Qty: 20 0RF No Action fluticasone propionate 50 mcg/actuation spray,suspension 50 mcg INTRANASAL BID PRN PRN (Reason: Allergies) cetirizine [Zyrtec] 10 mg tablet 10 mg PO QDAY PRN (Reason: Allergies) levothyroxine 88 MCG tablet 88 mcg PO DAILY pantoprazole 20 MG tablet 20 mg PO DAILY PRN (Reason: gerd) naproxen 500 MG tablet 500 mg PO PRN PRN (Reason: Pain) metformin 500 mg tablet 1,000 mg PO BID Levemir FlexTouch U-100 Insuln 100 unit/mL (3 mL) insulin pen 22 unit SUBCUT QHS dicyclomine 10 MG capsule 20 mg PO Q6H PRN PRN (Reason: abdominal discomfort) prednisone 20 mg tablet See Rx Instructions .ROUTE .COMPLEX Label Comments: PLEASE SEE ATTACHED FOR DETAILED DIRECTIONS Rx Instructions: taper dose prednisolone acetate 1 % drops,suspension 1 drp ophthalmic (eye) DAILY Label Comments: 1 drop into left eye once a day timolol maleate 0.5 % drops 1 drp ophthalmic (eye) DAILY Label Comments: 1 drop into both eyes once a day azithromycin 250 mg tablet 250 mg PO DAILY 4 Days Qty: 4 0RF Rx Instructions: start on day 2 of therapy codeine-guaifenesin 10-100 mg/5 mL liquid 5 ml PO Q4H PRN (Reason: cough) Qty: 120 0RF ipratropium-albuterol 0.5 mg-3 mg(2.5 mg base)/3 mL solution for nebulization 3 ml inhalation Q6H PRN (Reason: shortness of breath or wheezing) Qty: 90 0RF ondansetron 4 mg tablet,disintegrating 4 mg PO Q8H PRN (Reason: nausea and vomiting) Qty: 10 0RF dicyclomine 20 mg tablet 20 mg PO BID PRN (Reason: abdominal cramping) Qty: 10 0RF hydrocodone-acetaminophen 5-325 mg tablet 1 tab PO Q6H PRN (Reason: pain) 3 Days Qty: 10 0RF Symbicort 160-4.5 mcg/actuation HFA aerosol inhaler 2 puff INHALATION Q12H Qty: 3 3RF albuterol sulfate 2.5 mg /3 mL (0.083 %) solution for nebulization 2.5 mg INHALATION Q4H PRN (Reason: Sob &/Or Wheezing) Qty: 180 3RF albuterol sulfate 90 mcg/actuation HFA aerosol inhaler 2 puff INHALATION Q4H PRN PRN (Reason: Shortness Of Breath) Qty: 3 6RF Primary Care Provider: Marlyn Smith Referrals: Marlyn Smith MD [Primary Care Provider] - Activity Restrictions/Additional Instructions: Drink lots of fluids. Your CT did show an incidental right ovarian cyst that is 2.7 cm. I do not think it is associated with your presentation today but just be aware. Return if you have a progression or worsening of your symptoms or you develop a fever Disposition Disposition: Home, Self Care Discharge Date/Time: 01/07/23 12:04
[2023-01-07 12:02] VITALS: BP 102/72; PULSE 82; RESP 16; O2SAT 96
== END 2023-01-07 12:04 | disposition home or self-care (01) ==
PROVIDERS: Emergency Provider Emergency Medicine; PCP Family Medicine; Visit Provider Emergency Medicine
DX: R11.0 Nausea (principal); R19.7 Diarrhea, unspecified; N83.201 Unspecified ovarian cyst, right side; Z90.49 Acquired absence of other specified parts of digestive tract
CPT/HCPCS: 74177; 80053; 81001; 81025; 83690; 85025; 96361; 96374; 96375; 99283; J7030; Q9967; A4216; J2405

== ENCOUNTER → 2023-05-28 | Outpatient (CLI) | payer BC, SELFPAY | END | disposition home or self-care (01) | LOC: LABSPEC 05-29 10:38 | PROVIDERS: PCP Family Medicine; Visit Provider Family Medicine | DX: Z00.00 Encounter for general adult medical examination without abnormal findings (principal); E11.9 Type 2 diabetes mellitus without complications; E03.9 Hypothyroidism, unspecified ==

== ENCOUNTER 2023-06-11 14:00 | Outpatient (RCR) | payer BC, SELFPAY ==
--- NOTE | 2023-03-05 16:19 | HP.PTEVAL_ITS ---
Patient's Visit Information MADDIE JONES is a 47 year old F referred to Physical Therapy by TAMMIE BURCH with a diagnosis of CHRONIC BILATERAL LOW BACK PAIN WITHOUT SCIATICA. Date of Evaluation: 03/05/23 Physical Therapist: Zack Gonzales, PT, Cert MDT, OCS - Visit Plan Frequency: 2x /Week Duration: 4 Weeks Plan: PATIENT IS LEGALLY BLIND ( REQUIRED JAJA FOR DIRECTION). PT INTERVETIONS GARDED POSTURAL EX'S DLS ,LE FLEXABLITY ,,BLE STRENGTHENING ,AND MODALTIES FOR PAIN - Subjective This 47 y/o female presents to physical therapy with acute back pain. Patient has had LBP with radicular symptoms since 2006. Patient has h/o meningitis did spinal tap which has potential caused symptoms in legs per patient. Patient symptoms have progressed thus seen bankruptcy law specialist. Patient had x-rays . wants to do MRI . Patient has tried tried [facility] PT and PT which did not help. Patient had pain management. Patient medication gabapentin ,possible injections along with PT. Patient pain located LS region to feet to legs to fee t. Aggravating factors walking ,standing ,lifting ,and bending. Alleviating factors rest. Patient pain affects sleep. Patient use use cane for legally blind . Patient pain affects QOL and function. - Pain Bilateral Back Pain Intensity (Out of 10): 7 Pain Intensity Range: 10 Bilateral Lower Extremity Pain Intensity (Out of 10): 4 Pain Intensity Range: 10 - Objective POSTURE: mild forward posture. GAIT: ambulates with straight cane slow cameron 2 point gait with assist per spouse with guidance. PALPATION: tender LS/SI. NEURO: c/o paresthesia/tingling in feet ,reflexes L3-4,L4-5,L5-S1 2/3. SYMMETRIES: align. FLEXABILITY: hamstrings mod tight. MMT: ( peak force) quads right 23.7 ,left 13.2,hamstrings right 23.3 ,left 12.5 ,hip flexion right 18.3,left 11.2. LUMBAR ROM: flexion mod loss ,extension mod/severe loss ,side glides mod loss - Special Tests L/S Slump test left side: Positive L/S Slump test right side: Positive L/S Left Straight Leg Raise: Positive L/S Right Straight Leg Raise: Positive - Balance/Special Test Scores Oswestry Low Back Score: 24 - Goals Goal 1:: I with HEP for lumbar Goal Time Frame: 4-6 Weeks Goal 2:: Patient to demonstrate 40% improvement with decrease pain and improved function Goal Time Frame: 4-6 Weeks Goal 3:: Patient to improve lumbar ROM for function of recovery to tie shoes Goal Time Frame: 4-6 Weeks Goal 4:: Patient to improve strength BLE by 5-10 peak force to improve gait and function Goal Time Frame: 4-6 Weeks Goal 5:: Patient to improve back oswestry score by 3-5 points to improve QOL Goal Time Frame: 4-6 Weeks - Rehabilitation Potential Physical Therapy Diagnosis: This patient has lumbar radiculopathy with lumbar possible disc vs stenosis with pain with positioning and motion testing along with standing /walking with weakness left leg > right and decrease lumbar ROM thus benefit from skilled PT Rehabilitation Potential: Good - Anticipated Interventions Patient/Client Instruction: Educate patient on: Condition, Plan of Care For the Purpose of:: To decrease pain, To increase ROM, To improve muscle performance and motor function, To improve ability to perform ADL's, To increase tolerance to activity/condition/position, To improve ability of physical actions for home/community/work/leisure, To improve gait and locomotor functions, To improve health of tissue, To decrease soft tissue restriction, To increase flexibility/ROM, To improve endurance, To improve tolerance to ADL's Therapeutic Exercise to Include: Strength training, Endurance training, Balance training, Body mechanics, Postural training, Flexibilty training, Dynamic Lumbar Stabilization Comment: BLE For the Purpose of:: To decrease pain, To increase ROM, To improve muscle performance and motor function, To improve ability to perform ADL's, To increase tolerance to activity/condition/position, To improve ability of physical actions for home/community/work/leisure, To improve health of tissue, To decrease soft tissue restriction, To increase flexibility/ROM, To prevent re-injury TENS: Yes IF ES: Yes Cryotherapy (ice pack, ice massage): Yes Thermo therapy (hot pack): Yes Ultrasound (thermal/non thermal): Yes For the Purpose of:: To decrease pain, To increase ROM, To improve nutrient delivery to tissue, To increase oxygenation perfusion, To improve ability to perform ADL's, To improve health of tissue, To decrease soft tissue restriction Thank you for the opportunity to evaluate your patient. For Medicare and Medicare HMO plans, please review the plan of care and approve it. It will need to be FAXED BACK to us at [phone] for Medicare purposes. For Medicare only, by signing this I certify the plan of care. Please let me know if there are questions or concerns regarding this plan of care. Physician Signature: Date:
--- NOTE | 2023-04-05 16:51 | HP.PTREVAL ---
KELIN BURCH, It has been my pleasure to treat MADDIE JONES over the last 10 visits for CHRONIC BILATERAL LOW BACK PAIN WITHOUT SCIATICA. Please see the progress note below for an update on the physical therapy plan of care! Subjective: Doing okay feeling stronger Objective/Function: POSTURE: mild forward posture. GAIT: ambulates with straight cane slow cameron 2 point gait with assist per spouse with guidance. PALPATION: tender LS/SI. NEURO: c/o paresthesia/tingling in feet ,reflexes L3-4,L4-5,L5-S1 2/3. SYMMETRIES: align. FLEXABILITY: hamstrings mod tight. MMT: ( peak force) quads right 52.7 ,left 32.2,hamstrings right 26.3 ,left 26..6 ,hip flexion right 31.3,left 19.2. LUMBAR ROM: flexion mod loss ,extension mod/severe loss ,side glides mod loss Plan Plan: PATIENT IS LEGALLY BLIND (REQUIRED ASSIST FOR DIRECTION). PT INTERVETIONS GARDED POSTURAL EX'S DLS, LE FLEXABLITY, BLE STRENGTHENING, AND MODALTIES FOR PAIN Balance/Gait/Functional tests - Balance/Special Test Scores Oswestry Low Back Score: 24 Goals Goal 1:: I with HEP for lumbar Goal Time Frame: 4-6 Weeks Goal Progress: Progressing Goal 2:: Patient to demonstrate 40% improvement with decrease pain and improved function Goal Time Frame: 4-6 Weeks Goal Progress: Progressing Goal 3:: Patient to improve lumbar ROM for function of recovery to tie shoes Goal Time Frame: 4-6 Weeks Goal Progress: Progressing Goal 4:: Patient to improve strength BLE by 5-10 peak force to improve gait and function Goal Time Frame: 4-6 Weeks Goal Progress: Progressing Goal 5:: Patient to improve back oswestry score by 3-5 points to improve QOL Goal Time Frame: 4-6 Weeks Goal Progress: Progressing Anticipated Interventions Patient/Client Instruction: Educate patient on: Condition, Plan of Care For the Purpose of:: To decrease pain, To increase ROM, To improve muscle performance and motor function, To improve ability to perform ADL's, To increase tolerance to activity/condition/position, To improve ability of physical actions for home/community/work/leisure, To improve gait and locomotor functions, To improve health of tissue, To decrease soft tissue restriction, To increase flexibility/ROM, To improve endurance, To improve tolerance to ADL's Therapeutic Exercise to Include: Strength training, Endurance training, Balance training, Body mechanics, Postural training, Flexibilty training, Dynamic Lumbar Stabilization Comment: BLE For the Purpose of:: To decrease pain, To increase ROM, To improve muscle performance and motor function, To improve ability to perform ADL's, To increase tolerance to activity/condition/position, To improve ability of physical actions for home/community/work/leisure, To improve health of tissue, To decrease soft tissue restriction, To increase flexibility/ROM, To prevent re-injury TENS: Yes IF ES: Yes Cryotherapy (ice pack, ice massage): Yes Thermo therapy (hot pack): Yes Ultrasound (thermal/non thermal): Yes For the Purpose of:: To decrease pain, To increase ROM, To improve nutrient delivery to tissue, To increase oxygenation perfusion, To improve ability to perform ADL's, To improve health of tissue, To decrease soft tissue restriction Please do not hesitate to contact me at [phone] by phone or if you have questions or concerns regarding this new plan of care! Sincerely, Zack Gonzales, PT, Cert MDT, OCS
--- NOTE | 2023-06-11 14:49 | HP.PTDCSUM ---
Discharge Summary D/C summary: It has been my pleasure to treat MADDIE JONES referred by KELIN BURCH, with the diagnosis of CHRONIC BILATERAL LOW BACK PAIN WITHOUT SCIATICA for a total of 25 visit(s). Discharge Date: 06/11/23 Please see the following information for a summary of their discharge status. Subjective Subjective: Patient moving better at home ,but pain is there no lek pain Patient is on better regiment Patient plan to see orthopedic for hips Pain Bilateral Back: Pain Intensity (Out of 10): 2 Bilateral Lower Extremity: Pain Intensity (Out of 10): 0 Overall Improvement % Improvement: 30 Objective Objective/Function: POSTURE: mild forward posture. GAIT: ambulates with straight cane slow cameron 2 point gait with assist per spouse with guidance. PALPATION: tender LS/SI. NEURO: c/o paresthesia/tingling in feet ,reflexes L3-4,L4-5,L5-S1 2/3. SYMMETRIES: align. FLEXABILITY: hamstrings mod tight. MMT: ( peak force) quads right 48.7 ,left 39.2,hamstrings right 41.2 ,left 49.4 ,hip flexion right 42.6,left 49.3. LUMBAR ROM: flexion min loss ,extension min loss ,side glides mod loss Goals Goal 1:: I with HEP for lumbar Goal Progress: Goal Met Goal 2:: Patient to demonstrate 40% improvement with decrease pain and improved function Goal Progress: Goal Met Goal 3:: Patient to improve lumbar ROM for function of recovery to tie shoes Goal Progress: Goal Met Goal 4:: Patient to improve strength BLE by 5-10 peak force to improve gait and function Goal Progress: Goal Met Goal 5:: Patient to improve back oswestry score by 3-5 points to improve QOL Goal Progress: Goal Met Plan Plan: D/C D/C Information Discharge Comments: gym d/c sentence: If there are questions or concerns regarding this patient's physical therapy, please feel free to call me at [phone]. Thank you for the referral of this patient. Sincerely, Zack Gonzales, PT, Cert MDT, OCS Balance/Gait/Functional tests Balance/Special Test Scores Oswestry Low Back Score: 17
== END 2023-06-11 19:00 | disposition home or self-care (01) ==
LOC: PT 14:00
PROVIDERS: PCP Family Medicine
DX: M54.50 Low back pain, unspecified (principal); G89.29 Other chronic pain
CPT/HCPCS: 97110; 97162; 97530

== ENCOUNTER 2023-06-25 09:41 | Emergency (ER) | payer BC, SELFPAY ==
[2023-06-25 09:43] VITALS: BP 122/78; PULSE 90; RESP 14; TEMP 36.7; O2SAT 99; BMI 35.6
--- NOTE | 2023-06-25 10:16 | EDS_ITS ---
HPI HPI - GI History of Present Illness Chief Complaint: Abd Pain Informant: patient Narrative Narrative: Patient has had symptoms for about 1 week. Started with not feeling well, nausea, diarrhea. She has been having 6 or 7 bouts of watery nonbloody diarrhea per day, she developed right-sided abdominal pain mostly right lower quadrant that has been sore and achy, starting after all of this. She has a history of perforated diverticulitis, cholecystectomy, appendectomy, the last surgery she had was about 2 years ago [facility] Medical History (Updated 06/25/23 @ 13:[address] Steffen Silva MD) Abnormal PFT Abscess of sigmoid colon due to diverticulitis Allergic rhinitis Anxiety Asthma Asthma, moderate persistent Asthma, moderate persistent, poorly-controlled Bronchitis Depression Diverticulitis Dyspnea Hypothyroid IBS (irritable bowel syndrome) Intra-abdominal adhesions Obesity Obesity (BMI 30-39.9) FREDY (obstructive sleep apnea) Perforation of sigmoid colon due to diverticulitis PTSD (post-traumatic stress disorder) Sciatica Home Medications levothyroxine 88 mcg tablet 88 mcg PO DAILY hypothyroid 02/01/14 [History Last Taken 10/16/20] fluticasone propionate 50 mcg/actuation nasal spray,suspension 50 mcg intranasal BID PRN PRN Allergies 12/29/17 [History Last Taken Unknown] cetirizine 10 mg tablet (Zyrtec) 10 mg PO QDAY PRN Allergies 06/14/18 [History Last Taken Unknown] budesonide-formoterol HFA 160 mcg-4.5 mcg/actuation aerosol inhaler (Symbicort) 2 puff inhalation Q12H #3 device 02/27/20 [Rx Last Taken 10/16/20] albuterol sulfate 2.5 mg/3 mL (0.083 %) solution for nebulization 2.5 mg (3 mL) inhalation Q4H PRN Sob &/Or Wheezing #180 mL 04/26/20 [Rx Last Taken Unknown] albuterol sulfate 90 mcg/actuation aerosol inhaler 2 puff inhalation Q4H PRN PRN Shortness Of Breath #3 device 08/26/20 [Rx Last Taken 10/15/20] pantoprazole 20 mg tablet,delayed release 20 mg PO DAILY PRN gerd 10/16/20 [History Last Taken 10/15/20] naproxen 500 mg tablet 500 mg PO PRN PRN Pain 04/28/21 [History Last Taken Unknown] insulin detemir U-100 100 unit/mL (3 mL) subcutaneous pen (Levemir FlexTouch U- 100 Insulin) 22 unit subcut QHS 08/21/21 [History Last Taken Unknown] metformin 500 mg tablet 1,000 mg PO BID 08/21/21 [History Last Taken Unknown] azithromycin 250 mg tablet 250 mg PO DAILY 4 days #4 tabs 05/19/22 [Rx Last Taken Unknown] codeine 10 mg-guaifenesin 100 mg/5 mL oral liquid 5 ml PO Q4H PRN cough #120 mL 05/19/22 [Rx Last Taken Unknown] dicyclomine 10 mg capsule 20 mg PO Q6H PRN PRN abdominal discomfort 05/19/22 [History Last Taken Unknown] ipratropium 0.5 mg-albuterol 3 mg (2.5 mg base)/3 mL nebulization soln 3 ml inhalation Q6H PRN shortness of breath or wheezing #90 mL 05/19/22 [Rx Last Taken Unknown] prednisolone acetate 1 % eye drops,suspension 1 drp ophthalmic (eye) DAILY 05/19/22 [History Last Taken Unknown] prednisone 20 mg tablet See Rx Instructions .Route .COMPLEX 05/19/22 [History Last Taken Unknown] timolol maleate 0.5 % eye drops 1 drp ophthalmic (eye) DAILY 05/19/22 [History Last Taken Unknown] dicyclomine 20 mg tablet 20 mg PO BID PRN abdominal cramping #10 tabs 10/02/22 [Rx Last Taken Unknown] hydrocodone-acetaminophen 5-325mg 5mg-325mg 1 tab PO Q6H PRN pain 3 days #10 tabs 10/02/22 [Rx Last Taken Unknown] ondansetron 4 mg disintegrating tablet 4 mg PO Q8H PRN nausea and vomiting #10 tabs 10/02/22 [Rx Last Taken Unknown] ondansetron 4 mg disintegrating tablet 4 mg PO Q6H PRN nausea and vomiting #20 tabs 01/07/23 [Rx Last Taken Unknown] dicyclomine 10 mg capsule 20 mg (2 x 10 mg) PO Q6H PRN PRN abdominal discomfort #30 CAPSULES 06/25/23 [Rx Last Taken Unknown] promethazine 25 mg tablet 25 mg PO Q6H PRN PRN Nausea #20 TABLETS 06/25/23 [Rx Last Taken Unknown] Allergy/AdvReac Type Severity Reaction Status Date / Time venom-honey bee Allergy Severe Anaphylaxis Verified 06/25/23 09:42 [bee venom (honey bee)] amoxicillin [From Augmentin] Allergy Hives Verified 06/25/23 09:42 clavulanic acid Allergy Hives Verified 06/25/23 09:42 [From Augmentin] fluticasone Allergy Anaphylaxis Verified 06/25/23 09:42 [From Advair Diskus] salmeterol Allergy Anaphylaxis Verified 06/25/23 09:42 [From Advair Diskus] ciprofloxacin [From Cipro] AdvReac Nausea/Vom/ Verified 06/25/23 09:42 Diarrhea Family History Mother Depression Anxiety Arthritis Thyroid disorder COPD (chronic obstructive pulmonary disease) Cancer Father Arthritis Depression Alcohol abuse Sister Anxiety Depression Arthritis Cancer Brother Anxiety Depression HIV (human immunodeficiency virus infection) Hepatitis Surgical History delivery delivered [place] History of carpal tunnel surgery History of colectomy (~10/21/20) Hx of appendectomy lazy eye repair S/P cholecystectomy [place] teeth extracted Social History Smoking Status: Never smoker second hand exposure: No alcohol intake: current alcohol intake frequency: holidays/special occasions only substance use type: does not use ROS ROS ED Constitutional Constitutional ED: Reports malaise; Denies chills or fever(s) Eyes Eyes: Reports other Details: Chronically blind ; Denies change in vision ENT ENT ED: Denies rhinorrhea or sore throat Cardiovascular Cardiovascular: Denies chest pain or palpitations Respiratory/Chest Respiratory/Chest: Denies cough or dyspnea Gastrointestinal Gastrointestinal: Reports abdominal pain, diarrhea and nausea; Denies hematochezia, melena or vomiting Genitourinary Genitourinary ED: Denies dysuria or hematuria Musculoskeletal Musculoskeletal: Denies back pain or neck pain Integumentary Denies abscess or rash Neurologic Neurologic: Denies headache(s), paresthesias or weakness Psychiatric Psychiatric: Denies anxiety or suicidal thoughts EXAM Physical Exam Const Vital Signs: 06/25/23 09:43 Temperature 98.1 F Temperature Source Temporal Pulse Rate 90 Respiratory Rate 14 Blood Pressure 122/78 H Blood Pressure Mean 92 Pulse Ox 99 Oxygen Delivery Method Room Air Positive well nourished and well developed General Appearance ED: well developed and NAD HEENT Reports moist mucous membranes normocephalic and atraumatic Neck full ROM and supple Resp normal respiratory effort and clear to auscultation bilaterally Cardio regular rate, regular rhythm and no murmurs GI non-distended GI Narrative: Mild tenderness throughout right lower quadrant, nonfocal, no guarding or rebound tenderness. Auscultation: hyperactive bowel sounds Palpation: soft Back/Spine no CVA tenderness General Back: other FROM Extremity normal to inspection General Extremety ED: Negative for edema, pulses abnormal or tenderness General Extremity: Negative for edema or pulses abnormal Neuro oriented x3, CN's II-XII intact bilaterally and no sensory deficits noted Sensorium / Orientation: awake and alert Motor Exam: strength 5/5 throughout Skin no rashes or lesions noted and no wounds MDM MDM MDM Narrative Medical decision making narrative: It seems that patient is having more likely a functional cause of her pain and diarrhea. I am not concerned about a bowel obstruction since she has had no vomiting in the past week since she has had the symptoms, diverticulitis could be in the differential diagnosis but less likely since she is only having pain on the right side. I discussed that with her, and she was amenable to getting blood work and symptom control initially, and although we considered CT, we postpone that decision. Given her white blood count of 8.8, she does not have a significant left shift, there is no bands, and she feels better with an improved reexamination of her abdomen after dicyclomine, I do not think she needs an emergent CT at this time for this. I discussed this with her, offering it anyway, she declines and is okay with that as well. I recommend trying the medications at home, and following up with her doctor, or if she gets worse she can certainly return and we are happy to scan her. She feels better knowing that she does not have a small bowel obstruction, and we will give her prescriptions for Phenergan and dicyclomine to use as needed at home and follow- up. Lab Data Attestation: I reviewed the patient's lab results. Labs: Laboratory Results - last 24 hr 06/25/23 06/25/23 10:15 10:50 WBC 8.8 RBC 4.14 L Hgb 12.1 Hct 36.6 L MCV 88.4 MCH 29.2 MCHC 33.1 RDW Std Deviation 40.8 RDW Coeff of [place] 12.7 Plt Count 311 MPV 8.6 Immature Gran % (Auto) 0.500 Neut % (Auto) 72.1 H Lymph % (Auto) 17.3 L [place] % (Auto) 6.8 Eos % (Auto) 2.8 Baso % (Auto) 0.5 Absolute Neuts (auto) 6.4 Absolute Lymphs (auto) 1.53 Nucleated RBC % 0 Sodium 138 Potassium 4.0 Chloride 108 H Carbon Dioxide 26.0 Anion Gap 4 L BUN 12 Creatinine 0.85 Estim Creat Clear Calc 64.02 Est GFR (MDRD) Af Amer 92 Est GFR (MDRD) Non-Af 76 BUN/Creatinine Ratio 14.2 Glucose 108 H Calcium 9.0 Total Bilirubin 0.90 AST 10 L ALT 18 Alkaline Phosphatase 58 Total Protein 7.8 Albumin 3.6 Globulin 4.2 Albumin/Globulin Ratio 0.9 Lipase 35 Urine Color Yellow Urine Clarity Clear Urine pH 5.0 Ur Specific [place] 1.015 Urine Protein Negative Urine Glucose (UA) Normal Urine Ketones Negative Urine Occult Blood 10 H Urine Nitrite Negative Urine Bilirubin Negative Urine Urobilinogen Normal Ur Leukocyte Esterase Negative Urine RBC 0 SEEN Urine WBC 0 SEEN Ur Squamous Epith Cells 0-5 SEEN Urine Bacteria 0 SEEN Urine Mucus 0 SEEN Discharge Plan Triage Chief Complaint: Abd Pain ED Provider: Steffen Silva Dx/Rx/DC Orders Clinical Impression: Acute diarrhea, Abdominal pain, acute, right lower quadrant Instructions: Abdominal Pain, ED Diarrhea, Unknown Cause Prescriptions: New dicyclomine 10 mg capsule 20 mg PO Q6H PRN PRN (Reason: abdominal discomfort) Qty: 30 0RF promethazine [promethazine] 25 mg tablet 25 mg PO Q6H PRN PRN (Reason: Nausea) Qty: 20 0RF No Action fluticasone propionate 50 mcg/actuation spray,suspension 50 mcg INTRANASAL BID PRN PRN (Reason: Allergies) cetirizine [Zyrtec] 10 mg tablet 10 mg PO QDAY PRN (Reason: Allergies) levothyroxine 88 MCG tablet 88 mcg PO DAILY pantoprazole 20 MG tablet 20 mg PO DAILY PRN (Reason: gerd) naproxen 500 MG tablet 500 mg PO PRN PRN (Reason: Pain) metformin 500 mg tablet 1,000 mg PO BID Levemir FlexTouch U100 Insulin 100 unit/mL (3 mL) insulin pen 22 unit SUBCUT QHS dicyclomine 10 MG capsule 20 mg PO Q6H PRN PRN (Reason: abdominal discomfort) prednisone 20 mg tablet See Rx Instructions .ROUTE .COMPLEX Patient Comments: PLEASE SEE ATTACHED FOR DETAILED DIRECTIONS Rx Instructions: taper dose prednisolone acetate 1 % drops,suspension 1 drp ophthalmic (eye) DAILY Patient Comments: 1 drop into left eye once a day timolol maleate 0.5 % drops 1 drp ophthalmic (eye) DAILY Patient Comments: 1 drop into both eyes once a day azithromycin 250 mg tablet 250 mg PO DAILY 4 Days Qty: 4 0RF Rx Instructions: start on day 2 of therapy codeine-guaifenesin 10-100 mg/5 mL liquid 5 ml PO Q4H PRN (Reason: cough) Qty: 120 0RF ipratropium-albuterol 0.5 mg-3 mg(2.5 mg base)/3 mL solution for nebulization 3 ml inhalation Q6H PRN (Reason: shortness of breath or wheezing) Qty: 90 0RF ondansetron 4 mg tablet,disintegrating 4 mg PO Q8H PRN (Reason: nausea and vomiting) Qty: 10 0RF dicyclomine 20 mg tablet 20 mg PO BID PRN (Reason: abdominal cramping) Qty: 10 0RF hydrocodone-acetaminophen 5-325 mg tablet 1 tab PO Q6H PRN (Reason: pain) 3 Days Qty: 10 0RF ondansetron 4 mg tablet,disintegrating 4 mg PO Q6H PRN (Reason: nausea and vomiting) Qty: 20 0RF Symbicort 160-4.5 mcg/actuation HFA aerosol inhaler 2 puff INHALATION Q12H Qty: 3 3RF albuterol sulfate 2.5 mg /3 mL (0.083 %) solution for nebulization 2.5 mg INHALATION Q4H PRN (Reason: Sob &/Or Wheezing) Qty: 180 3RF albuterol sulfate 90 mcg/actuation HFA aerosol inhaler 2 puff INHALATION Q4H PRN PRN (Reason: Shortness Of Breath) Qty: 3 6RF Primary Care Provider: Marlyn Smith Referrals: Marlyn Smith MD [Primary Care Provider] - 3-5 Days if not improving (or if symptoms worsening, return to the ER) Disposition Disposition: Home, Self Care
[2023-06-25] MEDS: Dicyclomine 10 MG Capsule 20 MG PO (10:29)
[2023-06-25] MEDS: Ondansetron 4 MG/2 ML Vial IV (10:29)
[2023-06-25] MEDS: Ketorolac 15 MG/ML Vial IV (10:29)
[2023-06-25] MEDS: 0.9% Normal Saline 1,000 ML 1000 ML IV (10:29)
[2023-06-25 10:30] LABS: Absolute Lymphocyte Count 1.53 X10^3/uL (0.83-4.51); Absolute Neutrophil Count 6.4 X10^3/uL (2.0-7.7); Basophil# 0.04 X10^3/uL; Basophil% 0.5 % (0-1); Eosinophil# 0.25 X10^3/uL; Eosinophils% 2.8 % (0-5); Hematocrit 36.6 % (37-47); Hemoglobin 12.1 g/dL (12.0-15.0); Lymphocyte # 1.53 X10^3/ul (0.83-4.51); Lymphocyte % 17.3 % (19-41); Mean Corp Hgb Conc 33.1 g/dL (32-36); Mean Corpuscular Hgb 29.2 pg (27.0-32.0); Mean Corpuscular Volume 88.4 fL (81-99); Mean Platelet Vol. 8.6 fl (6.2-12.0); Monocyte% 6.8 % (0-10); NRBC Flagged by Analyzer 0 % (0-5); Neutrophil # 6.38 X10^3/uL (2.7-7.7); Neutrophil % 72.1 % (47-70); Platelet Count 311 K/mm3 (150-450); RBC Distribution Width CV 12.7 % (11.6-14.6); RBC Distribution Width SD 40.8 fl (35.1-43.9); Red Blood Count 4.14 M/mm3 (4.2-5.4); White Blood Count 8.8 K/mm3 (4.4-11.0)
[2023-06-25 10:44] LABS: ALB/GLOB Ratio 0.9 RATIO (0.9-2.4); AST(SGOT) 10 U/L (15-37); Alanine Aminotransfer ALT/SGPT 18 U/L (13-56); Albumin, Serum 3.6 g/dL (3.2-5.0); Alkaline Phosphatase 58 U/L (45-117); Anion Gap 4 (5-15); BUN 12 mg/dL (7-18); BUN/Creat Ratio 14.2 RATIO (10-20); Chloride 108 mmol/L (98-107); Creatinine, Serum 0.85 mg/dL (0.55-1.02); EST Glomerular Filtration Rate 76 mL/min (>60); Est Glom Filt Rate - Afr Amer 92 mL/min (>60); Estimated Creatinine Clearance 64.02 ml/min; Globulin 4.2 g/dL (2.2-4.2); Glucose 108 mg/dL (74-106); Lipase 35 U/L (13-75); Protein, Total 7.8 g/dL (6.4-8.2); Sodium Level 138 mmol/L (136-145)
[2023-06-25 10:58] LABS: Bacteria 0 SEEN /hpf (None Seen); Mucous, Urine 0 SEEN /hpf (<or=2+); Red Blood Cells-Urine 0 SEEN /hpf (0-5); White Blood Cells 0 SEEN /hpf (0-5)
[2023-06-25 11:01] LABS: Color, Urine Yellow (Yellow); Glucose, Dipstick Normal (Normal); Ketone-Dipstick Negative (Negative); Leukocyte Esterase-Dipstick Negative /ul (Negative); Nitrite-Dipstick Negative (Negative); Occult Blood-Urine 10 /ul (Negative); Protein-Dipstick Negative (Negative); Specific Gravity, Urine 1.015 (1.002-1.030); Urine Bilirubin Dipstick Negative (Negative); Urine Clarity Clear (Clear); Urine Urobilinogen Normal (Normal)
[2023-06-25 11:08] LABS: Squamous Epithelial Cells - UA 0-5 SEEN /hpf (5-10)
[2023-06-25] MEDS: Metoclopramide 10 MG/2 ML Vial 5 MG IV (13:22)
== END 2023-06-25 13:24 | disposition home or self-care (01) ==
PROVIDERS: Emergency Provider Emergency Medicine; PCP Family Medicine; Visit Provider Emergency Medicine
DX: R19.7 Diarrhea, unspecified (principal); R10.31 Right lower quadrant pain; G47.33 Obstructive sleep apnea (adult) (pediatric)
CPT/HCPCS: 80053; 81001; 83690; 85025; 96361; 96374; 96375; 99284; J7030; A4216; J2405

== ENCOUNTER 2023-06-29 07:40 | Emergency (ER) | payer BC, SELFPAY ==
[2023-06-29 07:42] VITALS: BP 116/82; PULSE 81; RESP 14; TEMP 36.4; O2SAT 98; BMI 35.5
--- NOTE | 2023-06-29 07:50 | CT_ITS ---
STUDY: CT ABDOMEN AND PELVIS WITHOUT CONTRAST REASON FOR EXAM: Female, 47 years old. abdominal pain-LOWER. PRIOR CHOLECYSTECTOMY, APPENDECTOMY AND PARTIAL COLON RESECTION DUE TO DIVERTICULITIS RADIATION DOSAGE (If Supplied By Facility): CTDIvol = ( 19.27 ) mGy, DLP = ( 928.92 ) mGycm TECHNIQUE: Transaxial images were obtained from the dome of the diaphragm to the symphysis pubis without oral contrast, and without intravenous contrast. Sagittal and coronal images were reconstructed. Individualized dose optimization techniques were used for this CT. COMPARISON: CT of abdomen and pelvis dated January 07, 2023 FINDINGS: There are chronic interstitial fibrotic changes of the lung bases. The visualized portions of the heart are within normal limits. There is decreased attenuation of the liver consistent with steatosis. There are surgical clips in the gallbladder fossa consistent with a prior cholecystectomy. Normal spleen. Normal pancreas. Normal bilateral adrenal glands. Normal right kidney. Normal left kidney. Normal visualized stomach. Normal small intestine. Prior surgical resection in the rectal sigmoid region with intact suture material no demonstrated complications. Mild rectosigmoid diverticulosis. No demonstrated acute inflammation. Prior right hemicolectomy Unremarkable remaining colonic loops. No demonstrated bowel dilatation or obstruction or free air or free fluid. Healed surgical incision tracts of the anterior abdominal wall. Normal abdominal aorta. Normal inferior vena cava. Normal retroperitoneum. Normal urinary bladder. Unremarkable uterus and adnexa. Bilateral adnexal clips. There is a small umbilical hernia containing fat. There are diffuse degenerative changes of the visualized lumbar spine. CT/Abdomen/Pelvis without Cont IMPRESSION: 1. Prior surgical resection in the rectal sigmoid region with intact suture material no demonstrated complications. Mild rectosigmoid diverticulosis. No demonstrated acute inflammation. Prior right hemicolectomy Unremarkable remaining colonic loops. No demonstrated bowel dilatation or obstruction or free air or free fluid. Healed surgical incision tracts of the anterior abdominal wall. Electronically Signed: Nelson Matta MD at 8:58 EDT ,
--- NOTE | 2023-06-29 07:52 | EX.ED.DYSGE1 ---
HPI History of Present Illness Chief Complaint: GI Bleed Narrative Narrative: Patient presents with right-sided abdominal pain diarrhea and recently bloody diarrhea with every bowel movement. She has a history of diverticulitis with perforated sigmoid diverticulum. She has some abdominal pain as cramping it is not sharp. No recent fevers or chills. [facility] Medical History (Updated 06/29/23 @ 09:[address] Enzo Paredes MD) Abnormal PFT Abscess of sigmoid colon due to diverticulitis Allergic rhinitis Anxiety Asthma Asthma, moderate persistent Asthma, moderate persistent, poorly-controlled Bronchitis Depression Diverticulitis Dyspnea Hypothyroid IBS (irritable bowel syndrome) Intra-abdominal adhesions Obesity Obesity (BMI 30-39.9) FREDY (obstructive sleep apnea) Perforation of sigmoid colon due to diverticulitis PTSD (post-traumatic stress disorder) Sciatica Home Medications levothyroxine 88 mcg tablet 88 mcg PO DAILY hypothyroid 02/01/14 [History Last Taken 10/16/20] fluticasone propionate 50 mcg/actuation nasal spray,suspension 50 mcg intranasal BID PRN PRN Allergies 12/29/17 [History Last Taken Unknown] cetirizine 10 mg tablet (Zyrtec) 10 mg PO QDAY PRN Allergies 06/14/18 [History Last Taken Unknown] budesonide-formoterol HFA 160 mcg-4.5 mcg/actuation aerosol inhaler (Symbicort) 2 puff inhalation Q12H #3 device 02/27/20 [Rx Last Taken 10/16/20] albuterol sulfate 2.5 mg/3 mL (0.083 %) solution for nebulization 2.5 mg (3 mL) inhalation Q4H PRN Sob &/Or Wheezing #180 mL 04/26/20 [Rx Last Taken Unknown] albuterol sulfate 90 mcg/actuation aerosol inhaler 2 puff inhalation Q4H PRN PRN Shortness Of Breath #3 device 08/26/20 [Rx Last Taken 10/15/20] pantoprazole 20 mg tablet,delayed release 20 mg PO DAILY PRN gerd 10/16/20 [History Last Taken 10/15/20] naproxen 500 mg tablet 500 mg PO PRN PRN Pain 04/28/21 [History Last Taken Unknown] insulin detemir U-100 100 unit/mL (3 mL) subcutaneous pen (Levemir FlexTouch U-100 Insulin) 22 unit subcut QHS 08/21/21 [History Last Taken Unknown] metformin 500 mg tablet 1,000 mg PO BID 08/21/21 [History Last Taken Unknown] azithromycin 250 mg tablet 250 mg PO DAILY 4 days #4 tabs 05/19/22 [Rx Last Taken Unknown] codeine 10 mg-guaifenesin 100 mg/5 mL oral liquid 5 ml PO Q4H PRN cough #120 mL 05/19/22 [Rx Last Taken Unknown] dicyclomine 10 mg capsule 20 mg PO Q6H PRN PRN abdominal discomfort 05/19/22 [History Last Taken Unknown] ipratropium 0.5 mg-albuterol 3 mg (2.5 mg base)/3 mL nebulization soln 3 ml inhalation Q6H PRN shortness of breath or wheezing #90 mL 05/19/22 [Rx Last Taken Unknown] prednisolone acetate 1 % eye drops,suspension 1 drp ophthalmic (eye) DAILY 05/19/22 [History Last Taken Unknown] prednisone 20 mg tablet See Rx Instructions .Route .COMPLEX 05/19/22 [History Last Taken Unknown] timolol maleate 0.5 % eye drops 1 drp ophthalmic (eye) DAILY 05/19/22 [History Last Taken Unknown] dicyclomine 20 mg tablet 20 mg PO BID PRN abdominal cramping #10 tabs 10/02/22 [Rx Last Taken Unknown] hydrocodone-acetaminophen 5-325mg 5mg-325mg 1 tab PO Q6H PRN pain 3 days #10 tabs 10/02/22 [Rx Last Taken Unknown] ondansetron 4 mg disintegrating tablet 4 mg PO Q8H PRN nausea and vomiting #10 tabs 10/02/22 [Rx Last Taken Unknown] ondansetron 4 mg disintegrating tablet 4 mg PO Q6H PRN nausea and vomiting #20 tabs 01/07/23 [Rx Last Taken Unknown] dicyclomine 10 mg capsule 20 mg (2 x 10 mg) PO Q6H PRN PRN abdominal discomfort #30 CAPSULES 06/25/23 [Rx Last Taken Unknown] promethazine 25 mg tablet 25 mg PO Q6H PRN PRN Nausea #20 TABLETS 06/25/23 [Rx Last Taken Unknown] Allergy/AdvReac Type Severity Reaction Status Date / Time venom-honey bee Allergy Severe Anaphylaxis Verified 06/29/23 07:44 [bee venom (honey bee)] amoxicillin [From Augmentin] Allergy Hives Verified 06/29/23 07:44 clavulanic acid Allergy Hives Verified 06/29/23 07:44 [From Augmentin] fluticasone Allergy Anaphylaxis Verified 06/29/23 07:44 [From Advair Diskus] salmeterol Allergy Anaphylaxis Verified 06/29/23 07:44 [From Advair Diskus] ciprofloxacin [From Cipro] AdvReac Nausea/Vom/ Verified 06/29/23 07:44 Diarrhea Family History Mother Depression Anxiety Arthritis Thyroid disorder COPD (chronic obstructive pulmonary disease) Cancer Father Arthritis Depression Alcohol abuse Sister Anxiety Depression Arthritis Cancer Brother Anxiety Depression HIV (human immunodeficiency virus infection) Hepatitis Surgical History delivery delivered Fistula History of carpal tunnel surgery History of colectomy (~10/21/20) Hx of appendectomy lazy eye repair S/P cholecystectomy [place] teeth extracted Social History Smoking Status: Never smoker second hand exposure: No alcohol intake: current alcohol intake frequency: holidays/special occasions only substance use type: does not use ROS ROS ED ROS Narrative Past medical history: Reviewed Medications: Reviewed Social history: Noncontributory Review of systems: All systems negative except as indicated General: No fever Cardiovascular: No chest pain Respiratory: No shortness of breath or cough Gastrointestinal: As in HPI Genitourinary: No dysuria Musculoskeletal: Denies myalgias no difficulty with ambulation Skin: No rash Neurological: No memory loss, confusion or any focal weakness Hematologic: No easy bleeding or easy bruising EXAM Physical Exam Narrative Exam Narrative: Physical exam General: Well nourished, Well developed, No Acute Distress Head: Normocephalic, Atraumatic Eyes: Conjunctiva not pale ENT: Moist mucous membranes Neck: Supple, Nontender, No lymphadenopathy Cardiovascular: Regular rate, Regular rhythm Respiratory: No distress, CTA bilaterally Abdomen: Soft, mostly right-sided abdominal pain without any guarding or rebound. Back: Nontender, Normal Inspection. Negative for: CVA tenderness Extremities: Nontender, No edema Skin: Normal color, No rash. No pallor noticed. Neurological: Alert, Normal Strength, Normal Sensation Psychological: Normal affect Const Vital Signs: 06/29/23 07:42 Temperature 97.6 F L Temperature Source Temporal Pulse Rate 81 Respiratory Rate 14 Blood Pressure 116/82 H Blood Pressure Mean 93 Pulse Ox 98 Oxygen Delivery Method Room Air MDM MDM MDM Narrative Medical decision making narrative: My worry for the patient was that she had diverticulitis with a possible diverticular bleed however at this time there is no evidence of diverticulitis, she has diarrhea and the diarrhea is bloody, and she only has blood when she has a bowel movement. I believe she likely has infectious diarrhea. I talked to RAYMUNDO, Friend who agrees that antibiotics are not warranted at this time. We will continue symptomatic treatment. I will refer to GI. If anything changes patient is to return. She understands that. Her hemoglobin is stable from last time. I do not believe the patient needs admission at this time. Lab Data Labs: Laboratory Results - last 24 hr 06/29/23 08:05 WBC 8.6 RBC 4.29 Hgb 12.4 Hct 38.7 MCV 90.2 MCH 28.9 MCHC 32.0 RDW Std Deviation 42.1 RDW Coeff of Bebo 12.8 Plt Count 327 MPV 8.6 Immature Gran % (Auto) 0.500 Neut % (Auto) 63.7 Lymph % (Auto) 23.0 Caroline % (Auto) 8.2 Eos % (Auto) 4.0 Baso % (Auto) 0.6 Absolute Neuts (auto) 5.5 Absolute Lymphs (auto) 1.97 Nucleated RBC % 0 Sodium 139 Potassium 3.9 Chloride 109 H Carbon Dioxide 24.0 Anion Gap 6 BUN 13 Creatinine 0.86 Estim Creat Clear Calc 63.27 Est GFR (MDRD) Af Amer 90 Est GFR (MDRD) Non-Af 74 BUN/Creatinine Ratio 15.1 Glucose 100 Calcium 9.2 Total Bilirubin 0.60 AST 15 ALT 19 Alkaline Phosphatase 57 Total Protein 8.0 Albumin 3.7 Globulin 4.3 H Albumin/Globulin Ratio 0.9 Lipase 82 H Radiography Diagnostic Testing: Clinical Impression(s) from Imaging Studies Abdomen/Pelvis CT 06/29/23 07:50 IMPRESSION: 1. Prior surgical resection in the rectal sigmoid region with intact suture material no demonstrated complications. Mild rectosigmoid diverticulosis. No demonstrated acute inflammation. Prior right hemicolectomy Unremarkable remaining colonic loops. No demonstrated bowel dilatation or obstruction or free air or free fluid. Healed surgical incision tracts of the anterior abdominal wall. Electronically Signed: Nelson Matta MD at 8:58 EDT , Discharge Plan Triage Chief Complaint: GI Bleed ED Provider: Enzo Paredes Dx/Rx/DC Orders Clinical Impression: Acute dehydration, Bloody diarrhea Instructions: Treating Diarrhea, Dehydration Prescriptions: No Action fluticasone propionate 50 mcg/actuation spray,suspension 50 mcg INTRANASAL BID PRN PRN (Reason: Allergies) cetirizine [Zyrtec] 10 mg tablet 10 mg PO QDAY PRN (Reason: Allergies) levothyroxine 88 MCG tablet 88 mcg PO DAILY pantoprazole 20 MG tablet 20 mg PO DAILY PRN (Reason: gerd) naproxen 500 MG tablet 500 mg PO PRN PRN (Reason: Pain) metformin 500 mg tablet 1,000 mg PO BID Levemir FlexTouch U100 Insulin 100 unit/mL (3 mL) insulin pen 22 unit SUBCUT QHS dicyclomine 10 MG capsule 20 mg PO Q6H PRN PRN (Reason: abdominal discomfort) prednisone 20 mg tablet See Rx Instructions .ROUTE .COMPLEX Patient Comments: PLEASE SEE ATTACHED FOR DETAILED DIRECTIONS Rx Instructions: taper dose prednisolone acetate 1 % drops,suspension 1 drp ophthalmic (eye) DAILY Patient Comments: 1 drop into left eye once a day timolol maleate 0.5 % drops 1 drp ophthalmic (eye) DAILY Patient Comments: 1 drop into both eyes once a day azithromycin 250 mg tablet 250 mg PO DAILY 4 Days Qty: 4 0RF Rx Instructions: start on day 2 of therapy codeine-guaifenesin 10-100 mg/5 mL liquid 5 ml PO Q4H PRN (Reason: cough) Qty: 120 0RF ipratropium-albuterol 0.5 mg-3 mg(2.5 mg base)/3 mL solution for nebulization 3 ml inhalation Q6H PRN (Reason: shortness of breath or wheezing) Qty: 90 0RF ondansetron 4 mg tablet,disintegrating 4 mg PO Q8H PRN (Reason: nausea and vomiting) Qty: 10 0RF dicyclomine 20 mg tablet 20 mg PO BID PRN (Reason: abdominal cramping) Qty: 10 0RF hydrocodone-acetaminophen 5-325 mg tablet 1 tab PO Q6H PRN (Reason: pain) 3 Days Qty: 10 0RF ondansetron 4 mg tablet,disintegrating 4 mg PO Q6H PRN (Reason: nausea and vomiting) Qty: 20 0RF dicyclomine 10 mg capsule 20 mg PO Q6H PRN PRN (Reason: abdominal discomfort) Qty: 30 0RF promethazine [promethazine] 25 mg tablet 25 mg PO Q6H PRN PRN (Reason: Nausea) Qty: 20 0RF Symbicort 160-4.5 mcg/actuation HFA aerosol inhaler 2 puff INHALATION Q12H Qty: 3 3RF albuterol sulfate 2.5 mg /3 mL (0.083 %) solution for nebulization 2.5 mg INHALATION Q4H PRN (Reason: Sob &/Or Wheezing) Qty: 180 3RF albuterol sulfate 90 mcg/actuation HFA aerosol inhaler 2 puff INHALATION Q4H PRN PRN (Reason: Shortness Of Breath) Qty: 3 6RF Primary Care Provider: Marlyn Smith Referrals: Marlyn Smith MD [Primary Care Provider] - Disposition Disposition: Home, Self Care
[2023-06-29] MEDS: Ondansetron 4 MG/2 ML Vial IV ×2 (08:03→09:55)
[2023-06-29] MEDS: 0.9% Normal Saline 1,000 ML 1000 ML IV (08:04)
[2023-06-29] MEDS: Morphine 4 MG/ML Syringe IV (08:05)
[2023-06-29 08:14] LABS: Absolute Lymphocyte Count 1.97 X10^3/uL (0.83-4.51); Absolute Neutrophil Count 5.5 X10^3/uL (2.0-7.7); Basophil# 0.05 X10^3/uL; Basophil% 0.6 % (0-1); Eosinophil# 0.34 X10^3/uL; Hematocrit 38.7 % (37-47); Hemoglobin 12.4 g/dL (12.0-15.0); Lymphocyte # 1.97 X10^3/ul (0.83-4.51); Mean Corpuscular Hgb 28.9 pg (27.0-32.0); Mean Corpuscular Volume 90.2 fL (81-99); Mean Platelet Vol. 8.6 fl (6.2-12.0); Monocyte% 8.2 % (0-10); NRBC Flagged by Analyzer 0 % (0-5); Neutrophil # 5.47 X10^3/uL (2.7-7.7); Neutrophil % 63.7 % (47-70); Platelet Count 327 K/mm3 (150-450); RBC Distribution Width CV 12.8 % (11.6-14.6); RBC Distribution Width SD 42.1 fl (35.1-43.9); Red Blood Count 4.29 M/mm3 (4.2-5.4); White Blood Count 8.6 K/mm3 (4.4-11.0)
[2023-06-29 08:34] LABS: ALB/GLOB Ratio 0.9 RATIO (0.9-2.4); AST(SGOT) 15 U/L (15-37); Alanine Aminotransfer ALT/SGPT 19 U/L (13-56); Albumin, Serum 3.7 g/dL (3.2-5.0); Alkaline Phosphatase 57 U/L (45-117); Anion Gap 6 (5-15); BUN 13 mg/dL (7-18); BUN/Creat Ratio 15.1 RATIO (10-20); Calcium,Total 9.2 mg/dL (8.5-10.1); Chloride 109 mmol/L (98-107); Creatinine, Serum 0.86 mg/dL (0.55-1.02); EST Glomerular Filtration Rate 74 mL/min (>60); Est Glom Filt Rate - Afr Amer 90 mL/min (>60); Estimated Creatinine Clearance 63.27 ml/min; Globulin 4.3 g/dL (2.2-4.2); Glucose 100 mg/dL (74-106); Lipase 82 U/L (13-75); Potassium 3.9 mmol/L (3.5-5.1); Sodium Level 139 mmol/L (136-145)
[2023-06-29 09:59] VITALS: BP 121/78; PULSE 81; RESP 14; O2SAT 98
== END 2023-06-29 10:01 | disposition home or self-care (01) ==
PROVIDERS: Emergency Provider Emergency Medicine; PCP Family Medicine; Visit Provider Emergency Medicine
DX: E86.0 Dehydration (principal); R19.7 Diarrhea, unspecified; G47.33 Obstructive sleep apnea (adult) (pediatric)
CPT/HCPCS: 74176; 80053; 83690; 85025; 96361; 96374; 96375; 96376; 99283; J7030; A4216; J2405

== ENCOUNTER → 2023-07-02 | Outpatient (CLI) | payer BC, SELFPAY ==
[2023-07-02 10:07] LABS: Absolute Lymphocyte Count 1.71 X10^3/uL (0.83-4.51); Absolute Neutrophil Count 6.3 X10^3/uL (2.0-7.7); Basophil# 0.05 X10^3/uL; Basophil% 0.5 % (0-1); Eosinophil# 0.37 X10^3/uL; Hemoglobin 13.2 g/dL (12.0-15.0); Lymphocyte # 1.71 X10^3/ul (0.83-4.51); Lymphocyte % 18.7 % (19-41); Mean Corpuscular Hgb 29.2 pg (27.0-32.0); Mean Corpuscular Volume 88.5 fL (81-99); Mean Platelet Vol. 9.1 fl (6.2-12.0); Monocyte# 0.66 X10^3/uL; Monocyte% 7.2 % (0-10); NRBC Flagged by Analyzer 0 % (0-5); Neutrophil # 6.34 X10^3/uL (2.7-7.7); Neutrophil % 69.4 % (47-70); Platelet Count 338 K/mm3 (150-450); RBC Distribution Width CV 12.5 % (11.6-14.6); Red Blood Count 4.52 M/mm3 (4.2-5.4); White Blood Count 9.2 K/mm3 (4.4-11.0)
[2023-07-02 11:09] LABS: ALB/GLOB Ratio 0.9 RATIO (0.9-2.4); AST(SGOT) 12 U/L (15-37); Alanine Aminotransfer ALT/SGPT 18 U/L (13-56); Albumin, Serum 3.8 g/dL (3.2-5.0); Alkaline Phosphatase 62 U/L (45-117); Anion Gap 6 (5-15); BUN 13 mg/dL (7-18); BUN/Creat Ratio 13.5 RATIO (10-20); Calcium,Total 9.3 mg/dL (8.5-10.1); Chloride 107 mmol/L (98-107); Cholesterol 109 mg/dL (200); Creatinine, Serum 0.96 mg/dL (0.55-1.02); EST Glomerular Filtration Rate 66 mL/min (>60); Est Glom Filt Rate - Afr Amer 79 mL/min (>60); Globulin 4.2 g/dL (2.2-4.2); Glucose 97 mg/dL (74-106); High Density Lipoprotein 37 mg/dL; Potassium 4.5 mmol/L (3.5-5.1); Sodium Level 139 mmol/L (136-145); Thyroid Stim Hormone (TSH) 3.99 uIU/mL (0.358-3.74); Triglycerides 226 mg/dL; Very Low Density Lipoprotein 45 mg/dL (5-40)
[2023-07-02 12:04] LABS: Hemoglobin A1c 5.6 % (3.8-5.6)
== END | disposition home or self-care (01) ==
PROVIDERS: PCP Family Medicine; Referring Provider Family Medicine; Visit Provider Family Medicine
DX: Z00.00 Encounter for general adult medical examination without abnormal findings (principal); E11.9 Type 2 diabetes mellitus without complications; E03.9 Hypothyroidism, unspecified
CPT/HCPCS: 36415; 80053; 80061; 83036; 84443; 85025

== ENCOUNTER → 2023-07-06 | Outpatient (CLI) | payer BC, SELFPAY ==
[2023-07-06 18:29] LABS: Microalbumin,Random Urine < 5.0 mg/L (NO RANGE EST.)
== END | disposition home or self-care (01) ==
LOC: MTLAB 16:18
PROVIDERS: PCP Family Medicine; Referring Provider Family Medicine; Visit Provider Family Medicine
DX: Z00.00 Encounter for general adult medical examination without abnormal findings (principal); E11.9 Type 2 diabetes mellitus without complications; E03.9 Hypothyroidism, unspecified
CPT/HCPCS: 82043; 82570

== ENCOUNTER → 2023-11-12 | Outpatient (CLI) | payer BC, SELFPAY ==
--- OUTSIDE RECORDS SUMMARY | 2023-11-12 16:44 | XMS RPT_ITS | CCD ---
Author Name Unknown Address [address] [place] [address] Organization [facility] Care Team Providers Care Sales Promoter Name Role Phone Marlyn Smith Primary Care Provider Marlyn Smith Primary Care Provider Jimmie Marrufo Unavailable Marlyn Smith MD Primary Care Provider JAN MARLYN E Primary Care Unavailable RAFAEL OVERTON Referring Unavailable MIEDEL, MARLYN E Primary Care Unavailable ENZO NAVA Referring Unavailable PORTER POTTS Attending Unavailable MIEDEL, MARLYN E Primary Care Unavailable CLARITZA CALI Attending Unavailable MATHEW, ARACELI Referring Unavailable JHONYAANNE MARIE DEL VALLEEW P Referring Unavailable MIEDEL, MARLYN E Primary Care Unavailable BUNYARD, DIAZ P Referring Unavailable MIEDEL, MARLYN E Primary Care Unavailable MIEDEL, MARLYN E Primary Care Unavailable KELIN BURCH Attending Unavailable MIEDEL, MARLYN E Primary Care Unavailable KELIN BURCH Attending Unavailable WESTISSY, ARACELI Referring Unavailable MIEDEL, MARLYN E Primary Care Unavailable SELF Referring Unavailable BUNYADIAZ DEL VALLE P Attending Unavailable BUNYARD, DIAZ P Referring Unavailable MIEDEL, MARLYN E Primary Care Unavailable MIEDEL, MARLYN E Primary Care Unavailable WESTISSY, ARACELI Referring Unavailable BORIS SHAW Attending Unavailable MIEDEL, MARLYN E Primary Care Unavailable STEFFEN KEMP Referring Unavailable MIEDEL, AMRLYN E Primary Care Unavailable BOISSY, ARACELI Referring Unavailable MIEDEL, MARLYN E Primary Care Unavailable MIEDEL, MARLYN E Primary Care Unavailable BOISSY, ARACELI Referring Unavailable BOISSY, ARACELI Attending Unavailable MIEDEL, MARLYN E Primary Care Unavailable ELDA PINO Attending Unavailable BUNYARD, DIAZ P Referring Unavailable BUNYARD, DIAZ P Referring Unavailable MIEDEL, MARLYN E Primary Care Unavailable MIEDEL, MARLYN E Primary Care Unavailable BUNYARD, DIAZ P Referring Unavailable MIEDEL, MARLYN E Primary Care Unavailable KELIN BURCH Referring Unavailable STEFFEN KEMP Attending Unavailable MIEDEL, MARLYN E Primary Care Unavailable MIEDEL, MARLYN E Primary Care Unavailable KELIN BURCH Referring Unavailable KELIN BURCH Attending Unavailable AJ LOTT Referring Unavailable BOISSY, ARACELI Attending Unavailable MIEDEL, MARLYN E Primary Care Unavailable BUNYARD, DIAZ P Referring Unavailable MIEDEL, MARLYN E Primary Care Unavailable MIEDEL, MARLYN E Primary Care Unavailable RAFAEL OVERTON Attending Unavailable Allergies Allergy Classification Reported Allergen(s) Allergy Type Date of Onset Reaction(s) Facility (20 sources) Acetaminophen / Aspirin / Caffeine; Translations: [ASPIRIN-ACETAMIN OPHEN-CAFFEINE] Drug Allergy 6 Other: See Comments [facility] (20 sources) Amoxicillin / Clavulanate; Translations: [AMOXICILLIN-POT CLAVULANATE] Drug Allergy 5 Hives, Other: See Comments [facility] Work Phone: (20 sources) Ciprofloxacin; Translations: [CIPROFLOXACIN] Drug Allergy 3 GI Upset [facility] Work Phone: (20 sources) fluticasone / salmeterol; Translations: [FLUTICASONE PROPION-SALMETERO L] Drug Allergy 5 Other: See Comments [facility] Work Phone: (20 sources) salmeterol; Translations: [SALMETEROL] Drug Allergy 7 Anaphylaxis [facility] (20 sources) Bees; Translations: [BEES] Propensity to adverse reactions 9 Swelling [facility] Work Phone: (20 sources) Cold-Allergy; Translations: [COLD-ALLERGY] Propensity to adverse reactions to drug 2 Cough, Hives, Itching, Rash, Swelling [facility] (20 sources) environmental [Other] Propensity to adverse reactions Other: See Comments [facility] (12 sources) Clavulanate; Translations: [CLAVULANIC ACID] Drug Allergy 2 Hives [facility] (1 source) OTHER; Translations: [OTHER] Propensity to adverse reactions (disorder) 5 [facility] Main [place] [facility] Medications Current Medications Medication Drug Class(es) Dates Sig (Normalized) Sig (Original) benoxinate hydrochloride 4 mg/ml / fluorescein sodium 2.5 mg/ml ophthalmic solution (3 sources) Diagnostic Dye Start: 04-03-2022 End: 04-03-2022 fluorescein-benoxi victor hugo 0.25-0.4 % 1 Drop (FLURESS) Completed/Discontinued Medications Medication Drug Class(es) Dates Sig (Normalized) Sig (Original) albuterol 0.83 mg/ml inhalation solution (20 sources) beta2-Adrenergic Agonist Start: 02-05-2022 albuterol (PROVENTIL) 2.5 mg /3 mL (0.083 %) nebulizer solution Indications: SOB (shortness of breath) , Lower resp. tract infection , Exacerbation of intermittent asthma, unspecified asthma severity Use 3 mL via nebulizer every 4 hours as needed. Use over 5-15minutes. 20 Vial 0 02/05/2022 Active Problems Active Problems Problem Classification Problem Date Documented Date Episodic/Chronic Abdominal pain (1 source) Generalized abdominal pain; Translations: [Generalized abdominal pain] 06-25-2023 Episodic Anxiety disorders (20 sources) Anxiety; Translations: [Anxiety disorder, unspecified] Onset: 02-16-2013 02-16-2013 Chronic Asthma (20 sources) Uncomplicated mild persistent asthma; Translations: [Mild persistent asthma, uncomplicated] Onset: 11-05-2015 11-05-2015 Chronic Blindness and vision defects (4 sources) Visual impairment; Translations: [Unspecified visual loss] Onset: 01-28-2023 Chronic Cataract (20 sources) Nuclear senile cataract; Translations: [Age-related nuclear cataract, right eye] Onset: 01-15-2022 01-15-2022 Chronic Conditions associated with dizziness or vertigo (7 sources) Dizziness and giddiness; Translations: [Dizziness and giddiness] Onset: 01-28-2023 Episodic Diabetes mellitus without complication (20 sources) Diabetes mellitus; Translations: [Type 2 diabetes mellitus without complications] 01-15-2022 Chronic Glaucoma (20 sources) Bilateral angle-closure glaucoma; Translations: [Chronic angle-closure glaucoma, bilateral, severe stage] Onset: 01-15-2022 01-15-2022 Chronic Immunity disorders (4 sources) Light chain disease; Translations: [Other specified disorders involving the immune mechanism, not elsewhere classified] Onset: 11-03-2022 07-02-2023 Chronic Inflammation; infection of eye (except that caused by tuberculosis or sexually transmitteddisease) (20 sources) Acute retrobulbar neuritis; Translations: [Retrobulbar neuritis, bilateral] Onset: 12-04-2020 12-04-2020 Chronic Mood disorders (20 sources) Depressive disorder; Translations: [Depression] Onset: 02-16-2013 02-16-2013 Chronic Neoplasms of unspecified nature or uncertain behavior (2 sources) Gammopathy; Translations: [Monoclonal gammopathy] Onset: 07-02-2023 07-02-2023 Chronic Other aftercare (5 sources) Surgical follow-up; Translations: [Encounter for follow-up examination after completed treatment for conditions other than malignant neoplasm] Episodic Other circulatory disease (1 source) Orthostatic hypotension; Translations: [Orthostatic hypotension] 08-11-2023 Episodic Other connective tissue disease (4 sources) Bilateral trochanteric bursitis; Translations: [Trochanteric bursitis, right hip] 05-10-2023 Episodic Other connective tissue disease (1 source) Trochanteric bursitis, right hip; Translations: [Trochanteric bursitis of both hips] Onset: 09-06-2023 Episodic Other connective tissue disease (1 source) Trochanteric bursitis, left hip; Translations: [Trochanteric bursitis of both hips] Onset: 09-06-2023 Episodic Other eye disorders (20 sources) Bilateral optic atrophy of eyes; Translations: [Other optic atrophy, bilateral] Onset: 01-13-2021 01-13-2021 Chronic Other eye disorders (6 sources) Non-arteritic ischemic optic neuropathy; Translations: [Ischemic optic neuropathy, bilateral] Chronic Other eye disorders (1 source) Other optic atrophy, bilateral; Translations: [Other optic atrophy, bilateral] Onset: 01-13-2021 Chronic Other eye disorders (1 source) Ischemic optic neuropathy, bilateral; 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] Onset: 01-28-2023 Chronic Other lower respiratory disease (1 source) Interstitial lung disease; Translations: [Interstitial pulmonary disease, unspecified] 11-03-2022 Chronic Other lower respiratory disease (1 source) Interstitial pulmonary disease, unspecified; Translations: [Interstitial pulmonary disease (HCC)] Onset: 11-03-2022 Chronic Other lower respiratory disease (1 source) Difficulty breathing; Translations: [Other abnormalities of breathing] Episodic Other lower respiratory disease (3 sources) Dyspnea; Translations: [Dyspnea, unspecified] Episodic Other nervous system disorders (20 sources) Sciatic nerve lesion; Translations: [Lesion of sciatic nerve, unspecified lower limb] Onset: 01-17-2007 01-17-2007 Chronic Other nervous system disorders (2 sources) Demyelinating disease of central nervous system; Translations: [Demyelinating disease of central nervous system, unspecified] Chronic Other nervous system disorders (1 source) Demyelinating disease of central nervous system, unspecified; Translations: [Demyelinating disease of central nervous system (HCC)] Onset: 01-28-2023 Chronic Other non-traumatic joint disorders (2 sources) Hip pain; Translations: [Pain in right hip] Episodic Other screening for suspected conditions (not mental disorders or infectious disease) (2 sources) Imaging of thorax abnormal; Translations: [Abnormal findings on diagnostic imaging of other specified body structures] Onset: 11-03-2022 11-03-2022 Chronic Other skin disorders (1 source) Eruption; Translations: [Rash and other nonspecific skin eruption] Episodic Residual codes; unclassified (20 sources) Obstructive sleep apnea syndrome; Translations: [Obstructive sleep apnea (adult) (pediatric)] Onset: 08-30-2013 08-30-2013 Chronic Thyroid disorders (20 sources) Hypothyroidism; Translations: [Hypothyroidism, unspecified] Onset: 03-28-2010 03-28-2010 Chronic Past or Other Problems Problem Classification Problem Date Documented Date Episodic/Chronic Allergic reactions (20 sources) Urticaria due to cold; Translations: [Urticaria due to cold and heat] Onset: 11-05-2015 10-27-2021 Episodic Anal and rectal conditions (20 sources) Perianal abscess; Translations: [Anal abscess] Onset: 10-31-2013 10-31-2013 Episodic Other connective tissue disease (20 sources) Enthesopathy of hip region; Translations: [Other specified enthesopathies of unspecified lower limb, excluding foot] Onset: 01-17-2007 01-17-2007 Episodic Other lower respiratory disease (1 source) Dyspnea, unspecified; Translations: [Dyspnea, unspecified type] Onset: 11-03-2022 Episodic Other non-traumatic joint disorders (20 sources) Hand joint pain; Translations: [Pain in joints of unspecified hand] Onset: 11-18-2005 11-18-2005 Episodic Other non-traumatic joint disorders (1 source) Pain in right hip; Translations: [Bilateral hip pain] Onset: 06-11-2023 Episodic Other non-traumatic joint disorders (1 source) Pain in left hip; Translations: [Bilateral hip pain] Onset: 06-11-2023 Episodic Other screening for suspected conditions (not mental disorders or infectious disease) (1 source) Encounter for screening mammogram for malignant neoplasm of breast; Translations: [Encounter for screening mammogram for breast cancer] Onset: 01-28-2023 Episodic Residual codes; unclassified (20 sources) History of partial resection of colon; Translations: [Acquired absence of other specified parts of digestive tract] Onset: 01-13-2021 01-13-2021 Episodic Skin and subcutaneous tissue infections (20 sources) Pyoderma; Translations: [Pyoderma] Onset: 03-18-2006 03-18-2006 Episodic Spondylosis; intervertebral disc disorders; other back problems (8 sources) Bilateral sciatica; Translations: [Sciatica, right side] Onset: 02-10-2023 Episodic Results Test Name Value Interpretation Reference Range Facil ity Vital Signs Date Time Vital Sign Value Performing Clinician Faci lity 08-11-2023 15:15-0400 Body height 157.5 cm Rafael Overton MD Work Phone: [facility] 08-11-2023 15:15-0400 Body weight 88.91 kg Rafael Overton MD Work Phone: [facility] 08-11-2023 15:15-0400 SaO2% (BldA) [Mass fraction] 97 % Rafael Overton MD Work Phone: [facility] 08-06-2023 12:49-0400 Body height 165.1 cm Kelin Burch PA-C Work Phone: [facility] 08-06-2023 12:49-0400 Body weight 88.45 kg Kelin Burch PA-C Work Phone: [facility] 07-02-2023 14:50-0400 Body height 158 cm Porter Potts MD Work Phone: [facility] 07-02-2023 14:50-0400 Body temperature 98.29 [degF] Porter Potts MD Work Phone: [facility] 07-02-2023 14:50-0400 Body weight 88.68 kg Porter Potts MD Work Phone: [facility] 07-02-2023 14:50-0400 Diastolic blood pressure 81 mm[Hg] Porter Potts MD Work Phone: [facility] 07-02-2023 14:50-0400 Heart rate 94 /min Porter Potts MD Work Phone: [facility] 07-02-2023 14:50-0400 SaO2% (BldA) [Mass fraction] 98 % Porter Potts MD Work Phone: [facility] 07-02-2023 14:50-0400 Systolic blood pressure 120 mm[Hg] Porter Potts MD Work Phone: [facility] 06-25-2023 09:25-0400 Body temperature 97.39 [degF] Elena Dixon APRN.DEVELOPER EVANGELIST Work Phone: [facility] 06-25-2023 09:25-0400 Body weight 89.27 kg Elena Dixon APRN.DEVELOPER EVANGELIST Work Phone: [facility] 06-25-2023 09:25-0400 Diastolic blood pressure 78 mm[Hg] Elena Dixon APRN.DEVELOPER EVANGELIST Work Phone: [facility] 06-25-2023 09:25-0400 Heart rate 86 /min Elena Dixon APRN.DEVELOPER EVANGELIST Work Phone: [facility] 06-25-2023 09:25-0400 Respiratory rate 18 /min Elena Dixon APRN.DEVELOPER EVANGELIST Work Phone: [facility] 06-25-2023 09:25-0400 SaO2% (BldA) [Mass fraction] 96 % Elena Dixon APRN.DEVELOPER EVANGELIST Work Phone: [facility] 06-25-2023 09:25-0400 Systolic blood pressure 122 mm[Hg] Elena Dixon APRN.DEVELOPER EVANGELIST Work Phone: [facility] 04-29-2023 15:59-0400 Body temperature 98.4 [degF] Diaz Bagley MD Work Phone: [facility] 04-29-2023 15:59-0400 Body weight 88.27 kg Diaz Bagley MD Work Phone: [facility] 04-29-2023 15:59-0400 Diastolic blood pressure 72 mm[Hg] Diaz Bagley MD Work Phone: [facility] 04-29-2023 15:59-0400 Heart rate 90 /min Diaz Bagley MD Work Phone: [facility] 04-29-2023 15:59-0400 Systolic blood pressure 125 mm[Hg] Diaz Bagley MD Work Phone: [facility] 03-01-2023 13:35-0400 Body height 157.5 cm Kelin Burch PA-C Work Phone: [facility] 03-01-2023 13:35-0400 Body weight 88.45 kg Kelin Burch PA-C Work Phone: [facility] 03-01-2023 13:35-0400 Respiratory rate 16 /min Kelin Burch PA-C Work Phone: [facility] 02-12-2023 16:59-0400 Body temperature 98.2 [degF] Elena Dixon APRN.DEVELOPER EVANGELIST Work Phone: [facility] 02-12-2023 16:59-0400 Body weight 88.45 kg Elena Dixon APRN.DEVELOPER EVANGELIST Work Phone: [facility] 02-12-2023 16:59-0400 Diastolic blood pressure 70 mm[Hg] Elena Dixon [employer].DEVELOPER EVANGELIST Work Phone: [facility] 02-12-2023 16:59-0400 Heart rate 95 /min Elena Dixon APRN.DEVELOPER EVANGELIST Work Phone: [facility] 02-12-2023 16:59-0400 Respiratory rate 18 /min Elena Dixon [employer].DEVELOPER EVANGELIST Work Phone: [facility] 02-12-2023 16:59-0400 SaO2% (BldA) [Mass fraction] 97 % Elena Dixon APRN.DEVELOPER EVANGELIST Work Phone: [facility] 02-12-2023 16:59-0400 Systolic blood pressure 120 mm[Hg] Elena Dixon [employer].DEVELOPER EVANGELIST Work Phone: [facility] 02-02-2023 15:01-0400 Body height 157.5 cm Araceli Sparks MD Work Phone: [facility] 02-02-2023 15:01-0400 Body weight 88.45 kg Araceli Sparks MD Work Phone: [facility] 02-02-2023 15:01-0400 Diastolic blood pressure 78 mm[Hg] Araceli Sparks MD Work Phone: [facility] 02-02-2023 15:01-0400 Heart rate 81 /min Araceli Sparks MD Work Phone: [facility] 02-02-2023 15:01-0400 Systolic blood pressure 115 mm[Hg] Araceli Sparks MD Work Phone: [facility] 12-30-2022 13:18-0500 Body height 157.5 cm Araceli Sparks MD Work Phone: [facility] 12-30-2022 13:18-0500 Body weight 89.09 kg Araceli Sparks MD Work Phone: [facility] 12-30-2022 13:18-0500 Diastolic blood pressure 81 mm[Hg] Araceli Sparks MD Work Phone: [facility] 12-30-2022 13:18-0500 Heart rate 90 /min Araceli Sparks MD Work Phone: [facility] 12-30-2022 13:18-0500 Systolic blood pressure 116 mm[Hg] Araceli Sparks MD Work Phone: [facility] 09-29-2022 13:47-0500 Body height 157.5 cm Diaz Bagley MD Work Phone: [facility] 09-29-2022 13:47-0500 Body temperature 97.9 [degF] Diaz Bagley MD Work Phone: [facility] 09-29-2022 13:47-0500 Body weight 90.31 kg Diaz Bagley MD Work Phone: [facility] 09-29-2022 13:47-0500 Diastolic blood pressure 79 mm[Hg] Diaz Bagley MD Work Phone: [facility] 09-29-2022 13:47-0500 Heart rate 85 /min Diaz Bagley MD Work Phone: [facility] 09-29-2022 13:47-0500 Systolic blood pressure 133 mm[Hg] Diaz Bagley MD Work Phone: [facility] 05-19-2022 08:11-0400 SaO2% (BldA) [Mass fraction] 94 % Pasquale Sherman APRN.CNP Work Phone: [facility] Encounters Encounter Date Encounter Type Care Provider Facility Start: 09-06-2023 End: 09-06-2023 ambulatory BORIS SHAW Facility:[facility] Start: 09-06-2023 End: 09-06-2023 Patient encounter procedure Boris Shaw DO Work Phone: Orthopaedics Procedures Date Procedure Procedure Detail Performing Clinician Start: 09-06-2023 End: 09-06-2023 Arthrocentesis aspir&/inj major jt/bursa w/us Boris Shaw DO Work Phone: Start: 08-11-2023 Ecg routine ecg w/le ast 12 lds i&r only [facility] Provider Start: 02-10-2023 Radex spine lumbosac ral 2/3 views Araceli Sparks MD Work Phone: Start: 01-28-2023 Mri brain brain stem w/o contrast material Araceli Sparks MD Work Phone: Start: 11-03-2022 Ct thorax w/o contra st material Diaz Bagley MD Work Phone: Start: 09-29-2022 Radex hips bilateral with pelvis minimum 5 views Diaz Bagley MD Work Phone: Start: 09-29-2022 Radiologic exam ches t 2 views Diaz Bagley MD Work Phone: Start: 09-22-2022 LEATHA SCREENING W TREMAY[facility] f Provider Start: 09-22-2022 Mammography Xr A21 Start: 08-15-2021 Mammography Pasquale hickman MD Work Phone: Start: 11-17-2013 Colonoscopy Pasquale hickman MD Work Phone: Plan of Treatment Date Care Activity Detail Author Start: 06-12-2030 Urine microalbumin profile [facility] Start: 08-28-2026 HPV TESTING HPV TESTING [facility] Start: 08-28-2026 PAP TESTING PAP TESTING [facility] Start: 09-22-2023 Mammography [facility] Start: 07-02-2023 Influenza vaccination [facility] Start: 02-27-2023 Hepatitis C antibody, confirmatory test DILATED RETINAL EXAM [facility] Start: 01-18-2023 End: 03-20-2023 Urinalysis complete panel - Urine URINALYSIS, WITH MICROSCOPIC Lab Routine 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 Work Phone: Immunizations Immunization Date Immunization Notes Care Provider Fa elizabeth 07-07-2022 influenza, injectabl e, quadrivalent, contains preservative Xr A21 [facility] 07-07-2022 influenza virus vacc ine, unspecified formulation Steffen Kemp MD Work Phone: [facility] 06-12-2020 tetanus toxoid, redu constantin diphtheria toxoid, and acellular pertussis vaccine, adsorbed Pasquale Roberts MD Work Phone: [facility] Work Phone: 09-18-2019 influenza, injectabl e, quadrivalent, contains preservative Pasquale Roberts MD Work Phone: [facility] Work Phone: 09-14-2018 influenza virus vacc ine, unspecified formulation Pasquale Roberts MD Work Phone: [facility] Work Phone: 08-01-2015 influenza, seasonal, injectable Pasquale Roberts MD Work Phone: [facility] Work Phone: 10-03-2014 influenza, seasonal, injectable Pasquale Roberts MD Work Phone: [facility] 10-03-2014 tetanus toxoid, redu constantin diphtheria toxoid, and acellular pertussis vaccine, adsorbed Pasquale Roberts MD Work Phone: [facility] 08-30-2013 influenza virus vacc ine, unspecified formulation Pasquale Roberts MD Work Phone: [facility] 08-30-2013 pneumococcal polysaccharide vaccine, 23 valent Pasquale Roberts MD Work Phone: [facility] 08-19-2009 influenza virus vacc ine, unspecified formulation Pasquale Roberts MD Work Phone: [facility] Work Phone: 03-18-2004 tetanus and diphther ia toxoids, not adsorbed, for adult use Pasquale Roberts MD Work Phone: [facility] Work Phone: Payers Date Payer Category Payer Unknown [id number] 2016 Unknown [employer] PPO OOS [id number] 2016-Present [phone] [address] [place] [address] PPO [id number] 2016 Unknown [id number] Social History Date Type Detail Facility Start: 08-25-2011 End: 09-29-2022 Tobacco smoking status NHIS Never smoked tobacco [facility] Work Phone: Start: 01-23-2022 End: 08-11-2023 Alcohol intake Current drinker of alcohol (finding) [facility] Start: 11-03-2008 History SDOH Alcohol Comment rarely,NOT WHILE [facility] Start: 1975 Sex Assigned At Female [facility] Start: 01-11-2022 End: 09-29-2022 Exposure to SARS-CoV-2 (event) Not sure [facility] Start: 08-25-2011 End: 09-29-2022 Tobacco use and exposure Smokeless tobacco non-user [facility] Start: 09-29-2022 Tobacco Comment tried briefly age 14 for several months [facility] Start: 04-29-2023 End: 08-11-2023 History of Social function [facility] Start: 04-29-2023 End: 08-11-2023 Tobacco use panel [facility] National Score (1-10 0), lower number is lower risk 72 [facility] Start: 05-26-2019 Gender identity Identifies as female gender (finding) [facility] Start: 05-26-2019 Sexual orientation Heterosexual (misha griffin) [facility] Medical Equipment Procedure Code Equipment Code Equipment Origin al Text Equipment Identifier Dates Lens Acrysof Stableforce 6mm 0 D +32 Diopter Biconvex Acrylic Methacrylate - [id number] Start: 11-18-2021 Clinical Notes 11-03-2008 to 09-06-2023 Boris Shaw DO - 09/06/2023 9:59 AM Rafael Hayes MD - 08/11/2023 4:04 PM EDTMKelin Nathan PA-C - 08/06/2023 12:53 PM Porter Keith MD - 07/02/2023 3:11 PM EDTPatient Instructions Note Date & Type Note Facility 09-06-2023 Note HNO ID: [id number] Author: Boris Shaw DO Service: ? Author Type: Physician Type: Progress Notes Filed: 09/06/2023 10:01 AM Note Text: Patient presents for a bilateral troch bursa US injection. Large Joint Arthro/Inj: bilateral greater trochanteric bursas Informed Consent Consent Obtained: Verbal [place] Protocol A moment to CARE was completed. SIGN IN Personnel directly involved with the procedure wore the appropriate PPE. Special Equipment: N/A Patient/Surrogate Stated/Verified: Patient name, Date of , Relevant allergies and Intended procedure TIME OUT Intended patient and procedure match the source document(s). Relevant labs, photos, and/or imaging studies have been reviewed. Correct side/site marked and visible. Medications required for procedure verified. No fire risk assessment and interventions applicable. No implant(s) inserted. 09/06/2023 9:59 AM The procedure site was prepped in the usual sterile fashion. Site: bilateral greater trochanteric bursas Details:Musculoskeletal ultrasound was utilized to successfully localize placement of the injection needle at the appropriate site. Ultrasound images demonstrating local vasculature and demonstrating injection of solution were saved. Medications (Right): 40 mg triamcinolone acetonide 40 mg/mL Medications (Left): 40 mg triamcinolone acetonide 40 mg/mL Anesthetics (Right): 4 mL lidocaine (PF) 10 mg/mL (1 %) Anesthetics (Left): 4 mL lidocaine (PF) 10 mg/mL (1 %) Outcome: Tolerated well, no immediate complications Post-injection instructions were reviewed with the patient and the patient voiced understanding of these instructions. SIGN OUT All instruments, equipment, possible retained foreign bodies accounted for. (M70.61, M70.62) Trochanteric bursitis of both hips (primary encounter diagnosis) Boris Shaw DO 09/06/2023 [facility] 09-06-2023 History of Present illness Narrative Associated Order(s): Large Joint Arthro/Inj: bilateral greater trochanteric bursas Post-Procedure Diagnose(s): Trochanteric bursitis of both hips Patient presents for a bilateral troch bursa US injection. Large Joint Arthro/Inj: bilateral greater trochanteric bursas Informed Consent Consent Obtained: Verbal [place] Protocol A moment to CARE was completed. SIGN IN Personnel directly involved with the procedure wore the appropriate PPE. Special Equipment: N/A Patient/Surrogate Stated/Verified: Patient name, Date of , Relevant allergies and Intended procedure TIME OUT Intended patient and procedure match the source document(s). Relevant labs, photos, and/or imaging studies have been reviewed. Correct side/site marked and visible. Medications required for procedure verified. No fire risk assessment and interventions applicable. No implant(s) inserted. 09/06/2023 9:59 AM The procedure site was prepped in the usual sterile fashion. Site: bilateral greater trochanteric bursas Details:Musculoskeletal ultrasound was utilized to successfully localize placement of the injection needle at the appropriate site. Ultrasound images demonstrating local vasculature and demonstrating injection of solution were saved. Medications (Right): 40 mg triamcinolone acetonide 40 mg/mL Medications (Left): 40 mg triamcinolone acetonide 40 mg/mL Anesthetics (Right): 4 mL lidocaine (PF) 10 mg/mL (1 %) Anesthetics (Left): 4 mL lidocaine (PF) 10 mg/mL (1 %) Outcome: Tolerated well, no immediate complications Post-injection instructions were reviewed with the patient and the patient voiced understanding of these instructions. SIGN OUT All instruments, equipment, possible retained foreign bodies accounted for. (M70.61, M70.62) Trochanteric bursitis of both hips (primary encounter diagnosis) Boris Shaw DO 09/06/2023 documented in this encounter [facility] 08-11-2023 Note HNO ID: [id number] Author: Rafael Overton MD Service: ? Author Type: Physician Type: Progress Notes Filed: 08/11/2023 4:10 PM Note Text: Cardiology consultation at the request of Dr. Smith. A copy of this consultation note will be provided to the requesting physician by way of shared Medical record or letter to requesting physician via [place] mail. Chief Complaint: Patient presents with: Consult: Syncope,Dizziness History of Present Illness: Maddie Jones is a 47 year old female with history of glaucoma, vision loss due to unclear cause possible optic nerve stroke, sciatica enthesopathy of hip region, diabetes was referred by the neurologist for episodes of lightheadedness. Patient says for the last 1 year she gets lightheaded when she first sits up or stands up. She gets lightheaded if she stands for long period of time. She also gets lightheaded if she is coughing vigorously. She has come close to passing out but has never passed out. Denies chest pain. Occasionally gets short of breath on exertion. Denies palpitations orthopnea PND or leg edema. 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 MYOFASCITIS 12/21/2006 Optic neuritis, right 95% vision loss Plantar fasciitis of left foot Prediabetes Prurigo nodularis Pyoderma, unspecified 03/18/2006 Sleep apnea wears CPAP Tendonitis of left hip Tendonitis of right hip Unspecified asthma(493.90) PAST SURGICAL HISTORY Procedure Laterality Date APPENDECTOMY 11/01/2008 DELIVERY ONLY 1996,2008 , low cervical CHOLECYSTECTOMY 11/01/1998 Cholecystectomy COLONOSCOPY FLX DX W/COLLJ SPEC WHEN PFRMD 11/17/[address] Bojorquez 4 yr COLONOSCOPY W/BIOPSY SINGLE/MULTIPLE 01/03/2007 EYE SURGERY PROCEDURE Bilateral glucoma I/D PERIANAL ABSCESS, SUPERFICIAL 10/31/2013 LAPAROSCOPIC HEMICOLECTOMY 10/2020 10 inches of lower bowel removed d/t abscess - Dr Reyes LIG/TRNSXJ FLP TUBE ABDL/VAG APPR UNI/BI 11/01/2008 Tubal ligation NEUROPLASTY AND/TRANSPOS MEDIAN NRV CARPAL TUNNE 09/18/2005 Carpal tunnel decomp left NEUROPLASTY AND/TRANSPOS MEDIAN NRV CARPAL TUNNE 10/06/2005 Carpal tunnel decomp right PAST SURGICAL HISTORY OF 11/01/1977 RIGHT EYE PAST SURGICAL HISTORY OF 11/01/2012 fistulotomy PAST SURGICAL HISTORY OF 11/18/2021 phaco/goniosynechiolysis/goniotomy OS. PLACEMENT OF SETON 01/30/2014 PROCEDURE Right 01/22/2022 Phaco/Goniotomy REMV CATARACT EXTRACAP,INSERT LENS Bilateral SURG TX ANAL FISTULA 2ND STAGE 01/30/2014 FAMILY HISTORY Problem Relation Age of Onset Cancer Mother uterine Heart Mother Psychiatry Mother DEPRESSION COPD Mother Cataract Mother other (celiac) Mother Dementia Mother Vascular Celiac Disease Mother Colon Cancer Father 69 Amblyopia Father other (pre diabetic) Sister Heart Sister Psychiatry Brother Heart Attack Brother 49 AIDs related Psychiatry Brother Heart Attack Brother 54 Diabetes Brother Diabetes Brother Asthma Brother Breast Cancer Maternal Grandmother Diabetes Maternal Grandmother Heart Maternal Grandfather No Known Problems Daughter No Known Problems Daughter Psychiatry Maternal Aunt BIPOLAR Stroke Maternal Aunt Breast Cancer Maternal Aunt Social History Tobacco Use Smoking status: Never Smokeless tobacco: Never Tobacco comments: tried briefly age 14 for several months Vaping Use Vaping Use: Never used Substance Use Topics Alcohol use: Yes Comment: rarely,NOT WHILE Drug use: No Current Outpatient Medications Medication Sig albuterol (PROVENTIL) 2.5 mg /3 mL (0.083 %) nebulizer solution Use 3 mL via nebulizer every 4 hours as needed. Use over 5-15minutes. albuterol HFA (PROAIR HFA) 90 mcg/actuation inhaler Inhale 2 Puffs as instructed every 6 hours as needed. BD INSULIN PEN NEEDLE UF 31 gauge x 5/16 Benzonatate 200 mg capsule Take by mouth. budesonide-formoterol (SYMBICORT) 80-4.5 mcg/actuation inhaler Inhale 2 Puffs as instructed twice daily. cetirizine HCl (ZYRTEC ORAL) Take 10 mg by mouth as needed. Clobetasol Propionate (TEMOVATE) 0.05 % external solution Apply 1 application to affected area twice daily as needed. For the affected areas of the scalp. Use up to 21 days per month. dicyclomine (BENTYL) 10 mg capsule Take 10 mg by mouth as needed. EPINEPHrine (EPIPEN) 0.3 mg/0.3 mL (1:1,000) atIn Inject intramuscul (more content not included)... [facility] 08-11-2023 History of Present illness Narrative Cardiology consultation at the request of Dr. Smith. A copy of this consultation note will be provided to the requesting physician by way of shared Medical record or letter to requesting physician via [place] mail. Chief Complaint: Patient presents with: Consult: Syncope,Dizziness History of Present Illness: Maddie Jones is a 47 year old female with history of glaucoma, vision loss due to unclear cause possible optic nerve stroke, sciatica enthesopathy of hip region, diabetes was referred by the neurologist for episodes of lightheadedness. Patient says for the last 1 year she gets lightheaded when she first sits up or stands up. She gets lightheaded if she stands for long period of time. She also gets lightheaded if she is coughing vigorously. She has come close to passing out but has never passed out. Denies chest pain. Occasionally gets short of breath on exertion. Denies palpitations orthopnea PND or leg edema. 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 MYOFASCITIS 12/21/2006 Optic neuritis, right 95% vision loss Plantar fasciitis of left foot Prediabetes Prurigo nodularis Pyoderma, unspecified 03/18/2006 Sleep apnea wears CPAP Tendonitis of left hip Tendonitis of right hip Unspecified asthma(493.90) PAST SURGICAL HISTORY Procedure Laterality Date APPENDECTOMY 11/01/2008 DELIVERY ONLY 1996,2008 , low cervical CHOLECYSTECTOMY 11/01/1998 Cholecystectomy COLONOSCOPY FLX DX W/COLLJ SPEC WHEN PFRMD 11/17/[address] Bojorquez 4 yr COLONOSCOPY W/BIOPSY SINGLE/MULTIPLE 01/03/2007 EYE SURGERY PROCEDURE Bilateral glucoma I/D PERIANAL ABSCESS, SUPERFICIAL 10/31/2013 LAPAROSCOPIC HEMICOLECTOMY 10/2020 10 inches of lower bowel removed d/t abscess - Dr Reyes LIG/TRNSXJ FLP TUBE ABDL/VAG APPR UNI/BI 11/01/2008 Tubal ligation NEUROPLASTY &/TRANSPOS MEDIAN NRV CARPAL TUNNE 09/18/2005 Carpal tunnel decomp left NEUROPLASTY &/TRANSPOS MEDIAN NRV CARPAL TUNNE 10/06/2005 Carpal tunnel decomp right PAST SURGICAL HISTORY OF 11/01/1977 RIGHT EYE PAST SURGICAL HISTORY OF 11/01/2012 fistulotomy PAST SURGICAL HISTORY OF 11/18/2021 phaco/goniosynechiolysis/goniotomy OS. PLACEMENT OF SETON 01/30/2014 PROCEDURE Right 01/22/2022 Phaco/Goniotomy REMV CATARACT EXTRACAP,INSERT LENS Bilateral SURG TX ANAL FISTULA 2ND STAGE 01/30/2014 FAMILY HISTORY Problem Relation Age of Onset Cancer Mother uterine Heart Mother Psychiatry Mother DEPRESSION COPD Mother Cataract Mother other (celiac) Mother Dementia Mother Vascular Celiac Disease Mother Colon Cancer Father 69 Amblyopia Father other (pre diabetic) Sister Heart Sister Psychiatry Brother Heart Attack Brother 49 AIDs related Psychiatry Brother Heart Attack Brother 54 Diabetes Brother Diabetes Brother Asthma Brother Breast Cancer Maternal Grandmother Diabetes Maternal Grandmother Heart Maternal Grandfather No Known Problems Daughter No Known Problems Daughter Psychiatry Maternal Aunt BIPOLAR Stroke Maternal Aunt Breast Cancer Maternal Aunt Social History Tobacco Use Smoking status: Never Smokeless tobacco: Never Tobacco comments: tried briefly age 14 for several months Vaping Use Vaping Use: Never used Substance Use Topics Alcohol use: Yes Comment: rarely,NOT WHILE Drug use: No Current Outpatient Medications Medication Sig albuterol (PROVENTIL) 2.5 mg /3 mL (0.083 %) nebulizer solution Use 3 mL via nebulizer every 4 hours as needed. Use over 5-15minutes. albuterol HFA (PROAIR HFA) 90 mcg/actuation inhaler Inhale 2 Puffs as instructed every 6 hours as needed. BD INSULIN PEN NEEDLE UF 31 gauge x 5/16 Benzonatate 200 mg capsule Take by mouth. budesonide-formoterol (SYMBICORT) 80-4.5 mcg/actuation inhaler Inhale 2 Puffs as instructed twice daily. cetirizine HCl (ZYRTEC ORAL) Take 10 mg by mouth as needed. Clobetasol Propionate (TEMOVATE) 0.05 % external solution Apply 1 application to affected area twice daily as needed. For the affected areas of the scalp. Use up to 21 days per month. dicyclomine (BENTYL) 10 mg capsule Take 10 mg by mouth as needed. EPINEPHrine (EPIPEN) 0.3 mg/0.3 mL (1:1,000) atIn Inject intramuscularly. USE DIRECTED FOR ALLERGIC REACTION. SEEK EMERGENT MEDICAL IMMEDIATELY AFTER USE. fluticasone (FLONASE) 50 mcg/actuation nasal spray Use 2 Sprays in each nostril once daily. (Patient taking differently: Use 2 Sprays in each nostril as needed.) ketoconazole (NIZORAL) 2 % cream Apply to affected area as needed. LEVEMIR FLEXTOUCH U-100 INSULIN 100 unit/mL (3 mL) injection pen Inject 34 Units subcutaneously daily at bedtime. levothyroxine (LEVOXYL) 88 mcg tablet Take 1 tablet by mouth once daily. Take on empty stomach. For Thyroid meloxicam (MOBIC) 15 mg tablet Take 1 tablet by mouth once daily. metFORMIN (GLUCOPHAGE) 1,000 mg tablet Take 1,000 mg by mouth twice daily with meals. ondansetron orally disintegrating (ZOFRAN ODT) 4 mg disintegrating tablet Take by mouth every 8 hours as needed. pantoprazole DR (PROTONIX) 20 mg tablet Take 20 mg by mouth twice daily. prednisoLONE acetate (PRED FORTE, ECONOPRED PLUS) 1 % ophthalmic suspension ONCE DAILY LEFT EYE pregabalin (LYRICA) 50 mg capsule Take 1 capsule by mouth twice daily for 90 days. timolol maleate (TIMOPTIC) 0.5 % ophthalmic solution Use 1 Drop in both eyes every morning. triamcinolone acetonide (KENALOG) 0.1 % ointment Apply to affected area twice daily as needed. For the affected areas on the extremities. Use up to 21 days per month. Current Facility-Administered Medications Medication Dose Route Frequency perflutren lipid microspheres 1.3 mL in NaCl (PF) 0.9% 10 mL injection (DEFINITY) INTRAVENOUS DIRECTED PRN sodium chloride 0.9 % (flush) 10 mL (BD POSIFLUSH) 10 mL INTRAVENOUS DIRECTED PRN ALLERGIES Allergen Reactions Salmeterol Anaphylaxis Clavulanic Acid Hives Advair Diskus [Flut* Other: See Comments IRRITATES THROAT Augmentin [Amoxicil* Hives, Other: See Comments Bees Swelling HAS EPIPEN Ciprofloxacin GI Upset Cold-Allergy Rash, Cough, Hives, Swelling, Itching Allergy to cold temp Environmental [Othe* Other: See Comments Cats, dogs, molds, grasses, weeds Excedrin [Aspirin-A* Other: See Comments Heart palpitations Review of Systems: General: No weight loss, malaise, fevers, chills, or night sweats HEENT: Negative for epistaxis Neck: Negative for pain and significant neck swelling Respiratory: Negative for cough, shortness of breath at rest or on exertion, wheezing Cardiac: Negative history of chest pain on exertion, dyspnea on exertion, orthopnea, paroxysmal nocturnal dyspnea, lower extremity edema, presyncope, syncope, or palpitations Gastrointestinal: Negative history of abdominal pain, nausea, vomiting, constipation, diarrhea, melena, or hematochezia Urinary: Negative history of dysuria, hematuria, or frequency Peripheral vascular: No claudication Musculoskeletal: Negative for joint aches/pain, neck pain, or back pain Neurologic: Negative history of dizziness/lightheadedness, vertigo, numbness/tingling of hands or feet Hematologic: Negative for easy bruising or easy bleeding. Endocrine: Negative history of obesity Skin: Negative history of rash and itching Other: The rest of the review of systems is unremarkable and negative or non-contributory Physical Examination: Ht 157.5 cm (5' 2 ) Wt 88.9 kg (196 lb) LMP 01/18/2023 SpO2 97% BMI 35.85 kg/m BMI 35.85 kg/(m^2) General appearance: Well appearing, alert, appears to be in no acute distress, cooperative Head: Normocephalic, atraumatic HEENT: Extraocular movements intact; mucous membranes moist; no JVD Lungs: Breath sounds equal. Clear to auscultation bilaterally, no rales, rhonchi, or wheezes Heart: RRR; normal S1/S2; no murmurs/gallops/rubs Abdomen: Abdomen soft, non-distended, non-tender. NABS Extremities: No cyanosis, clubbing or edema Skin: No rashes noted Neurologic: Grossly nonfocal Psych: Normal mood/affect Cardiac Testing and Procedures: Electrocardiogram: 08/11/2023: Normal sinus rhythm at 94 bpm. Low voltage QRS. I have personally reviewed the Electrocardiogram. ASSESSMENT/PLAN: 1. Lightheadedness - ICD9: 780.4, ICD10: R42 (primary diagnosis) Management as in 2. 2. Orthostatic hypotension - ICD9: 458.0, ICD10: I95.1 Patient's orthostatics were positive in the office today. I have asked her to consume a liberal salt and fluid intake diet. Patient is to get up slowly from lying to sitting to standing position. If she is standing for long peers of time I have demonstrated to her many words like crossing legs or clenching back of her leg muscles or isometric handgrip. I have also talked about possible use of compression stockings in the future. I have also told her to avoid lying down for prolonged peers of time which she says she does not do. Potentially could increase the head end of the bed to 30 degrees. I have talked to her about doing a tilt table test to confirm the diagnosis but I told her that it will not change our management. She is agreeable to holding off on ordering the tilt table test at this time. I have ordered an echocardiogram to rule out structural heart disease as a cause of her symptoms. Nonpharmacological lifestyle modification literature handed over to the patient at the time of discharge. Rafael Overton MD documented in this encounter [facility] 08-06-2023 Note HNO ID: [id number] Author: Kelin uBrch PA-C Service: ? Author Type: Physician Explosive Operator Bomb Type: Progress Notes Filed: 08/06/2023 1:15 PM Note Text: SPINE CARE PATH LOW BACK PAIN: CHRONIC FOLLOW-UP SUBJECTIVE HISTORY OF PRESENT ILLNESS: Reason for Visit: Follow up Maddie Jones is seen for 5 week follow up. She has seen Ortho who did order a bilateral US guided bursa injection, she has yet to schedule this. She says the pain in the hips is more bothersome than the pain in the back. There is no radiation down the legs, no numbness or tingling. She had worked with PT, taking [employer] and the [employer]. YELLOW AND BLUE FLAGS No-Neg Attitude; Back Pain is Disabling No-Avoiding Activity (for Fear of Pain) No-Depression or Anxiety Disorders No-Social Problems No-Substance Use Disorder No-Job Dissatisfaction No-Financial Disincentives Patient Entered Questionnaires PROMIS Score Percentiles Percentiles provide an indication of how the patient's score ranks in relation to the general population. Higher percentile rankings indicate better function/quality of life. 50th percentile is the average of the general population and indicates half of respondents had a worse score. Depression Screening: PHQ-9 Self-Harm (Item 9) response options: 0 Not at all 1 Several days 2 More than half the days 3 Nearly every day PHQ-9 Levels: 0-4 No - mild depression 5-9 Mild depression 10-14 Moderate depression 15-19 Moderately severe depression 20-27 Severe depression The medical history, medications and allergies have been reviewed. REVIEW OF SYSTEMS: Review of Systems Constitutional: Negative Eyes: Negative Hent: Negative Cardiovascular Positive for Lightheadedness and Leg pain with walking Respiratory: Negative GI: Negative : Negative Endocrine: Negative Musculoskeletal Positive for Back Pain, Joint Swelling and Muscle Pain Integumentary: Negative Heme/Lymph: Negative Allergy/Immunologic: Negative Neurologic Positive for Memory Problems Psychiatric: Negative Patient's Review of Systems has been reviewed with the patient and updated as appropriate. OBJECTIVE PHYSICAL EXAM: Ht 165.1 cm (5' 5 ) Wt 88.5 kg (195 lb) LMP 01/18/2023 BMI 32.45 kg/m? The patient is a well developed, well nourished female who is cooperative. The patient's gait is normal. Posture and spinal curves are normal. Patient has no palpable muscle spasm and/or tenderness. Flexion of the lumbar spine is within normal limits. Extension is within normal limits. Patellar reflexes are 2+ Normal right and 2+ Normal left. Achilles reflexes are normal right and normal left. Lower extremity muscle strength is normal. Tone is within normal limits. Straight leg raise test is negative; bilaterally. Sensation to light touch is within normal limits. Neuro Tests: None ASSESSMENT/PLAN (M70.61, M70.62) Trochanteric bursitis of both hips (primary encounter diagnosis) Comment: Will schedule for bilateral US guided bursa injections, if she continues to have pain in the low back we may consider MRI for injection planning. She can follow up as needed for the time being. Plan: Imaging Ordered: None SIGNATURE: Kelin Burch PA-C PATIENT NAME: Maddie Jones DATE: August 06, 2023 TIME: 12:54 PM [facility] 08-06-2023 History of Present illness Narrative SPINE CARE PATH LOW BACK PAIN: CHRONIC FOLLOW-UP SUBJECTIVE HISTORY OF PRESENT ILLNESS: Reason for Visit: Follow up Maddie Jones is seen for 5 week follow up. She has seen Ortho who did order a bilateral US guided bursa injection, she has yet to schedule this. She says the pain in the hips is more bothersome than the pain in the back. There is no radiation down the legs, no numbness or tingling. She had worked with PT, taking [employer] and the [employer]. YELLOW & BLUE FLAGS No-Neg Attitude; Back Pain is Disabling No-Avoiding Activity (for Fear of Pain) No-Depression or Anxiety Disorders No-Social Problems No-Substance Use Disorder No-Job Dissatisfaction No-Financial Disincentives Patient Entered Questionnaires PROMIS Score Percentiles Percentiles provide an indication of how the patient's score ranks in relation to the general population. Higher percentile rankings indicate better function/quality of life. 50th percentile is the average of the general population and indicates half of respondents had a worse score. Depression Screening: PHQ-9 Self-Harm (Item 9) response options: 0 Not at all 1 Several days 2 More than half the days 3 Nearly every day PHQ-9 Levels: 0-4 No - mild depression 5-9 Mild depression 10-14 Moderate depression 15-19 Moderately severe depression 20-27 Severe depression The medical history, medications and allergies have been reviewed. REVIEW OF SYSTEMS: Review of Systems Constitutional: Negative Eyes: Negative Hent: Negative Cardiovascular Positive for Lightheadedness and Leg pain with walking Respiratory: Negative GI: Negative : Negative Endocrine: Negative Musculoskeletal Positive for Back Pain, Joint Swelling and Muscle Pain Integumentary: Negative Heme/Lymph: Negative Allergy/Immunologic: Negative Neurologic Positive for Memory Problems Psychiatric: Negative Patient's Review of Systems has been reviewed with the patient and updated as appropriate. OBJECTIVE PHYSICAL EXAM: Ht 165.1 cm (5' 5 ) Wt 88.5 kg (195 lb) LMP 01/18/2023 BMI 32.45 kg/m The patient is a well developed, well nourished female who is cooperative. The patient's gait is normal. Posture and spinal curves are normal. Patient has no palpable muscle spasm and/or tenderness. Flexion of the lumbar spine is within normal limits. Extension is within normal limits. Patellar reflexes are 2+ Normal right and 2+ Normal left. Achilles reflexes are normal right and normal left. Lower extremity muscle strength is normal. Tone is within normal limits. Straight leg raise test is negative; bilaterally. Sensation to light touch is within normal limits. Neuro Tests: None ASSESSMENT/PLAN (M70.61, M70.62) Trochanteric bursitis of both hips (primary encounter diagnosis) Comment: Will schedule for bilateral US guided bursa injections, if she continues to have pain in the low back we may consider MRI for injection planning. She can follow up as needed for the time being. Plan: Imaging Ordered: None SIGNATURE: Kelin Burch PA-C PATIENT NAME: Maddie Jones DATE: August 06, 2023 TIME: 12:54 PM documented in this encounter [facility] 07-02-2023 Note HNO ID: [id number] Author: Porter Potts MD Service: ? Author Type: Physician Type: Progress Notes Filed: 07/02/2023 4:25 PM Note Text: HISTORY OF PRESENT ILLNESS: Maddie Jones is a 47 year old female referred for evaluation of elevated kappa light chain. Monoclonal protein testing was undertaken by patient's Validation Engineer searching for reason for elevated markers of inflammation. [place] levels seen to be increased on 2 occasions. She is here with her , we reviewed her labs in detail, also her complex history. CLINICAL IMPRESSION: Elevated kappa level, k/l ratio slightly above eloy, but less than 4 extraordinarily unlikely to represent a pathologic process. RECOMMENDATION/PLAN: 1. No further work up needed re the light chains Written and verbal health teaching given to patient, patient verbalizes understanding and agrees with treatment plan. 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 MYOFASCITIS 12/21/2006 Optic neuritis, right 95% vision loss Plantar fasciitis of left foot Prediabetes Prurigo nodularis Pyoderma, unspecified 03/18/2006 Sleep apnea wears CPAP Tendonitis of left hip Tendonitis of right hip Unspecified asthma(493.90) PAST SURGICAL HISTORY Procedure Laterality Date APPENDECTOMY 11/01/2008 DELIVERY ONLY 1996,2008 , low cervical CHOLECYSTECTOMY 11/01/1998 Cholecystectomy COLONOSCOPY FLX DX W/COLLJ SPEC WHEN PFRMD 11/17/[address] Bojorquez 4 yr COLONOSCOPY W/BIOPSY SINGLE/MULTIPLE 01/03/2007 EYE SURGERY PROCEDURE Bilateral glucoma I/D PERIANAL ABSCESS, SUPERFICIAL 10/31/2013 LAPAROSCOPIC HEMICOLECTOMY 10/2020 10 inches of lower bowel removed d/t abscess - [place] LIG/TRNSXJ FLP TUBE ABDL/VAG APPR UNI/BI 11/01/2008 Tubal ligation NEUROPLASTY AND/TRANSPOS MEDIAN NRV CARPAL TUNNE 09/18/2005 Carpal tunnel decomp left NEUROPLASTY AND/TRANSPOS MEDIAN NRV CARPAL TUNNE 10/06/2005 Carpal tunnel decomp right PAST SURGICAL HISTORY OF 11/01/1977 RIGHT EYE PAST SURGICAL HISTORY OF 11/01/2012 fistulotomy PAST SURGICAL HISTORY OF 11/18/2021 phaco/goniosynechiolysis/goniotomy OS. PLACEMENT OF SETON 01/30/2014 PROCEDURE Right 01/22/2022 Phaco/Goniotomy REMV CATARACT EXTRACAP,INSERT LENS Bilateral SURG TX ANAL FISTULA 2ND STAGE 01/30/2014 FAMILY HISTORY Problem Relation Age of Onset Cancer Mother uterine Heart Mother Psychiatry Mother DEPRESSION COPD Mother Cataract Mother other (celiac) Mother Dementia Mother Vascular Celiac Disease Mother Colon Cancer Father 69 Amblyopia Father other (pre diabetic) Sister Heart Sister Psychiatry Brother Heart Attack Brother 49 AIDs related Psychiatry Brother Heart Attack Brother 54 Diabetes Brother Diabetes Brother Asthma Brother Breast Cancer Maternal Grandmother Diabetes Maternal Grandmother Heart Maternal Grandfather No Known Problems Daughter No Known Problems Daughter Psychiatry Maternal Aunt BIPOLAR Stroke Maternal Aunt Breast Cancer Maternal Aunt Social History Tobacco Use Smoking status: Never Smokeless tobacco: Never Tobacco comments: tried briefly age 14 for several months Vaping Use Vaping Use: Never used Substance Use Topics Alcohol use: Yes Comment: rarely,NOT WHILE Drug use: No ALLERGIES: ALLERGIES Allergen Reactions Salmeterol Anaphylaxis Clavulanic Acid Hives Advair Diskus [Flut* Other: See Comments IRRITATES THROAT Augmentin [Amoxicil* Hives, Other: See Comments Bees Swelling HAS EPIPEN Ciprofloxacin GI Upset Cold-Allergy Rash, Cough, Hives, Swelling, Itching Allergy to cold temp Environmental [Othe* Other: See Comments Cats, dogs, molds, grasses, weeds Excedrin [Aspirin-A* Other: See Comments Heart palpitations CURRENT OUTPATIENT MEDICATIONS: meloxicam (MOBIC) 15 mg tablet Take 1 tablet by mouth once daily. triamcinolone acetonide (KENALOG) 0.1 % ointment Apply to affected area twice daily as needed. For the affected areas on the extremities. Use up to 21 days per month. Clobetasol Propionate (TEMOVATE) 0.05 % external solution Apply 1 application to affected area twice daily as needed. For the affected areas of the scalp. Use up to 21 days per month. pregabalin (LYRICA) 50 mg capsule Take 1 capsule by mouth twice daily for 90 days. prednisoLONE acetate (PRED FORTE, ECONOPRED PLUS) 1 (more content not included)... [facility] 07-02-2023 History of Present illness Narrative HISTORY OF PRESENT ILLNESS: Maddie Jones is a 47 year old female referred for evaluation of elevated kappa light chain. Monoclonal protein testing was undertaken by patient's Validation Engineer searching for reason for elevated markers of inflammation. [place] levels seen to be increased on 2 occasions. She is here with her , we reviewed her labs in detail, also her complex history. CLINICAL IMPRESSION: Elevated kappa level, k/l ratio slightly above eloy, but less than 4 extraordinarily unlikely to represent a pathologic process. RECOMMENDATION/PLAN: 1. No further work up needed re the light chains Written and verbal health teaching given to patient, patient verbalizes understanding and agrees with treatment plan. 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 MYOFASCITIS 12/21/2006 Optic neuritis, right 95% vision loss Plantar fasciitis of left foot Prediabetes Prurigo nodularis Pyoderma, unspecified 03/18/2006 Sleep apnea wears CPAP Tendonitis of left hip Tendonitis of right hip Unspecified asthma(493.90) PAST SURGICAL HISTORY Procedure Laterality Date APPENDECTOMY 11/01/2008 DELIVERY ONLY 1996,2008 , low cervical CHOLECYSTECTOMY 11/01/1998 Cholecystectomy COLONOSCOPY FLX DX W/COLLJ SPEC WHEN PFRMD 11/17/[address] Bojorquez 4 yr COLONOSCOPY W/BIOPSY SINGLE/MULTIPLE 01/03/2007 EYE SURGERY PROCEDURE Bilateral glucoma I/D PERIANAL ABSCESS, SUPERFICIAL 10/31/2013 LAPAROSCOPIC HEMICOLECTOMY 10/2020 10 inches of lower bowel removed d/t abscess - Dr Reyes LIG/TRNSXJ FLP TUBE ABDL/VAG APPR UNI/BI 11/01/2008 Tubal ligation NEUROPLASTY &/TRANSPOS MEDIAN NRV CARPAL TUNNE 09/18/2005 Carpal tunnel decomp left NEUROPLASTY &/TRANSPOS MEDIAN NRV CARPAL TUNNE 10/06/2005 Carpal tunnel decomp right PAST SURGICAL HISTORY OF 11/01/1977 RIGHT EYE PAST SURGICAL HISTORY OF 11/01/2012 fistulotomy PAST SURGICAL HISTORY OF 11/18/2021 phaco/goniosynechiolysis/goniotomy OS. PLACEMENT OF SETON 01/30/2014 PROCEDURE Right 01/22/2022 Phaco/Goniotomy REMV CATARACT EXTRACAP,INSERT LENS Bilateral SURG TX ANAL FISTULA 2ND STAGE 01/30/2014 FAMILY HISTORY Problem Relation Age of Onset Cancer Mother uterine Heart Mother Psychiatry Mother DEPRESSION COPD Mother Cataract Mother other (celiac) Mother Dementia Mother Vascular Celiac Disease Mother Colon Cancer Father 69 Amblyopia Father other (pre diabetic) Sister Heart Sister Psychiatry Brother Heart Attack Brother 49 AIDs related Psychiatry Brother Heart Attack Brother 54 Diabetes Brother Diabetes Brother Asthma Brother Breast Cancer Maternal Grandmother Diabetes Maternal Grandmother Heart Maternal Grandfather No Known Problems Daughter No Known Problems Daughter Psychiatry Maternal Aunt BIPOLAR Stroke Maternal Aunt Breast Cancer Maternal Aunt Social History Tobacco Use Smoking status: Never Smokeless tobacco: Never Tobacco comments: tried briefly age 14 for several months Vaping Use Vaping Use: Never used Substance Use Topics Alcohol use: Yes Comment: rarely,NOT WHILE Drug use: No ALLERGIES: ALLERGIES Allergen Reactions Salmeterol Anaphylaxis Clavulanic Acid Hives Advair Diskus [Flut* Other: See Comments IRRITATES THROAT Augmentin [Amoxicil* Hives, Other: See Comments Bees Swelling HAS EPIPEN Ciprofloxacin GI Upset Cold-Allergy Rash, Cough, Hives, Swelling, Itching Allergy to cold temp Environmental [Othe* Other: See Comments Cats, dogs, molds, grasses, weeds Excedrin [Aspirin-A* Other: See Comments Heart palpitations CURRENT OUTPATIENT MEDICATIONS: meloxicam (MOBIC) 15 mg tablet Take 1 tablet by mouth once daily. triamcinolone acetonide (KENALOG) 0.1 % ointment Apply to affected area twice daily as needed. For the affected areas on the extremities. Use up to 21 days per month. Clobetasol Propionate (TEMOVATE) 0.05 % external solution Apply 1 application to affected area twice daily as needed. For the affected areas of the scalp. Use up to 21 days per month. pregabalin (LYRICA) 50 mg capsule Take 1 capsule by mouth twice daily for 90 days. prednisoLONE acetate (PRED FORTE, ECONOPRED PLUS) 1 % ophthalmic suspension ONCE DAILY LEFT EYE albuterol (PROVENTIL) 2.5 mg /3 mL (0.083 %) nebulizer solution Use 3 mL via nebulizer every 4 hours as needed. Use over 5-15minutes. timolol maleate (TIMOPTIC) 0.5 % ophthalmic solution Use 1 Drop in both eyes every morning. Benzonatate 200 mg capsule Take by mouth. dicyclomine (BENTYL) 10 mg capsule Take 10 mg by mouth as needed. ketoconazole (NIZORAL) 2 % cream Apply to affected area as needed. ondansetron orally disintegrating (ZOFRAN ODT) 4 mg disintegrating tablet Take by mouth every 8 hours as needed. metFORMIN (GLUCOPHAGE) 1,000 mg tablet Take 1,000 mg by mouth twice daily with meals. LEVEMIR FLEXTOUCH U-100 INSULIN 100 unit/mL (3 mL) injection pen Inject 34 Units subcutaneously daily at bedtime. albuterol HFA (PROAIR HFA) 90 mcg/actuation inhaler Inhale 2 Puffs as instructed every 6 hours as needed. pantoprazole DR (PROTONIX) 20 mg tablet Take 20 mg by mouth twice daily. cetirizine HCl (ZYRTEC ORAL) Take 10 mg by mouth as needed. budesonide-formoterol (SYMBICORT) 80-4.5 mcg/actuation inhaler Inhale 2 Puffs as instructed twice daily. levothyroxine (LEVOXYL) 88 mcg tablet Take 1 tablet by mouth once daily. Take on empty stomach. For Thyroid fluticasone (FLONASE) 50 mcg/actuation nasal spray Use 2 Sprays in each nostril once daily. (Patient taking differently: Use 2 Sprays in each nostril as needed.) EPINEPHrine (EPIPEN) 0.3 mg/0.3 mL (1:1,000) atIn Inject intramuscularly. USE DIRECTED FOR ALLERGIC REACTION. SEEK EMERGENT MEDICAL IMMEDIATELY AFTER USE. BD INSULIN PEN NEEDLE UF 31 gauge x 5/16 REVIEW OF SYSTEMS: GENERAL: No fever, night sweats, weight loss or malaise. All other reviewed and negative other than HPI. PHYSICAL EXAMINATION: VITAL SIGNS: BP 120/81 Pulse 94 Temp 98.3 Ht 5' 2.205 (1.58m) Wt 195 lb 8 oz (88.7kg) SpO2 98% LMP 01/18/2023 BMI 35.52 kg/(m^2). GENERAL APPEARANCE: Well appearing, in no acute distress, alert and oriented x3, well-hydrated, well nourished. I spent a total of 45 minutes on the date of the service which included preparing to see the patient, [id number] patient care, completing clinical documentation, obtaining and/or reviewing separately obtained history, counseling and educating the patient/family/caregiver, independently interpreting results (not separately reported), and communicating results to the patient/family/caregiver. Electronically Signed: Porter Potts MD July 02, 2023 3:11 PM documented in this encounter [facility] 06-25-2023 Note HNO ID: [id number] Author: Elena Dixon APRN.DEVELOPER EVANGELIST Service: ? Author Type: Nurse Practitioner Type: Progress Notes Filed: 06/25/2023 9:37 AM Note Text: Patient came in with complaints of stomach achiness nausea and diarrhea for a week. Patient has significant history of diverticulitis with perforations that cause 10 inches of her bowel to be removed. Patient is extremely tender when abdomen is palpated. Due to removal of intestines patient may not present like a normal diverticulitis patient. At this time patient is being referred to the emergency room for full evaluation due to the complication she had in 2019 when she went septic from the perforations. The caregiver is going to take her now. [facility] 06-25-2023 History of Present illness Narrative Patient came in with complaints of stomach achiness nausea and diarrhea for a week. Patient has significant history of diverticulitis with perforations that cause 10 inches of her bowel to be removed. Patient is extremely tender when abdomen is palpated. Due to removal of intestines patient may not present like a normal diverticulitis patient. At this time patient is being referred to the emergency room for full evaluation due to the complication she had in 2019 when she went septic from the perforations. The caregiver is going to take her now. documented in this encounter [facility] 06-24-2023 Note HNO ID: [id number] Author: Steffen Kemp MD Service: ? Author Type: Physician Type: Progress Notes Filed: 07/21/2023 4:14 PM Note Text: Steffen Kemp MD Department of Orthopaedics Orthopaedics [address] [facility] [address] Dept: [phone] Dept June 24, 2023 CHIEF COMPLAINT: New and Pain of the Left Hip (Trochanteric bursitis referred Dr Kelin Burch, xrays 09/29/22) and Established Patient and Pain of the Right Hip (Trochanteric bursitis ) HPI Patient presents with: Left Hip - New, Pain: Trochanteric bursitis referred Dr Kelin Burch, xrays 09/29/22 Right Hip - Established Patient, Pain: Trochanteric bursitis Patient reports ongoing pain in bilateral hips. She is seeing a entry specialist at this time.She just finished physical therapy. She is taking lyrica. AMB ROOMING INTAKE FLOWSHEET DATA Pain Pain Level: 8 Pain Location: Hip-Left (hip right) Description: Aching Duration Amount of Time: 2 Duration Units: Years Frequency: Continuous Intervention/Comfort measure: Exercise, Medication ASSESSMENT: M70.61, M70.62 Trochanteric bursitis of both hips PLAN: She has entertained some physical therapy she is also seeing nonoperative spine. Based on her exam today portion of her symptoms are certainly from some trochanteric bursitis and we will get her in with one of the ultrasound providers to see if that accuracy can be helpful for her. FOLLOW UP INSTRUCTIONS: She can follow-up with sports medicine for further evaluation OBJECTIVE: Ms. Maddie Jones is a pleasant 47 year old in no apparent distress. Gen:LMP 01/18/2023 nl development, obese, no deformities ENT: Normocephalic, normal hearing, moist mucosa CV: Pulses:DP/PT= 2+ and symmetric, capillary refill < 2 secs, no peripheral edema/varicosities Skin: no rash, bruising or lesions. Good turgor. Psych: cooperative and appropriate, alert and oriented x 3, good mood and affect. Musculoskeletal: Tender to palpation over the greater trochanter on the left. Pain with resisted abduction. No pain with flexion and internal rotation of the hip. Overall good range of motion without mechanical symptoms or block. 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 Additional history provided by the performing technologist (if any): Bilateral hip pain, no recent injuries or surgeries TECHNIQUE: XR HIP DAMIAN 5V PEL+ AP/LAT EA HIP COMPARISON: None RESULT: No evidence of fracture or other acute bone abnormality. Joints are normal. No erosions. Incidental note of degenerative disc disease in the lumbar spine. Surgical clips in the pelvis. No other significant abnormality. 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 MYOFASCITIS 12/21/2006 Optic neuritis, right 95% vision loss Plantar fasciitis of left foot Prediabetes Pyoderma, unspecified 03/18/2006 Sleep apnea wears CPAP Unspecified asthma(493.90) Past Surgical History: PAST SURGICAL HISTORY Procedure Laterality Date APPENDECTOMY 11/01/2008 DELIVERY ONLY 1996,2008 , low cervical CHOLECYSTECTOMY 11/01/1998 Cholecystectomy COLONOSCOPY FLX DX W/COLLJ SPEC WHEN PFRMD 11/17/[address] Bojorquez 4 yr COLONOSCOPY W/BIOPSY SINGLE/MULTIPLE 01/03/2007 EYE SURGERY PROCEDURE Bilateral glucoma I/D PERIANAL ABSCESS, SUPERFICIAL 10/31/2013 LAPAROSCOPIC HEMICOLECTOMY 10/2020 10 inches of lower bowel removed d/t abscess - Dr Reyes LIG/TRNSXJ FLP TUBE ABDL/VAG APPR UNI/BI 11/01/2008 Tubal ligation NEUROPLASTY AND/TRANSPOS MEDIAN NRV CARPAL TUNNE 09/18/2005 Carpal tunnel decomp left NEUROPLASTY AND/TRANSPOS MEDIAN NRV CARPAL TUNNE 10/06/20 (more content not included)... [facility] 06-24-2023 History of Present illness Narrative Steffen Kemp MD Department of Orthopaedics Orthopaedics [address] [place] [address] Dept: [phone] Dept June 24, 2023 CHIEF COMPLAINT: New and Pain of the Left Hip (Trochanteric bursitis referred Dr Kelin Burch, xrays 09/29/22) and Established Patient and Pain of the Right Hip (Trochanteric bursitis ) HPI Patient presents with: Left Hip - New, Pain: Trochanteric bursitis referred Dr Kelin Burch, xrays 09/29/22 Right Hip - Established Patient, Pain: Trochanteric bursitis Patient reports ongoing pain in bilateral hips. She is seeing a entry specialist at this time.She just finished physical therapy. She is taking lyrica. AMB ROOMING INTAKE FLOWSHEET DATA Pain Pain Level: 8 Pain Location: Hip-Left (hip right) Description: Aching Duration Amount of Time: 2 Duration Units: Years Frequency: Continuous Intervention/Comfort measure: Exercise, Medication ASSESSMENT: M70.61, M70.62 Trochanteric bursitis of both hips PLAN: She has entertained some physical therapy she is also seeing nonoperative spine. Based on her exam today portion of her symptoms are certainly from some trochanteric bursitis and we will get her in with one of the ultrasound providers to see if that accuracy can be helpful for her. FOLLOW UP INSTRUCTIONS: She can follow-up with sports medicine for further evaluation OBJECTIVE: Ms. Maddie Jones is a pleasant 47 year old in no apparent distress. Gen:LMP 01/18/2023 nl development, obese, no deformities ENT: Normocephalic, normal hearing, moist mucosa CV: Pulses:DP/PT= 2+ and symmetric, capillary refill < 2 secs, no peripheral edema/varicosities Skin: no rash, bruising or lesions. Good turgor. Psych: cooperative and appropriate, alert and oriented x 3, good mood and affect. Musculoskeletal: Tender to palpation over the greater trochanter on the left. Pain with resisted abduction. No pain with flexion and internal rotation of the hip. Overall good range of motion without mechanical symptoms or block. 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 Additional history provided by the performing technologist (if any): Bilateral hip pain, no recent injuries or surgeries TECHNIQUE: XR HIP DAMIAN 5V PEL+ AP/LAT EA HIP COMPARISON: None RESULT: No evidence of fracture or other acute bone abnormality. Joints are normal. No erosions. Incidental note of degenerative disc disease in the lumbar spine. Surgical clips in the pelvis. No other significant abnormality. 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 MYOFASCITIS 12/21/2006 Optic neuritis, right 95% vision loss Plantar fasciitis of left foot Prediabetes Pyoderma, unspecified 03/18/2006 Sleep apnea wears CPAP Unspecified asthma(493.90) Past Surgical History: PAST SURGICAL HISTORY Procedure Laterality Date APPENDECTOMY 11/01/2008 DELIVERY ONLY 1996,2008 , low cervical CHOLECYSTECTOMY 11/01/1998 Cholecystectomy COLONOSCOPY FLX DX W/COLLJ SPEC WHEN PFRMD 11/17/[address] Bojorquez 4 yr COLONOSCOPY W/BIOPSY SINGLE/MULTIPLE 01/03/2007 EYE SURGERY PROCEDURE Bilateral glucoma I/D PERIANAL ABSCESS, SUPERFICIAL 10/31/2013 LAPAROSCOPIC HEMICOLECTOMY 10/2020 10 inches of lower bowel removed d/t abscess - Dr Reyes LIG/TRNSXJ FLP TUBE ABDL/VAG APPR UNI/BI 11/01/2008 Tubal ligation NEUROPLASTY &/TRANSPOS MEDIAN NRV CARPAL TUNNE 09/18/2005 Carpal tunnel decomp left NEUROPLASTY &/TRANSPOS MEDIAN NRV CARPAL TUNNE 10/06/2005 Carpal tunnel decomp right PAST SURGICAL HISTORY OF 11/01/1977 RIGHT EYE PAST SURGICAL HISTORY OF 11/01/2012 fistulotomy PAST SURGICAL HISTORY OF 11/18/2021 phaco/goniosynechiolysis/goniotomy OS. PLACEMENT OF SETON 01/30/2014 PROCEDURE Right 01/22/2022 Phaco/Goniotomy REMV CATARACT EXTRACAP,INSERT LENS Bilateral SURG TX ANAL FISTULA 2ND STAGE 01/30/2014 Family History: FAMILY HISTORY Problem Relation Age of Onset Cancer Mother uterine Heart Mother Psychiatry Mother DEPRESSION COPD Mother Cataract Mother other (celiac) Mother Dementia Mother Celiac Disease Mother Colon Cancer Father 69 Amblyopia Father other (pre diabetic) Sister Heart Sister Psychiatry Brother Heart Attack Brother 49 AIDs related Psychiatry Brother Heart Attack Brother 54 Diabetes Brother Diabetes Brother Asthma Brother Breast Cancer Maternal Grandmother Heart Maternal Grandfather No Known Problems Daughter No Known Problems Daughter Psychiatry Maternal Aunt BIPOLAR Stroke Maternal Aunt Breast Cancer Maternal Aunt Social History: Social History Tobacco Use Smoking status: Never Smokeless tobacco: Never Tobacco comments: tried briefly age 14 for several months Vaping Use Vaping Use: Never used Substance Use Topics Alcohol use: Yes Comment: rarely,NOT WHILE Drug use: No Medications: Current Outpatient Medications Medication Sig triamcinolone acetonide (KENALOG) 0.1 % ointment Apply to affected area twice daily as needed. For the affected areas on the extremities. Use up to 21 days per month. Clobetasol Propionate (TEMOVATE) 0.05 % external solution Apply 1 application to affected area twice daily as needed. For the affected areas of the scalp. Use up to 21 days per month. pregabalin (LYRICA) 50 mg capsule Take 1 capsule by mouth twice daily for 90 days. prednisoLONE acetate (PRED FORTE, ECONOPRED PLUS) 1 % ophthalmic suspension ONCE DAILY LEFT EYE albuterol (PROVENTIL) 2.5 mg /3 mL (0.083 %) nebulizer solution Use 3 mL via nebulizer every 4 hours as needed. Use over 5-15minutes. timolol maleate (TIMOPTIC) 0.5 % ophthalmic solution Use 1 Drop in both eyes every morning. Benzonatate 200 mg capsule Take by mouth. dicyclomine (BENTYL) 10 mg capsule ketoconazole (NIZORAL) 2 % cream ondansetron orally disintegrating (ZOFRAN ODT) 4 mg disintegrating tablet Take by mouth every 8 hours as needed. metFORMIN (GLUCOPHAGE) 1,000 mg tablet Take 1,000 mg by mouth twice daily with meals. BD INSULIN PEN NEEDLE UF 31 gauge x 5/16 albuterol HFA (PROAIR HFA) 90 mcg/actuation inhaler Inhale 2 Puffs as instructed every 6 hours as needed. pantoprazole DR (PROTONIX) 20 mg tablet Take 20 mg by mouth twice daily. cetirizine HCl (ZYRTEC ORAL) Take 10 mg by mouth. budesonide-formoterol (SYMBICORT) 80-4.5 mcg/actuation inhaler Inhale 2 Puffs as instructed twice daily. levothyroxine (LEVOXYL) 88 mcg tablet Take 1 tablet by mouth once daily. Take on empty stomach. For Thyroid fluticasone (FLONASE) 50 mcg/actuation nasal spray Use 2 Sprays in each nostril once daily. EPINEPHrine (EPIPEN) 0.3 mg/0.3 mL (1:1,000) atIn Inject intramuscularly. USE DIRECTED FOR ALLERGIC REACTION. SEEK EMERGENT MEDICAL IMMEDIATELY AFTER USE. LEVEMIR FLEXTOUCH U-100 INSULIN 100 unit/mL (3 mL) injection pen Inject 26 Units subcutaneously daily at bedtime. No current facility-administered medications for this visit. Allergies: Salmeterol, Clavulanic Acid, Advair Diskus [Fluticasone Propion-Salmeterol], Augmentin [Amoxicillin-Pot Clavulanate], Bees, Ciprofloxacin, Cold-Allergy, Environmental [Other], and Excedrin [Uahjmnm-Wettqovdcflit-Xeimxdrz] ROS: General (negative for fatigue, malaise, weight loss/gain) HEENT (negative for headache, earache, recent vision changes, sinus pain, sore throat) Respiratory (no recent shortness of breath, hemoptysis) CV (negative for chest tightness, palpitations) Musculoskeletal (see HPI) Psych (no depression, anxiety) REFERRING PHYSICIAN: Consultation requested by Kelin Chaudharyell for an opinion regarding left hip pain. My final recommendations will be communicated back to the requesting physician by way of shared Medical record or letter to requesting physician via US mail. Kelin Burch [id number] [address] [facility] [id number] Marlyn Smith MD [phone] [facility] [place] [facility] [id number] Steffen Kemp MD documented in this encounter [facility] 06-03-2023 Note HNO ID: [id number] Author: Elda Pino APRN.[place]COL[place] Service: ? Author Type: Nurse Practitioner Type: Progress Notes Filed: 06/17/2023 8:52 AM Note Text: Department of Dermatology Elda Pino APRN.[place]COLM 06/03/2023 Last visit in Dermatology: Visit date not found Objective/Assessment/Plan 1. 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 -wash daily with gentle cleanser and water -avoid irritation by using dye-free and fragrance-free products (soaps, cleansers, detergents, etc.) -for flares start twice daily as needed application of triamcinolone ointment for up to 21 days per month. R/b/a for the medication(s) including possible side effects discussed and reviewed with patient. Related Medications triamcinolone acetonide (KENALOG) 0.1 % ointment Apply to affected area twice daily as needed. For the affected areas on the extremities. Use up to 21 days per month. Other Procedures Placed This Encounter CONSULT TO DERMATOLOGY Follow-up as noted below or as needed. Chief Complaint: Patient presents with: Rash Subjective and Objective HPI: Maddie Jones is a 47 year old female who presents for: Rash: Description: raised bumps, denies itching - but admits to picking at skin Location(s): bilateral arms and legs Duration: 10+ years Severity: normal Inciting factors: possible history of RA?, history of anxiety and admits to picking/scratching skin Associated symptoms: patient reports history of numerous environmental allergies Current treatment: Suave antibacterial soap and triple antibiotic ointment Past medical history is reviewed. Medication list is reviewed. Physical Exam included: bilateral upper extremities and bilateral lower extremities Intake completed by DORA Delatorre APRN.DEVELOPER EVANGELIST [facility] 05-31-2023 Miscellaneous Notes Called and spoke with patient. I scheduled her for July 02 at 3:00pm per her request. Hilario Boudreaux First available with either physician. Daphney Sargent LPN Please review and advise. 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 [facility] to see her again) Dermatology consult Confer with Hematology about the light chains They may need to see her message to patient. Diaz Bagley MD documented in this encounter [facility] 05-11-2023 Miscellaneous Notes Call from patient requesting refill. Requested Prescriptions Pending Prescriptions Disp Refills pregabalin (LYRICA) 50 mg capsule 60 capsule 2 Sig: Take 1 capsule by mouth twice daily for 90 days. Per patient - this Rx was sent yesterday, but the pharmacy's computers were down and they did not receive it. Deisy Hare documented in this encounter [facility] 05-10-2023 Note HNO ID: [id number] Author: Kelin Burch PA-C Service: ? Author Type: Physician Explosive Operator Bomb Type: Progress Notes Filed: 05/10/2023 1:59 PM Note Text: SPINE CARE PATH LOW BACK PAIN: CHRONIC FOLLOW-UP SUBJECTIVE HISTORY OF PRESENT ILLNESS: Reason for Visit: Low back Maddie Jones is seen for 6 week follow up. She still has pain in the low back and the bilateral hips, worse in the morning when she wakes up. She has been working with PT which she feels has helped with her strength but not necessarily the pain. Taking gabapentin which is not helping much, she says she feels her blood sugar is elevated in the morning after her nighttime dose. No weakness. YELLOW AND BLUE FLAGS No-Neg Attitude; Back Pain is Disabling No-Avoiding Activity (for Fear of Pain) No-Depression or Anxiety Disorders No-Social Problems No-Substance Use Disorder No-Job Dissatisfaction No-Financial Disincentives Patient Entered Questionnaires PROMIS Score Percentiles Percentiles provide an indication of how the patient's score ranks in relation to the general population. Higher percentile rankings indicate better function/quality of life. 50th percentile is the average of the general population and indicates half of respondents had a worse score. Depression Screening: PHQ-9 Self-Harm (Item 9) response options: 0 Not at all 1 Several days 2 More than half the days 3 Nearly every day PHQ-9 Levels: 0-4 No - mild depression 5-9 Mild depression 10-14 Moderate depression 15-19 Moderately severe depression 20-27 Severe depression The medical history, medications and allergies have been reviewed. REVIEW OF SYSTEMS: Review of Systems Constitutional: Negative Eyes: Negative Hent: Negative Cardiovascular: Negative Respiratory: Negative GI: Negative : Negative Endocrine: Negative Musculoskeletal Positive for Back Pain and Muscle Pain Integumentary: Negative Heme/Lymph: Negative Allergy/Immunologic: Negative Neurologic: Negative Psychiatric: Negative Patient's Review of Systems has been reviewed with the patient and updated as appropriate. OBJECTIVE PHYSICAL EXAM: [facility] 01/18/2023 The patient is a well developed, well nourished female who is cooperative. The patient's gait is unsteady. Posture and spinal curves are normal. Patient has no palpable muscle spasm and/or tenderness. Flexion of the lumbar spine is within normal limits. Extension is within normal limits. Patellar reflexes are 2+ Normal right and 2+ Normal left. Achilles reflexes are normal right and normal left. Lower extremity muscle strength is normal. Tone is within normal limits. Straight leg raise test is negative; bilaterally. Sensation to light touch is within normal limits. Hip Range of Motion RIGHT LEFT Flexion Normal Normal Extension Normal Normal Abduction Normal Normal Adduction Normal Normal Internal Rotation Normal Normal External Rotation Normal Normal Hip Exam RIGHT LEFT MITCH Exam Normal Normal Trochanteric Bursa Tenderness Abnormal Abnormal Gaenslen's Maneuver Normal Normal Cici's Test (IT-Band Pathology) Normal Normal Neuro Tests: None ASSESSMENT/PLAN (M54.50, G89.29) Chronic bilateral low back pain without sciatica (primary encounter diagnosis) Comment: Discussed possible MRI for injection planning, she does have quite a bit of tenderness in the bilateral GTB. She may be a candidate for injections for her hip pain. She wishes to try this before considering lumbar VIDYA. She will also continue with PT. Will DC the gabapentin and try lyrica for her pain. Plan: pregabalin (LYRICA) 50 mg capsule (M70.61, M70.62) Trochanteric bursitis of both hips Comment: Plan: CONSULT TO ORTHOPAEDICS Imaging Ordered: None SIGNATURE: Kelin Burch PA-C PATIENT NAME: Maddie Jones DATE: May 10, 2023 TIME: 1:32 PM [facility] 05-10-2023 History of Present illness Narrative SPINE CARE PATH LOW BACK PAIN: CHRONIC FOLLOW-UP SUBJECTIVE HISTORY OF PRESENT ILLNESS: Reason for Visit: Low back Maddie Jones is seen for 6 week follow up. She still has pain in the low back and the bilateral hips, worse in the morning when she wakes up. She has been working with PT which she feels has helped with her strength but not necessarily the pain. Taking gabapentin which is not helping much, she says she feels her blood sugar is elevated in the morning after her nighttime dose. No weakness. YELLOW & BLUE FLAGS No-Neg Attitude; Back Pain is Disabling No-Avoiding Activity (for Fear of Pain) No-Depression or Anxiety Disorders No-Social Problems No-Substance Use Disorder No-Job Dissatisfaction No-Financial Disincentives Patient Entered Questionnaires PROMIS Score Percentiles Percentiles provide an indication of how the patient's score ranks in relation to the general population. Higher percentile rankings indicate better function/quality of life. 50th percentile is the average of the general population and indicates half of respondents had a worse score. Depression Screening: PHQ-9 Self-Harm (Item 9) response options: 0 Not at all 1 Several days 2 More than half the days 3 Nearly every day PHQ-9 Levels: 0-4 No - mild depression 5-9 Mild depression 10-14 Moderate depression 15-19 Moderately severe depression 20-27 Severe depression The medical history, medications and allergies have been reviewed. REVIEW OF SYSTEMS: Review of Systems Constitutional: Negative Eyes: Negative Hent: Negative Cardiovascular: Negative Respiratory: Negative GI: Negative : Negative Endocrine: Negative Musculoskeletal Positive for Back Pain and Muscle Pain Integumentary: Negative Heme/Lymph: Negative Allergy/Immunologic: Negative Neurologic: Negative Psychiatric: Negative Patient's Review of Systems has been reviewed with the patient and updated as appropriate. OBJECTIVE PHYSICAL EXAM: [facility] 01/18/2023 The patient is a well developed, well nourished female who is cooperative. The patient's gait is unsteady. Posture and spinal curves are normal. Patient has no palpable muscle spasm and/or tenderness. Flexion of the lumbar spine is within normal limits. Extension is within normal limits. Patellar reflexes are 2+ Normal right and 2+ Normal left. Achilles reflexes are normal right and normal left. Lower extremity muscle strength is normal. Tone is within normal limits. Straight leg raise test is negative; bilaterally. Sensation to light touch is within normal limits. Hip Range of Motion RIGHT LEFT Flexion Normal Normal Extension Normal Normal Abduction Normal Normal Adduction Normal Normal Internal Rotation Normal Normal External Rotation Normal Normal Hip Exam RIGHT LEFT MITCH Exam Normal Normal Trochanteric Bursa Tenderness Abnormal Abnormal Gaenslen's Maneuver Normal Normal Cici's Test (IT-Band Pathology) Normal Normal Neuro Tests: None ASSESSMENT/PLAN (M54.50, G89.29) Chronic bilateral low back pain without sciatica (primary encounter diagnosis) Comment: Discussed possible MRI for injection planning, she does have quite a bit of tenderness in the bilateral GTB. She may be a candidate for injections for her hip pain. She wishes to try this before considering lumbar VIDYA. She will also continue with PT. Will DC the gabapentin and try lyrica for her pain. Plan: pregabalin (LYRICA) 50 mg capsule (M70.61, M70.62) Trochanteric bursitis of both hips Comment: Plan: CONSULT TO ORTHOPAEDICS Imaging Ordered: None SIGNATURE: Kelin Burch PA-C PATIENT NAME: Maddie Jones DATE: May 10, 2023 TIME: 1:32 PM documented in this encounter [facility] 04-29-2023 Note HNO ID: [id number] Author: Diaz Bagley MD Service: ? Author Type: Physician Type: Progress Notes Filed: 05/23/2023 2:21 PM Note Text: RHEUMATOLOGY FOLLOW UP NOTE PROVIDER: Diaz Bagley MD DATE OF VISIT: 04/29/2023 PATIENT NAME: Maddie Jones CHIEF COMPLAINT / REASON FOR VISIT: NAION SUBJECTIVE / INTERIM HISTORY: Patient returns for follow-up. Last seen here 6 mos ago. Since last visit: Old problems: 1. Eyes Work up for underlying eye cause has been negative I sent her back to [facility] and they have no other answers. Referred back to [facility], but she didn't go 2. Skin Has skin lesions for many years 3. Low back pains Saw PCP Has XR with mild deg changes [facility] 4. Found (+) STACY REVIEW OF SYSTEMS: General: No fever, weight loss. Skin: No rash, nodule. Eyes: No new vision change, inflammation, dryness. HENT: No oral ulcers, dryness. Cardiac: No chest pain, palpitations. Pulmonary:No cough, dyspnea, pleurisy. GI: No nausea, abdominal pain, diarrhea. : No dysuria, discharge. Neuro: No numbness, focal weakness, headache. Rest of ROS reviewed and noted in HPI. 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 MYOFASCITIS 12/21/2006 Optic neuritis, right 95% vision loss Plantar fasciitis of left foot Prediabetes Pyoderma, unspecified 03/18/2006 Sleep apnea wears CPAP Unspecified asthma(493.90) PAST SURGICAL HISTORY Procedure Laterality Date APPENDECTOMY 11/01/2008 DELIVERY ONLY 1996,2008 , low cervical CHOLECYSTECTOMY 11/01/1998 Cholecystectomy COLONOSCOPY FLX DX W/COLLJ SPEC WHEN PFRMD 11/17/[address] Bojorquez 4 yr COLONOSCOPY W/BIOPSY SINGLE/MULTIPLE 01/03/2007 EYE SURGERY PROCEDURE Bilateral glucoma I/D PERIANAL ABSCESS, SUPERFICIAL 10/31/2013 LAPAROSCOPIC HEMICOLECTOMY 10/2020 10 inches of lower bowel removed d/t abscess - Dr Reyes LIG/TRNSXJ FLP TUBE ABDL/VAG APPR UNI/BI 11/01/2008 Tubal ligation NEUROPLASTY AND/TRANSPOS MEDIAN NRV CARPAL TUNNE 09/18/2005 Carpal tunnel decomp left NEUROPLASTY AND/TRANSPOS MEDIAN NRV CARPAL TUNNE 10/06/2005 Carpal tunnel decomp right PAST SURGICAL HISTORY OF 11/01/1977 RIGHT EYE PAST SURGICAL HISTORY OF 11/01/2012 fistulotomy PAST SURGICAL HISTORY OF 11/18/2021 phaco/goniosynechiolysis/goniotomy OS. PLACEMENT OF SETON 01/30/2014 PROCEDURE Right 01/22/2022 Phaco/Goniotomy REMV CATARACT EXTRACAP,INSERT LENS Bilateral SURG TX ANAL FISTULA 2ND STAGE 01/30/2014 SOCIAL AND FAMILY HISTORY FAMILY HISTORY Problem Relation Age of Onset Cancer Mother uterine Heart Mother Psychiatry Mother DEPRESSION COPD Mother Cataract Mother other (celiac) Mother Dementia Mother Celiac Disease Mother Colon Cancer Father 69 Amblyopia Father other (pre diabetic) Sister Heart Sister Psychiatry Brother Heart Attack Brother 49 AIDs related Psychiatry Brother Heart Attack Brother 54 Diabetes Brother Diabetes Brother Asthma Brother Breast Cancer Maternal Grandmother Heart Maternal Grandfather No Known Problems Daughter No Known Problems Daughter Psychiatry Maternal Aunt BIPOLAR Stroke Maternal Aunt Breast Cancer Maternal Aunt Social History Tobacco Use Smoking status: Never Smokeless tobacco: Never Tobacco comments: tried briefly age 14 for several months Vaping Use Vaping Use: Never used Substance Use Topics Alcohol use: Yes Comment: rarely,NOT WHILE Drug use: No CURRENT MEDICATIONS: Current Outpatient Medications Medication Sig gabapentin (NEURONTIN) 300 mg capsule Take 1 capsule by mouth three times daily for 90 days. prednisoLONE acetate (PRED FORTE, ECONOPRED PLUS) 1 % ophthalmic suspension ONCE DAILY LEFT EYE albuterol (PROVENTIL) 2.5 mg /3 mL (0.083 %) nebulizer solution Use 3 mL via nebulizer every 4 hours as needed. Use over 5-15minutes. timolol maleate (TIMOPTIC) 0.5 % ophthalmic solution Use 1 Drop in both eyes every morning. Benzonatate 200 mg capsule Take by mouth. dicyclomine (BENTYL) 10 mg capsule ketoconazole (NIZORAL) 2 % cream ondansetron orally disintegrating (ZOFRAN ODT) 4 mg disintegrating tablet Take by mouth every 8 hours as needed. metFORMIN (GLUCOPHAGE) 1,000 mg tablet Take 1,000 mg by mouth twice daily with meals. LEVEMIR FLEXTOUCH (more content not included)... [facility] 04-29-2023 History of Present illness Narrative RHEUMATOLOGY FOLLOW UP NOTE PROVIDER: Diaz Bagley MD DATE OF VISIT: 04/29/2023 PATIENT NAME: Maddie Jones SHONDA CHIEF COMPLAINT / REASON FOR VISIT: NAION SUBJECTIVE / INTERIM HISTORY: Patient returns for follow-up. Last seen here 6 mos ago. Since last visit: Old problems: 1. Eyes Work up for underlying eye cause has been negative I sent her back to [facility] and they have no other answers. Referred back to [facility], but she didn't go 2. Skin Has skin lesions for many years 3. Low back pains Saw PCP Has XR with mild deg changes [facility] 4. Found (+) STACY REVIEW OF SYSTEMS: General: No fever, weight loss. Skin: No rash, nodule. Eyes: No new vision change, inflammation, dryness. HENT: No oral ulcers, dryness. Cardiac: No chest pain, palpitations. Pulmonary:No cough, dyspnea, pleurisy. GI: No nausea, abdominal pain, diarrhea. : No dysuria, discharge. Neuro: No numbness, focal weakness, headache. Rest of ROS reviewed and noted in HPI. 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 MYOFASCITIS 12/21/2006 Optic neuritis, right 95% vision loss Plantar fasciitis of left foot Prediabetes Pyoderma, unspecified 03/18/2006 Sleep apnea wears CPAP Unspecified asthma(493.90) PAST SURGICAL HISTORY Procedure Laterality Date APPENDECTOMY 11/01/2008 DELIVERY ONLY 1996,2008 , low cervical CHOLECYSTECTOMY 11/01/1998 Cholecystectomy COLONOSCOPY FLX DX W/COLLJ SPEC WHEN PFRMD 11/17/[address] Bojorquez 4 yr COLONOSCOPY W/BIOPSY SINGLE/MULTIPLE 01/03/2007 EYE SURGERY PROCEDURE Bilateral glucoma I/D PERIANAL ABSCESS, SUPERFICIAL 10/31/2013 LAPAROSCOPIC HEMICOLECTOMY 10/2020 10 inches of lower bowel removed d/t abscess - Dr Reyes LIG/TRNSXJ FLP TUBE ABDL/VAG APPR UNI/BI 11/01/2008 Tubal ligation NEUROPLASTY &/TRANSPOS MEDIAN NRV CARPAL TUNNE 09/18/2005 Carpal tunnel decomp left NEUROPLASTY &/TRANSPOS MEDIAN NRV CARPAL TUNNE 10/06/2005 Carpal tunnel decomp right PAST SURGICAL HISTORY OF 11/01/1977 RIGHT EYE PAST SURGICAL HISTORY OF 11/01/2012 fistulotomy PAST SURGICAL HISTORY OF 11/18/2021 phaco/goniosynechiolysis/goniotomy OS. PLACEMENT OF SETON 01/30/2014 PROCEDURE Right 01/22/2022 Phaco/Goniotomy REMV CATARACT EXTRACAP,INSERT LENS Bilateral SURG TX ANAL FISTULA 2ND STAGE 01/30/2014 SOCIAL AND FAMILY HISTORY FAMILY HISTORY Problem Relation Age of Onset Cancer Mother uterine Heart Mother Psychiatry Mother DEPRESSION COPD Mother Cataract Mother other (celiac) Mother Dementia Mother Celiac Disease Mother Colon Cancer Father 69 Amblyopia Father other (pre diabetic) Sister Heart Sister Psychiatry Brother Heart Attack Brother 49 AIDs related Psychiatry Brother Heart Attack Brother 54 Diabetes Brother Diabetes Brother Asthma Brother Breast Cancer Maternal Grandmother Heart Maternal Grandfather No Known Problems Daughter No Known Problems Daughter Psychiatry Maternal Aunt BIPOLAR Stroke Maternal Aunt Breast Cancer Maternal Aunt Social History Tobacco Use Smoking status: Never Smokeless tobacco: Never Tobacco comments: tried briefly age 14 for several months Vaping Use Vaping Use: Never used Substance Use Topics Alcohol use: Yes Comment: rarely,NOT WHILE Drug use: No CURRENT MEDICATIONS: Current Outpatient Medications Medication Sig gabapentin (NEURONTIN) 300 mg capsule Take 1 capsule by mouth three times daily for 90 days. prednisoLONE acetate (PRED FORTE, ECONOPRED PLUS) 1 % ophthalmic suspension ONCE DAILY LEFT EYE albuterol (PROVENTIL) 2.5 mg /3 mL (0.083 %) nebulizer solution Use 3 mL via nebulizer every 4 hours as needed. Use over 5-15minutes. timolol maleate (TIMOPTIC) 0.5 % ophthalmic solution Use 1 Drop in both eyes every morning. Benzonatate 200 mg capsule Take by mouth. dicyclomine (BENTYL) 10 mg capsule ketoconazole (NIZORAL) 2 % cream ondansetron orally disintegrating (ZOFRAN ODT) 4 mg disintegrating tablet Take by mouth every 8 hours as needed. metFORMIN (GLUCOPHAGE) 1,000 mg tablet Take 1,000 mg by mouth twice daily with meals. LEVEMIR FLEXTOUCH U-100 INSULIN 100 unit/mL (3 mL) injection pen Inject 26 Units subcutaneously daily at bedtime. BD INSULIN PEN NEEDLE UF 31 gauge x 5/16 albuterol HFA (PROAIR HFA) 90 mcg/actuation inhaler Inhale 2 Puffs as instructed every 6 hours as needed. pantoprazole DR (PROTONIX) 20 mg tablet Take 20 mg by mouth twice daily. cetirizine HCl (ZYRTEC ORAL) Take 10 mg by mouth. budesonide-formoterol (SYMBICORT) 80-4.5 mcg/actuation inhaler Inhale 2 Puffs as instructed twice daily. levothyroxine (LEVOXYL) 88 mcg tablet Take 1 tablet by mouth once daily. Take on empty stomach. For Thyroid fluticasone (FLONASE) 50 mcg/actuation nasal spray Use 2 Sprays in each nostril once daily. EPINEPHrine (EPIPEN) 0.3 mg/0.3 mL (1:1,000) atIn Inject intramuscularly. USE DIRECTED FOR ALLERGIC REACTION. SEEK EMERGENT MEDICAL IMMEDIATELY AFTER USE. No current facility-administered medications for this visit. PHYSICAL EXAMINATION: General: Patient is alert and oriented. Appears healthy and well. Vital signs: BP 125/72 Pulse 90 Temp 36.9 C (98.4 F) (Temporal) Wt 88.3 kg (194 lb 9.6 oz) LMP 01/18/2023 BMI 35.59 kg/m Skin: Chronic skin lesions on UEs Eyes: No injection. PERRLA. Lymph: Normal in neck and axillae. Neck: No thyromegaly or mass. Lungs: Normal resp. effort. Clear to A & P. Heart: RRR without gallop, murmur or rub. Extremities: No edema. Pulses equal and normal. Musculoskeletal: No joint swelling or tenderness Neurologic: Motor strength 5+ and equal. Normal DTRs, 2+ and symmetric. Sensory normal. DATA: Laboratory: Reviewed Labs all normal except Slight increased CRP (+) STACY Hypercoag eval neg Radiology: Reviewed CT chest neg MRI brain and cervical negative IMPRESSION / PROBLEM LIST: 1. 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 Iritis ? Secondary 3. Positive STACY Likely of no significance 3. Asthma 4. Diabetes 5. IBS 6. Diverticulitis 7. Glaucoma 8. Hypothyroidism 9. Increased CRP 10. Low back pains XR lumbar with mid deg changes 11. Skin disease IMPRESSION: Maddie Jones is a 46 year old female who presents for a rheumatology evaluation at the [facility]. Evaluation for systemic cause of non arteritic ischemic optic neuropathy. Differential diagnosis --Sarcoidosis --STACY spectrum of disease Has positive STACY, but other labs negative --Vasculitis Doubt --Spondyloarthritis Doubt XR SI joints neg She does have FREDY, which may have contributed. Could have been low BP state post surgical. RECOMMENDATIONS / PLAN: Laboratory: As outlined in orders. Other tests: Consider skin biopsy Consultations: Speak back to Ophtho Consider NeuroOphtho to see her again Dermatology Medications: No medications were prescribed today No clear role for immunosuppressive agents Vaccinations: Keep up to date Other: Patient aware that I will call if testing is out of the range of what is expected. Patient should update all of her age appropriate malignancy screens. Follow-up: PRN here Electronically signed by: Diaz Bagley MD CC: Marlyn Smith [address] [place], [place] [id number] documented in this encounter [facility] 04-26-2023 Miscellaneous Notes Summary: APPOINTMENT LVM FOR PATIENT TO CALL SO WE CAN GET HER SCHEDULED FOR A CONSULT TO neuro-ophthomalogy documented in this encounter [facility] 04-05-2023 Miscellaneous Notes Called patient to schedule follow up with Dr. Sparks. Patient claimed further follow up was not needed. Patient will contact provider for further instruction. Declined scheduling at this time. documented in this encounter [facility] 03-01-2023 Note HNO ID: [id number] Author: Kelin Burch PA-C Service: ? Author Type: Physician Explosive Operator Bomb Type: Progress Notes Filed: 03/01/2023 2:20 PM Note Text: [facility] Low Back Pain - Chronic (> 12 weeks) Initial Exam SUBJECTIVE HISTORY OF PRESENT ILLNESS: Maddie Jones is a 47 year old female who presents with a chief complaint of low back pain and is seen in consultation requested by Dr. Araceli Sparks for an opinion regarding low back. My final recommendations will be communicated back to the requesting physician by way of shared medical record or letter via US mail. Patient with pain in the low back with radiation to the posterior legs, intermittently affects either leg. Pain has been present for many years, has been getting somewhat worse over the last few months. Pain is not associated with any activity. Can be worse with walking. No weakness in the legs. No recent treatment for the pain. Had previous bursa and piriformis injections many years ago without lasting relief. Is diabetic Other Issues Addressed at the Visit Today: None. Precipitating Event: None PAIN EVALUATION 03/01/2023 1335 Pain Level: 3 Pain Location: Back-Lower Description: Aching;Throbbing Duration Units: Months Frequency: Intermittent YELLOW AND BLUE FLAGS No-Neg Attitude; Back Pain is Disabling No-Avoiding Activity (for Fear of Pain) No-Depression or Anxiety Disorders No-Social Problems No-Substance Use Disorder No-Job Dissatisfaction No-Financial Disincentives Patient Entered Questionnaires PROMIS Score Percentiles Percentiles provide an indication of how the patient's score ranks in relation to the general population. Higher percentile rankings indicate better function/quality of life. 50th percentile is the average of the general population and indicates half of respondents had a worse score. Depression Screening: PHQ-9 Self-Harm (Item 9) response options: 0 Not at all 1 Several days 2 More than half the days 3 Nearly every day PHQ-9 Levels: 0-4 No - mild depression 5-9 Mild depression 10-14 Moderate depression 15-19 Moderately severe depression 20-27 Severe depression ACTIVE PROBLEM LIST Pain in Joint, Hand Pyoderma, Unspecified Enthesopathy of Hip Region Lesion of Sciatic Nerve Hypothyroid Depression Anxiety Fredy (Obstructive Sleep Apnea) Perianal Abscess [id number] Mild Persistent Asthma Without Complication Urticaria Due to Cold Mild Episode of Recurrent Major Depressive Disorder (Hcc) Acute Retrobulbar Neuritis of Both Eyes Other Optic Atrophy, Bilateral S/P Partial Colectomy Diabetes Mellitus (Hcc) Bipolar 2 Disorder (Hcc) Pre-Operative Examination Chronic Angle-Closure Glaucoma of Both Eyes, Severe Stage Nuclear Senile Cataract of Right Eye 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 MYOFASCITIS 12/21/2006 Optic neuritis, right 95% vision loss Plantar fasciitis of left foot Prediabetes Pyoderma, unspecified 03/18/2006 Sleep apnea wears CPAP Unspecified asthma(493.90) PAST SURGICAL HISTORY Procedure Laterality Date APPENDECTOMY 11/01/2008 DELIVERY ONLY 1996,2008 , low cervical CHOLECYSTECTOMY 11/01/1998 Cholecystectomy COLONOSCOPY FLX DX W/COLLJ SPEC WHEN PFRMD 11/17/[address] Bojorquez 4 yr COLONOSCOPY W/BIOPSY SINGLE/MULTIPLE 01/03/2007 EYE SURGERY PROCEDURE Bilateral glucoma I/D PERIANAL ABSCESS, SUPERFICIAL 10/31/2013 LAPAROSCOPIC HEMICOLECTOMY 10/2020 10 inches of lower bowel removed d/t abscess - Dr Reyes LIG/TRNSXJ FLP TUBE ABDL/VAG APPR UNI/BI 11/01/2008 Tubal ligation NEUROPLASTY AND/TRANSPOS MEDIAN NRV CARPAL TUNNE 09/18/2005 Carpal tunnel decomp left NEUROPLASTY AND/TRANSPOS MEDIAN NRV CARPAL TUNNE 10/06/2005 Carpal tunnel decomp right PAST SURGICAL HISTORY OF 11/01/1977 RIGHT EYE PAST SURGICAL HISTORY OF 11/01/2012 fistulotomy PAST SURGICAL HISTORY OF 11/18/2021 phaco/goniosynechiolysis/goniotomy OS. PLACEMENT OF SETON 01/30/2014 PROCEDURE Right 01/22/2022 Phaco/Goniotomy REMV CATARACT EXTRACAP,INSERT LENS Bilateral SURG TX ANAL FISTULA 2ND STAGE 01/30/2014 Social History Tobacco Use Smoking status: Never Smokeless tobacco: Never Tobacco comments: tried briefly age 14 for several months Vaping Use Vaping Use: Never used Substance Use Topics Alcohol use: Yes Comment: rarely,NOT W (more content not included)... [facility] 03-01-2023 History of Present illness Narrative Sp[facility] Low Back Pain - Chronic (> 12 weeks) Initial Exam SUBJECTIVE HISTORY OF PRESENT ILLNESS: Maddie Jones is a 47 year old female who presents with a chief complaint of low back pain and is seen in consultation requested by Dr. Araceli Sparks for an opinion regarding low back. My final recommendations will be communicated back to the requesting physician by way of shared medical record or letter via US mail. Patient with pain in the low back with radiation to the posterior legs, intermittently affects either leg. Pain has been present for many years, has been getting somewhat worse over the last few months. Pain is not associated with any activity. Can be worse with walking. No weakness in the legs. No recent treatment for the pain. Had previous bursa and piriformis injections many years ago without lasting relief. Is diabetic Other Issues Addressed at the Visit Today: None. Precipitating Event: None PAIN EVALUATION 03/01/2023 1335 Pain Level: 3 Pain Location: Back-Lower Description: Aching;Throbbing Duration Units: Months Frequency: Intermittent YELLOW & BLUE FLAGS No-Neg Attitude; Back Pain is Disabling No-Avoiding Activity (for Fear of Pain) No-Depression or Anxiety Disorders No-Social Problems No-Substance Use Disorder No-Job Dissatisfaction No-Financial Disincentives Patient Entered Questionnaires PROMIS Score Percentiles Percentiles provide an indication of how the patient's score ranks in relation to the general population. Higher percentile rankings indicate better function/quality of life. 50th percentile is the average of the general population and indicates half of respondents had a worse score. Depression Screening: PHQ-9 Self-Harm (Item 9) response options: 0 Not at all 1 Several days 2 More than half the days 3 Nearly every day PHQ-9 Levels: 0-4 No - mild depression 5-9 Mild depression 10-14 Moderate depression 15-19 Moderately severe depression 20-27 Severe depression ACTIVE PROBLEM LIST Pain in Joint, Hand Pyoderma, Unspecified Enthesopathy of Hip Region Lesion of Sciatic Nerve Hypothyroid Depression Anxiety Fredy (Obstructive Sleep Apnea) Perianal Abscess [id number] Mild Persistent Asthma Without Complication Urticaria Due to Cold Mild Episode of Recurrent Major Depressive Disorder (Hcc) Acute Retrobulbar Neuritis of Both Eyes Other Optic Atrophy, Bilateral S/P Partial Colectomy Diabetes Mellitus (Hcc) Bipolar 2 Disorder (Hcc) Pre-Operative Examination Chronic Angle-Closure Glaucoma of Both Eyes, Severe Stage Nuclear Senile Cataract of Right Eye 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 MYOFASCITIS 12/21/2006 Optic neuritis, right 95% vision loss Plantar fasciitis of left foot Prediabetes Pyoderma, unspecified 03/18/2006 Sleep apnea wears CPAP Unspecified asthma(493.90) PAST SURGICAL HISTORY Procedure Laterality Date APPENDECTOMY 11/01/2008 DELIVERY ONLY 1996,2008 , low cervical CHOLECYSTECTOMY 11/01/1998 Cholecystectomy COLONOSCOPY FLX DX W/COLLJ SPEC WHEN PFRMD 11/17/[address] Bojorquez 4 yr COLONOSCOPY W/BIOPSY SINGLE/MULTIPLE 01/03/2007 EYE SURGERY PROCEDURE Bilateral glucoma I/D PERIANAL ABSCESS, SUPERFICIAL 10/31/2013 LAPAROSCOPIC HEMICOLECTOMY 10/2020 10 inches of lower bowel removed d/t abscess - Dr Reyes LIG/TRNSXJ FLP TUBE ABDL/VAG APPR UNI/BI 11/01/2008 Tubal ligation NEUROPLASTY &/TRANSPOS MEDIAN NRV CARPAL TUNNE 09/18/2005 Carpal tunnel decomp left NEUROPLASTY &/TRANSPOS MEDIAN NRV CARPAL TUNNE 10/06/2005 Carpal tunnel decomp right PAST SURGICAL HISTORY OF 11/01/1977 RIGHT EYE PAST SURGICAL HISTORY OF 11/01/2012 fistulotomy PAST SURGICAL HISTORY OF 11/18/2021 phaco/goniosynechiolysis/goniotomy OS. PLACEMENT OF SETON 01/30/2014 PROCEDURE Right 01/22/2022 Phaco/Goniotomy REMV CATARACT EXTRACAP,INSERT LENS Bilateral SURG TX ANAL FISTULA 2ND STAGE 01/30/2014 Social History Tobacco Use Smoking status: Never Smokeless tobacco: Never Tobacco comments: tried briefly age 14 for several months Vaping Use Vaping Use: Never used Substance Use Topics Alcohol use: Yes Comment: rarely,NOT WHILE Drug use: No FAMILY HISTORY Problem Relation Age of Onset Cancer Mother uterine Heart Mother Psychiatry Mother DEPRESSION COPD Mother Cataract Mother other (celiac) Mother Dementia Mother Celiac Disease Mother Colon Cancer Father 69 Amblyopia Father other (pre diabetic) Sister Heart Sister Psychiatry Brother Heart Attack Brother 49 AIDs related Psychiatry Brother Heart Attack Brother 54 Diabetes Brother Diabetes Brother Asthma Brother Breast Cancer Maternal Grandmother Heart Maternal Grandfather No Known Problems Daughter No Known Problems Daughter Psychiatry Maternal Aunt BIPOLAR Stroke Maternal Aunt Breast Cancer Maternal Aunt ALLERGIES Allergen Reactions Salmeterol Anaphylaxis Advair Diskus [Flut* Other: See Comments IRRITATES THROAT Augmentin [Amoxicil* Hives, Other: See Comments Bees Swelling HAS EPIPEN Ciprofloxacin GI Upset Cold-Allergy Rash, Cough, Hives, Swelling, Itching Allergy to cold temp Environmental [Othe* Other: See Comments Cats, dogs, molds, grasses, weeds Excedrin [Aspirin-A* Other: See Comments Heart palpitations CURRENT MEDICATIONS: prednisoLONE acetate (PRED FORTE, ECONOPRED PLUS) 1 % ophthalmic suspension ONCE DAILY LEFT EYE albuterol (PROVENTIL) 2.5 mg /3 mL (0.083 %) nebulizer solution Use 3 mL via nebulizer every 4 hours as needed. Use over 5-15minutes. timolol maleate (TIMOPTIC) 0.5 % ophthalmic solution Use 1 Drop in both eyes every morning. Benzonatate 200 mg capsule Take by mouth. dicyclomine (BENTYL) 10 mg capsule ketoconazole (NIZORAL) 2 % cream ondansetron orally disintegrating (ZOFRAN ODT) 4 mg disintegrating tablet Take by mouth every 8 hours as needed. metFORMIN (GLUCOPHAGE) 1,000 mg tablet Take 1,000 mg by mouth twice daily with meals. LEVEMIR FLEXTOUCH U-100 INSULIN 100 unit/mL (3 mL) injection pen Inject 26 Units subcutaneously daily at bedtime. BD INSULIN PEN NEEDLE UF 31 gauge x 5/16 albuterol HFA (PROAIR HFA) 90 mcg/actuation inhaler Inhale 2 Puffs as instructed every 6 hours as needed. pantoprazole DR (PROTONIX) 20 mg tablet Take 20 mg by mouth twice daily. cetirizine HCl (ZYRTEC ORAL) Take 10 mg by mouth. budesonide-formoterol (SYMBICORT) 80-4.5 mcg/actuation inhaler Inhale 2 Puffs as instructed twice daily. levothyroxine (LEVOXYL) 88 mcg tablet Take 1 tablet by mouth once daily. Take on empty stomach. For Thyroid fluticasone (FLONASE) 50 mcg/actuation nasal spray Use 2 Sprays in each nostril once daily. EPINEPHrine (EPIPEN) 0.3 mg/0.3 mL (1:1,000) atIn Inject intramuscularly. USE DIRECTED FOR ALLERGIC REACTION. SEEK EMERGENT MEDICAL IMMEDIATELY AFTER USE. REVIEW OF SYSTEMS: Review of Systems Constitutional: Negative Eyes: Negative Hent: Negative Cardiovascular Positive for Lightheadedness Respiratory: Negative GI: Negative : Negative Endocrine: Negative Musculoskeletal Positive for Back Pain and Muscle Pain Integumentary: Negative Heme/Lymph: Negative Allergy/Immunologic: Negative Neurologic Positive for Headache and Numbness/Tingling Psychiatric: Negative Patient's Review of Systems has been reviewed with the patient and updated as appropriate. OBJECTIVE: PHYSICAL EXAM LMP 01/18/2023 GENERAL APPEARANCE: Well appearing, well-hydrated, well nourished and alert SKIN: Head, neck, trunk, and extremities dry, intact and without lesions HEART: Regular rate and rhythym, Murmur negative LUNGS: even and non-labored breathing, normal chest excursion LYMPHATICS: No palpable lymphadenopathy in the neck, axilla, or groin NEURO/PSYCH: oriented to time, place, and person, speech normal, mental status intact GAIT: normal, toe walking normal, heel walking normal, able to tandem gait POSTURE: Posture and spinal curves are normal PALPATION: no palpable masses, tenderness, or spasm, no palpable subluxation or step-off, no point tenderness over the spine MUSCULOSKELETAL: Extended Low Back & Leg Exam Lumbar Range of Motion Flexion N/A Extension Normal RIGHT LEFT Lateral Bending Full Full Oblique Extension Within Normal Limits Within Normal Limits Leg Raise Straight Leg Raise Negative Negative Contralateral Straight Leg Raise Negative Negative DTRs Knee Normal Normal Ankle Normal Normal Medial Hamstring Normal Normal Babinski normal normal Strength of Lower Extremities Extensor Hallux Longus 5/5 5/5 Ankle Dorsiflexion 5/5 5/5 Ankle Plantarflexion 5/5 5/5 Knee Extension 5/5 5/5 Claudia's Exam: Deferred Hip Range of Motion RIGHT LEFT Flexion Normal Normal Extension Normal Normal Abduction Normal Normal Adduction Normal Normal Internal Rotation Normal Normal External Rotation Normal Normal Hip Exam RIGHT LEFT MITCH Exam Normal Normal Trochanteric Bursa Tenderness Normal Normal Gaenslen's Maneuver Normal Normal Cici's Test (IT-Band Pathology) Normal Normal NEUROSENSORY: Differentiation of sharp and light touch; Within Normal Limits Neuro Tests: Cranial Nerves: Normal mood and affect. CNII-XII grossly intact. Data Review: [facility] records independently reviewed Imaging and outside records independently reviewed Images independently reviewed with the patient FINDINGS: There are five [id number] lumbar vertebrae. No fracture or subluxations are noted. The disc spaces are grossly preserved. There is mild osteophyte formation. Others: There are a few surgical clips in the right upper quadrant abdomen. There appear to be 2 tubal ligation surgical clips in the pelvis. ASSESSMENT/PLAN (M54.50, G89.29) Chronic bilateral low back pain without sciatica (primary encounter diagnosis) Comment: Will consult to PT as well as start gabapentin 300mg tid. If pain continues we may consider MRI for injection planning. Follow up 2 months or sooner if needed Plan: CONSULT TO PHYSICAL THERAPY Imaging Ordered: None SIGNATURE: Kelin Burch PA-C PATIENT NAME: Maddie Jones DATE: March 01, 2023 TIME: 1:23 PM documented in this encounter [facility] 02-12-2023 Note HNO ID: [id number] Author: Elena Dixon APRN.DEVELOPER EVANGELIST Service: ? Author Type: Nurse Practitioner Type: Progress Notes Filed: 02/12/2023 5:10 PM Note Text: Subjective Male with complaints of rash on bilateral arms that itches. Patient denies any pain or getting into anything or changing any new products. Patient said [place] was [place] last week for [place] but stayed in the same hotel they always say in. Patient denies any other symptoms associated with this. The history is provided by the patient. No pediatric speech language pathologist was used. Rash Review of Systems Constitutional: Negative. Skin: Positive for itching and rash. Objective Physical Exam Constitutional: Appearance: Normal appearance. Pulmonary: Effort: Pulmonary effort is normal. Skin: Comments: Contact dermatitis noted in the areas marked above in blue. No signs of infection. Neurological: Mental Status: She is alert. 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 MYOFASCITIS 12/21/2006 Optic neuritis, right 95% vision loss Plantar fasciitis of left foot Prediabetes Pyoderma, unspecified 03/18/2006 Sleep apnea wears CPAP Unspecified asthma(493.90) PAST SURGICAL HISTORY Procedure Laterality Date APPENDECTOMY 11/01/2008 DELIVERY ONLY 1996,2008 , low cervical CHOLECYSTECTOMY 11/01/1998 Cholecystectomy COLONOSCOPY FLX DX W/COLLJ SPEC WHEN PFRMD 11/17/[address] Bojorquez 4 yr COLONOSCOPY W/BIOPSY SINGLE/MULTIPLE 01/03/2007 EYE SURGERY PROCEDURE Bilateral glucoma I/D PERIANAL ABSCESS, SUPERFICIAL 10/31/2013 LAPAROSCOPIC HEMICOLECTOMY 10/2020 10 inches of lower bowel removed d/t abscess - Dr Reyes LIG/TRNSXJ FLP TUBE ABDL/VAG APPR UNI/BI 11/01/2008 Tubal ligation NEUROPLASTY AND/TRANSPOS MEDIAN NRV CARPAL TUNNE 09/18/2005 Carpal tunnel decomp left NEUROPLASTY AND/TRANSPOS MEDIAN NRV CARPAL TUNNE 10/06/2005 Carpal tunnel decomp right PAST SURGICAL HISTORY OF 11/01/1977 RIGHT EYE PAST SURGICAL HISTORY OF 11/01/2012 fistulotomy PAST SURGICAL HISTORY OF 11/18/2021 phaco/goniosynechiolysis/goniotomy OS. PLACEMENT OF SETON 01/30/2014 PROCEDURE Right 01/22/2022 Phaco/Goniotomy REMV CATARACT EXTRACAP,INSERT LENS Bilateral SURG TX ANAL FISTULA 2ND STAGE 01/30/2014 ALLERGIES Salmeterol, Advair Diskus [Fluticasone Propion-Salmeterol], Augmentin [Amoxicillin-Pot Clavulanate], Bees, Ciprofloxacin, Cold-Allergy, Environmental [Other], and Excedrin [Shlmpcz-Onghdfiqasjjo-Ukutnbjb] MEDICATIONS prednisoLONE acetate (PRED FORTE, ECONOPRED PLUS) 1 % ophthalmic suspension ONCE DAILY LEFT EYE albuterol (PROVENTIL) 2.5 mg /3 mL (0.083 %) nebulizer solution Use 3 mL via nebulizer every 4 hours as needed. Use over 5-15minutes. timolol maleate (TIMOPTIC) 0.5 % ophthalmic solution Use 1 Drop in both eyes every morning. Benzonatate 200 mg capsule Take by mouth. dicyclomine (BENTYL) 10 mg capsule ketoconazole (NIZORAL) 2 % cream ondansetron orally disintegrating (ZOFRAN ODT) 4 mg disintegrating tablet Take by mouth every 8 hours as needed. metFORMIN (GLUCOPHAGE) 1,000 mg tablet Take 1,000 mg by mouth twice daily with meals. LEVEMIR FLEXTOUCH U-100 INSULIN 100 unit/mL (3 mL) injection pen Inject 26 Units subcutaneously daily at bedtime. BD INSULIN PEN NEEDLE UF 31 gauge x 5/16 albuterol HFA (PROAIR HFA) 90 mcg/actuation inhaler Inhale 2 Puffs as instructed every 6 hours as needed. pantoprazole DR (PROTONIX) 20 mg tablet Take 20 mg by mouth twice daily. cetirizine HCl (ZYRTEC ORAL) Take 10 mg by mouth. budesonide-formoterol (SYMBICORT) 80-4.5 mcg/actuation inhaler Inhale 2 Puffs as instructed twice daily. levothyroxine (LEVOXYL) 88 mcg tablet Take 1 tablet by mouth once daily. Take on empty stomach. For Thyroid fluticasone (FLONASE) 50 mcg/actuation nasal spray Use 2 Sprays in each nostril once daily. EPINEPHrine (EPIPEN) 0.3 mg/0.3 mL (1:1,000) atIn Inject intramuscularly. USE DIRECTED FOR ALLERGIC REACTION. SEEK EMERGENT MEDICAL IMMEDIATELY AFTER USE. predniSONE (DELTASONE) 10 mg tablet Take 4 tabs daily for 3 days, then 2 tabs daily for 3 days, then 1 tab daily for 3 days with food. FAMILY HISTORY Problem Relation Age of Onset Cancer Mother uterine Heart Mother Psychiatry Mother DEPRESSION COPD Mother Cataract Mother other (celiac) Mother Dementia Mother Celiac Disease Mother Colon (more content not included)... [facility] 02-12-2023 History of Present illness Narrative Images from the original note were not included. Subjective Male with complaints of rash on bilateral arms that itches. Patient denies any pain or getting into anything or changing any new products. Patient said she was out of town last week for Easter but stayed in the same hotel they always say in. Patient denies any other symptoms associated with this. The history is provided by the patient. No pediatric speech language pathologist was used. Rash Review of Systems Constitutional: Negative. Skin: Positive for itching and rash. Objective Physical Exam Constitutional: Appearance: Normal appearance. Pulmonary: Effort: Pulmonary effort is normal. Skin: Comments: Contact dermatitis noted in the areas marked above in blue. No signs of infection. Neurological: Mental Status: She is alert. 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 MYOFASCITIS 12/21/2006 Optic neuritis, right 95% vision loss Plantar fasciitis of left foot Prediabetes Pyoderma, unspecified 03/18/2006 Sleep apnea wears CPAP Unspecified asthma(493.90) PAST SURGICAL HISTORY Procedure Laterality Date APPENDECTOMY 11/01/2008 DELIVERY ONLY 1996,2008 , low cervical CHOLECYSTECTOMY 11/01/1998 Cholecystectomy COLONOSCOPY FLX DX W/COLLJ SPEC WHEN PFRMD 11/17/[address] Bojorquez 4 yr COLONOSCOPY W/BIOPSY SINGLE/MULTIPLE 01/03/2007 EYE SURGERY PROCEDURE Bilateral glucoma I/D PERIANAL ABSCESS, SUPERFICIAL 10/31/2013 LAPAROSCOPIC HEMICOLECTOMY 10/2020 10 inches of lower bowel removed d/t abscess - Dr Reyes LIG/TRNSXJ FLP TUBE ABDL/VAG APPR UNI/BI 11/01/2008 Tubal ligation NEUROPLASTY &/TRANSPOS MEDIAN NRV CARPAL TUNNE 09/18/2005 Carpal tunnel decomp left NEUROPLASTY &/TRANSPOS MEDIAN NRV CARPAL TUNNE 10/06/2005 Carpal tunnel decomp right PAST SURGICAL HISTORY OF 11/01/1977 RIGHT EYE PAST SURGICAL HISTORY OF 11/01/2012 fistulotomy PAST SURGICAL HISTORY OF 11/18/2021 phaco/goniosynechiolysis/goniotomy OS. PLACEMENT OF SETON 01/30/2014 PROCEDURE Right 01/22/2022 Phaco/Goniotomy REMV CATARACT EXTRACAP,INSERT LENS Bilateral SURG TX ANAL FISTULA 2ND STAGE 01/30/2014 ALLERGIES Salmeterol, Advair Diskus [Fluticasone Propion-Salmeterol], Augmentin [Amoxicillin-Pot Clavulanate], Bees, Ciprofloxacin, Cold-Allergy, Environmental [Other], and Excedrin [Dqcoaus-Ewwhgjidosags-Xhnafdfo] MEDICATIONS prednisoLONE acetate (PRED FORTE, ECONOPRED PLUS) 1 % ophthalmic suspension ONCE DAILY LEFT EYE albuterol (PROVENTIL) 2.5 mg /3 mL (0.083 %) nebulizer solution Use 3 mL via nebulizer every 4 hours as needed. Use over 5-15minutes. timolol maleate (TIMOPTIC) 0.5 % ophthalmic solution Use 1 Drop in both eyes every morning. Benzonatate 200 mg capsule Take by mouth. dicyclomine (BENTYL) 10 mg capsule ketoconazole (NIZORAL) 2 % cream ondansetron orally disintegrating (ZOFRAN ODT) 4 mg disintegrating tablet Take by mouth every 8 hours as needed. metFORMIN (GLUCOPHAGE) 1,000 mg tablet Take 1,000 mg by mouth twice daily with meals. LEVEMIR FLEXTOUCH U-100 INSULIN 100 unit/mL (3 mL) injection pen Inject 26 Units subcutaneously daily at bedtime. BD INSULIN PEN NEEDLE UF 31 gauge x 5/16 albuterol HFA (PROAIR HFA) 90 mcg/actuation inhaler Inhale 2 Puffs as instructed every 6 hours as needed. pantoprazole DR (PROTONIX) 20 mg tablet Take 20 mg by mouth twice daily. cetirizine HCl (ZYRTEC ORAL) Take 10 mg by mouth. budesonide-formoterol (SYMBICORT) 80-4.5 mcg/actuation inhaler Inhale 2 Puffs as instructed twice daily. levothyroxine (LEVOXYL) 88 mcg tablet Take 1 tablet by mouth once daily. Take on empty stomach. For Thyroid fluticasone (FLONASE) 50 mcg/actuation nasal spray Use 2 Sprays in each nostril once daily. EPINEPHrine (EPIPEN) 0.3 mg/0.3 mL (1:1,000) atIn Inject intramuscularly. USE DIRECTED FOR ALLERGIC REACTION. SEEK EMERGENT MEDICAL IMMEDIATELY AFTER USE. predniSONE (DELTASONE) 10 mg tablet Take 4 tabs daily for 3 days, then 2 tabs daily for 3 days, then 1 tab daily for 3 days with food. FAMILY HISTORY Problem Relation Age of Onset Cancer Mother uterine Heart Mother Psychiatry Mother DEPRESSION COPD Mother Cataract Mother other (celiac) Mother Dementia Mother Celiac Disease Mother Colon Cancer Father 69 Amblyopia Father other (pre diabetic) Sister Heart Sister Psychiatry Brother Heart Attack Brother 49 AIDs related Psychiatry Brother Heart Attack Brother 54 Diabetes Brother Diabetes Brother Asthma Brother Breast Cancer Maternal Grandmother Heart Maternal Grandfather No Known Problems Daughter No Known Problems Daughter Psychiatry Maternal Aunt BIPOLAR Stroke Maternal Aunt Breast Cancer Maternal Aunt Social History Tobacco Use Smoking status: Never Smokeless tobacco: Never Tobacco comments: tried briefly age 14 for several months Vaping Use Vaping Use: Never used Substance Use Topics Alcohol use: Yes Comment: rarely,NOT WHILE Drug use: No ASSESSMENT/PLAN: 1. Rash - ICD9: 782.1, ICD10: R21 - PREDNISONE 10 MG TABLET Patient is asthmatic so has been placed on prednisone before. Patient knows to monitor her blood sugars while taking the steroid. Patient is okay with this and will follow-up with dermatology if prednisone does not alleviate his symptoms. Elena Dixon APRN.MALCOLM documented in this encounter [facility] 02-10-2023 Note HNO ID: [id number] Author: RT China(R) Service: Radiology Author Type: Technologist Type: Progress Notes Filed: 02/10/2023 4:33 PM Note Text: Radiology Service Progress Note PATIENT NAME: Maddie Jones DATE OF SERVICE: February 10, 2023 TIME: 4:21 PM PATIENT IDENTITY VERIFICATION COMPLETED USING TWO (2) IDENTIFIERS: Name and Date of confirmed by patient verbally. FALL SCREENING: Has the patient had 2 falls in the last year or 1 fall with injury or currently using an Ambulatory Assistive Device (Walker, Cane, Wheelchair, Crutches, etc.)? No PATIENT GENDER DATA: Female. status: : No status: NO. PATIENT RELEVANT IMPLANT DATA REVIEWED: Yes RADIOLOGY DEPARTMENT: General X-ray: Exam(s) Completed: Spine X-Ray(s): Lumbar AP / LAT / L5-S1 PERIPHERAL IV DATA: Not applicable SIGNED BY: RT China(R) February 10, 2023 4:21 PM [facility] 02-10-2023 History of Present illness Narrative Radiology Service Progress Note PATIENT NAME: Maddie Jones DATE OF SERVICE: February 10, 2023 TIME: 4:21 PM PATIENT IDENTITY VERIFICATION COMPLETED USING TWO (2) IDENTIFIERS: Name and Date of confirmed by patient verbally. FALL SCREENING: Has the patient had 2 falls in the last year or 1 fall with injury or currently using an Ambulatory Assistive Device (Walker, Cane, Wheelchair, Crutches, etc.)? No PATIENT GENDER DATA: Female. status: : No status: NO. PATIENT RELEVANT IMPLANT DATA REVIEWED: Yes RADIOLOGY DEPARTMENT: General X-ray: Exam(s) Completed: Spine X-Ray(s): Lumbar AP / LAT / L5-S1 PERIPHERAL IV DATA: Not applicable SIGNED BY: RT China(R) February 10, 2023 4:21 PM documented in this encounter [facility] 02-03-2023 Miscellaneous Notes Summary: Appointment spoke to pt about scheduling a FU with in person or phone per staff msg pt will call if she needs a FU not scheduling at the moment documented in this encounter [facility] 02-02-2023 Note HNO ID: [id number] Author: Araceli Sparks MD Service: ? Author Type: Physician Type: Progress Notes Filed: 02/02/2023 4:30 PM Note Text: [facility] FOLLOWUP/ESTABLISHED PATIENT VISIT Also followed by: Patient Care Team: Marlyn Smith MD as PCP - General (Family Medicine) Jimmie Marrufo as Referring (Ophthalmology) PRINCIPAL NEUROLOGIC DIAGNOSIS: DISEASE SUMMARY Date of onset: 2008 Date of diagnosis of MS: n/a Most recent MRI brain: 2020 report only Most recent MRI cervical spine: not done CSF: attempted, not done INTERVAL HISTORY: She is in a flare she thinks of sciatica. Today it is in her right leg. Usually its her left leg. She doesn't see someone for this - steroids will flare diabetes. She has been doing well otherwise. No vision changes. Some sinus issues. she is more recently bothered by lightheadedness and dizziness. Hasnt not passed out although has felt pre-syncopal. no chest pain or pressure. usually happens when she is changing position. no diaphoresis although she feels sweaty most of the time. Refer to patient-entered data. Usual treating team: No specialty comments available. The patient is accompanied by . 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 has a current medication list which includes the following prescription(s): prednisolone acetate, albuterol, timolol maleate, benzonatate, dicyclomine, ondansetron orally disintegrating, metformin, levemir flextouch u-100 insulin, bd insulin pen needle uf, albuterol hfa, pantoprazole dr, cetirizine hcl, budesonide-formoterol, levothyroxine, fluticasone, epinephrine, and ketoconazole. EXAM: BP 115/78 Pulse 81 Ht 157.5 cm (5' 2 ) Wt 88.5 kg (195 lb) LMP 01/18/2023 BMI 35.67 kg/m? General Appearance: well appearing, in no acute distress Mental status evaluation during the interview and examination showed normal level of consciousness, orientation, language, memory, praxis, and higher intellectual function Affect: Normal RESULTS: NMO/AQPF FACS, S Negative Negative Comment: ADDITIONAL INFORMATION This test was developed and its performance characteristics determined by [facility] in a manner consistent with CLIA requirements. This test has not been cleared or approved by the U.S. Food and Drug Administration. MOG Antibody IgG Screen, Serum Negative Negative Comment: ADDITIONAL INFORMATION This test was developed and its performance characteristics determined by [facility] in a manner consistent with CLIA requirements. This test has not been cleared or approved by the U.S. Food and Drug Administration. 01/28/23 MRI B/C Results: my review - mild degen change in cervical spine, no cord compression. In brain, 1-2 nonspecific WM changes, not suggestive of demyelination. report Normal MR appearance of the brain. No evidence of an intracranial demyelinating lesion. Normal signal intensity and morphology of the cervical spinal cord. Minimal degenerative changes noting mild left foraminal narrowing at C6-7. ASSESSMENT/PLAN: Maddie Jones is a 47 year old female with 47 yo woman with NAION OU and dizziness. NMO and MOG neg. No new neurological explanation for her vision from my standpoint. Recommendations as below for dizziness/LH. PLAN: Give directions to check orthostatics at home. also printed them out. Asked the to document a few samples at home. Refer to syncope clinic - dont see need for EEG at this time. Carotids done and normal per patient, MRI Brain is unremarkable. Referral to spine med here. Follow-up: prn at [place] with Boissy I spent a total of 30 minutes on the date of the service which included [id number] patient care, completing clinical documentation, obtaining and/or reviewing separately obtained history, performing a medically appropriate examination, counseling and educating the patient/family/caregiver, ordering medications, tests, or procedures, and communicating with other HCPs (not separately reported). Araceli Sparks MD [facility][1] for Multiple Sclerosis [facility] 02-02-2023 History of Present illness Narrative [facility] FOLLOWUP/ESTABLISHED PATIENT VISIT Also followed by: Patient Care Team: Marlyn Smith MD as PCP - General (Family Medicine) Jimmie Marrufo as Referring (Ophthalmology) PRINCIPAL NEUROLOGIC DIAGNOSIS: DISEASE SUMMARY Date of onset: 2008 Date of diagnosis of MS: n/a Most recent MRI brain: 2020 report only Most recent MRI cervical spine: not done CSF: attempted, not done INTERVAL HISTORY: She is in a flare she thinks of sciatica. Today it is in her right leg. Usually its her left leg. She doesn't see someone for this - steroids will flare diabetes. She has been doing well otherwise. No vision changes. Some sinus issues. she is more recently bothered by lightheadedness and dizziness. Hasnt not passed out although has felt pre-syncopal. no chest pain or pressure. usually happens when she is changing position. no diaphoresis although she feels sweaty most of the time. Refer to patient-entered data. Usual treating team: No specialty comments available. The patient is accompanied by . The patient was last seen december 2022 has a past medical history of Abdominal pain, left lower quadrant, Acute angle-closure glaucoma, Bipolar 2 disorder (HCC), Chest pain, Diabetes mellitus ([facility]), Diarrhea, Enthesopathy of hip region (01/17/2007), Heart palpitations, Hypothyroid (03/28/2010), Internal hemorrhoids without mention of complication, Ischemic optic neuropathy, Lesion of sciatic nerve (01/17/2007), Migraine, unspecified, with intractable migraine, so stated, without mention of status migrainosus, Multiple hyalinizing granulomas of lung (HCC) (2022), MYOFASCITIS (12/21/2006), Optic neuritis, right, Plantar fasciitis of left foot, Prediabetes, Pyoderma, unspecified (03/18/2006), Sleep apnea, and Unspecified asthma(493.90). has a current medication list which includes the following prescription(s): prednisolone acetate, albuterol, timolol maleate, benzonatate, dicyclomine, ondansetron orally disintegrating, metformin, levemir flextouch u-100 insulin, bd insulin pen needle uf, albuterol hfa, pantoprazole dr, cetirizine hcl, budesonide-formoterol, levothyroxine, fluticasone, epinephrine, and ketoconazole. EXAM: BP 115/78 Pulse 81 Ht 157.5 cm (5' 2 ) Wt 88.5 kg (195 lb) LMP 01/18/2023 BMI 35.67 kg/m General Appearance: well appearing, in no acute distress Mental status evaluation during the interview and examination showed normal level of consciousness, orientation, language, memory, praxis, and higher intellectual function Affect: Normal RESULTS: NMO/AQPF FACS, S Negative Negative Comment: ADDITIONAL INFORMATION This test was developed and its performance characteristics determined by [facility] in a manner consistent with CLIA requirements. This test has not been cleared or approved by the U.S. Food and Drug Administration. MOG Antibody IgG Screen, Serum Negative Negative Comment: ADDITIONAL INFORMATION This test was developed and its performance characteristics determined by [facility] in a manner consistent with CLIA requirements. This test has not been cleared or approved by the U.S. Food and Drug Administration. 01/28/23 MRI B/C Results: my review - mild degen change in cervical spine, no cord compression. In brain, 1-2 nonspecific WM changes, not suggestive of demyelination. report Normal MR appearance of the brain. No evidence of an intracranial demyelinating lesion. Normal signal intensity and morphology of the cervical spinal cord. Minimal degenerative changes noting mild left foraminal narrowing at C6-7. ASSESSMENT/PLAN: Maddie Jones is a 47 year old female with 47 yo woman with NAION OU and dizziness. NMO and MOG neg. No new neurological explanation for her vision from my standpoint. Recommendations as below for dizziness/LH. PLAN: Give directions to check orthostatics at home. also printed them out. Asked the to document a few samples at home. Refer to syncope clinic - dont see need for EEG at this time. Carotids done and normal per patient, MRI Brain is unremarkable. Referral to spine med here. Follow-up: prn at [place] with Mathew I spent a total of 30 minutes on the date of the service which included orbw-iv-dyad patient care, completing clinical documentation, obtaining and/or reviewing separately obtained history, performing a medically appropriate examination, counseling and educating the patient/family/caregiver, ordering medications, tests, or procedures, and communicating with other HCPs (not separately reported). Araceli Sparks MD [facility][1] for Multiple Sclerosis documented in this encounter [facility] 02-01-2023 Miscellaneous Notes Repeat UA normal MRI brain and C-spine appear to be normal. Will confer with Neuro on the MRIs She is seeing patient tomorrow. Diaz Bagley MD documented in this encounter [facility] 01-28-2023 Note HNO ID: [id number] Author: RT Curt(R) Service: ? Author Type: Technologist Type: Progress Notes Filed: 01/28/2023 3:04 PM Note Text: Radiology Service Progress Note PATIENT NAME: Maddie Jones DATE OF SERVICE: January 28, 2023 TIME: 3:04 PM PATIENT IDENTITY VERIFICATION COMPLETED USING TWO (2) IDENTIFIERS: Name and Date of confirmed by patient verbally. FALL SCREENING: Has the patient had 2 falls in the last year or 1 fall with injury or currently using an Ambulatory Assistive Device (Walker, Cane, Wheelchair, Crutches, etc.)? Yes, Patient High Risk for Falls What interventions were put in place to prevent falls during this visit? Instructed Patient to Call for Help if Needed, Offered Assistance with Transfers/Clothing, Instructed Patient to Remain Seated (Not on Exam Table) Until Exam, and Increased Observations by Caregivers PATIENT GENDER DATA: Female. status: : No status: NO. PATIENT RELEVANT IMPLANT DATA REVIEWED: Yes RADIOLOGY DEPARTMENT: MR; Exam(s) Completed: Head: Multiple Sclerosis Spine: Cervical spine PERIPHERAL IV DATA: Not applicable SIGNED BY: RT Curt(R) January 28, 2023 3:04 PM [facility] 01-28-2023 History of Present illness Narrative Radiology Service Progress Note PATIENT NAME: Maddie Jones DATE OF SERVICE: January 28, 2023 TIME: 3:04 PM PATIENT IDENTITY VERIFICATION COMPLETED USING TWO (2) IDENTIFIERS: Name and Date of confirmed by patient verbally. FALL SCREENING: Has the patient had 2 falls in the last year or 1 fall with injury or currently using an Ambulatory Assistive Device (Walker, Cane, Wheelchair, Crutches, etc.)? Yes, Patient High Risk for Falls What interventions were put in place to prevent falls during this visit? Instructed Patient to Call for Help if Needed, Offered Assistance with Transfers/Clothing, Instructed Patient to Remain Seated (Not on Exam Table) Until Exam, and Increased Observations by Caregivers PATIENT GENDER DATA: Female. status: : No status: NO. PATIENT RELEVANT IMPLANT DATA REVIEWED: Yes RADIOLOGY DEPARTMENT: MR; Exam(s) Completed: Head: Multiple Sclerosis Spine: Cervical spine PERIPHERAL IV DATA: Not applicable SIGNED BY: RT Curt(R) January 28, 2023 3:04 PM documented in this encounter [facility] 01-28-2023 Note HNO ID: [id number] Author: Claritza Cali APRN.DEVELOPER EVANGELIST Service: ? Author Type: Nurse Practitioner Type: Progress Notes Filed: 01/28/2023 9:42 AM Note Text: Reading Instructor offered: Patient declines. Maddie is a 47 year old who presents for an annual gynecologic exam without complaints. Had blood in urine for another provider. Patient was on menses with collection and will recollect 2-day for convenience for that provider. Accompanied by . Menses: cycles every 28-30 days and 3-5 days of flow. Contraception: tubal sterilization HPV vaccine: No Last Pap: 08/28/2021 normal HPV: 08/28/2021 negative History of abnormal pap: No Last mammogram: 2021 normal Sexually active: Yes Patient concerns for STD exposure: No. Pain with intercourse: Yes, some pressure and urge to void during SI Postcoital bleeding: No Hot flashes: No, generally feeling warmer Night sweats: No - generally warm at night Documentation from previous visit of 08/28/2021 was copied and pasted, documentation has been reviewed and edited as necessary for today's visit. OB History T2 L2 SAB0 IAB0 Ectopic0 Multiple0 Live Births2 Direct Mail Manager History LMP: 12/21/2022, Having periods Age at Menarche: Age at First : Age at Menopause: Direct Mail Manager History Comments: Sexual Activity: Not Asked; Male; Not asked Contraception: Tubal Ligation PAST MEDICAL HISTORY Diagnosis Date Abdominal pain, left lower quadrant Acute angle-closure glaucoma Bipolar 2 disorder (HCC) Chest pain Diabetes mellitus (HCC) Diarrhea Enthesopathy of hip region 01/17/2007 Heart palpitations Hypothyroid 03/28/2010 Internal hemorrhoids without mention of complication Lesion of sciatic nerve 01/17/2007 Migraine, unspecified, with intractable migraine, so stated, without mention of status migrainosus Migraine Multiple hyalinizing granulomas of lung (HCC) lungs MYOFASCITIS 12/21/2006 Optic neuritis, right 95% vision loss Plantar fasciitis of left foot Prediabetes Pyoderma, unspecified 03/18/2006 Sleep apnea wears CPAP Unspecified asthma(493.90) PAST SURGICAL HISTORY Procedure Laterality Date APPENDECTOMY 11/01/2008 DELIVERY ONLY 1996,2008 , low cervical CHOLECYSTECTOMY 11/01/1998 Cholecystectomy COLONOSCOPY FLX DX W/COLLJ SPEC WHEN PFRMD 11/17/2013 COLONOSCOPY W/BIOPSY SINGLE/MULTIPLE 01/03/2007 I/D PERIANAL ABSCESS, SUPERFICIAL 10/31/2013 LAPAROSCOPIC HEMICOLECTOMY 10/2020 10 inches of lower bowel removed d/t abscess - Dr Reyes LIG/TRNSXJ FLP TUBE ABDL/VAG APPR UNI/BI 11/01/2008 Tubal ligation NEUROPLASTY AND/TRANSPOS MEDIAN NRV CARPAL TUNNE 09/18/2005 Carpal tunnel decomp left NEUROPLASTY AND/TRANSPOS MEDIAN NRV CARPAL TUNNE 10/06/2005 Carpal tunnel decomp right PAST SURGICAL HISTORY OF 11/01/1977 RIGHT EYE PAST SURGICAL HISTORY OF 11/01/2012 fistulotomy PAST SURGICAL HISTORY OF 11/18/2021 phaco/goniosynechiolysis/goniotomy OS. PLACEMENT OF SETON 01/30/2014 PROCEDURE Right 01/22/2022 Phaco/Goniotomy SURG TX ANAL FISTULA 2ND STAGE 01/30/2014 FAMILY HISTORY Problem Relation Age of Onset Cancer Mother uterine Heart Mother Psychiatry Mother DEPRESSION COPD Mother Cataract Mother other (celiac) Mother Colon Cancer Father 69 Amblyopia Father Cancer Sister cervical Heart Sister Lipids Sister Psychiatry Sister DEPRESSION Diabetes Sister Type 2 other (liver) Sister enlarged liver Psychiatry Brother DEPRESSION Psychiatry Brother DEPRESSION other (lymphoma) Brother cirroisis Heart Brother Diabetes Brother type 2 other (Sciatica) Brother Diabetes Brother Asthma Brother other (SPINAL STENOSIS) Brother MOTHER,SISTER AND 2 BROTHERS Breast Cancer Maternal Grandmother Heart Maternal Grandfather Psychiatry Maternal Aunt BIPOLAR Stroke Maternal Aunt Breast Cancer Maternal Aunt SOCIAL HISTORY Social History Tobacco Use Smoking status: Never Smokeless tobacco: Never Tobacco comments: tried briefly age 14 for several months Vaping Use Vaping Use: Never used Substance Use Topics Alcohol use: Yes Comment: rarely,NOT WHILE Drug use: No REVIEW OF SYSTEMS Abdomen: No abdominal pain, nausea, vomiting, diarrhea, or constipation. No bloating, early satiety, indigestion, or increased flatulence. Bladder: No dysuria, gross hematuria, urinary frequency, urinary urgency, or incontinence. Has noticed increasing urinary urgency but no stress incontinence or urge incontinence. Breast: No breast lumps, nipple d/c, overlying skin changes, redness or skin retraction. Allergies and current medication updated:Yes EXAM: BP 108/64 Ht 5' 2 (1.58m) Wt 186 lb (84.4kg) LMP 01/18/2023 BMI 34.01 kg/(m2). GENERAL: pleasant, female in no apparent distress HEENT: Normocephalic, atraumatic, mucus membranes moist, and no lesions NECK: Supple, full range of motion, (more content not included)... [facility] 12-30-2022 Note HNO ID: [id number] Author: Araceli Sparks MD Service: ? Author Type: Physician Type: Progress Notes Filed: 02/02/2023 3:05 PM Note Text: [facility] NEW PATIENT EVALUATION/CONSULTATION Referral source: Aj Lott [id number] [facility] [id number] Also followed by: Patient Care Team: Marlyn Smith MD as PCP - General (Family Medicine) Jimmie Marrufo as Referring (Ophthalmology) PRINCIPAL NEUROLOGIC DIAGNOSIS: Deferred pending diagnostic evaluation DISEASE SUMMARY Date of onset: 2008 Date of diagnosis of MS: n/a Disease course at onset: Relapsing-Remitting Current disease course: Relapsing-Remitting Previous disease therapies: none Current disease therapy: none Most recent MRI brain: 2020 report only Most recent MRI cervical spine: not done CSF: attempted, not done HISTORY OF ILLNESS: An opinion on this 47 year old right handed female was requested by the patient for a second opinion on neurological symptoms. The patient was accompanied by . Previous records (physician notes, laboratory reports, and radiology reports) and imaging studies were reviewed and summarized. My recommendations will be communicated back to the patient's physician(s) via electronic medical record. Follow-up is expected to be with me or the referring physician based on results of planned workup. In 2008, she lost vision OD. she was 7 months with child, went on vacation in [place]. The night before they left, her right eye started to feel gritty. Kept washing her contacts. nothing helped. When she got home, she was told she had abrasions on her eye, lots of redness, and because she was , they didn't treat. no pain w eye movement. she was seen at cataract center -told she had ON OD. Middle part is all blurred out - no chemical cell changer time. In 2019, she had diverticulitis, surgery done, two days later she she had excruciating pain through her eye. Went to her eye doc. She had trouble even opening the eye. They were very concerned about the pressure in her eye. Saw Dr Diaz notes in 2020: Pt was dx'd with abrasion to left eye cornea which pt was told was causing the pain and reason for her loss of vision. BCL was used with antibiotic eye gtts. Then it progressed to iritis and glaucoma. Dr. Parikh referred pt to [facility] and first visit was on 11/18/2020. 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 Was told to restart Durezol left eye bid and Combigan left eye bid. MRI and blood work ordered and everything came back WNL except for CRP was at 19 but she did have major abdominal sx in 10/2020. 11/28/20 visit with [facility] - Pt was suspect of having a viral cause so valcyclovir was added. Durezol was decreased to every day as inflammation quiet and IOP higher And was told to continue Combigan and Valacyclovir. 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 Here to round out her evaluation. She has occasional lightheadedness - more bothersome over the past year. balance is also off. Sugars are ok during these events. She has not passed out although felt like she might. BP also seems ok during spells when she checks. No vertigo PAST HISTORY: has a past medical history of Abdominal pain, left lower quadrant, Bipolar 2 disorder (HCC), Chest pain, Diabetes mellitus (HCC), Diarrhea, Enthesopathy of hip region (01/17/2007), Heart palpitations, Hypothyroid (03/28/2010), Internal hemorrhoids without mention of complication, Lesion of sciatic nerve (01/17/2007), Migraine, unspecified, with intractable migraine, so stated, without mention of status migrainosus, MYOFASCITIS (12/21/2006), Optic neuritis, right, Plantar fasciitis of left foot, Prediabetes, Pyoderma, unspecified (03/18/2006), Sleep apnea, and Unspecified asthma(493.90). has a past surgical history that includes delivery only (1996,2008); past surgical history of (11/01/1977); cholecystectomy (11/01/1998); neuroplasty AND/transpos median nrv carpal tunne (09/18/2005); neuroplasty AND/transpos median nrv carpal tunne (10/06/2005); colonoscopy w/biopsy single/multiple (01/03/2007); lig/trnsxj flp tube abdl/vag appr uni/bi (11/01/2008); i/d perianal abscess, superficial (10/31/2013); colonoscopy flx dx w/collj spec when pfrmd (11/17/2013); appendectomy (11/01/2008); past surgical history of (11/01/2012); surg tx anal fistula 2nd stage (01/30/2014); placement of seton (01/30/2014); laparoscopic hemicolectomy (10/2020); past surgical history of (11/18/2021); and procedure (Right, 01/22/2022). has a current medication list which includes the following prescription(s): prednisolone acetate, albuterol, timolol maleate, benzonatate, dicyclomine, metformin, levemir flextouch u-100 insulin, bd insulin pen needle uf, a (more content not included)... [facility] 12-30-2022 History of Present illness Narrative Images from the original note were not included. [facility] NEW PATIENT EVALUATION/CONSULTATION Referral source: Aj Lott [id number] [facility] [id number] Also followed by: Patient Care Team: Marlyn Smith MD as PCP - General (Family Medicine) Jimmie Marrufo as Referring (Ophthalmology) PRINCIPAL NEUROLOGIC DIAGNOSIS: Deferred pending diagnostic evaluation DISEASE SUMMARY Date of onset: 2008 Date of diagnosis of MS: n/a Disease course at onset: Relapsing-Remitting Current disease course: Relapsing-Remitting Previous disease therapies: none Current disease therapy: none Most recent MRI brain: 2020 report only Most recent MRI cervical spine: not done CSF: attempted, not done HISTORY OF ILLNESS: An opinion on this 47 year old right handed female was requested by the patient for a second opinion on neurological symptoms. The patient was accompanied by . Previous records (physician notes, laboratory reports, and radiology reports) and imaging studies were reviewed and summarized. My recommendations will be communicated back to the patient's physician(s) via electronic medical record. Follow-up is expected to be with me or the referring physician based on results of planned workup. In 2008, she lost vision OD. she was 7 months with child, went on vacation in [place]. The night before they left, her right eye started to feel gritty. Kept washing her contacts. nothing helped. When she got home, she was told she had abrasions on her eye, lots of redness, and because she was , they didn't treat. no pain w eye movement. she was seen at cataract center -told she had ON OD. Middle part is all blurred out - no chemical cell changer time. In 2019, she had diverticulitis, surgery done, two days later she she had excruciating pain through her eye. Went to her eye doc. She had trouble even opening the eye. They were very concerned about the pressure in her eye. Saw Dr Diaz notes in 2020: Pt was dx'd with abrasion to left eye cornea which pt was told was causing the pain and reason for her loss of vision. BCL was used with antibiotic eye gtts. Then it progressed to iritis and glaucoma. Dr. Parikh referred pt to [facility] and first visit was on 11/18/2020. 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 Was told to restart Durezol left eye bid and Combigan left eye bid. MRI and blood work ordered and everything came back WNL except for CRP was at 19 but she did have major abdominal sx in 10/2020. 11/28/20 visit with [facility] - Pt was suspect of having a viral cause so valcyclovir was added. Durezol was decreased to every day as inflammation quiet and IOP higher And was told to continue Combigan and Valacyclovir. 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 Here to round out her evaluation. She has occasional lightheadedness - more bothersome over the past year. balance is also off. Sugars are ok during these events. She has not passed out although felt like she might. BP also seems ok during spells when she checks. No vertigo PAST HISTORY: has a past medical history of Abdominal pain, left lower quadrant, Bipolar 2 disorder (HCC), Chest pain, Diabetes mellitus (HCC), Diarrhea, Enthesopathy of hip region (01/17/2007), Heart palpitations, Hypothyroid (03/28/2010), Internal hemorrhoids without mention of complication, Lesion of sciatic nerve (01/17/2007), Migraine, unspecified, with intractable migraine, so stated, without mention of status migrainosus, MYOFASCITIS (12/21/2006), Optic neuritis, right, Plantar fasciitis of left foot, Prediabetes, Pyoderma, unspecified (03/18/2006), Sleep apnea, and Unspecified asthma(493.90). has a past surgical history that includes delivery only (1996,2008); past surgical history of (11/01/1977); cholecystectomy (11/01/1998); neuroplasty &/transpos median nrv carpal tunne (09/18/2005); neuroplasty &/transpos median nrv carpal tunne (10/06/2005); colonoscopy w/biopsy single/multiple (01/03/2007); lig/trnsxj flp tube abdl/vag appr uni/bi (11/01/2008); i/d perianal abscess, superficial (10/31/2013); colonoscopy flx dx w/collj spec when pfrmd (11/17/2013); appendectomy (11/01/2008); past surgical history of (11/01/2012); surg tx anal fistula 2nd stage (01/30/2014); placement of seton (01/30/2014); laparoscopic hemicolectomy (10/2020); past surgical history of (11/18/2021); and procedure (Right, 01/22/2022). has a current medication list which includes the following prescription(s): prednisolone acetate, albuterol, timolol maleate, benzonatate, dicyclomine, metformin, levemir flextouch u-100 insulin, bd insulin pen needle uf, albuterol hfa, pantoprazole dr, cetirizine hcl, budesonide-formoterol, levothyroxine, fluticasone, epinephrine, ketoconazole, naproxen, ondansetron orally disintegrating, and bupropion sr. Social History Tobacco Use Smoking status: Never Smokeless tobacco: Never Tobacco comments: tried briefly age 14 for several months she tries to stay busy with her youngest daughter - she plays basketball and archery. Also a 25 yo daughter and 4 yo granddaughter. she is to [place] for 18 years family history includes Amblyopia in her father; Asthma in her brother; Breast Cancer in her maternal aunt and maternal grandmother; COPD in her mother; Cancer in her mother and sister; Cataract in her mother; Colon Cancer (age of onset: 69) in her father; Diabetes in her brother, brother, and sister; Heart in her brother, maternal grandfather, mother, and sister; Lipids in her sister; Psychiatry in her brother, brother, maternal aunt, mother, and sister; SPINAL STENOSIS in her brother; Sciatica in her brother; Stroke in her maternal aunt; celiac in her mother; liver in her sister; lymphoma in her brother. PHYSICAL EXAM: BP 116/81 Pulse 90 Ht 157.5 cm (5' 2 ) Wt 89.1 kg (196 lb 6.4 oz) LMP 12/21/2022 BMI 35.92 kg/m Hair, skin, nails, and joints were normal. Neck was supple without Lhermitte's phenomenon. There was no peripheral edema. The patient was alert and oriented to person, place, and time with normal language, attention and concentration, recent and remote memory, praxis, and intellectual function. Affect was normal. The patient did not appear depressed. Visual acuity to near card was as follows: OD= NLP OS= 20/40 (with glasses). Visual orosco able to detect finger movement OS except superior left quadrant. Formal visual orosco have been done - see notes. Pupils were 2 mm and not briskly reactive OU, post surgical changes Funduscopic examination was normal with b/l pallor Ocular ductions were full without nystagmus or ataxia. Facial sensation was normal. Muscles of mastication and facial expression moved normally. Hearing was intact to finger rub bilaterally. Palatal movements were normal. Sternocleidomastoid and trapezius power were normal. Tongue movements were normal. There was no dysarthria. Motor Examination: There was no pronator drift. Right Upper Extremity: Left Upper Extremity: Deltoid 5/5 Deltoid 5/5 Biceps 5/5 Biceps 5/5 Triceps 5/5 Triceps 5/5 kennel operator 5/5 kennel operator 5/5 Tone (Kymberly scale) 0 Tone (Kymberly scale) 0 Right Lower Extremity: Left Lower Extremity: Hip flexors 5/5 Hip flexors 5/5 Hip extensors 5/5 Hip extensors 5/5 Knee flexors 5/5 Knee flexors 5/5 Knee extensors 5/5 Knee extensors 5/5 Dorsiflexors 5/5 Dorsiflexors 5/5 Plantarflexors 5/5 Plantarflexors 5/5 Tone (Kymberly scale) 0 Tone (Kymberly scale) 0 Reflexes: brachioradialis ++ brachioradialis ++ biceps ++ biceps ++ triceps ++ triceps ++ patellar ++ patellar ++ Achilles ++ Achilles ++ Hart's sign absent Hart's sign absent clonus absent clonus absent Coordination testing in the arms and legs was performed including [id number], rapid-alternating, and fine movements. Rapid movements were smooth with good cameron and there was no dysmetria or ataxia. No signs of cerebellar dysfunction. Sensory examination: Light touch: Normal all four extremities. Gait was normal, including heel, toe, and tandem walking. REVIEW OF IMAGING STUDIES: nov 2020: MRI Brain - report only Normal CT chest 2022: Lung parenchyma and airways: A granuloma is noted in the right lower lobe. Linear bands of atelectasis/scarring are noted in the right middle lobe and lingula. No suspicious lung nodules are noted. No consolidation is noted. Patchy areas of air trapping are noted on free breathing images. There is no dynamic airway narrowing. Central airways are patent. Pleural space: No pleural effusion. No pleural thickening. Lower neck, lymph nodes, and mediastinum: The imaged thyroid gland is normal. No lymphadenopathy in the supraclavicular, axillary, mediastinal, or hilar regions. Component Latest Ref Rng & Units 09/29/2022 IgG 700 - 1,600 mg/dL 1,307 IgA 70 - 400 mg/dL 254 IgM 40 - 230 mg/dL 80 [place] Free, Serum 3.3 - 19.4 mg/L 47.1 (H) Lambda Free, Serum 5.7 - 26.3 mg/L 29.1 (H) K/L Ratio, Serum 0.26 - 1.65 1.62 MPA Result No M protein is identified. No M protein is identified. Staff Review (MPA) Reviewed by Kendra Edwards MD Sm Antibody Negative Negative Anti-Sm <1.0 AI <0.2 PUBLIC SAFETY DIRECTOR Antibody QUAL Negative Negative Anti-PUBLIC SAFETY DIRECTOR <1.0 AI 0.6 SSA Antibody Qual Negative Negative Anti-SSA <1.0 AI <0.2 Anti-SSB <1.0 AI <0.2 SSB Antibody Qual Negative Negative CENTROMERE AB QUAL Negative Negative Centromere Ab <1.0 AI <0.2 Scleroderma Ab Qual Negative Negative Scl-70 Abs, EIA <1.0 AI 0.3 ZAYDA 1 ANTIBODY QUAL Negative Negative Zayda 1 Antibody <1.0 AI <0.2 Hep B Surface Ag Negative Negative Hep B Surface Ab, Qual Negative Negative Hep B Core Ab, Total Negative Negative DNA Antibody w/Confirmation <30 IU/mL 17.33 Component Latest Ref Rng & Units 09/29/2022 c-ANCA Fluorescence Negative Negative p-ANCA Fluorescence Negative Negative Proteinase-3 Antibody <1.0 AI <0.2 Myeloperoxidase Antibody (MPO) <1.0 AI <0.2 Interpretation (ANCA) Equivocal staining seen on the ethanol (indirect immunofluorescence screen) side but negative results on follow up confirmatory testing. Anti-nuclear antibody test may be considered. Clinical correlation is required. Staff Review (ANCA) Reviewed by Anjel Marques MD, PhD C3 86 - 166 mg/dL 183 (H) C4 13 - 46 mg/dL 41 Calcium 8.5 - 10.2 mg/dL 10.1 she says she has had a Holter monitor and carotid units/S which are normal. ASSESSMENT: 47 yo woman with NAION OU and dizziness. Complicated vision history with mutiple evaluations. We need additional imaging to try and understand if demyelination is a possibility as an explanation. PLAN: NMO/MOG labs MRI B and cervical spine wo contrast fu by phone or in person ankit sparks for review I spent a total of 50 minutes on the date of the service which included [id number] patient care, completing clinical documentation, obtaining and/or reviewing separately obtained history, performing a medically appropriate examination, counseling and educating the patient/family/caregiver, ordering medications, tests, or procedures, and communicating with other HCPs (not separately reported). Araceli Sparks MD [facility][1] for Multiple Sclerosis documented in this encounter [facility] 12-21-2022 Miscellaneous Notes Addended by: DIAZ BAGLEY on: 12/21/2022 05:05 PM Modules accepted: Orders B documented in this encounter [facility] 12-20-2022 Miscellaneous Notes Reviewed case with Rheum Neuro Ophtho Rec: Eval for Sleep apnea (Patient does have sleep apnea) Hypercoag evaluation NeuroImmunology Diaz Bagley MD documented in this encounter [facility] 12-17-2022 Miscellaneous Notes Called patient Diaz Bagley MD documented in this encounter [facility] 11-05-[address] chest with no ILD, nodules or CARYN Diaz Bagley MD documented in this encounter [facility] 11-03-2022 Note HNO ID: [id number] Author: RT Kelly(R) Service: ? Author Type: Edge Sawyer Type: Progress Notes Filed: 11/03/2022 8:50 AM Note Text: Radiology Service Progress Note PATIENT NAME: Maddie Jones DATE OF SERVICE: November 03, 2022 TIME: 8:50 AM PATIENT IDENTITY VERIFICATION COMPLETED USING TWO (2) IDENTIFIERS: Name and Date of confirmed by patient verbally. FALL SCREENING: Has the patient had 2 falls in the last year or 1 fall with injury or currently using an Ambulatory Assistive Device (Walker, Cane, Wheelchair, Crutches, etc.)? No PATIENT GENDER DATA: Female. status: : No status: NO. PATIENT RELEVANT IMPLANT DATA REVIEWED: Yes RADIOLOGY DEPARTMENT: CT; Exam(s) Completed: Chest PERIPHERAL IV DATA: Not applicable SIGNED BY: RT Bailee(R) November 03, 2022 8:50 AM [facility] 11-03-2022 History of Present illness Narrative Radiology Service Progress Note PATIENT NAME: Maddie Jones DATE OF SERVICE: November 03, 2022 TIME: 8:50 AM PATIENT IDENTITY VERIFICATION COMPLETED USING TWO (2) IDENTIFIERS: Name and Date of confirmed by patient verbally. FALL SCREENING: Has the patient had 2 falls in the last year or 1 fall with injury or currently using an Ambulatory Assistive Device (Walker, Cane, Wheelchair, Crutches, etc.)? No PATIENT GENDER DATA: Female. status: : No status: NO. PATIENT RELEVANT IMPLANT DATA REVIEWED: Yes RADIOLOGY DEPARTMENT: CT; Exam(s) Completed: Chest PERIPHERAL IV DATA: Not applicable SIGNED BY: RT Bailee(R) November 03, 2022 8:50 AM documented in this encounter [facility] 10-20-2022 Miscellaneous Notes XR hips with some deg changes in spine SI Joints normal CXR with increased markings. Labs normal except UA with 1+ blood but micro negative STACY 1:160 homo CHIP and dsDNA neg Increased free light chains in serum CRP here 0.8 Reviewed case with her local Supervisor [address]. Reviewed case with Rheum / Ophtho team Diaz Bagley MD documented in this encounter [facility] 09-29-2022 History of Present illness Narrative Radiology Service Progress Note PATIENT NAME: Maddie Jones DATE OF SERVICE: September 29, 2022 TIME: 4:27 PM PATIENT IDENTITY VERIFICATION COMPLETED USING TWO (2) IDENTIFIERS: Name and Date of confirmed by patient verbally. FALL SCREENING: Has the patient had 2 falls in the last year or 1 fall with injury or currently using an Ambulatory Assistive Device (Walker, Cane, Wheelchair, Crutches, etc.)? No PATIENT GENDER DATA: Female. status: : No status: NO. PATIENT RELEVANT IMPLANT DATA REVIEWED: Not Applicable RADIOLOGY DEPARTMENT: General X-ray: Exam(s) Completed: Chest X-Ray Pelvis X-Ray: Pelvis with Hip Bilateral PERIPHERAL IV DATA: Not applicable SIGNED BY: RT Radha(R) September 29, 2022 4:27 PM documented in this encounter [facility] 09-29-2022 Instructions Diaz Bagley MD - 09/29/2022 2:49 PM EST Lab 1st floor Desk A15 Blood and urine X-ray 2nd floor Desk A21 Chest x-ray Hip x-ray documented in this encounter [facility] 09-29-2022 History of Present illness Narrative RHEUMATOLOGY NEW PATIENT CONSULT PROVIDER: Diaz Bagley MD DATE OF VISIT: 09/29/2022 NAME OF PATIENT: Maddie Jones PERSONAL PHYSICIAN: Marlyn Smith MD [address] [place], [place] [id number] CHIEF COMPLAINT / REASON FOR CONSULT: Non arteritic ischemic optic neuropathy HISTORY OF PRESENT ILLNESS: The patient is a 46 year old female. The history is obtained from the patient who is a good historian. The history is also obtained from the available EMR here at [facility] and by review of available outside records. She had perforated diverticulitis in Oct 2020. She needed emergency surgery and partial colectomy. Right after that, she had vision changes. Started seeing different specialists Had MRI brain and labs. 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 Her labs showed some increased inflammatory markers. She had also had vision changes and lost vision in OD in 2008. She does note more chronic dizzy spells and light headedness. No other focal neurologic symptoms She has skin issues. Thought to be allergic. Some spots on scalp. Was also thought to have hidradenitis. Has some joint pains. Has hand arthritis. Has hip pains. Sciatica. Recently diagnosed with diabetes. She had seen her eye doctor recently, and thought she should be evaluated for some systemic rheumatic process as the cause of her eye issues. REVIEW OF ELECTRONIC MEDICAL RECORD HERE: Seeing Ophtho here Seen more recently for glaucoma Notes past history of NAION Hx of iritis REVIEW OF OUTSIDE MEDICAL RECORDS: I have her outside Ophtho notes Concern for increased CRP 2 episodes of NAION Hx of secondary iritis Has glaucoma Labs 08/14/22 STACY neg ANCA neg ROSIE 16 CCP 7 CRP 10.9 mg/L RF neg ESR 11 06/03/22: CBC nl TSH nl CMP nl 09/2021: CMP nl REVIEW OF SYSTEMS: GENERAL: Negatives: Fever, chills, weight loss/gain. Positives: Fatigue SKIN: Positives: See HPI EYES: Positives: See HPI HENT: Negatives: OP/SOLAR PHOTOVOLTAIC ELECTRICIAN ulcers, hearing change, sore throat, dryness, sinus symptoms. CARDIOVASCULAR: Negatives: Chest pain, hypertension, edema, claudication, Raynaud's. RESPIRATORY: Negatives: Dyspnea, cough, hemoptysis, pleurisy. Pos: Asthma GASTROINTESTINAL: Negatives: Nausea, diarrhea, constipation, blood in stools, swallowing difficulty. Pos: IBS GENITOURINARY: Negatives: Dysuria, hematuria, ulcers, discharge. MUSCULOSKELETAL: See HPI NEUROLOGIC: Negatives: Headache, focal weakness, numbness. PSYCHIATRIC: Negatives: Depression, psychosis, anxiety. ENDOCRINE: Positive: New diabetes. Thyroid HEMATOLOGIC: Negatives: Bleeding, bruising, anemia. PAST MEDICAL HISTORY: PAST MEDICAL HISTORY Diagnosis Date Abdominal pain, left lower quadrant Bipolar 2 disorder (HCC) Chest pain Diabetes mellitus (HCC) Diarrhea Enthesopathy of hip region 01/17/2007 Heart palpitations Hypothyroid 03/28/2010 Internal hemorrhoids without mention of complication Lesion of sciatic nerve 01/17/2007 Migraine, unspecified, with intractable migraine, so stated, without mention of status migrainosus Migraine MYOFASCITIS 12/21/2006 Optic neuritis, right 95% vision loss Plantar fasciitis of left foot Prediabetes Pyoderma, unspecified 03/18/2006 Sleep apnea wears CPAP Unspecified asthma(493.90) PAST SURGICAL HISTORY: PAST SURGICAL HISTORY Procedure Laterality Date APPENDECTOMY 11/01/2008 DELIVERY ONLY 1996,2008 , low cervical CHOLECYSTECTOMY 11/01/1998 Cholecystectomy COLONOSCOPY FLX DX W/COLLJ SPEC WHEN PFRMD 11/17/2013 COLONOSCOPY W/BIOPSY SINGLE/MULTIPLE 01/03/2007 I/D PERIANAL ABSCESS, SUPERFICIAL 10/31/2013 LAPAROSCOPIC HEMICOLECTOMY 10/2020 10 inches of lower bowel removed d/t abscess - Dr Reyes LIG/TRNSXJ FLP TUBE ABDL/VAG APPR UNI/BI 11/01/2008 Tubal ligation NEUROPLASTY &/TRANSPOS MEDIAN NRV CARPAL TUNNE 09/18/2005 Carpal tunnel decomp left NEUROPLASTY &/TRANSPOS MEDIAN NRV CARPAL TUNNE 10/06/2005 Carpal tunnel decomp right PAST SURGICAL HISTORY OF 11/01/1977 RIGHT EYE PAST SURGICAL HISTORY OF 11/01/2012 fistulotomy PAST SURGICAL HISTORY OF 11/18/2021 phaco/goniosynechiolysis/goniotomy OS. PLACEMENT OF SETON 01/30/2014 PROCEDURE Right 01/22/2022 Phaco/Goniotomy SURG TX ANAL FISTULA 2ND STAGE 01/30/2014 MEDICATIONS: Current Outpatient Medications Medication Sig prednisoLONE acetate (PRED FORTE, ECONOPRED PLUS) 1 % ophthalmic suspension ONCE DAILY LEFT EYE albuterol (PROVENTIL) 2.5 mg /3 mL (0.083 %) nebulizer solution Use 3 mL via nebulizer every 4 hours as needed. Use over 5-15minutes. timolol maleate (TIMOPTIC) 0.5 % ophthalmic solution Use 1 Drop in both eyes every morning. Benzonatate 200 mg capsule Take by mouth. dicyclomine (BENTYL) 10 mg capsule ondansetron orally disintegrating (ZOFRAN ODT) 4 mg disintegrating tablet Take by mouth. metFORMIN (GLUCOPHAGE) 1,000 mg tablet Take 1,000 mg by mouth twice daily with meals. LEVEMIR FLEXTOUCH U-100 INSULIN 100 unit/mL (3 mL) injection pen Inject 18 Units subcutaneously daily at bedtime. BD INSULIN PEN NEEDLE UF 31 gauge x 5/16 albuterol HFA (PROAIR HFA) 90 mcg/actuation inhaler Inhale 2 Puffs as instructed every 6 hours as needed. pantoprazole DR (PROTONIX) 20 mg tablet Take 20 mg by mouth twice daily. cetirizine HCl (ZYRTEC ORAL) Take 10 mg by mouth. budesonide-formoterol (SYMBICORT) 80-4.5 mcg/actuation inhaler Inhale 2 Puffs as instructed twice daily. levothyroxine (LEVOXYL) 88 mcg tablet Take 1 tablet by mouth once daily. Take on empty stomach. For Thyroid fluticasone (FLONASE) 50 mcg/actuation nasal spray Use 2 Sprays in each nostril once daily. EPINEPHrine (EPIPEN) 0.3 mg/0.3 mL (1:1,000) atIn Inject intramuscularly. USE DIRECTED FOR ALLERGIC REACTION. SEEK EMERGENT MEDICAL IMMEDIATELY AFTER USE. ketoconazole (NIZORAL) 2 % cream (Patient not taking: Reported on 09/29/2022) naproxen (NAPROSYN) 500 mg tablet Take 500 mg by mouth. (Patient not taking: Reported on 09/29/2022) buPROPion SR (ZYBAN SR; WELLBUTRIN SR) 150 mg 12 hr tablet Take 150 mg by mouth twice daily. (Patient not taking: Reported on 09/29/2022) No current facility-administered medications for this visit. ALLERGIES: Advair Diskus [Fluticasone Propion-Salmeterol], Augmentin [Amoxicillin-Pot Clavulanate], Bees, Ciprofloxacin, Cold-Allergy, Environmental [Other], Excedrin [Qusouip-Fhqjhmqpgqsko-Ipisesdf], and Salmeterol FAMILY HISTORY: FAMILY HISTORY Problem Relation Age of Onset Cancer Mother uterine Heart Mother Psychiatry Mother DEPRESSION COPD Mother Cataract Mother other (celiac) Mother Colon Cancer Father 69 Amblyopia Father Cancer Sister cervical Heart Sister Lipids Sister Psychiatry Sister DEPRESSION Diabetes Sister Type 2 other (liver) Sister enlarged liver Psychiatry Brother DEPRESSION Psychiatry Brother DEPRESSION other (lymphoma) Brother cirroisis Heart Brother Diabetes Brother type 2 other (Sciatica) Brother Diabetes Brother Asthma Brother other (SPINAL STENOSIS) Brother MOTHER,SISTER AND 2 BROTHERS Breast Cancer Maternal Grandmother Heart Maternal Grandfather Psychiatry Maternal Aunt BIPOLAR Stroke Maternal Aunt Breast Cancer Maternal Aunt Niece has arthritis SOCIAL HISTORY: Marital status: M Occupation: Not working Alcohol: Rare Tobacco: No PHYSICAL EXAMINATION: GENERAL APPEARANCE: Well groomed. Alert and oriented x 3. In no distress. VITAL SIGNS: BP 133/79 Pulse 85 Temp 36.6 C (97.9 F) (Temporal) Ht 157.5 cm (5' 2 ) Wt 90.3 kg (199 lb 1.6 oz) LMP 12/30/2021 BMI 36.42 kg/m SKIN: Some excoriated areas over UEs. No other rash, thickening, nodules, discoloration. EYES: R exotropia. No inflammation seen. HENT: Scalp and temporal arteries are normal and non-tender. External examination and palpation of the ears and nose normal. Lips, teeth, and gums normal. Oropharynx and tongue normal. No lesions or exudate. NECK: No mass or asymmetry. Thyroid without mass or tenderness. LYMPHATIC: Normal exam of the neck, axillae. RESPIRATORY: Normal respiratory effort. Clear to auscultation and percussion. CARDIOVASCULAR: Heart RRR without gallop, murmur, or rub. No bruits across chest or neck. EXTREMITIES: Normal and equal pulses in all 4 extremities. No edema. NEUROLOGIC: Cranial nerves II-XII grossly intact other than R exotropia. DTRs 2+ and symmetric in all extremities. Sensory exam normal. MUSCULOSKELETAL EXAMINATION: Motor exam: Normal 5+/5+ muscle strength. Normal bulk and tone. Cervical spine: No visible abnormalities. Full ROM. No tenderness to palpation. Thoracic spine: No visible abnormalities. No tenderness to palpation. Lumbar spine: No visible abnormalities. Full ROM. No tenderness to palpation. Upper extremities: Normal inspection of joints. Shoulders, elbows, wrists, and hand joints without synovitis, swelling, tenderness, deformity, or lack of ROM. Lower extremities: Normal inspection of joints. Hips, knees, ankles, and feet without synovitis, swelling, tenderness, deformity, or lack of ROM. PROBLEM LIST: 1. 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 Iritis ? Secondary 3. Asthma 4. Diabetes 5. IBS 6. Diverticulitis 7. Glaucoma 8. Hypothyroidism 9. Increased CRP IMPRESSION: Maddie Jones is a 46 year old female who presents for a rheumatology evaluation at the [facility]. Evaluation for systemic cause of non arteritic ischemic optic neuropathy. Differential diagnosis --Sarcoidosis --STACY spectrum of disease --Vasculitis Doubt --Spondyloarthritis Doubt RECOMMENDATIONS / PLANS: Impression and recommendations/plans discussed with the patient in person. Old records and films reviewed as noted above. Consult will be sent to the requesting physician and/or the patient. Laboratory tests: As outlined in orders Radiology: As outlined in orders CXR Hip / SI joint XR Other tests: Consider repeat brain imaging MRI Consultations: Consider Neurology here also She is already seeing Ophthalmology here and elsewhere Medication changes: No medications were altered or prescribed by me today. Other: Patient should have updated all of her age-appropriate malignancy screens and vaccinations. Return Visit: To be determined. I will contact her with testing results. I spent a total of 70 minutes on the date of the service which included preparing to see the patient, [id number] patient care, completing clinical documentation, performing a medically appropriate examination, counseling and educating the patient/family/caregiver, and ordering medications, tests, or procedures. documented in this encounter [facility] 05-19-2022 History of Present illness Narrative Patient triaged at [facility]. Here today with worsening cough, sob over past 2 weeks. Hx of asthma. Reports not able to sleep d/t cough/sob for past 3 days, inhalers/nebulizers not working. Mildly using accessory muscles while talking, O2 94% on RA. I will refer to ER. Visitor to drive pov to [facility] ER. documented in this encounter [facility] 04-03-2022 Instructions Pasquale Roberts MD - 04/03/2022 9:48 AM EDT February 27, 2022 Medication Eye # times daily Timolol (yellow) Both morning Prednisolone (pink or white) Left 1 *please remember to wait at least 5 minutes between different drops in the same eye. documented in this encounter [facility] 04-03-2022 History of Present illness Narrative Tmax: 20, 24; Pachy: 569, 540 Lasers and Surgeries: OD: 01/22/22 phaco-goniotomy ([facility], IOP ok@12 but [employer] $$$) Strabismus surgery OS: 11/18/21 phaco/goniotomy/lysis PAS (IOP26 on 4) Ocular Medication Intol and Non-efficacy: - Referred by Jimmie Marrufo Now on Timolol qam OU PF once daily OS (was supposed to be OU) Cyclogyl qhs OS She thinks vision is unchnaged PO 10 wk phaco-goniotomy OD -well healed, IOP great -stay off PF POM3 [id number] OS -02/04/22: noted mild AC reaction and rapidly progressive PS -AC with few cells today today -continue PF once daily -stop cyclo -IOP ok at 16 Ok to ESHA Marrufo at this point (~2 mos) and I can see her back PRN PCO OS -seems mild. observe ==Unedited prior notes== PACG - [id number]-va-[id number] OU, severe stage (phacomorphic) NAION OU -HVF 10/2021 (Dr. Marrufo) OD very large dense inf arc thru fixation, dense sup paracentral, sl worse than 06/2021 OS sup alt, large dense inf arc encroaching fixation, worse than 06/2021, and sl worse than our 12/2020 field -OCT - OD OS -NAION -OD about 2009 - sudden onset -OS early 2020 after partial colectomy for diverticulitis perf -though there is pallor>>cupping OU, I suspect this is due to chronic primary angle-closure glaucoma with suspect overlying intermittent high pressure episodes Mild iritis OS -seen by Dr. Marrufo 11/2020 - iritis with mild temporal iris atrophy and disc edema -referred to [facility] at that time -likely this was intermittent AACG Exotropia Amblyopia OD Hyperopia OU -hx of amblyopia OD and strabismus sx -now likely sensory decompensation I, Pasquale Roberts MD, have edited as necessary and confirmed the relevant ophthalmic history, ROS, and neuro exam findings as obtained by others. I have seen and examined Maddie Jones. I also have reviewed, edited as necessary, and agree with the assessment and plan and all of its relevant components as stated above. I have discussed the case and the management of this patient's care with the Resident/Fellow, if applicable. April 03, 2022 9:48 AM. documented in this encounter [facility] 02-27-2022 Instructions Pasquale Roberts MD - 02/27/2022 10:38 AM EDT February 27, 2022 Medication Eye # times daily Timolol (yellow) Both morning Prednisolone (pink or white) Both 1 Cyclopentolate (red) Left bedtime *please remember to wait at least 5 minutes between different drops in the same eye. documented in this encounter [facility] 02-27-2022 History of Present illness Narrative Tmax: 20, 24; Pachy: 569, 540 Lasers and Surgeries: OD: 01/22/22 [facility] OS: 11/18/21 phaco/goniotomy/lysis PAS (IOP26 on 4) Ocular Medication Intol and Non-efficacy: - Referred by Jimmie Marrufo Now on Timolol qam OU PF BID OU Atropine qHs OU She thinks vision is worsening from last visit PO M1 phaco-goniotomy OD -AC shallowing has resolved -Stop atropine qHs -dec PF and stay on qd POM3 [id number] OS -02/04/22: noted mild AC reaction and rapidly progressive PS -improved with addition of PF BID OU ok to taper as below -Stop atropine qhs: try instead cyclogyl to see if it will help daytime vision vision being not dilated -dec PF to qd and stay on that PCO OS -seems mild. Will follow. Unsure if it is contributing to subjective blurring ==Unedited prior notes== PACG - [id number] OU, severe stage (phacomorphic) NAION OU -HVF 10/2021 (Dr. Marrufo) OD very large dense inf arc thru fixation, dense sup paracentral, sl worse than 06/2021 OS sup alt, large dense inf arc encroaching fixation, worse than 06/2021, and sl worse than our 12/2020 field -OCT - OD OS -NAION -OD about 2009 - sudden onset -OS early 2020 after partial colectomy for diverticulitis perf -though there is pallor>>cupping OU, I suspect this is due to chronic primary angle-closure glaucoma with suspect overlying intermittent high pressure episodes Mild iritis OS -seen by Dr. Marrufo 11/2020 - iritis with mild temporal iris atrophy and disc edema -referred to [facility] at that time -likely this was intermittent AACG Exotropia Amblyopia OD Hyperopia OU -hx of amblyopia OD and strabismus sx -now likely sensory decompensation I, Pasquale Roberts MD, have edited as necessary and confirmed the relevant ophthalmic history, ROS, and neuro exam findings as obtained by others. I have seen and examined Maddie Jones. I also have reviewed, edited as necessary, and agree with the assessment and plan and all of its relevant components as stated above. I have discussed the case and the management of this patient's care with the Resident/Fellow, if applicable. February 27, 2022 10:43 AM. documented in this encounter [facility] 02-04-2022 Instructions Won Hill - 02/04/2022 8:40 AM EDT Medication Eye # times daily Timolol (yellow) Both Morning Prednisolone (pink or white) Right Left 3 2 Atropine (red) Both Night time *please remember to wait at least 5 minutes between different drops in the same eye. documented in this encounter [facility] 02-04-2022 History of Present illness Narrative Tmax: 20, 24; Pachy: 569, 540 Lasers and Surgeries: OD: 01/22/22 phaco-goniotomy ([facility], IOP ok@12 but [employer] $$$) Strabismus surgery OS: 11/18/21 phaco/goniotomy/lysis PAS (IOP26 on 4) Ocular Medication Intol and Non-efficacy: - Referred by Jimmie Marrufo Now on Timolol qam OU PF qid OD Atropine bid PO 1w 6d phaco-goniotomy OD -AC shallowing has resolved -dec atropine to qhs -use PF tid OD POW11 [id number] OS -there is mild AC reaction and rapidly progressive PS -use atropine qhs -add PF bid OD Summary of homegoing meds Timolol qam OU Atropine qhs OU PF 3/2 - in 2 weeks, dec to 12/03 ==Unedited prior notes== PACG - [id number] OU, severe stage (phacomorphic) NAION OU -HVF 10/2021 (Dr. Marrufo) OD very large dense inf arc thru fixation, dense sup paracentral, sl worse than 06/2021 OS sup alt, large dense inf arc encroaching fixation, worse than 06/2021, and sl worse than our 12/2020 field -OCT - OD OS -NAION -OD about 2009 - sudden onset -OS early 2020 after partial colectomy for diverticulitis perf -though there is pallor>>cupping OU, I suspect this is due to chronic primary angle-closure glaucoma with suspect overlying intermittent high pressure episodes Mild iritis OS -seen by Dr. Marrufo 11/2020 - iritis with mild temporal iris atrophy and disc edema -referred to [place] at that time -likely this was intermittent AACG Exotropia Amblyopia OD Hyperopia OU -hx of amblyopia OD and strabismus sx -now likely sensory decompensation The documentation for this note was completed by Won Hill acting as a scribe for Dr. Pasquale Roberts 02/04/2022 7:58 AM I have confirmed and edited as necessary the relevant ophthalmic history, ROS, and the neuro exam findings as obtained by others. I have seen and examined Maddie Jones. I have discussed the case and the management of this patient's care with the Resident/Fellow, if applicable. I also have reviewed and agree with the assessment and plan as stated above and agree with all of its relevant components. I, Pasquale Roberts MD, personally performed the services described in this documentation. All medical record entries made by the scribe were at my direction and in my presence. I have reviewed the chart and discharge instructions (if applicable) and agree that the record reflects my personal performance and is accurate and complete. Electronically Signed: Pasquale Roberts MD, February 04, 2022 8:46 AM. documented in this encounter [facility] 01-29-2022 History of Present illness Narrative Tmax: 20, 24; Pachy: 569, 540 Lasers and Surgeries: OD: 01/22/22 phaco-goniotomy ([facility], IOP ok@12 but [employer] $$$) Strabismus surgery OS: 11/18/21 phaco/goniotomy/lysis PAS (IOP26 on 4) Ocular Medication Intol and Non-efficacy: - Referred by Jimmie Marrufo Now on PF q2hr OD Timolol bid OU POW#1 phaco-goniotomy OD -AC shallow POD1, suspect either due to shallow periph choroidal(periphery not well visualized) This happened OS also and resolved spontaneously -POW1AC fully deep today with possible tr peripheral shallow but no IK touch -continue atropine BID OD x1 more week, can likely stop next week -downtitrate PF to QID -continue timolol BID OU -RV scheduled 02/04/22 POW9 ubqna-anyrqqntp-SCY OS -POW1 there was anterior chamber shallowing -UBM 11/26/21 showed 1) supraciliary effusion 2) possible cyclo cleft inf-nasally 3) 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 Dec timolol to qam ==Unedited prior notes== PACG - ymstv-dw-hhsjpkx OU, severe stage (phacomorphic) NAION OU -HVF 10/2021 (Dr. Marrufo) OD very large dense inf arc thru fixation, dense sup paracentral, sl worse than 06/2021 OS sup alt, large dense inf arc encroaching fixation, worse than 06/2021, and sl worse than our 12/2020 field -OCT - OD OS -NAION -OD about 2009 - sudden onset -OS early 2020 after partial colectomy for diverticulitis perf -though there is pallor>>cupping OU, I suspect this is due to chronic primary angle-closure glaucoma with suspect overlying intermittent high pressure episodes Mild iritis OS -seen by Dr. Marrufo 11/2020 - iritis with mild temporal iris atrophy and disc edema -referred to Joe at that time -likely this was intermittent AACG Exotropia Amblyopia OD Hyperopia OU -hx of amblyopia OD and strabismus sx -now likely sensory decompensation documented in this encounter [facility] 01-23-2022 Instructions Pasquale Roberts MD - 01/23/2022 10:18 AM EDT January 23, 2022 Medication Eye # times daily Prednisolone (pink or white) Right Every 2 hours Atropine (red) Right 2 Timolol (yellow) Morning Both *please remember to wait at least 5 minutes between different drops in the same eye. documented in this encounter [facility] 01-23-2022 History of Present illness Narrative Tmax: 20, 24; Pachy: 569, 540 Lasers and Surgeries: OD: 01/22/22 phaco-goniotomy ([facility], IOP ok@12 but [employer] $$$) Strabismus surgery OS: 11/18/21 phaco/goniotomy/lysis PAS (IOP26 on 4) Ocular Medication Intol and Non-efficacy: - Referred by Jimmie Marrufo Now on Combigan bid OD PF q2hr OD Timolol bid OS POD#1 phaco-goniotomy OD -AC shallow POD1, suspect either due to shallow periph choroidal(periphery not well visualized) This happened OS also and resolved spontaneously -add atropine BID OD -Change Combigan bid to timolol qam -RV scheduled 02/04/22 POW9 [id number]-[id number] OS -POW1 there was anterior chamber shallowing -UBM 11/26/21 showed 1) supraciliary effusion 2) possible cyclo cleft inf-nasally 3) 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 Dec timolol to qam ==Unedited prior notes== PACG - ekljq-wi-qshdqio OU, severe stage (phacomorphic) NAION OU -HVF 10/2021 (Dr. Marrufo) OD very large dense inf arc thru fixation, dense sup paracentral, sl worse than 06/2021 OS sup alt, large dense inf arc encroaching fixation, worse than 06/2021, and sl worse than our 12/2020 field -OCT - OD OS -NAION -OD about 2009 - sudden onset -OS early 2020 after partial colectomy for diverticulitis perf -though there is pallor>>cupping OU, I suspect this is due to chronic primary angle-closure glaucoma with suspect overlying intermittent high pressure episodes Mild iritis OS -seen by Dr. Marrufo 11/2020 - iritis with mild temporal iris atrophy and disc edema -referred to [facility] at that time -likely this was intermittent AACG Exotropia Amblyopia OD Hyperopia OU -hx of amblyopia OD and strabismus sx -now likely sensory decompensation The documentation of the edits to the resident/fellow note were complete by Won Hill acting as a scribe for Dr. Pasquale Roberts 01/23/2022 10:11 AM I have confirmed and edited as necessary the relevant ophthalmic history, ROS, and the neuro exam findings as obtained by others. I have seen and examined Maddie Jones. I have discussed the case and the management of this patient's care with the Resident/Fellow, if applicable. I also have reviewed and agree with the assessment and plan as stated above and agree with all of its relevant components. I, Pasquale Roberts MD, personally performed the services described in this documentation. All medical record entries made by the scribe were at my direction and in my presence. I have reviewed the chart and discharge instructions (if applicable) and agree that the record reflects my personal performance and is accurate and complete. Electronically Signed: Pasquale Roberts MD, January 23, 2022 10:19 AM. documented in this encounter [facility] documented as of this encounter (statuses as of 01/23/2022) [facility] History of Past illness Narrative* Problem Noted Date Resolved Date Previous delivery, antepartum condition or complication 11/03/2008 03/23/2013 Diarrhea 01/03/2007 11/05/2015 Abdominal pain, left lower quadrant 01/03/2007 03/23/2013 Internal hemorrhoids without mention of complica tion 01/03/2007 11/05/2015 MYOFASCITIS 12/21/2006 11/05/2015 Carpal tunnel syndrome 09/11/2005 6 Lesion of ulnar nerve 09/11/2005 12/14/2005 Unspecified asthma(493.90) 11/05 documented as of this encounter (statuses as of 01/29/2022) [facility] History of Past illness Narrative* Problem Noted Date Resolved Date Previous delivery, antepartum condition or complication 11/03/2008 03/23/2013 Diarrhea 01/03/2007 11/05/2015 Abdominal pain, left lower quadrant 01/03/2007 03/23/2013 Internal hemorrhoids without mention of complica tion 01/03/2007 11/05/2015 MYOFASCITIS 12/21/2006 11/05/2015 Carpal tunnel syndrome 09/11/2005 6 Lesion of ulnar nerve 09/11/2005 12/14/2005 Unspecified asthma(493.90) 11/05 documented as of this encounter (statuses as of 02/04/2022) [facility] History of Past illness Narrative* Problem Noted Date Resolved Date Previous delivery, antepartum condition or complication 11/03/2008 03/23/2013 Diarrhea 01/03/2007 11/05/2015 Abdominal pain, left lower quadrant 01/03/2007 03/23/2013 Internal hemorrhoids without mention of complica tion 01/03/2007 11/05/2015 MYOFASCITIS 12/21/2006 11/05/2015 Carpal tunnel syndrome 09/11/2005 6 Lesion of ulnar nerve 09/11/2005 12/14/2005 Unspecified asthma(493.90) 11/05 documented as of this encounter (statuses as of 02/27/2022) [facility] History of Past illness Narrative* Problem Noted Date Resolved Date Previous delivery, antepartum condition or complication 11/03/2008 03/23/2013 Diarrhea 01/03/2007 11/05/2015 Abdominal pain, left lower quadrant 01/03/2007 03/23/2013 Internal hemorrhoids without mention of complica tion 01/03/2007 11/05/2015 MYOFASCITIS 12/21/2006 11/05/2015 Carpal tunnel syndrome 09/11/2005 6 Lesion of ulnar nerve 09/11/2005 12/14/2005 Unspecified asthma(493.90) 11/05 documented as of this encounter (statuses as of 04/03/2022) [facility] History of Past illness Narrative* Problem Noted Date Resolved Date Previous delivery, antepartum condition or complication 11/03/2008 03/23/2013 Diarrhea 01/03/2007 11/05/2015 Abdominal pain, left lower quadrant 01/03/2007 03/23/2013 Internal hemorrhoids without mention of complica tion 01/03/2007 11/05/2015 MYOFASCITIS 12/21/2006 11/05/2015 Carpal tunnel syndrome 09/11/2005 6 Lesion of ulnar nerve 09/11/2005 12/14/2005 Unspecified asthma(493.90) 11/05 documented as of this encounter (statuses as of 05/19/2022) [facility] History of Past illness Narrative* Problem Noted Date Resolved Date Previous delivery, antepartum condition or complication 11/03/2008 03/23/2013 Diarrhea 01/03/2007 11/05/2015 Abdominal pain, left lower quadrant 01/03/2007 03/23/2013 Internal hemorrhoids without mention of complica tion 01/03/2007 11/05/2015 MYOFASCITIS 12/21/2006 11/05/2015 Carpal tunnel syndrome 09/11/2005 6 Lesion of ulnar nerve 09/11/2005 12/14/2005 Unspecified asthma(493.90) 11/05 documented as of this encounter (statuses as of 09/30/2022) [facility] History of Past illness Narrative* Problem Noted Date Resolved Date Previous delivery, antepartum condition or complication 11/03/2008 03/23/2013 Diarrhea 01/03/2007 11/05/2015 Abdominal pain, left lower quadrant 01/03/2007 03/23/2013 Internal hemorrhoids without mention of complica tion 01/03/2007 11/05/2015 MYOFASCITIS 12/21/2006 11/05/2015 Carpal tunnel syndrome 09/11/2005 6 Lesion of ulnar nerve 09/11/2005 12/14/2005 Unspecified asthma(493.90) 11/05 documented as of this encounter (statuses as of 10/20/2022) [facility] History of Past illness Narrative* Problem Noted Date Resolved Date Previous delivery, antepartum condition or complication 11/03/2008 03/23/2013 Diarrhea 01/03/2007 11/05/2015 Abdominal pain, left lower quadrant 01/03/2007 03/23/2013 Internal hemorrhoids without mention of complica tion 01/03/2007 11/05/2015 MYOFASCITIS 12/21/2006 11/05/2015 Carpal tunnel syndrome 09/11/2005 6 Lesion of ulnar nerve 09/11/2005 12/14/2005 Unspecified asthma(493.90) 11/05 documented as of this encounter (statuses as of 10/20/2022) [facility] History of Past illness Narrative* Problem Noted Date Resolved Date Previous delivery, antepartum condition or complication 11/03/2008 03/23/2013 Diarrhea 01/03/2007 11/05/2015 Abdominal pain, left lower quadrant 01/03/2007 03/23/2013 Internal hemorrhoids without mention of complica tion 01/03/2007 11/05/2015 MYOFASCITIS 12/21/2006 11/05/2015 Carpal tunnel syndrome 09/11/2005 6 Lesion of ulnar nerve 09/11/2005 12/14/2005 Unspecified asthma(493.90) 11/05 documented as of this encounter (statuses as of 10/23/2022) [facility] History of Past illness Narrative* Problem Noted Date Resolved Date Previous delivery, antepartum condition or complication 11/03/2008 03/23/2013 Diarrhea 01/03/2007 11/05/2015 Abdominal pain, left lower quadrant 01/03/2007 03/23/2013 Internal hemorrhoids without mention of complica tion 01/03/2007 11/05/2015 MYOFASCITIS 12/21/2006 11/05/2015 Carpal tunnel syndrome 09/11/2005 6 Lesion of ulnar nerve 09/11/2005 12/14/2005 Unspecified asthma(493.90) 11/05 documented as of this encounter (statuses as of 11/06/2022) [facility] History of Past illness Narrative* Problem Noted Date Resolved Date Previous delivery, antepartum condition or complication 11/03/2008 03/23/2013 Diarrhea 01/03/2007 11/05/2015 Abdominal pain, left lower quadrant 01/03/2007 03/23/2013 Internal hemorrhoids without mention of complica tion 01/03/2007 11/05/2015 MYOFASCITIS 12/21/2006 11/05/2015 Carpal tunnel syndrome 09/11/2005 6 Lesion of ulnar nerve 09/11/2005 12/14/2005 Unspecified asthma(493.90) 11/05 documented as of this encounter (statuses as of 12/17/2022) [facility] History of Past illness Narrative* Problem Noted Date Resolved Date Previous delivery, antepartum condition or complication 11/03/2008 03/23/2013 Diarrhea 01/03/2007 11/05/2015 Abdominal pain, left lower quadrant 01/03/2007 03/23/2013 Internal hemorrhoids without mention of complica tion 01/03/2007 11/05/2015 MYOFASCITIS 12/21/2006 11/05/2015 Carpal tunnel syndrome 09/11/2005 6 Lesion of ulnar nerve 09/11/2005 12/14/2005 Unspecified asthma(493.90) 11/05 documented as of this encounter (statuses as of 12/20/2022) [facility] History of Past illness Narrative* Problem Noted Date Resolved Date Previous delivery, antepartum condition or complication 11/03/2008 03/23/2013 Diarrhea 01/03/2007 11/05/2015 Abdominal pain, left lower quadrant 01/03/2007 03/23/2013 Internal hemorrhoids without mention of complica tion 01/03/2007 11/05/2015 MYOFASCITIS 12/21/2006 11/05/2015 Carpal tunnel syndrome 09/11/2005 6 Lesion of ulnar nerve 09/11/2005 12/14/2005 Unspecified asthma(493.90) 11/05 documented as of this encounter (statuses as of 12/21/2022) [facility] History of Past illness Narrative* Problem Noted Date Resolved Date Previous delivery, antepartum condition or complication 11/03/2008 03/23/2013 Diarrhea 01/03/2007 11/05/2015 Abdominal pain, left lower quadrant 01/03/2007 03/23/2013 Internal hemorrhoids without mention of complica tion 01/03/2007 11/05/2015 MYOFASCITIS 12/21/2006 11/05/2015 Carpal tunnel syndrome 09/11/2005 6 Lesion of ulnar nerve 09/11/2005 12/14/2005 Unspecified asthma(493.90) 11/05 documented as of this encounter (statuses as of 01/18/2023) [facility] History of Past illness Narrative* Problem Noted Date Resolved Date Previous delivery, antepartum condition or complication 11/03/2008 03/23/2013 Diarrhea 01/03/2007 11/05/2015 Abdominal pain, left lower quadrant 01/03/2007 03/23/2013 Internal hemorrhoids without mention of complica tion 01/03/2007 11/05/2015 MYOFASCITIS 12/21/2006 11/05/2015 Carpal tunnel syndrome 09/11/2005 6 Lesion of ulnar nerve 09/11/2005 12/14/2005 Unspecified asthma(493.90) 11/05 documented as of this encounter (statuses as of 02/01/2023) [facility] History of Past illness Narrative* Problem Noted Date Resolved Date Previous delivery, antepartum condition or complication 11/03/2008 03/23/2013 Diarrhea 01/03/2007 11/05/2015 Abdominal pain, left lower quadrant 01/03/2007 03/23/2013 Internal hemorrhoids without mention of complica tion 01/03/2007 11/05/2015 MYOFASCITIS 12/21/2006 11/05/2015 Carpal tunnel syndrome 09/11/2005 6 Lesion of ulnar nerve 09/11/2005 12/14/2005 Unspecified asthma(493.90) 11/05 documented as of this encounter (statuses as of 02/03/2023) [facility] History of Past illness Narrative* Problem Noted Date Resolved Date Previous delivery, antepartum condition or complication 11/03/2008 03/23/2013 Diarrhea 01/03/2007 11/05/2015 Abdominal pain, left lower quadrant 01/03/2007 03/23/2013 Internal hemorrhoids without mention of complica tion 01/03/2007 11/05/2015 MYOFASCITIS 12/21/2006 11/05/2015 Carpal tunnel syndrome 09/11/2005 6 Lesion of ulnar nerve 09/11/2005 12/14/2005 Unspecified asthma(493.90) 11/05 documented as of this encounter (statuses as of 02/03/2023) [facility] History of Past illness Narrative* Problem Noted Date Resolved Date Previous delivery, antepartum condition or complication 11/03/2008 03/23/2013 Diarrhea 01/03/2007 11/05/2015 Abdominal pain, left lower quadrant 01/03/2007 03/23/2013 Internal hemorrhoids without mention of complica tion 01/03/2007 11/05/2015 MYOFASCITIS 12/21/2006 11/05/2015 Carpal tunnel syndrome 09/11/2005 6 Lesion of ulnar nerve 09/11/2005 12/14/2005 Unspecified asthma(493.90) 11/05 documented as of this encounter (statuses as of 02/03/2023) [facility] History of Past illness Narrative* Problem Noted Date Resolved Date Previous delivery, antepartum condition or complication 11/03/2008 03/23/2013 Diarrhea 01/03/2007 11/05/2015 Abdominal pain, left lower quadrant 01/03/2007 03/23/2013 Internal hemorrhoids without mention of complica tion 01/03/2007 11/05/2015 MYOFASCITIS 12/21/2006 11/05/2015 Carpal tunnel syndrome 09/11/2005 6 Lesion of ulnar nerve 09/11/2005 12/14/2005 Unspecified asthma(493.90) 11/05 documented as of this encounter (statuses as of 02/13/2023) [facility] History of Past illness Narrative* Problem Noted Date Resolved Date Previous delivery, antepartum condition or complication 11/03/2008 03/23/2013 Diarrhea 01/03/2007 11/05/2015 Abdominal pain, left lower quadrant 01/03/2007 03/23/2013 Internal hemorrhoids without mention of complica tion 01/03/2007 11/05/2015 MYOFASCITIS 12/21/2006 11/05/2015 Carpal tunnel syndrome 09/11/2005 6 Lesion of ulnar nerve 09/11/2005 12/14/2005 Unspecified asthma(493.90) 11/05 documented as of this encounter (statuses as of 03/02/2023) [facility] History of Past illness Narrative* Problem Noted Date Resolved Date Previous delivery, antepartum condition or complication 11/03/2008 03/23/2013 Diarrhea 01/03/2007 11/05/2015 Abdominal pain, left lower quadrant 01/03/2007 03/23/2013 Internal hemorrhoids without mention of complica tion 01/03/2007 11/05/2015 MYOFASCITIS 12/21/2006 11/05/2015 Carpal tunnel syndrome 09/11/2005 6 Lesion of ulnar nerve 09/11/2005 12/14/2005 Unspecified asthma(493.90) 11/05 documented as of this encounter (statuses as of 04/05/2023) [facility] History of Past illness Narrative* Problem Noted Date Resolved Date Previous delivery, antepartum condition or complication 11/03/2008 03/23/2013 Diarrhea 01/03/2007 11/05/2015 Abdominal pain, left lower quadrant 01/03/2007 03/23/2013 Internal hemorrhoids without mention of complica tion 01/03/2007 11/05/2015 MYOFASCITIS 12/21/2006 11/05/2015 Carpal tunnel syndrome 09/11/2005 6 Lesion of ulnar nerve 09/11/2005 12/14/2005 Unspecified asthma(493.90) 11/05 documented as of this encounter (statuses as of 04/06/2023) [facility] History of Past illness Narrative* Problem Noted Date Resolved Date Previous delivery, antepartum condition or complication 11/03/2008 03/23/2013 Diarrhea 01/03/2007 11/05/2015 Abdominal pain, left lower quadrant 01/03/2007 03/23/2013 Internal hemorrhoids without mention of complica tion 01/03/2007 11/05/2015 MYOFASCITIS 12/21/2006 11/05/2015 Carpal tunnel syndrome 09/11/2005 6 Lesion of ulnar nerve 09/11/2005 12/14/2005 Unspecified asthma(493.90) 11/05 documented as of this encounter (statuses as of 04/26/2023) [facility] History of Past illness Narrative* Problem Noted Date Diagnosed Date Resolved Date Previous delivery, antepartum condition or complication 11/03/2008 03/23/2013 Diarrhea 01/03/2007 11/05/2015 Abdominal pain, left lower quadrant 01/03/2007 03/23/2013 Internal hemorrhoids without mention of complication 01/03/2007 11/05/2015 MYOFASCITIS 12/21/2006 11/05/2015 Carpal tunnel syndrome 09/11/200512/14 Lesion of ulnar nerve 09/11/20052005 Unspecified asthma(493.90) 0 11/05/2015 documented as of this encounter (statuses as of 05/11/2023) [facility] History of Past illness Narrative* Problem Noted Date Diagnosed Date Resolved Date Previous delivery, antepartum condition or complication 11/03/2008 03/23/2013 Diarrhea 01/03/2007 11/05/2015 Abdominal pain, left lower quadrant 01/03/2007 03/23/2013 Internal hemorrhoids without mention of complication 01/03/2007 11/05/2015 MYOFASCITIS 12/21/2006 11/05/2015 Carpal tunnel syndrome 09/11/200512/14 Lesion of ulnar nerve 09/11/20052005 Unspecified asthma(493.90) 0 11/05/2015 documented as of this encounter (statuses as of 05/11/2023) [facility] History of Past illness Narrative* Problem Noted Date Diagnosed Date Resolved Date Previous delivery, antepartum condition or complication 11/03/2008 03/23/2013 Diarrhea 01/03/2007 11/05/2015 Abdominal pain, left lower quadrant 01/03/2007 03/23/2013 Internal hemorrhoids without mention of complication 01/03/2007 11/05/2015 MYOFASCITIS 12/21/2006 11/05/2015 Carpal tunnel syndrome 09/11/200512/14 Lesion of ulnar nerve 09/11/20052005 Unspecified asthma(493.90) 0 11/05/2015 documented as of this encounter (statuses as of 05/23/2023) [facility] History of Past illness Narrative* Problem Noted Date Diagnosed Date Resolved Date Previous delivery, antepartum condition or complication 11/03/2008 03/23/2013 Diarrhea 01/03/2007 11/05/2015 Abdominal pain, left lower quadrant 01/03/2007 03/23/2013 Internal hemorrhoids without mention of complication 01/03/2007 11/05/2015 MYOFASCITIS 12/21/2006 11/05/2015 Carpal tunnel syndrome 09/11/200512/14 Lesion of ulnar nerve 09/11/20052005 Unspecified asthma(493.90) 0 11/05/2015 documented as of this encounter (statuses as of 05/23/2023) [facility] History of Past illness Narrative* Problem Noted Date Diagnosed Date Resolved Date Previous delivery, antepartum condition or complication 11/03/2008 03/23/2013 Diarrhea 01/03/2007 11/05/2015 Abdominal pain, left lower quadrant 01/03/2007 03/23/2013 Internal hemorrhoids without mention of complication 01/03/2007 11/05/2015 MYOFASCITIS 12/21/2006 11/05/2015 Carpal tunnel syndrome 09/11/200512/14 Lesion of ulnar nerve 09/11/20052005 Unspecified asthma(493.90) 0 11/05/2015 documented as of this encounter (statuses as of 05/31/2023) [facility] History of Past illness Narrative* Problem Noted Date Diagnosed Date Resolved Date Previous delivery, antepartum condition or complication 11/03/2008 03/23/2013 Diarrhea 01/03/2007 11/05/2015 Abdominal pain, left lower quadrant 01/03/2007 03/23/2013 Internal hemorrhoids without mention of complication 01/03/2007 11/05/2015 MYOFASCITIS 12/21/2006 11/05/2015 Carpal tunnel syndrome 09/11/200512/14 Lesion of ulnar nerve 09/11/20052005 Unspecified asthma(493.90) 0 11/05/2015 documented as of this encounter (statuses as of 06/25/2023) [facility] History of Past illness Narrative* Problem Noted Date Diagnosed Date Resolved Date Previous delivery, antepartum condition or complication 11/03/2008 03/23/2013 Diarrhea 01/03/2007 11/05/2015 Abdominal pain, left lower quadrant 01/03/2007 03/23/2013 Internal hemorrhoids without mention of complication 01/03/2007 11/05/2015 MYOFASCITIS 12/21/2006 11/05/2015 Carpal tunnel syndrome 09/11/200512/14 Lesion of ulnar nerve 09/11/20052005 Unspecified asthma(493.90) 0 11/05/2015 documented as of this encounter (statuses as of 07/03/2023) [facility] History of Past illness Narrative* Problem Noted Date Diagnosed Date Resolved Date Previous delivery, antepartum condition or complication 11/03/2008 03/23/2013 Diarrhea 01/03/2007 11/05/2015 Abdominal pain, left lower quadrant 01/03/2007 03/23/2013 Internal hemorrhoids without mention of complication 01/03/2007 11/05/2015 MYOFASCITIS 12/21/2006 11/05/2015 Carpal tunnel syndrome 09/11/200512/14 Lesion of ulnar nerve 09/11/20052005 Unspecified asthma(493.90) 0 11/05/2015 documented as of this encounter (statuses as of 07/22/2023) [facility] History of Past illness Narrative* Problem Noted Date Diagnosed Date Resolved Date Previous delivery, antepartum condition or complication 11/03/2008 03/23/2013 Diarrhea 01/03/2007 11/05/2015 Abdominal pain, left lower quadrant 01/03/2007 03/23/2013 Internal hemorrhoids without mention of complication 01/03/2007 11/05/2015 MYOFASCITIS 12/21/2006 11/05/2015 Carpal tunnel syndrome 09/11/200512/14 Lesion of ulnar nerve 09/11/20052005 Unspecified asthma(493.90) 0 11/05/2015 documented as of this encounter (statuses as of 08/07/2023) [facility] History of Past illness Narrative* Problem Noted Date Diagnosed Date Resolved Date Previous delivery, antepartum condition or complication 11/03/2008 03/23/2013 Diarrhea 01/03/2007 11/05/2015 Abdominal pain, left lower quadrant 01/03/2007 03/23/2013 Internal hemorrhoids without mention of complication 01/03/2007 11/05/2015 MYOFASCITIS 12/21/2006 11/05/2015 Carpal tunnel syndrome 09/11/200512/14 Lesion of ulnar nerve 09/11/20052005 Unspecified asthma(493.90) 0 11/05/2015 documented as of this encounter (statuses as of 08/12/2023) [facility] History of Past illness Narrative* Problem Noted Date Diagnosed Date Resolved Date Previous delivery, antepartum condition or complication 11/03/2008 03/23/2013 Diarrhea 01/03/2007 11/05/2015 Abdominal pain, left lower quadrant 01/03/2007 03/23/2013 Internal hemorrhoids without mention of complication 01/03/2007 11/05/2015 MYOFASCITIS 12/21/2006 11/05/2015 Carpal tunnel syndrome 09/11/200512/14 Lesion of ulnar nerve 09/11/20052005 Unspecified asthma(493.90) 0 11/05/2015 documented as of this encounter (statuses as of 09/05/2023) [facility] History of Past illness Narrative* Problem Noted Date Diagnosed Date Resolved Date Previous delivery, antepartum condition or complication 11/03/2008 03/23/2013 Diarrhea 01/03/2007 11/05/2015 Abdominal pain, left lower quadrant 01/03/2007 03/23/2013 Internal hemorrhoids without mention of complication 01/03/2007 11/05/2015 MYOFASCITIS 12/21/2006 11/05/2015 Carpal tunnel syndrome 09/11/200512/14 Lesion of ulnar nerve 09/11/20052005 Unspecified asthma(493.90) 0 11/05/2015 documented as of this encounter (statuses as of 09/05/2023) [facility] History of Past illness Narrative* Problem Noted Date Diagnosed Date Resolved Date Previous delivery, antepartum condition or complication 11/03/2008 03/23/2013 Diarrhea 01/03/2007 11/05/2015 Abdominal pain, left lower quadrant 01/03/2007 03/23/2013 Internal hemorrhoids without mention of complication 01/03/2007 11/05/2015 MYOFASCITIS 12/21/2006 11/05/2015 Carpal tunnel syndrome 09/11/200512/14 Lesion of ulnar nerve 09/11/20052005 Unspecified asthma(493.90) 0 11/05/2015 documented as of this encounter (statuses as of 09/05/2023) [facility] History of Past illness Narrative* Problem Noted Date Diagnosed Date Resolved Date Previous delivery, antepartum condition or complication 11/03/2008 03/23/2013 Diarrhea 01/03/2007 11/05/2015 Abdominal pain, left lower quadrant 01/03/2007 03/23/2013 Internal hemorrhoids without mention of complication 01/03/2007 11/05/2015 MYOFASCITIS 12/21/2006 11/05/2015 Carpal tunnel syndrome 09/11/200512/14 Lesion of ulnar nerve 09/11/20052005 Unspecified asthma(493.90) 0 11/05/2015 documented as of this encounter (statuses as of 09/05/2023) [facility] History of Past illness Narrative* Problem Noted Date Diagnosed Date Resolved Date Previous delivery, antepartum condition or complication 11/03/2008 03/23/2013 Diarrhea 01/03/2007 11/05/2015 Abdominal pain, left lower quadrant 01/03/2007 03/23/2013 Internal hemorrhoids without mention of complication 01/03/2007 11/05/2015 MYOFASCITIS 12/21/2006 11/05/2015 Carpal tunnel syndrome 09/11/200512/14 Lesion of ulnar nerve 09/11/20052005 Unspecified asthma(493.90) 0 11/05/2015 documented as of this encounter (statuses as of 09/07/2023) [facility] Diagnosis Follow-up examination after eye surgery- Primary Follow-up examination, following other surgery [facility] Diagnosis Follow-up examination after eye surgery- Primary Follow-up examination, following other surgery [facility] Diagnosis Follow-up examination after eye surgery- Primary Follow-up examination, following other surgery [facility] Diagnosis Follow-up examination after eye surgery Follow-up examination, following other surgery [facility] Diagnosis Trouble breathing- Primary Other dyspnea and respiratory abnormality [facility] Diagnosis 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 Ischemic optic neuropathy Dyspnea, unspecified type Bilateral hip pain Pain in joint, pelvic region and thigh documented [facility] Diagnosis 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 Ischemic optic neuropathy Dyspnea, unspecified type Bilateral hip pain Pain in joint, pelvic region and thigh Other optic atrophy, bilateral [facility] Diagnosis 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 Ischemic optic neuropathy [facility] Diagnosis 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 Ischemic optic neuropathy [facility] Diagnosis Demyelinating disease of central nervous system (HCC)- Primary Demyelinating disease of central nervous system, unspecified Dizziness and giddiness Visual loss Unspecified visual loss Non-arteritic AION (anterior ischemic optic neuropathy), bilateral [facility] Diagnosis Light headedness- Primary Dizziness and giddiness Bilateral sciatica Sciatica documented [facility] this [facility] Diagnosis Rash- Primary Rash and other nonspecific skin eruption [facility] Diagnosis Chronic bilateral low back pain without sciatica- Primary [facility] Diagnosis Visual loss- Primary Unspecified visual loss Light headedness Dizziness and giddiness Bilateral sciatica Sciatica documented [facility] this [facility] Diagnosis Chronic bilateral low back pain without sciatica- Primary Trochanteric bursitis of both hips Enthesopathy of hip region [facility] Diagnosis Chronic bilateral low back pain without sciatica documented [facility] Diagnosis 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 Ischemic optic neuropathy Other optic atrophy, bilateral Dermatitis Contact dermatitis and other eczema, due to unspecified cause documented [facility] this [facility] Diagnosis Generalized abdominal pain- Primary Abdominal pain, generalized [facility]* Diagnosis Gammopathy 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) Multiple myeloma, without mention of having achieved remission [facility] Diagnosis Trochanteric bursitis of both hips Enthesopathy of hip region documented [facility] this [facility] Diagnosis Trochanteric bursitis of both hips- Primary Enthesopathy of hip region documented in this [facility] Diagnosis Lightheadedness- Primary Dizziness and giddiness Orthostatic hypotension documented in this [facility] Diagnosis 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) Sarcoidosis Dyspnea, unspecified type Abnormal chest x-ray Other nonspecific abnormal finding of lung field documented [facility] this [facility] Diagnosis Bilateral sciatica Sciatica documented in this [facility] Diagnosis Demyelinating disease of central nervous system (HCC) Demyelinating disease of central nervous system, unspecified Dizziness and giddiness Visual loss Unspecified visual loss documented [facility] this [facility] Diagnosis Trochanteric bursitis of both hips- Primary Enthesopathy of hip region documented in this encounter [facility] for referral (narrative)* Diagnostic Procedure Only (Routine) - Closed Specialty Diagnoses / Procedures Referred By Michael nunez Referred To Contact XR IMAGING Diagnoses 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 Bilateral hip pain Procedures XR HIP BILATERAL 5V PEL/AP/LAT EACH HIP RADEX HIPS BILATERAL WITH PELVIS MINIMUM 5 VIEWS Diaz Bagley MD [address] [place] [address] Xr Imaging Referral ID Status Reason Start Date Expiration Date V isits Requested Visits Authorized [id number] Closed Auto-Generate d Referral 09/29/2022 10/29/2023 1 1 [facility] for referral (narrative)* Diagnostic Procedure Only (Routine) - Closed Specialty Diagnoses / Procedures Referred By Contac t Referred To Contact XR IMAGING Diagnoses 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 Bilateral hip pain Procedures XR HIP BILATERAL 5V PEL/AP/LAT EACH HIP RADEX HIPS BILATERAL WITH PELVIS MINIMUM 5 VIEWS Diaz Bagley MD [address] [place] [address] Xr Imaging Referral ID Status Reason Start Date Expiration Date V isits Requested Visits Authorized [id number] Closed Auto-Generate d Referral 09/29/2022 10/29/2023 1 1 [facility] for referral (narrative)* Diagnostic Procedure Only (Routine) - Pending Review Specialty Diagnoses / Procedures Referred By Contac t Referred To Contact XR IMAGING Diagnoses Bilateral sciatica Procedures XR LUMBAR GENERAL 3V AP/LAT/L5-S1 RADEX SPINE LUMBOSACRAL 2/3 VIEWS Araceli Sparks MD [address] [employer] [address] Xr Imaging Referral ID Status Reason Start Date Expiration Date Visits Requested Visits Authorized [id number] Pending Review Auto-Generat ed Referral 02/02/2023 03/03/2024 1 1 * Consult, Test, Treat (Routine) - Authorized Specialty Diagnoses / Procedures Referred By Contac t Referred To Contact [facility] [place] Diagnoses Bilateral sciatica Procedures [facility] OFFICE/OUTPATIENT NEW HIGH MDM 60-74 MINUTES Araceli Sparks MD [address] [employer] [address] Referral ID Status Reason Start Date Expiration Date Visits Requested Visits Authorized [id number] Authorized PCP Requested Referral 02/09/2023 02/02/2024 1 1 * Consult, Test, Treat (Routine) - Authorized Specialty Diagnoses / Procedures Referred By Michael nunez Referred To Contact Diagnoses Light headedness Procedures CONSULT TO [facility] OFFICE/OUTPATIENT [facility] HIGH MDM 60-74 MINUTES Araceli Sparks MD [address] [place] [address] Referral ID Status Reason Start Date Expiration Date Visits Requested Visits Authorized [id number] Authorized PCP Requested Referral 02/09/2023 02/02/2024 1 1 [facility] for referral (narrative)* Outpatient Procedure (Routine) - Pending Review Specialty Diagnoses / Procedures Referred By Michael nunez Referred To Contact [facility] Diagnoses Lightheadedness Orthostatic hypotension Procedures ECHO ECHO TTHRC R-T 2D W/WOM-MODE COMPL SPEC&COLR D Rafael Overton MD [address] [place] [address] [facility] [place] [address] [place] [address] Referral ID Status Reason Start Date Expiration Date Visits Requested Visits Authorized [id number] Pending Review Auto-Generat ed Referral 3 08/10/2024 1 1 * Outpatient Procedure (Routine) - Closed Specialty Diagnoses / Procedures Referred By Michael nunez Referred To Contact HEART [facility] Diagnoses Lightheadedness Procedures ECG COMPLETE ECG ROUTINE ECG W/LEAST 12 LDS W/I&R Rafael Overton MD [address] [place] [address] [facility] [address] [address] Referral ID Status Reason Start Date Expiration Date V isits Requested Visits Authorized [id number] Closed Auto-Generate d Referral 08/11/2023 08/09/2024 [facility] Diagnostic Procedure Only (Routine) - Closed Specialty Diagnoses / Procedures Referred By Contac t Referred To Contact XR IMAGING Diagnoses Bilateral sciatica Procedures XR LUMBAR GENERAL 3V AP/LAT/L5-S1 RADEX SPINE LUMBOSACRAL 2/3 VIEWS Araceli Sparks MD [address] [place] [address] Xr Imaging [place] [facility] Referral ID Status Reason Start Date Expiration Date V isits Requested Visits Authorized [id number] Closed Auto-Generate d Referral 02/02/2023 03/03/2024 1 1 [facility] for visit Narrative* Diagnostic Procedure Only (Routine) - Closed Specialty Diagnoses / Procedures Referred By Bertaac t Referred To Contact XR IMAGING Diagnoses Bilateral sciatica Procedures XR LUMBAR GENERAL 3V AP/LAT/L5-S1 RADEX SPINE LUMBOSACRAL 2/3 VIEWS Araceli Sparks MD [address] [place] [address] Xr Imaging [place] [address] Referral ID Status Reason Start Date Expiration Date V isits Requested Visits Authorized [id number] Closed Auto-Generate d Referral 02/02/2023 03/03/2024 1 1 [facility] Medications Administered Section Active Administered Medications - up to 3 most recent administrations Medication Order MAR Action Action Date Dose Rate Site fluorescein-benoxinate 0.25-0.4 % 1 Drop (FLURESS) 1 Drop, BOTH EYES, DIRECTED, Starting on Wed01/23/22 at 0930, Until Wed01/23/22 at 2128, Administer for applanation tonometry. In the event of a Fluress shortage, administer [place]-Fluor 1 drop into both eyes as directed for applanation tonometry Given 01/23/2022 9:36 AM EDT 1 Drop Active Administered Medications - up to 3 most recent administrations Medication Order MAR Action Action Date Dose Rate Site fluorescein-benoxinate 0.25-0.4 % 1 Drop (FLURESS) 1 Drop, BOTH EYES, DIRECTED, Starting on Wed04/03/22 at 0900, Until Wed04/03/22 at 2058, Administer for applanation tonometry. In the event of a Fluress shortage, administer [place]-Fluor 1 drop into both eyes as directed for applanation tonometry, [facility] MED ORDERS Given 04/03/2022 9:00 AM EDT 1 Drop Inactive Administered Medications - up to 3 most recent administrations Medication Order MAR Action Action Date Dose Rate Site lidocaine (PF) 10 mg/mL (1 %) 4 mL injection (XYLOCAINE) 4 mL, Injection - FOR ORTHO USE ONLY, ONCE, 1 dose, Starting on Wed09/06/23 at 0959, Until Wed09/06/23 at 0959 Given 09/06/2023 9:59 AM EST 4 mL Hip, Left lidocaine (PF) 10 mg/mL (1 %) 4 mL injection (XYLOCAINE) 4 mL, Injection - FOR ORTHO USE ONLY, ONCE, 1 dose, Starting on Wed09/06/23 at 0959, Until Wed09/06/23 at 0959 Given 09/06/2023 9:59 AM EST 4 mL Hip, Right triamcinolone acetonide 40 mg injection (KeNALog 40) 40 mg, Injection - FOR ORTHO USE ONLY, ONCE, 1 dose, Starting on 09/06/23 at 0959, Until Wed09/06/23 at 0959 Given 09/06/2023 9:59 AM EST 40 mg Hip, Left triamcinolone acetonide 40 mg injection (KeNALog 40) 40 mg, Injection - FOR ORTHO USE ONLY, ONCE, 1 dose, Starting on 09/06/23 at 0959, Until Wed09/06/23 at 0959 Given 09/06/2023 9:59 AM EST 40 mg Hip, Right Advance Directives No Advanced Directives Records FoundDocuments on File Type Date 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 Advance Directive(s) 01/21/2022 12:38 PM Advance Directive(s) 11/05/2021 12:40 PM Reason for Referral Specialty Diagnoses / Procedures Referred By Michael nunez Referred To Contact Diagnoses Dizziness and giddiness Procedures [facility]ICE/OUTPATIENT [facility] 60-74 MINUTES Araceli Sparks MD [address] [place] [address] Referral ID Status Reason Start Date Expiration Date Visits Requested Visits Authorized [id number] Authorized PCP Requested Referral 01/13/2023 12/30/2023 1 1 Specialty Diagnoses / Procedures Referred By Contac t Referred To Contact MR IMAGING Diagnoses Demyelinating disease of central nervous system (HCC) Procedures MRI CERVICAL SPINE WO IVCON MRI SPINAL CANAL CERVICAL W/O CONTRAST MATRL Araceli Sparks MD [address] [place] [address] Mr Imaging Referral ID Status Reason Start Date Expiration Date V isits Requested Visits Authorized [id number] Closed Auto-Generate d Referral 01/11/2023 10/31/2023 1 1 Specialty Diagnoses / Procedures Referred By Contac t Referred To Contact MR IMAGING Diagnoses Demyelinating disease of central nervous system (HCC) Dizziness and giddiness Visual loss Procedures MRI BRAIN WO IVCON MRI BRAIN BRAIN STEM W/O CONTRAST MATERIAL Araceli Sparks MD [address] [facility] [place] [id number] Mr Imaging Referral ID Status Reason Start Date Expiration Date V isits Requested Visits Authorized [id number] Closed Auto-Generate d Referral 01/11/2023 10/31/2023 1 1 Specialty Diagnoses / Procedures Referred By Contac t Referred To Contact [facility] Diagnoses Chronic bilateral low back pain without sciatica Procedures CONSULT TO PHYSICAL THERAPY PHYSICAL THERAPY EVALUATION HIGH COMPLEX 45 MINS Kelin Burch PA-C [address] [place] [address] [place] [place] [address] Referral ID Status Reason Start Date Expiration Date Visits Requested Visits Authorized [id number] Pending Review Auto-Generat ed Referral 03/01/2023 02/29/2024 1 1 Specialty Diagnoses / Procedures Referred By Contac t Referred To Contact Ophthalmology Diagnoses Visual loss Procedures CONSULT TO OPHTHALMOLOGY OFFICE/OUTPATIENT [facility] MDM 60-74 MINUTES Araceli Sparks MD [address] [address] Referral ID Status Reason Start Date Expiration Date Visits Requested Visits Authorized [id number] Authorized PCP Requested Referral 04/12/2023 04/04/2024 1 1 Specialty Diagnoses / Procedures Referred By Contac t Referred To Contact Orthopedics Diagnoses Trochanteric bursitis of both hips Procedures CONSULT TO ORTHOPAEDICS OFFICE/OUTPATIENT [facility] 60-74 MINUTES Kelin Burch PA-C [address] [place] [address] Referral ID Status Reason Start Date Expiration Date Visits Requested Visits Authorized [id number] Authorized PCP Requested Referral 05/10/2023 05/09/2024 1 1 Specialty Diagnoses / Procedures Referred By Contac t Referred To Contact Dermatology Diagnoses Dermatitis Procedures CONSULT TO DERMATOLOGY OFFICE/OUTPATIENT [facility] 60-74 MINUTES Diaz Bagley MD [address] [place] [address] Referral ID Status Reason Start Date Expiration Date Visits Requested Visits Authorized [id number] Authorized PCP Requested Referral 05/23/2023 05/22/2024 1 1 Specialty Diagnoses / Procedures Referred By Contac t Referred To Contact CT IMAGING Diagnoses Interstitial pulmonary disease (HCC) Sarcoidosis of lung (HCC) Dyspnea, unspecified type Abnormal chest x-ray Procedures CT CHEST WO IVCON DIAGNOSTIC COMPUTED TOMOGRAPHY THORAX W/O CNTRST Diaz Bagley MD [address] [place] [address] Ct Imaging [place] [address] Referral ID Status Reason Start Date Expiration Date V isits Requested Visits Authorized [id number] Closed Auto-Generate d Referral 11/03/2022 10/31/2023 1 1 Specialty Diagnoses / Procedures Referred By Contac t Referred To Contact MR IMAGING Diagnoses Demyelinating disease of central nervous system (HCC) Procedures MRI CERVICAL SPINE WO IVCON MRI SPINAL CANAL CERVICAL W/O CONTRAST Araceli Stafford MD [address] [place] [address] Mr Imaging [place] [address] Specialty Diagnoses / Procedures Referred By Contac t Referred To Contact MR IMAGING Diagnoses Demyelinating disease of central nervous system (HCC) Dizziness and giddiness Visual loss Procedures MRI BRAIN WO IVCON MRI BRAIN BRAIN STEM W/O CONTRAST MATERIAL Boissy, Araceli, MD [address] [place] [address] Mr Imaging [facility] Summary Purpose Family History No Family History Records Found Additional Source Comments Source Comments (unrecognize d section and content) In the event this informatio n is protected by the Federal Confidentiality of Alcohol and Drug Abuse Patient Records regulations: The Federal rules restrict any use of the information to criminally investigate or prosecute any alcohol or drug abuse patient.[facility] event this information is protected by the Federal Confidentiality of Alcohol and Drug Abuse Patient Records regulations: The Federal rules restrict any use of the information to criminally investigate or prosecute any alcohol or drug abuse patient.[facility] the event this information is protected by the Federal Confidentiality of Alcohol and Drug Abuse Patient Records regulations: The Federal rules restrict any use of the information to criminally investigate or prosecute any alcohol or drug abuse patient.[facility] the event this information is protected by the Federal Confidentiality of Alcohol and Drug Abuse Patient Records regulations: The Federal rules restrict any use of the information to criminally investigate or prosecute any alcohol or drug abuse patient.[facility] the event this information is protected by the Federal Confidentiality of Alcohol and Drug Abuse Patient Records regulations: The Federal rules restrict any use of the information to criminally investigate or prosecute any alcohol or drug abuse patient.[facility] the event this information is protected by the Federal Confidentiality of Alcohol and Drug Abuse Patient Records regulations: The Federal rules restrict any use of the information to criminally investigate or prosecute any alcohol or drug abuse patient.[facility] the event this information is protected by the Federal Confidentiality of Alcohol and Drug Abuse Patient Records regulations: The Federal rules restrict any use of the information to criminally investigate or prosecute any alcohol or drug abuse patient.[facility] the event this information is protected by the Federal Confidentiality of Alcohol and Drug Abuse Patient Records regulations: The Federal rules restrict any use of the information to criminally investigate or prosecute any alcohol or drug abuse patient.[facility] the event this information is protected by the Federal Confidentiality of Alcohol and Drug Abuse Patient Records regulations: The Federal rules restrict any use of the information to criminally investigate or prosecute any alcohol or drug abuse patient.[facility] the event this information is protected by the Federal Confidentiality of Alcohol and Drug Abuse Patient Records regulations: The Federal rules restrict any use of the information to criminally investigate or prosecute any alcohol or drug abuse patient.[facility] the event this information is protected by the Federal Confidentiality of Alcohol and Drug Abuse Patient Records regulations: The Federal rules restrict any use of the information to criminally investigate or prosecute any alcohol or drug abuse patient.[facility] the event this information is protected by the Federal Confidentiality of Alcohol and Drug Abuse Patient Records regulations: The Federal rules restrict any use of the information to criminally investigate or prosecute any alcohol or drug abuse patient.[facility] the event this information is protected by the Federal Confidentiality of Alcohol and Drug Abuse Patient Records regulations: The Federal rules restrict any use of the information to criminally investigate or prosecute any alcohol or drug abuse patient.[facility] the event this information is protected by the Federal Confidentiality of Alcohol and Drug Abuse Patient Records regulations: The Federal rules restrict any use of the information to criminally investigate or prosecute any alcohol or drug abuse patient.[facility] the event this information is protected by the Federal Confidentiality of Alcohol and Drug Abuse Patient Records regulations: The Federal rules restrict any use of the information to criminally investigate or prosecute any alcohol or drug abuse patient.[facility] the event this information is protected by the Federal Confidentiality of Alcohol and Drug Abuse Patient Records regulations: The Federal rules restrict any use of the information to criminally investigate or prosecute any alcohol or drug abuse patient.[facility] the event this information is protected by the Federal Confidentiality of Alcohol and Drug Abuse Patient Records regulations: The Federal rules restrict any use of the information to criminally investigate or prosecute any alcohol or drug abuse patient.[facility] the event this information is protected by the Federal Confidentiality of Alcohol and Drug Abuse Patient Records regulations: The Federal rules restrict any use of the information to criminally investigate or prosecute any alcohol or drug abuse patient.[facility] the event this information is protected by the Federal Confidentiality of Alcohol and Drug Abuse Patient Records regulations: The Federal rules restrict any use of the information to criminally investigate or prosecute any alcohol or drug abuse patient.[facility] the event this information is protected by the Federal Confidentiality of Alcohol and Drug Abuse Patient Records regulations: The Federal rules restrict any use of the information to criminally investigate or prosecute any alcohol or drug abuse patient.[facility] the event this information is protected by the Federal Confidentiality of Alcohol and Drug Abuse Patient Records regulations: The Federal rules restrict any use of the information to criminally investigate or prosecute any alcohol or drug abuse patient.[facility] the event this information is protected by the Federal Confidentiality of Alcohol and Drug Abuse Patient Records regulations: The Federal rules restrict any use of the information to criminally investigate or prosecute any alcohol or drug abuse patient.[facility] the event this information is protected by the Federal Confidentiality of Alcohol and Drug Abuse Patient Records regulations: The Federal rules restrict any use of the information to criminally investigate or prosecute any alcohol or drug abuse patient.[facility] the event this information is protected by the Federal Confidentiality of Alcohol and Drug Abuse Patient Records regulations: The Federal rules restrict any use of the information to criminally investigate or prosecute any alcohol or drug abuse patient.[facility] the event this information is protected by the Federal Confidentiality of Alcohol and Drug Abuse Patient Records regulations: The Federal rules restrict any use of the information to criminally investigate or prosecute any alcohol or drug abuse patient.[facility] the event this information is protected by the Federal Confidentiality of Alcohol and Drug Abuse Patient Records regulations: The Federal rules restrict any use of the information to criminally investigate or prosecute any alcohol or drug abuse patient.[facility] the event this information is protected by the Federal Confidentiality of Alcohol and Drug Abuse Patient Records regulations: The Federal rules restrict any use of the information to criminally investigate or prosecute any alcohol or drug abuse patient.[facility] the event this information is protected by the Federal Confidentiality of Alcohol and Drug Abuse Patient Records regulations: The Federal rules restrict any use of the information to criminally investigate or prosecute any alcohol or drug abuse patient.[facility] the event this information is protected by the Federal Confidentiality of Alcohol and Drug Abuse Patient Records regulations: The Federal rules restrict any use of the information to criminally investigate or prosecute any alcohol or drug abuse patient.[facility] the event this information is protected by the Federal Confidentiality of Alcohol and Drug Abuse Patient Records regulations: The Federal rules restrict any use of the information to criminally investigate or prosecute any alcohol or drug abuse patient.[facility] the event this information is protected by the Federal Confidentiality of Alcohol and Drug Abuse Patient Records regulations: The Federal rules restrict any use of the information to criminally investigate or prosecute any alcohol or drug abuse patient.[facility] the event this information is protected by the Federal Confidentiality of Alcohol and Drug Abuse Patient Records regulations: The Federal rules restrict any use of the information to criminally investigate or prosecute any alcohol or drug abuse patient.[facility] the event this information is protected by the Federal Confidentiality of Alcohol and Drug Abuse Patient Records regulations: The Federal rules restrict any use of the information to criminally investigate or prosecute any alcohol or drug abuse patient.[facility] the event this information is protected by the Federal Confidentiality of Alcohol and Drug Abuse Patient Records regulations: The Federal rules restrict any use of the information to criminally investigate or prosecute any alcohol or drug abuse patient.[facility] the event this information is protected by the Federal Confidentiality of Alcohol and Drug Abuse Patient Records regulations: The Federal rules restrict any use of the information to criminally investigate or prosecute any alcohol or drug abuse patient.[facility] [facility] the event this information is protected by the Federal Confidentiality of Alcohol and Drug Abuse Patient Records regulations: The Federal rules restrict any use of the information to criminally investigate or prosecute any alcohol or drug abuse patient.[facility] the event this information is protected by the Federal Confidentiality of Alcohol and Drug Abuse Patient Records regulations: The Federal rules restrict any use of the information to criminally investigate or prosecute any alcohol or drug abuse patient.[facility] the event this information is protected by the Federal Confidentiality of Alcohol and Drug Abuse Patient Records regulations: The Federal rules restrict any use of the information to criminally investigate or prosecute any alcohol or drug abuse patient.[facility] the event this information is protected by the Federal Confidentiality of Alcohol and Drug Abuse Patient Records regulations: The Federal rules restrict any use of the information to criminally investigate or prosecute any alcohol or drug abuse patient.[facility] Reason for Visit (unrecogniz ed section and content) Specialty Diagnoses / Procedures Referred By Michael nunez Referred To Contact Diagnoses Gammopathy Light chain disease (HCC) Procedures CONSULT TO HEMATOLOGY/ONCOLOGY OFFICE/OUTPATIENT [facility] 60-74 MINUTES Diaz Bagley MD [address] [place] [address] Referral ID Status Reason Start Date Expiration Date V isits Requested Visits Authorized [id number] Closed PCP Requested Referral 05/26/2023 05/25/2024 1 1 Reason Comments Post-op (Ophthalmology) Right Eye POD#1 Reason Comments Post-op (Ophthalmology) Right Eye Reason Comments Post-op (Ophthalmology) Right Eye s/p Ph aco/Goniotomy OD x 01/22/2022 Reason Comments Pseudophakia Reason Comments Post-op (Ophthalmology) Right Eye S/P PC IOL/Goniotomy OD 01/22/22 Reason Comments Radio Gen A21 Specialty Diagnoses / Procedures Referred By Michael nunez Referred To Contact XR IMAGING Diagnoses 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 Bilateral hip pain Procedures XR HIP BILATERAL 5V PEL/AP/LAT EACH HIP RADEX HIPS BILATERAL WITH PELVIS MINIMUM 5 VIEWS Diaz Bagley MD [address] [place] [address] Xr Imaging Referral ID Status Reason Start Date Expiration Date V isits Requested Visits Authorized [id number] Closed Auto-Generate d Referral 09/29/2022 10/29/2023 1 1 Reason Comments Results Patient Conference Reason Comments Results Reason Comments Patient Conference Reason Comments Established Patient Follow-Up Reason Comments Appointment spoke to pt about [facility] a FU with in person or phone per staff msg pt will call if she needs a FU not scheduling at the moment Reason Comments Rash Pt reported bilatera l arm rash x5 days. Reason Comments New Patient Evaluation STATES A LOW BACK PAIN THAT RADIATES DOWN ONE LEG OR THE OTHER. 3/10 PAIN TODAY. Low Back Pain Leg Pain Specialty Diagnoses / Procedures Referred By Contac t Referred To Contact [facility] [place] Diagnoses Bilateral sciatica Procedures [facility]SULT TO [facility] OFFICE/OUTPATIENT [facility] 60-74 MINUTES Araceli Sparks MD [address] [place] [address] Referral ID Status Reason Start Date Expiration Date V isits Requested Visits Authorized [id number] Closed PCP Requested Referral 02/09/2023 02/02/2024 1 1 Reason Comments Appointment Called patient to [facility] follow up with Dr. Sparks. Patient claimed further follow up was not needed. Patient will contact provider for further instruction. Declined scheduling at this time. Reason Comments Appointment LVM FOR PATIENT TO ALL SO WE CAN GET HER SCHEDULED FOR A CONSULT TO neuro-ophthomalogy Reason Comments Follow Up Low Back Pain Hip Pain Reason Onset Date Comments Refill Request 05/11/2023 Reason Comments Diarrhea Diarrhea, nausea and stomach pains x 1 week Reason Comments New Trochanteric bursiti s referred Dr Kelin Burch, xrays 09/29/22 Pain Trochanteric bursiti s referred Dr Kelin Burch, xrays 09/29/22 Established Patient Trochanteric bursiti s Pain Trochanteric bursiti s Specialty Diagnoses / Procedures Referred By Contac t Referred To Contact Orthopedics Diagnoses Trochanteric bursitis of both hips Procedures CONSULT TO ORTHOPAEDICS OFFICE/OUTPATIENT [facility] 60-74 MINUTES Kelin Burch PA-C [address] [place] [address] Referral ID Status Reason Start Date Expiration Date V isits Requested Visits Authorized [id number] Closed PCP Requested Referral 05/10/2023 05/09/2024 1 1 Reason Comments Follow Up Pain today is 6/10 Reason Comments Consult Syncope,Dizziness Reason Comments Radiology CT Specialty Diagnoses / Procedures Referred By Contac t Referred To Contact CT IMAGING Diagnoses Interstitial pulmonary disease (HCC) Sarcoidosis of lung (HCC) Dyspnea, unspecified type Abnormal chest x-ray Procedures CT CHEST WO IVCON DIAGNOSTIC COMPUTED TOMOGRAPHY THORAX W/O Diaz Smith MD [address] [place] [address] [facility] [place] [address] Referral ID Status Reason Start Date Expiration Date V isits Requested Visits Authorized [id number] Closed Auto-Generate d Referral 11/03/2022 10/31/2023 1 1 Specialty Diagnoses / Procedures Referred By Contac t Referred To Contact MR IMAGING Diagnoses Demyelinating disease of central nervous system (HCC) Dizziness and giddiness Visual loss Procedures MRI BRAIN WO IVCON MRI BRAIN BRAIN STEM W/O CONTRAST MATERIAL Araceli Sparks MD [address] [place] [address] [facility] [place] [address] Referral ID Status Reason Start Date Expiration Date V isits Requested Visits Authorized [id number] Closed Auto-Generate d Referral 01/11/2023 10/31/2023 1 1 Reason Comments Injections Hip Pain Care Teams (unrecognized sec tion and content) Sales Promoter Relationship Specialty Start Date End Date Marlyn Smith [address] [place] [address] PCP - General Family Practice 03/31/19 Sales Promoter Relationship Specialty Start Date End Date Marlyn Smith [address] [place] [address] PCP - General Family Practice 03/31/19 Sales Promoter Relationship Specialty Start Date End Date Marlyn Smith [address] [place] [address] PCP - General Family Practice 03/31/19 Sales Promoter Relationship Specialty Start Date End Date Marlyn Smith [address] [place] [address] PCP - General Family Practice 03/31/19 Sales Promoter Relationship Specialty Start Date End Date Marlyn Smith [place] [address] PCP - General Family Medicine 03/31/19 Jimmie Marrufo [address] [place] [address] Referring Ophthalmology 09/13/22 Sales Promoter Relationship Specialty Start Date End Date Marlyn Smith [address] [place] [address] PCP - General Family Medicine 03/31/19 Jimmie Marrufo [address] [place] [address] Referring Ophthalmology 09/13/22 Sales Promoter Relationship Specialty Start Date End Date Marlyn Smith [address] [place] [address] PCP - General Family Medicine 03/31/19 Jimmie Marrufo [address] [place] [address] Referring Ophthalmology 09/13/22 Sales Promoter Relationship Specialty Start Date End Date Marlyn Smith [address] [place] [address] PCP - General Family Medicine 03/31/19 Jimmie Marrufo [address] [place] [address] Referring Ophthalmology 09/13/22 Sales Promoter Relationship Specialty Start Date End Date Marlyn Smith [address] [place] [address] PCP - General Family Medicine 03/31/19 Jimmie Marrufo [address] [place] [address] Referring Ophthalmology 09/13/22 Sales Promoter Relationship Specialty Start Date End Date Marlyn Smith MD [address] [place] [address] PCP - General Family Medicine 03/31/19 Jimmie Marrufo [address] [place] [address] Referring Ophthalmology 09/13/22 Sales Promoter Relationship Specialty Start Date End Date Marlyn Smith MD [address] [place] [address] PCP - General Family Medicine 03/31/19 Jimmie Marrufo [address] [place] [address] Referring Ophthalmology 09/13/22 Sales Promoter Relationship Specialty Start Date End Date Marlyn Smith MD [address] [place] [address] PCP - General Family Medicine 03/31/19 Jimmie Marrufo [address] [place] [address] Referring Ophthalmology 09/13/22 Sales Promoter Relationship Specialty Start Date End Date Marlyn Smith MD [address] [place] [address] PCP - General Family Medicine 03/31/19 Jimmie Marrufo [address] [place] [address] Referring Ophthalmology 09/13/22 Sales Promoter Relationship Specialty Start Date End Date Marlyn Smith MD [address] [place] [address] PCP - General Family Medicine 03/31/19 Jimmie Marrufo [address] [place] [address] Referring Ophthalmology 09/13/22 Sales Promoter Relationship Specialty Start Date End Date Marlyn Smith MD [address] [place] [address] PCP - General Family Medicine 03/31/19 Jimmie Marrufo [address] [place] [address] Referring Ophthalmology 09/13/22 Sales Promoter Relationship Specialty Start Date End Date Marlyn Smith MD [address] [place] [address] PCP - General Family Medicine 03/31/19 Jimmie Marrufo [address] [place] [address] Referring Ophthalmology 09/13/22 Sales Promoter Relationship Specialty Start Date End Date Marlyn Smith MD [address] [place] [address] PCP - General Family Medicine 03/31/19 Jimmie Marrufo [address] [place] [address] Referring Ophthalmology 09/13/22 Sales Promoter Relationship Specialty Start Date End Date Marlyn Smith MD [address] [place] [address] PCP - General Family Medicine 03/31/19 Jimmie Marrufo [address] [place], [place] [address] Referring Ophthalmology 09/13/22 Sales Promoter Relationship Specialty Start Date End Date Marlyn Smith MD [address] [place], [place] [address] PCP - General Family Medicine 03/31/19 Jimmie Marrufo [address] [place], [place] [address]285[address] Referring Ophthalmology 09/13/22 Sales Promoter Relationship Specialty Start Date End Date Marlyn Smith MD [address] [place] [address] PCP - General Family Medicine 03/31/19 Jimmie Marrufo [address] [place], [place] [address] Referring Ophthalmology 09/13/22 Sales Promoter Relationship Specialty Start Date End Date Marlyn Smith MD [address] [place], [place] [address] PCP - General Family Medicine 03/31/19 Jimmie Marrufo [address] [place], [place] [id number] Referring Ophthalmology 09/13/22 Sales Promoter Relationship Specialty Start Date End Date Marlyn Smith MD [address] [place] [id number] PCP - General Family Medicine 03/31/19 Jimmie Marrufo [address] [facility], [place] [address] Referring Ophthalmology 09/13/22 Sales Promoter Relationship Specialty Start Date End Date Marlyn Smith MD [address] [place], [place] [address] PCP - General Family Medicine 03/31/19 Jimmie Marrufo [address] [facility] [place] [address] Referring Ophthalmology 09/13/22 Sales Promoter Relationship Specialty Start Date End Date Marlyn Smith MD [address] [place] [address] PCP - General Family Medicine 03/31/19 Jimmie Marrufo [address] [facility] [place] [address] Referring Ophthalmology 09/13/22 Sales Promoter Relationship Specialty Start Date End Date Marlyn Smith MD [address] [place], [place] [address] PCP - General Family Medicine 03/31/19 Jimmie Marrufo [address] [place], [place] [id number] Referring Ophthalmology 09/13/22 Sales Promoter Relationship Specialty Start Date End Date Marlyn Smith MD [address] [place], [place] [address] PCP - General Family Medicine 03/31/19 Jimmie Marrufo [address] [facility] [place] 16[address]91 Referring Ophthalmology 09/13/22 Sales Promoter Relationship Specialty Start Date End Date Marlyn Smith MD [address] [place], [place] [address] PCP - General Family Medicine 03/31/19 Jimmie Marrufo [address] [facility] [place] [address]21 Referring Ophthalmology 09/13/22 Sales Promoter Relationship Specialty Start Date End Date Marlyn Smith MD [address] [place] [address] PCP - General Family Medicine 03/31/19 Jimmie Marrufo [facility] [place] [address] Referring Ophthalmology 09/13/22 Sales Promoter Relationship Specialty Start Date End Date Marlyn Smith MD [address] [place], [place] [address] PCP - General Family Medicine 03/31/19 Jimmie Marrufo [address] [facility], [place] [address] Referring Ophthalmology 09/13/22 Sales Promoter Relationship Specialty Start Date End Date Marlyn Smith MD [address] [place], [place] [address] PCP - General Family Medicine 03/31/19 Jimmie Marrufo [address] [place], [place] [address]881 Referring Ophthalmology 09/13/22 Sales Promoter Relationship Specialty Start Date End Date Marlyn Smith MD [address] [place], [place] [address] PCP - General Family Medicine 03/31/19 Jimmie Marrufo [address] [place], [place] [address] Referring Ophthalmology 09/13/22 Sales Promoter Relationship Specialty Start Date End Date Marlyn Smith MD [address] [place], [place] [address] PCP - General Family Medicine 03/31/19 Jimmie Marrufo [address] [place], [place] 3143[address] Referring Ophthalmology 09/13/22 INFORMATION SOURCE (unrecogn ized section and content) FOR RECORDS PERTAINING TO PATIENTS WHO ARE OR HAVE BEEN ENROLLED IN A CHEMICAL DEPENDENCY/SUBSTANCEABUSE PROGRAM, SOME INFORMATION MAY BE OMITTED. This clinical summary was aggregated from multiple sources. Caution should be exercised in using it in the provision of clinical care. This summary normalizes information from multiple sources, and as a consequence, information in this document may materially change the coding, format and clinical context of patient data. In addition, data may be omitted in some cases. CLINICAL DECISIONS SHOULD BE BASED ON THE PRIMARY CLINICAL RECORDS. [employer] provides no warranty or guarantee of the accuracy or completeness of information in this document.
[2023-11-12 18:00] LABS: T4 Free Direct 1.05 ng/dL (0.76-1.46); Thyroid Stim Hormone (TSH) 2.25 uIU/mL (0.358-3.74)
== END | disposition home or self-care (01) ==
LOC: BFHLAB 15:38
PROVIDERS: PCP Family Medicine; Visit Provider Family Medicine
DX: E03.9 Hypothyroidism, unspecified (principal)
CPT/HCPCS: 36415; 84439; 84443

== ENCOUNTER → 2024-07-08 | Outpatient (CLI) | payer BC, SELFPAY ==
[2024-07-08 10:20] LABS: Absolute Lymphocyte Count 1.75 X10^3/uL (0.83-4.51); Absolute Neutrophil Count 5.8 X10^3/uL (2.0-7.7); Basophil# 0.05 X10^3/uL; Basophil% 0.6 % (0-1); Eosinophil# 0.28 X10^3/uL; Eosinophils% 3.3 % (0-5); Hematocrit 38.1 % (37-47); Hemoglobin 12.3 g/dL (12.0-15.0); Lymphocyte # 1.75 X10^3/ul (0.83-4.51); Lymphocyte % 20.5 % (19-41); Mean Corp Hgb Conc 32.3 g/dL (32-36); Mean Corpuscular Hgb 28.7 pg (27.0-32.0); Mean Platelet Vol. 9.2 fl (6.2-12.0); Monocyte# 0.68 X10^3/uL; NRBC Flagged by Analyzer 0 % (0-5); Neutrophil # 5.76 X10^3/uL (2.7-7.7); Neutrophil % 67.4 % (47-70); Platelet Count 361 K/mm3 (150-450); RBC Distribution Width CV 12.8 % (11.6-14.6); RBC Distribution Width SD 41.6 fl (35.1-43.9); Red Blood Count 4.28 M/mm3 (4.2-5.4); White Blood Count 8.5 K/mm3 (4.4-11.0)
[2024-07-08 10:59] LABS: Microalbumin,Random Urine < 5.0 mg/L (NO RANGE EST.)
[2024-07-08 11:04] LABS: ALB/GLOB Ratio 0.9 RATIO (0.9-2.4); AST(SGOT) 12 U/L (15-37); Alanine Aminotransfer ALT/SGPT 20 U/L (13-56); Albumin, Serum 3.6 g/dL (3.2-5.0); Alkaline Phosphatase 64 U/L (45-117); Anion Gap 5 (5-15); BUN 15 mg/dL (7-18); BUN/Creat Ratio 18.7 RATIO (10-20); Calcium,Total 9.6 mg/dL (8.5-10.1); Chloride 105 mmol/L (98-107); Cholesterol 139 mg/dL (200); EST Glomerular Filtration Rate 80 mL/min (>60); Est Glom Filt Rate - Afr Amer 97 mL/min (>60); Globulin 4.1 g/dL (2.2-4.2); Glucose 91 mg/dL (74-106); High Density Lipoprotein 43 mg/dL; Potassium 3.8 mmol/L (3.5-5.1); Protein, Total 7.7 g/dL (6.4-8.2); Sodium Level 137 mmol/L (136-145); Triglycerides 258 mg/dL; Very Low Density Lipoprotein 52 mg/dL (5-40)
[2024-07-10 08:03] LABS: Hemoglobin A1c 5.4 % (3.8-5.6)
== END | disposition home or self-care (01) ==
LOC: LAB 09:08
PROVIDERS: PCP Family Medicine; Referring Provider Family Medicine; Visit Provider Family Medicine
DX: Z00.00 Encounter for general adult medical examination without abnormal findings (principal); E11.9 Type 2 diabetes mellitus without complications; E03.9 Hypothyroidism, unspecified
CPT/HCPCS: 36415; 80053; 80061; 82043; 82570; 83036; 84443; 85025

== ENCOUNTER 2024-12-06 14:10 | Emergency (ER) | payer BC, SELFPAY ==
[2024-12-06 14:11] VITALS: BP 131/85; PULSE 97; RESP 18; TEMP 36.9; O2SAT 100; BMI 32.0
[2024-12-06 15:02] LABS: Absolute Lymphocyte Count 2.05 X10^3/uL (0.83-4.51); Absolute Neutrophil Count 5.8 X10^3/uL (2.0-7.7); Basophil# 0.04 X10^3/uL; Basophil% 0.5 % (0-1); Eosinophil# 0.33 X10^3/uL; Eosinophils% 3.7 % (0-5); Hematocrit 40.6 % (37-47); Hemoglobin 13.5 g/dL (12.0-15.0); Lymphocyte # 2.05 X10^3/ul (0.83-4.51); Lymphocyte % 23.2 % (19-41); Mean Corp Hgb Conc 33.3 g/dL (32-36); Mean Corpuscular Hgb 29.3 pg (27.0-32.0); Mean Corpuscular Volume 88.1 fL (81-99); Mean Platelet Vol. 8.6 fl (6.2-12.0); Monocyte# 0.63 X10^3/uL; Monocyte% 7.1 % (0-10); NRBC Flagged by Analyzer 0 % (0-5); Neutrophil # 5.77 X10^3/uL (2.7-7.7); Neutrophil % 65.2 % (47-70); Platelet Count 337 K/mm3 (150-450); RBC Distribution Width CV 12.2 % (11.6-14.6); RBC Distribution Width SD 39.6 fl (35.1-43.9); Red Blood Count 4.61 M/mm3 (4.2-5.4); White Blood Count 8.9 K/mm3 (4.4-11.0)
[2024-12-06 15:23] LABS: ALB/GLOB Ratio 0.9 RATIO (0.9-2.4); AST(SGOT) 13 U/L (15-37); Alanine Aminotransfer ALT/SGPT 17 U/L (13-56); Albumin, Serum 3.9 g/dL (3.2-5.0); Alkaline Phosphatase 58 U/L (45-117); Anion Gap 6 (5-15); BUN 13 mg/dL (7-18); BUN/Creat Ratio 13.4 RATIO (10-20); Calcium,Total 9.8 mg/dL (8.5-10.1); Chloride 106 mmol/L (98-107); Creatinine, Serum 0.97 mg/dL (0.55-1.02); EST Glomerular Filtration Rate 65 mL/min (>60); Est Glom Filt Rate - Afr Amer 78 mL/min (>60); Estimated Creatinine Clearance 67.76 ml/min; Globulin 4.5 g/dL (2.2-4.2); Glucose 94 mg/dL (74-106); Potassium 4.3 mmol/L (3.5-5.1); Protein, Total 8.4 g/dL (6.4-8.2); Sodium Level 140 mmol/L (136-145)
--- NOTE | 2024-12-06 16:39 | EDS_ITS ---
HPI HPI - GI History of Present Illness Chief Complaint: Abd Pain Narrative Narrative: 49-year-old female past medical history of visual impairment, past surgical history of partial colectomy secondary to diverticulitis with perforation and abscess development presents with nausea and dry heaving as well as abdominal pain that she has had over the last week. Her pain is somewhat diffuse. She is having normal bowel movements consistent with her IBS so she has frequent bowel movements. She states she has been nauseated over the last week as well. She has intermittent abdominal pain. No fevers or chills. No exacerbating symptoms but she states she feels better when she lies still and lies down. She presents because of the nausea, dry heaving, and abdominal pain that she has had for over a week. [facility] Medical History (Updated 12/06/24 @ 18:31 by Chip Crowley MD) Abscess of sigmoid colon due to diverticulitis Intra-abdominal adhesions Perforation of sigmoid colon due to diverticulitis Diverticulitis Obesity (BMI 30-39.9) Asthma, moderate persistent Abnormal PFT Asthma, moderate persistent, poorly-controlled FREDY (obstructive sleep apnea) Dyspnea Bronchitis Allergic rhinitis IBS (irritable bowel syndrome) Hypothyroid Anxiety PTSD (post-traumatic stress disorder) Sciatica Obesity Depression Asthma Home Medications ?Medication ?Instructions ?Recorded ?Last Taken ?Type levothyroxine 88 mcg tablet 88 mcg PO DAILY hypothyroi d 02/01/14 10/16/20 History fluticasone propionate 50 50 mcg intranasal BID PRN RI N 12/29/17 Unknown History mcg/actuation nasal Allergies spray,suspension cetirizine 10 mg tablet (Zyrtec) 10 mg PO QDAY PRN All ergies 06/14/18 Unknown History budesonide-formoterol HFA 160 2 puff inhalation Q12H # 3 device 02/27/20 10/16/20 Rx mcg-4.5 mcg/actuation aerosol inhaler (Symbicort) albuterol sulfate 2.5 mg/3 mL 2.5 mg (3 mL) inhalation Q4H PRN 04/26/20 Unknown Rx (0.083 %) solution for nebulization Sob &/Or Wheezing #180 mL albuterol sulfate 90 mcg/actuation 2 puff inhalation Q 4H PRN PRN 08/26/20 10/15/20 Rx aerosol inhaler Shortness Of Breath #3 devic e pantoprazole 20 mg tablet,delayed 20 mg PO DAILY PRN g erd 10/16/20 10/15/20 History release naproxen 500 mg tablet 500 mg PO PRN PRN Pain 04/28 Unknown History insulin detemir U-100 100 unit/mL 22 unit subcut QHS 1 Unknown History (3 mL) subcutaneous pen (Levemir FlexTouch U-100 Insulin) metformin 500 mg tablet 1,000 mg PO BID 08/21/21 Unk nown History azithromycin 250 mg tablet 250 mg PO DAILY 4 days #4 t abs 05/19/22 Unknown Rx codeine 10 mg-guaifenesin 100 mg/5 5 ml PO Q4H PRN cou gh #120 mL 05/19/22 Unknown Rx mL oral liquid dicyclomine 10 mg capsule 20 mg PO Q6H PRN PRN abdomin al 05/19/22 Unknown History discomfort ipratropium 0.5 mg-albuterol 3 mg 3 ml inhalation Q6H PRN shortness 05/19/22 Unknown Rx (2.5 mg base)/3 mL nebulization of breath or wheezing #90 mL soln prednisolone acetate 1 % eye 1 drp ophthalmic (eye) DA CARLA 05/19/22 Unknown History drops,suspension prednisone 20 mg tablet See Rx Instructions .Route . COMPLEX 05/19/22 Unknown History timolol maleate 0.5 % eye drops 1 drp ophthalmic (eye) DAILY 05/19/22 Unknown History dicyclomine 20 mg tablet 20 mg PO BID PRN abdominal 1 12/03/21 Unknown Rx cramping #10 tabs hydrocodone-acetaminophen 5-325mg 1 tab PO Q6H PRN etienne n 3 days #10 10/02/22 Unknown Rx 5mg-325mg tabs ondansetron 4 mg disintegrating 4 mg PO Q8H PRN nausea and 10/02/22 Unknown Rx tablet vomiting #10 tabs ondansetron 4 mg disintegrating 4 mg PO Q6H PRN nausea and 01/07/23 Unknown Rx tablet vomiting #20 tabs dicyclomine 10 mg capsule 20 mg (2 x 10 mg) PO Q6H PRN PRN 06/25/23 Unknown Rx abdominal discomfort #30 CAPSULES promethazine 25 mg tablet 25 mg PO Q6H PRN PRN Nausea #20 06/25/23 Unknown Rx TABLETS ondansetron 4 mg disintegrating 4 mg PO Q8H PRN PRN Na usea #10 tabs 12/06/24 Unknown Rx tablet Allergy/AdvReac Type Severity Reaction Status Date / Time venom-honey bee (bee venom Allergy Severe Anaphylaxis Verified 12/06/24 14:11 (honey bee)) amoxicillin (From Augmentin) Allergy Hives Verified 12/06/24 14:11 clavulanic acid (From Allergy Hives Verified 12/06/24 14:11 Augmentin) fluticasone (From Advair Allergy Anaphylaxis Verified 12/06/24 14:11 Diskus) salmeterol (From Advair Allergy Anaphylaxis Verified 12/06/24 14:11 Diskus) ciprofloxacin (From Cipro) AdvReac Nausea/Vom/ Verified 12/06/24 14:11 Diarrhea Family History Mother Depression Anxiety Arthritis Thyroid disorder COPD (chronic obstructive pulmonary disease) Cancer Father Arthritis Depression Alcohol abuse Sister Anxiety Depression Arthritis Cancer Brother Anxiety Depression HIV (human immunodeficiency virus infection) Hepatitis Surgical History History of colectomy (~10/21/20) Fistula History of carpal tunnel surgery Hx of appendectomy S/P cholecystectomy [place] teeth extracted delivery delivered lazy eye repair Social History Smoking Status: Never smoker second hand exposure: No alcohol intake: current alcohol intake frequency: holidays/special occasions only substance use type: does not use ROS ROS ED ROS Narrative Constitutional: No fever, no chills. HEENT: No sore throat. No neck pain. Cardiovascular: No chest pain. No palpitations. No pedal edema. Respiratory: No cough, no shortness of breath. Abdominal: Positive abdominal pain. Positive nausea. No vomiting. Multiple bowel movements. Genitourinary: No dysuria. No hematuria. Musculoskeletal: No myalgias. No arthralgias. EXAM Physical Exam Narrative Exam Narrative: Afebrile. Vital signs noted. Nontoxic-appearing. Cardiovascular examination reveals a regular rate and rhythm. Lungs are clear to auscultation bilaterally. The abdomen is soft, nontender to minimal diffuse tenderness with positive bowel sounds. No guarding or rebound. Neurological examination is nonfocal and nonlateralizing. Const Vital Signs: 12/06/24 14:11 12/06/24 18:10 Temperature 98.4 F Temperature Source Oral Pulse Rate 97 87 Respiratory Rate 18 Blood Pressure 131/85 H 128/97 H Blood Pressure Mean 100 107 Pulse Ox 100 Oxygen Delivery Method Room Air MDM MDM MDM Narrative Medical decision making narrative: Differential diagnosis includes but not limited to partial small bowel obstruction versus diverticulitis versus pancreatitis. Initial laboratory work obtained through protocol and reviewed by myself. She has normal white count of 8.9 with hemoglobin 13.5, hematocrit 40.6, platelet count normal at 337. LFTs show AST low at 13 with ALT 17 and alk phos 58. Glucose normal at 94. Electrolyte panel otherwise unremarkable. I added a lipase and I do feel that CT imaging is indicated. In discussion with the patient this is more reassuring to her as well. In review of her previous problem list, she did have diverticulitis with abscess assess development after perforation from diverticulitis. There is concern for a partial obstruction versus diverticulitis, but without significant fever white count, this is lower on the differential. I reviewed her laboratory work and she has normal white count of 8.9 with hemoglobin 13.5, hematocrit 40.6, platelet count normal at 337. Electrolyte panel/CMP is grossly unremarkable except for AST of 13 which I think is nonspecific, normal BUN and normal creatinine. I reviewed the radiology report of the CT of the abdomen and pelvis with IV contrast. They comment on 1 dilated loop of bowel in the right hemiabdomen. While is not pathologically dilated, there is questionable transitional point. Upon repeat examination, her abdomen remains soft without guarding or rebound. She was administered ondansetron for continued nausea. I discussed patient with the surgeon, Dr. Cabello. It was felt more that this may be more of an ileus than a developing bowel obstruction. He is comfortable with discharge of the patient and return instructions given, not eating for the next 12 hours and starting a clear liquid diet and advancing as tolerated. When I discussed this plan versus observation with the patient, through shared decision making, she prefers outpatient treatment. She was written a prescription for Zofran. Return instructions were reviewed. Patient and comfortable with the plan. She was reassured because she was more concerned about abscess or perforation. Dis position is discharged home in stable condition. History & Record Review Discussion w/independent historian: Patient Lab Data Attestation: I reviewed the patient's lab results. Labs: Laboratory Results - last 24 hr 12/06/24 14:57 WBC 8.9 RBC 4.61 Hgb 13.5 Hct 40.6 MCV 88.1 MCH 29.3 MCHC 33.3 RDW Std Deviation 39.6 RDW Coeff of B[place] 12.2 Plt Count 337 MPV 8.6 Immature Gran % (Auto) 0.300 Neut % (Auto) 65.2 Lymph % (Auto) 23.2 [place] % (Auto) 7.1 Eos % (Auto) 3.7 Baso % (Auto) 0.5 Absolute Neuts (auto) 5.8 Absolute Lymphs (auto) 2.05 Nucleated RBC % 0 Sodium 140 Potassium 4.3 Chloride 106 Carbon Dioxide 27.0 Anion Gap 6 BUN 13 Creatinine 0.97 Estim Creat Clear Calc 67.76 Est GFR (MDRD) Af Amer 78 Est GFR (MDRD) Non-Af 65 BUN/Creatinine Ratio 13.4 Glucose 94 Calcium 9.8 Total Bilirubin 1.00 AST 13 L ALT 17 Alkaline Phosphatase 58 Total Protein 8.4 H Albumin 3.9 Globulin 4.5 H Albumin/Globulin Ratio 0.9 Radiography Diagnostic Testing: Clinical Impression(s) from Imaging Studies Abdomen/Pelvis CT 12/06/24 17:07 IMPRESSION: Focal fluid-filled loop of bowel within the right hemiabdomen. Although this is not pathologically dilated, there is a transition point. Developing small-bowel obstruction is possible. Continued surveillance should be considered. Chronic ancillary findings as above. One or more dose reduction techniques were used (e.g., Automated exposure control, adjustment of the mA and/or kV according to patient size, use of iterative reconstruction technique). Reading Location: [id number] Discharge Plan Triage Chief Complaint: Abd Pain ED Provider: Chip Crowley Dx/Rx/DC Orders Clinical Impression: Abdominal pain, Nausea Instructions: ED Abdominal Pain Unkn Cause Fem, ED Symptoms Uncertain Cause Prescriptions: New ondansetron 4 mg tablet,disintegrating 4 mg PO Q8H PRN PRN (Reason: Nausea) Qty: 10 0RF No Action fluticasone propionate 50 mcg/actuation spray,suspension 50 mcg INTRANASAL BID PRN PRN (Reason: Allergies) cetirizine [Zyrtec] 10 mg tablet 10 mg PO QDAY PRN (Reason: Allergies) levothyroxine 88 MCG tablet 88 mcg PO DAILY pantoprazole 20 MG tablet 20 mg PO DAILY PRN (Reason: gerd) naproxen 500 MG tablet 500 mg PO PRN PRN (Reason: Pain) metformin 500 mg tablet 1,000 mg PO BID Levemir FlexTouch U100 Insulin 100 unit/mL (3 mL) insulin pen 22 unit SUBCUT QHS dicyclomine 10 MG capsule 20 mg PO Q6H PRN PRN (Reason: abdominal discomfort) prednisone 20 mg tablet See Rx Instructions .ROUTE .COMPLEX Patient Comments: PLEASE SEE ATTACHED FOR DETAILED DIRECTIONS Rx Instructions: taper dose prednisolone acetate 1 % drops,suspension 1 drp ophthalmic (eye) DAILY Patient Comments: 1 drop into left eye once a day timolol maleate 0.5 % drops 1 drp ophthalmic (eye) DAILY Patient Comments: 1 drop into both eyes once a day azithromycin 250 mg tablet 250 mg PO DAILY 4 Days Qty: 4 0RF Rx Instructions: start on day 2 of therapy codeine-guaifenesin 10-100 mg/5 mL liquid 5 ml PO Q4H PRN (Reason: cough) Qty: 120 0RF ipratropium-albuterol 0.5 mg-3 mg(2.5 mg base)/3 mL solution for nebulization 3 ml inhalation Q6H PRN (Reason: shortness of breath or wheezing) Qty: 90 0RF ondansetron 4 mg tablet,disintegrating 4 mg PO Q8H PRN (Reason: nausea and vomiting) Qty: 10 0RF dicyclomine 20 mg tablet 20 mg PO BID PRN (Reason: abdominal cramping) Qty: 10 0RF hydrocodone-acetaminophen 5-325 mg tablet 1 tab PO Q6H PRN (Reason: pain) 3 Days Qty: 10 0RF ondansetron 4 mg tablet,disintegrating 4 mg PO Q6H PRN (Reason: nausea and vomiting) Qty: 20 0RF dicyclomine 10 mg capsule 20 mg PO Q6H PRN PRN (Reason: abdominal discomfort) Qty: 30 0RF promethazine [promethazine] 25 mg tablet 25 mg PO Q6H PRN PRN (Reason: Nausea) Qty: 20 0RF Symbicort 160-4.5 mcg/actuation HFA aerosol inhaler 2 puff INHALATION Q12H Qty: 3 3RF albuterol sulfate 2.5 mg /3 mL (0.083 %) solution for nebulization 2.5 mg INHALATION Q4H PRN (Reason: Sob &/Or Wheezing) Qty: 180 3RF albuterol sulfate 90 mcg/actuation HFA aerosol inhaler 2 puff INHALATION Q4H PRN PRN (Reason: Shortness Of Breath) Qty: 3 6RF Primary Care Provider: Marlyn Smith Referrals: Marlyn Smith MD [Primary Care Provider] - 3-5 Days if not improving Jon Cabello MD [Med Staff - Active Staff] - 3-5 Days if not improving Activity Restrictions/Additional Instructions: Do not eat anything for the next 12 to 24 hours. Tomorrow, start a clear liquid diet and advance as tolerated. Return to the emergency department with vomiting, fever, increased abdominal pain, lack of bowel movements, new or worse megha symptoms. Print Language: Bhutanese Disposition Disposition: Home, Self Care
--- NOTE | 2024-12-06 17:07 | CT_ITS ---
PROCEDURE: ABDOMEN/PELVIS W IV CONT ONLY REASON FOR EXAM: Nausea and vomiting for 1 week; history of prior colectomy, appendectomy, and cholecystectomy. TECHNIQUE: Abdomen and pelvis CT with intravenous contrast. COMPARISON: None. FINDINGS: Lung bases: Clear Liver: Hypodensity adjacent the gallbladder fossa favoring focal fatty infiltration. Gallbladder: Surgically absent. Spleen: Small, poorly visualized splenic lesion which is statistically favored to be benign. Pancreas: Unremarkable. Adrenals: Unremarkable. Kidneys: Unremarkable. Bladder: Unremarkable. Reproductive Organs: Unremarkable. Bowel: Status post partial sigmoid colectomy. Status post appendectomy. Right hemiabdomen fluid-filled focal loop of small bowel with a transition point. Appendix: Normal. Lymph nodes: No suspicious lymph node enlargement. Vasculature: Major vascular structures are unremarkable. Peritoneum / Retroperitoneum: No ascites. No free air. Bones: Unremarkable. CT/Abdomen/Pelvis W IV Cont ONLY IMPRESSION: Focal fluid-filled loop of bowel within the right hemiabdomen. Although this i s not pathologically dilated, there is a transition point. Developing small-bowel obstruction is possible. Continued s urveillance should be considered. Chronic ancillary findings as above. One or more dose reduction techniques were used (e.g., Automated exposure contr ol, adjustment of the mA and/or kV according to patient size, use of iterative reconstruction technique). Reading Location: [id number]
[2024-12-06 18:10] VITALS: BP 128/97; PULSE 87
[2024-12-06] MEDS: Ondansetron 4 MG/2 ML Vial IV (18:25)
[2024-12-06 18:35] LABS: Lipase 35 U/L (73-393)
== END 2024-12-06 18:55 | disposition home or self-care (01) ==
PROVIDERS: Emergency Provider Emergency Medicine; PCP Family Medicine; Referring Provider Emergency Medicine; Visit Provider Emergency Medicine
DX: R10.9 Unspecified abdominal pain (principal); R11.0 Nausea
CPT/HCPCS: 74177; 80053; 83690; 85025; 96374; 99283; Q9967; A4216; J2405

== ENCOUNTER → 2025-02-02 | Outpatient (CLI) | payer BC, SELFPAY ==
[2025-02-02 15:44] LABS: Absolute Lymphocyte Count 2.38 X10^3/uL (0.83-4.51); Absolute Neutrophil Count 4.8 X10^3/uL (2.0-7.7); Basophil# 0.06 X10^3/uL; Basophil% 0.7 % (0-1); Eosinophil# 0.71 X10^3/uL; Eosinophils% 8.2 % (0-5); Hematocrit 38.7 % (37-47); Hemoglobin 12.8 g/dL (12.0-15.0); Lymphocyte # 2.38 X10^3/ul (0.83-4.51); Lymphocyte % 27.5 % (19-41); Mean Corp Hgb Conc 33.1 g/dL (32-36); Mean Corpuscular Hgb 29.4 pg (27.0-32.0); Mean Corpuscular Volume 88.8 fL (81-99); Mean Platelet Vol. 8.9 fl (6.2-12.0); Monocyte# 0.65 X10^3/uL; Monocyte% 7.5 % (0-10); NRBC Flagged by Analyzer 0 % (0-5); Neutrophil # 4.81 X10^3/uL (2.7-7.7); Neutrophil % 55.8 % (47-70); Platelet Count 339 K/mm3 (150-450); RBC Distribution Width CV 12.4 % (11.6-14.6); RBC Distribution Width SD 40.4 fl (35.1-43.9); Red Blood Count 4.36 M/mm3 (4.2-5.4); White Blood Count 8.6 K/mm3 (4.4-11.0)
[2025-02-02 16:24] LABS: ALB/GLOB Ratio 1.3 RATIO (0.9-2.4); AST(SGOT) 16 U/L (<=31); Alanine Aminotransfer ALT/SGPT 11 U/L (<=34); Albumin, Serum 4.5 g/dL (3.5-5.0); Alkaline Phosphatase 66 U/L (35-104); Anion Gap 12 (5-15); BUN 11 mg/dL (4-19); BUN/Creat Ratio 9.9 RATIO (10-20); Carbon Dioxide 23.5 mmol/L (21.0-32.0); Chloride 105 mmol/L (98-108); Creatinine, Serum 1.09 mg/dL (0.70-1.20); EST Glomerular Filtration Rate 62 (>60); Globulin 3.5 g/dL (2.2-4.2); Glucose 73 mg/dL (70-99); Potassium 4.1 mmol/L (3.3-5.1); Protein, Total 7.9 g/dL (5.9-8.4); Sodium Level 141 mmol/L (133-145); Total Bilirubin 0.83 mg/dL (0.00-1.30)
[2025-02-02 17:19] LABS: CRP 5.16 mg/L (0.0-3.0); LDH 150 U/L (84-246)
== END | disposition home or self-care (01) ==
LOC: LAB 15:07
PROVIDERS: PCP Family Medicine
DX: K58.0 Irritable bowel syndrome with diarrhea (principal); K62.5 Hemorrhage of anus and rectum
CPT/HCPCS: 36415; 80053; 82784; 82785; 83516; 83615; 85025; 86003; 86005; 86036; 86037; 86140; 86255; 86671

== ENCOUNTER → 2025-02-03 | Outpatient (CLI) | payer BC, SELFPAY ==
[2025-02-07 01:07] LABS: Calprotectin, Stool 18 ug/g (0-120)
[2025-02-08 02:07] LABS: Pancreatic Elastase, Fecal > 800 (>200)
== END | disposition home or self-care (01) ==
LOC: LABSPEC 08:05
PROVIDERS: PCP Family Medicine
DX: K58.0 Irritable bowel syndrome with diarrhea (principal); K62.5 Hemorrhage of anus and rectum
CPT/HCPCS: 82653; 83993

== ENCOUNTER 2025-02-22 10:21 | Day surgery (SDC) | payer BC, SELFPAY ==
--- NOTE | 2025-02-16 14:56 | PAT.ANESEVAL ---
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 When Was Last Pacemaker Check QUESTION #4 FULL TEXT: You/Your Family Experience fever (hyperthermia) with Anesthesia Last Oral Intake Last Oral intake: Last Oral Intake NPO since Meds taken in AM with sips of water? Meds patient instructed to take am of surgery PONV PONV - statistical machine mechanic: PONV - statistical machine mechanic Female Yes 02/16/25 14:43 HX of Motion Sickness No 02/16/25 14:43 HX of N/V After Surgery No 02/16/25 14:43 Non-Smoker Yes 02/16/25 14:43 Duration of Surgery greater No 02/16/25 14:43 than 60 minutes Number of Risk Factors 2 02/16/25 14:43 PONV Score Moderate Risk 02/16/25 14:43 Height & Weight Height & Weight: Anesthesia: Height & Weight Height 5 ft 2 in 12/06/24 14:11 Respiratory Assessment Respiratory Assessment - statistical machine mechanic: Respiratory Tract Infection Hx - statistical machine mechanic Hx Respiratory Tract Infection No 02/16/25 14:43 STOP Sleep Apnea STOP Sleep Apnea - statistical machine mechanic: STOP Sleep Apnea - statistical machine mechanic Hx Hypertension No 02/16/25 14:43 Hx Sleep Apnea Yes 02/16/25 14:43 CPAP Yes: NON COMPLIANT 02/16/25 14:43 BIPAP No 02/16/25 14:43 Do you snore loudly (louder than talking or can be heard Do you often feel tired/ fatigued/ sleepy during daytime? Has anyone observed you stop breathing during sleep? STOP Results Positive 02/16/25 14:43 QUESTION #5 FULL TEXT : Do you snore loudly (louder than talking or can be heard through closed doors)? 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 Specify any problems Hx of Preganancy in last 3 No 02/16/25 14:43 Months Nurse Filling Out Transfusion JZOLLINGE 02/16/25 14:43 & Questions: Date: 02/16/25 02/16/25 14:43 Time: 14:46 02/16/25 14:43 Patient unable to answer at this time (ie. confused, unrespo /Reproduction History /Reproductive History - statistical machine mechanic: /Reproductive Hx- statistical machine mechanic Hx Now No 02/16/25 14:43 Gestational Age (in weeks): EDC: Hx Hx Para Hx Section SAB No 06/29/23 07:42 [facility] Medical History (Updated 02/16/25 @ 14:50 by Alejandrina Nichols) Vision impairment Insulin dependent diabetes mellitus Syncope Dietary restriction Non-smoker Sleep apnea Abscess of sigmoid colon due to diverticulitis Intra-abdominal adhesions Perforation of sigmoid colon due to diverticulitis Diverticulitis Obesity (BMI 30-39.9) Asthma, moderate persistent Abnormal PFT Asthma, moderate persistent, poorly-controlled FREDY (obstructive sleep apnea) Dyspnea Bronchitis Allergic rhinitis IBS (irritable bowel syndrome) Hypothyroid Anxiety PTSD (post-traumatic stress disorder) Sciatica Obesity Depression Asthma Home Medications ?Medication ?Instructions ?Recorded ?Last Taken ?Type levothyroxine 88 mcg tablet 88 mcg PO DAILY hypothyroid 02/01/14 10/16/20 History albuterol sulfate 2.5 mg/3 mL 2.5 mg (3 mL) inhalation Q4H PRN 04/26/20 Unknown Rx (0.083 %) solution for nebulization Sob &/Or Wheezing #180 mL albuterol sulfate 90 mcg/actuation 2 puff inhalation Q4H PRN PRN 08/26/20 10/15/20 Rx aerosol inhaler Shortness Of Breath #3 device metformin 500 mg tablet 1,000 mg PO BID 08/21/21 Unknown History timolol maleate 0.5 % eye drops 1 drp ophthalmic (eye) DAILY 05/19/22 Unknown History ondansetron 4 mg disintegrating 4 mg PO Q8H PRN PRN Nausea #10 tabs 12/06/24 Unknown Rx tablet cyclobenzaprine 10 mg tablet 10 mg PO HS PRN cramps 01/30/25 Unknown History fluticasone furoate 100 1 inh inhalation Q24H 01/30/25 Unknown History mcg-vilanterol 25 mcg/dose inhalation powder (Breo Ellipta) semaglutide 1 mg/dose (4 mg/3 mL) 1 mg subcut QWEEK 01/30/25 Unknown History subcutaneous pen injector (Ozempic) insulin glargine 100 unit/mL (3 26 unit subcut .HS 02/02/25 Unknown History mL) subcutaneous pen (Lantus Solostar U-100 Insulin) hydroxyzine HCl 25 mg tablet 25 mg PO ONCE #2 tabs 02/05/25 Unknown Rx nystatin 100,000 unit/gram topical topical BID 02/16/25 Unknown History powder Allergy/AdvReac Type Severity Reaction Status Date / Time venom-honey bee (bee venom Allergy Severe Anaphylaxis Verified 02/16/25 14:27 (honey bee)) amoxicillin (From Augmentin) Allergy Hives Verified 02/16/25 14:27 clavulanic acid (From Allergy Hives Verified 02/16/25 14:27 Augmentin) fluticasone (From Advair Allergy Anaphylaxis Verified 02/16/25 14:27 Diskus) salmeterol (From Advair Allergy Anaphylaxis Verified 02/16/25 14:27 Diskus) ciprofloxacin (From Cipro) AdvReac Nausea/Vom/ Verified 02/16/25 14:27 Diarrhea Family History Mother Depression Anxiety Arthritis Thyroid disorder COPD (chronic obstructive pulmonary disease) Cancer Father Arthritis Depression Alcohol abuse Sister Anxiety Depression Arthritis Cancer Brother Anxiety Depression HIV (human immunodeficiency virus infection) Hepatitis Surgical History History of colectomy (~10/21/20) Fistula History of carpal tunnel surgery Hx of appendectomy S/P cholecystectomy [place] teeth extracted delivery delivered lazy eye repair Social History Smoking Status: Never smoker second hand exposure: No alcohol intake: current alcohol intake frequency: holidays/special occasions only substance use type: does not use Audit: Pertinent Findings Pertinent Findings EKG Perinent findings: 05/19/2022. Normal sinus rhythm. 92 bpm. Poor R wave progression. Low voltage QRS. Pulmonary function results/spirometer pertinent findings: 02/10/2018. Mild reduction in diffusing capacity. Also a significant bronchodilator response noted. Recommendation Anesthesia Recommendation Anesthesia recommendation: OPTIMIZED for anesthesia
[2025-02-22] VITALS (8 sets, daily range): BP systolic 94–109; BP diastolic 61–88; PULSE 77–89; RESP 16; TEMP 36.2–36.6; O2SAT 95–99; BMI 30.4
[2025-02-22] MEDS: Lactated Ringers 1,000 ML 15 ML IV (11:00)
[2025-02-22 11:03] LABS: Bedside Glucose 91 mg/dL (74-106)
--- NOTE | 2025-02-22 11:13 | PRE.ANES_ITS ---
ASA Classification* ASA Classification ASA Classification: 2 Assessment & Plan Anesthesia* Anesthesia Assessment Anesthesia Assessment: Discussed sedation and/or anesthesia options, risks, benefits, and alternatives with patient/parents/legal guardian/POA. Questions invited. The patient/parents/legal guardian/POA seems to understand and agrees to proceed with anesthesia plan. Reviewed the physical assessment, medical history, allergy history and patient home medications list prior to surgery/procedure/anesthetic and documented any changes. Performed airway and anesthesia risk assessments. Anesthesia Type Anesthesia Type: MAC History Source History Obtained from:: Patient and Chart Anesthesia Focused Assessment* Temperature: 97.1 F Pulse Rate: 89 Blood Pressure: 109/88 Respiratory Rate: 16 Pulse Ox: 98 Oxygen Delivery Method: Room Air Airway Assessment Mouth opens: >3 cm Mallampati Score: I Teeth Condition: Missing (Patient is missing 1 tooth. Rest of the teeth are tight.) Neck Range of motion (ROM): Full ROM Focused Labs Anesthesia Preop lab: CBC WBC 8.6 K/mm3 (4.4-11.0) 02/02/25 15:14 02/02/25 RBC 4.36 M/mm3 (4.2-5.4) 02/02/25 15:14 02/02/25 Hgb 12.8 g/dL (12.0-15.0) 02/02/25 15:14 02/02/25 Hct 38.7 % (37-47) 02/02/25 15:14 02/02/25 Plt Count 339 K/mm3 (150-450) 02/02/25 15:14 02/02/25 CHEMISTRY Potassium 4.1 mmol/L (3.3-5.1) 02/02/25 15:14 02/02/25 Sodium 141 mmol/L (133-145) 02/02/25 15:14 02/02/25 Magnesium 2.1 mg/dL (1.6-2.6) 10/18/20 06:59 10/18/20 BUN 11 mg/dL (4-19) 02/02/25 15:14 02/02/25 Creatinine 1.09 mg/dL (0.70-1.20) 02/02/25 15:14 02/02/25 Glucose 73 mg/dL (70-99) 02/02/25 15:14 02/02/25 POC Glucose 91 mg/dL (74-106) 02/22/25 10:45 02/22/25 TSH 3.290 uIU/mL (0.358-3.740) 07/08/24 09:12 05/24 COAG Urine Test Negative Negative 01/07/23 09:30 01/07/23 Pre-Assessment Diagnosis/Proposed Procedure Planned Operative Procedure(s): Colonoscopy Anesthesia History 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 When Was Last Pacemaker Check QUESTION #4 FULL TEXT: You/Your Family Experience fever (hyperthermia) with Anesthesia Last Oral Intake Last Oral intake: Last Oral Intake NPO since 07:30 02/22/25 10:41 Meds taken in AM with sips of Yes 02/22/25 10:41 water? Meds patient instructed to take am of surgery Any additional information?: Yes NPO since: 07:30 (Patient finished her prep at 7:30 AM.) PONV PONV - printed circuit board drafter: PONV - printed circuit board drafter Female Yes 02/16/25 14:43 HX of Motion Sickness No 02/16/25 14:43 HX of N/V After Surgery No 02/16/25 14:43 Non-Smoker Yes 02/16/25 14:43 Duration of Surgery greater No 02/16/25 14:43 than 60 minutes Number of Risk Factors 2 02/16/25 14:43 PONV Score Moderate Risk 02/16/25 14:43 Height & Weight Height & Weight: Anesthesia: Height & Weight Height 5 ft 2 in 02/22/25 10:41 Weight: 75.6 kg 02/22/25 10:41 Body Mass Index (BMI) 30.4 02/22/25 10:41 Respiratory Assessment Respiratory Assessment - printed circuit board drafter: Respiratory Tract Infection Hx - printed circuit board drafter Hx Respiratory Tract Infection No 02/16/25 14:43 STOP Sleep Apnea STOP Sleep Apnea - printed circuit board drafter: STOP Sleep Apnea - printed circuit board drafter Hx Hypertension No 02/16/25 14:43 Hx Sleep Apnea Yes 02/16/25 14:43 CPAP Yes: NON COMPLIANT 02/16/25 14:43 BIPAP No 02/16/25 14:43 Do you snore loudly (louder than talking or can be heard Do you often feel tired/ fatigued/ sleepy during daytime? Has anyone observed you stop breathing during sleep? STOP Results Positive 02/16/25 14:43 QUESTION #5 FULL TEXT : Do you snore loudly (louder than talking or can be heard through closed doors)? 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 Specify any problems Hx of Preganancy in last 3 No 02/16/25 14:43 Months Nurse Filling Out Transfusion [email or web address] 02/16/25 14:43 & Questions: Date: 02/16/25 02/16/25 14:43 Time: 14:46 02/16/25 14:43 Patient unable to answer at this time (ie. confused, unrespo /Reproduction History /Reproductive History - printed circuit board drafter: /Reproductive Hx- printed circuit board drafter Hx Now No 02/16/25 14:43 Gestational Age (in weeks): EDC: Hx Hx Para Hx Section SAB No 06/29/23 07:42 Active Medications Active Medications: Current Medications Generic Name Dose Route Start Last Admin Trade Name Freq PRN Reason Stop Dose Admin Lactated Ringer's 1,000 mls @ 15 mls/hr 02/22/25 11:00 IV .Q48H [facility] Medical History Vision impairment Insulin dependent diabetes mellitus Syncope Dietary restriction Non-smoker Sleep apnea Abscess of sigmoid colon due to diverticulitis Intra-abdominal adhesions Perforation of sigmoid colon due to diverticulitis Diverticulitis Obesity (BMI 30-39.9) Asthma, moderate persistent Abnormal PFT Asthma, moderate persistent, poorly-controlled FREDY (obstructive sleep apnea) Dyspnea Bronchitis Allergic rhinitis IBS (irritable bowel syndrome) Hypothyroid Anxiety PTSD (post-traumatic stress disorder) Sciatica Obesity Depression Asthma Home Medications ?Medication ?Instructions ?Recorded ?Last Taken ?Type levothyroxine 88 mcg tablet 88 mcg PO DAILY hypothyroi d 02/01/14 02/22/25 06:30 History albuterol sulfate 2.5 mg/3 mL 2.5 mg (3 mL) inhalation Q4H PRN 04/26/20 Unknown Rx (0.083 %) solution for nebulization Sob &/Or Wheezing #180 mL albuterol sulfate 90 mcg/actuation 2 puff inhalation Q 4H PRN PRN 08/26/20 02/22/25 10:00 Rx aerosol inhaler Shortness Of Breath #3 devic e metformin 500 mg tablet 1,000 mg PO BID 08/21/21 Unk nown History timolol maleate 0.5 % eye drops 1 drp ophthalmic (eye) DAILY 05/19/22 Unknown History ondansetron 4 mg disintegrating 4 mg PO Q8H PRN PRN Na usea #10 tabs 12/06/24 Unknown Rx tablet cyclobenzaprine 10 mg tablet 10 mg PO HS PRN cramps Unknown History fluticasone furoate 100 1 inh inhalation Q24H Unknown History mcg-vilanterol 25 mcg/dose inhalation powder (Breo Ellipta) semaglutide 1 mg/dose (4 mg/3 mL) 1 mg subcut QWEEK 02/11/25 History subcutaneous pen injector (Ozempic) insulin glargine 100 unit/mL (3 26 unit subcut .HS 02/23 Unknown History mL) subcutaneous pen (Lantus Solostar U-100 Insulin) hydroxyzine HCl 25 mg tablet 25 mg PO ONCE #2 tabs 05/25 Unknown Rx nystatin 100,000 unit/gram topical topical BID 5 Unknown History powder Allergy/AdvReac Type Severity Reaction Status Date / Time venom-honey bee (bee venom Allergy Severe Anaphylaxis Verified 02/22/25 10:39 (honey bee)) amoxicillin (From Augmentin) Allergy Hives Verified 02/22/25 10:39 clavulanic acid (From Allergy Hives Verified 02/22/25 10:39 Augmentin) fluticasone (From Advair Allergy Anaphylaxis Verified 02/22/25 10:39 Diskus) salmeterol (From Advair Allergy Anaphylaxis Verified 02/22/25 10:39 Diskus) ciprofloxacin (From Cipro) AdvReac Nausea/Vom/ Verified 02/22/25 10:39 Diarrhea Family History Mother Depression Anxiety Arthritis Thyroid disorder COPD (chronic obstructive pulmonary disease) Cancer Father Arthritis Depression Alcohol abuse Sister Anxiety Depression Arthritis Cancer Brother Anxiety Depression HIV (human immunodeficiency virus infection) Hepatitis Surgical History History of colectomy (~10/21/20) Fistula History of carpal tunnel surgery Hx of appendectomy S/P cholecystectomy [place] teeth extracted delivery delivered lazy eye repair Social History Smoking Status: Never smoker second hand exposure: No alcohol intake: current alcohol intake frequency: holidays/special occasions only substance use type: does not use Review of Systems (Anesthesia) ROS Narrative System reviewed and no additional complaints, except as documented.
--- NOTE | 2025-02-22 11:57 | HP.PCM_ITS ---
[facility] - General General Date of Admission: 02/22/25 Date of Service: 02/22/25 Chief Complaint: Lower Gi bleeding [facility] Narrative MADDIE JONES, is a 49 F who presents with complaints of BRBPR and diarrhea. She states that red blood cover her tissue but she is unsure if it changes the color of the toilet water. She has a history of IBS-D, diverticulosis, cholecystectomy, appendectomy, section, anorectal fistula, H.pylori infection, partial colectomy due to diverticulitis perforation in 2019. 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 She reports that both her father and brother have had colon cancer. She is unsure of ever being told she's had ulcerative colitis or Crohn's. She denies difficulty chewing and swallowing, cough, throat clearing, heartburn, reflux, nausea, vomiting, abdominal bloating, constipation, and melena. She reports from November having had some virus for 6wks that gave her respiratory congestion and diarrhea. [facility] Medical History Vision impairment Insulin dependent diabetes mellitus Syncope Dietary restriction Non-smoker Sleep apnea Abscess of sigmoid colon due to diverticulitis Intra-abdominal adhesions Perforation of sigmoid colon due to diverticulitis Diverticulitis Obesity (BMI 30-39.9) Asthma, moderate persistent Abnormal PFT Asthma, moderate persistent, poorly-controlled FREDY (obstructive sleep apnea) Dyspnea Bronchitis Allergic rhinitis IBS (irritable bowel syndrome) Hypothyroid Anxiety PTSD (post-traumatic stress disorder) Sciatica Obesity Depression Asthma Home Medications ?Medication ?Instructions ?Recorded ?Last Taken ?Type levothyroxine 88 mcg tablet 88 mcg PO DAILY hypothyroi d 02/01/14 02/22/25 06:30 History albuterol sulfate 2.5 mg/3 mL 2.5 mg (3 mL) inhalation Q4H PRN 04/26/20 Unknown Rx (0.083 %) solution for nebulization Sob &/Or Wheezing #180 mL albuterol sulfate 90 mcg/actuation 2 puff inhalation Q 4H PRN PRN 08/26/20 02/22/25 10:00 Rx aerosol inhaler Shortness Of Breath #3 devic e metformin 500 mg tablet 1,000 mg PO BID 08/21/21 Unk nown History timolol maleate 0.5 % eye drops 1 drp ophthalmic (eye) DAILY 05/19/22 Unknown History ondansetron 4 mg disintegrating 4 mg PO Q8H PRN PRN Na usea #10 tabs 12/06/24 Unknown Rx tablet cyclobenzaprine 10 mg tablet 10 mg PO HS PRN cramps Unknown History fluticasone furoate 100 1 inh inhalation Q24H Unknown History mcg-vilanterol 25 mcg/dose inhalation powder (Breo Ellipta) semaglutide 1 mg/dose (4 mg/3 mL) 1 mg subcut QWEEK 02/11/25 History subcutaneous pen injector (Ozempic) insulin glargine 100 unit/mL (3 26 unit subcut .HS 02/23 Unknown History mL) subcutaneous pen (Lantus Solostar U-100 Insulin) hydroxyzine HCl 25 mg tablet 25 mg PO ONCE #2 tabs 05/25 Unknown Rx nystatin 100,000 unit/gram topical topical BID 5 Unknown History powder Allergy/AdvReac Type Severity Reaction Status Date / Time venom-honey bee (bee venom Allergy Severe Anaphylaxis Verified 02/22/25 10:39 (honey bee)) amoxicillin (From Augmentin) Allergy Hives Verified 02/22/25 10:39 clavulanic acid (From Allergy Hives Verified 02/22/25 10:39 Augmentin) fluticasone (From Advair Allergy Anaphylaxis Verified 02/22/25 10:39 Diskus) salmeterol (From Advair Allergy Anaphylaxis Verified 02/22/25 10:39 Diskus) ciprofloxacin (From Cipro) AdvReac Nausea/Vom/ Verified 02/22/25 10:39 Diarrhea Family History Mother Depression Anxiety Arthritis Thyroid disorder COPD (chronic obstructive pulmonary disease) Cancer Father Arthritis Depression Alcohol abuse Sister Anxiety Depression Arthritis Cancer Brother Anxiety Depression HIV (human immunodeficiency virus infection) Hepatitis Surgical History History of colectomy (~10/21/20) Fistula History of carpal tunnel surgery Hx of appendectomy S/P cholecystectomy [place] teeth extracted delivery delivered lazy eye repair Social History Smoking Status: Never smoker second hand exposure: No alcohol intake: current alcohol intake frequency: holidays/special occasions only substance use type: does not use ROS Constitutional Constitutional: Denies fatigue, fever(s), poor appetite, weight gain or weight loss Gastrointestinal Gastrointestinal: Denies belching, bloating, change in bowel habits, change in stool character, chewing difficulty, coffee ground emesis, constipation, cramping, diarrhea, dyspepsia, dysphagia, early satiety, excessive flatus, fecal incontinence, heartburn, hematemesis, hematochezia, hemorrhoids, loose stools, melena, nausea, odynophagia, rectal bleeding, tenesmus, vomiting or weight changes Vital Signs Vital Signs Vital Signs: 02/22/25 10:41 02/22/25 10:41 02/22/25 11:20 Temperature 97.1 F L 97.1 F L Temperature Source Temporal Pulse Rate 89 89 Respiratory Rate 16 16 Respiratory Pattern Normal Blood Pressure 109/88 H 109/88 H Blood Pressure Mean 95 Blood Pressure Source Monitor Blood Pressure Position Semi-Fowlers Blood Pressure Location Left Arm Pulse Ox 98 98 Oxygen Delivery Method Room Air Room Air Weight Weight: 166 lb 10.711 oz Body Mass Index (BMI) 30.4 Physical Exam Const alert, oriented x3, no apparent distress and healthy appearing General Appearance: cooperative GI normal to inspection, nondistended, normoactive bowel sounds, soft to palpation, non-tender and non-distended Percussion: normal to percussion Rectal Exam: deferred Results Lab / Micro Data Labs: Laboratory Results - last 24 hr 02/22/25 10:45: POC Glucose 91 Assessment & Plan Assessment/Plan (1) Irritable bowel syndrome with diarrhea: (2) Bleeding per rectum: PLAN: Assessment and Plan Assessment and Plan (1) Irritable bowel syndrome with diarrhea: Status: Acute (2) Bleeding per rectum: Status: Acute Orders: Orders Enterography Abd/Pel 02/02/25 K58.0 - Irritable bowel syndrome with diarrhea, K62.5 - Hemorrhage of anus and rectum Allergen, Food Profile 14 02/02/25 K58.0 - Irritable bowel syndrome with diarrhea, K62.5 - Hemorrhage of anus and rectum STACY Comprehensive Panel 02/02/25 K58.0 - Irritable bowel syndrome with diarrhea, K62.5 - Hemorrhage of anus and rectum ANCA 02/02/25 K58.0 - Irritable bowel syndrome with diarrhea, K62.5 - Hemorrhage of anus and rectum Calprotectin, Stool 02/03/25 K58.0 - Irritable bowel syndrome with diarrhea, K62.5 - Hemorrhage of anus and rectum CBC W/Diff, Automated 02/02/25 K58.0 - Irritable bowel syndrome with diarrhea, K62.5 - Hemorrhage of anus and rectum Celiac Disease Profile 02/02/25 K58.0 - Irritable bowel syndrome with diarrhea, K62.5 - Hemorrhage of anus and rectum Comprehensive Metabolic Profil 02/02/25 K58.0 - Irritable bowel syndrome with diarrhea, K62.5 - Hemorrhage of anus and rectum CRP 02/02/25 K58.0 - Irritable bowel syndrome with diarrhea, K62.5 - Hemorrhage of anus and rectum IBD Expanded Profile 02/02/25 K58.0 - Irritable bowel syndrome with diarrhea, K62.5 - Hemorrhage of anus and rectum Immunoglobulins G/A/M/E 02/02/25 K58.0 - Irritable bowel syndrome with diarrhea, K62.5 - Hemorrhage of anus and rectum LDH 02/02/25 K58.0 - Irritable bowel syndrome with diarrhea, K62.5 - Hemorrhage of anus and rectum Pancreatic Elastase, Fecal 02/03/25 K58.0 - Irritable bowel syndrome with diarrhea, K62.5 - Hemorrhage of anus and rectum Plan MADDIE JONES, is a 49 F who presents to the office today for establishment with [facility] for complaints of BRBPR and diarrhea. Differential diagnoses include: IBS-D, IBD, diverticulosis, hemorrhoid, celiac. Discussed care plan with her and her . * blood for IBD, infectious, celiac, food allergy markers * stool for inflammatory, enzyme markers * MRE for length of inflammation, Vistaril to help with anxiety during test * schedule colonoscopy for rectal bleeding * office FU with results
--- NOTE | 2025-02-22 12:44 | OP.COLON_ITS ---
Patient Name: Delia Espinal Procedure Date: 02/22/2025 10:46 AM Date of : 1975 Age: 49 Procedure: Colonoscopy Indications: Hematochezia Providers: José Alvarado DO Referring MD: Marlyn Smith Medicines: Monitored Anesthesia Care Patient Profile: This is a 49 year old female. Refer to note in patient chart for documentation of history and physical. Last Colonoscopy: several years ago. Complications: No immediate complications. Procedure: Pre-Anesthesia Assessment: - Prior to the procedure, a History and Physical was performed, and patient medications and allergies were reviewed. The patient is competent. The risks and benefits of the procedure and the sedation options and risks were discussed with the patient. All questions were answered and informed consent was obtained. Patient identification and proposed procedure were verified by the physician in the pre-procedure area. Mental Status Examination: alert and oriented. Airway Examination: normal oropharyngeal airway and neck mobility. Respiratory Examination: clear to auscultation. CV Examination: normal. Prophylactic Antibiotics: The patient does not require prophylactic antibiotics. Prior Anticoagulants: The patient has taken no anticoagulant or antiplatelet agents except for NSAID medication. ASA Grade Assessment: II - A patient with mild systemic disease. After reviewing the risks and benefits, the patient was deemed in satisfactory condition to undergo the procedure. The anesthesia plan was to use monitored anesthesia care (MAC). Immediately prior to administration of medications, the patient was re-assessed for adequacy to receive sedatives. The heart rate, respiratory rate, oxygen saturations, blood pressure, adequacy of pulmonary ventilation, and response to care were monitored throughout the procedure. The physical status of the patient was re-assessed after the procedure. After I obtained informed consent, the scope was passed under direct vision. Throughout the procedure, the patient's blood pressure, pulse, and oxygen saturations were monitored continuously. The colonoscope was introduced through the anus and advanced to the cecum, identified by appendiceal orifice and ileocecal valve. The colonoscopy was performed without difficulty. The patient tolerated the procedure well. The quality of the bowel preparation was adequate. The ileocecal valve, appendiceal orifice, and rectum were photographed. Scope In: 12:18:52 PM Scope Withdrawal Time 0 hours 14 minutes 24 seconds Scope Out: 12:37:23 PM Total Procedure Duration Time 0 hours 18 minutes 31 seconds Findings: The perianal and digital rectal examinations were normal. There was evidence of a prior end-to-side colo-colonic anastomosis in the sigmoid colon. This was non-patent and was characterized by healthy appearing mucosa. The anastomosis was not traversed. The exam was otherwise without abnormality on direct and retroflexion views. A 5 mm anal fissure was found in the anal canal. Bleeding internal hemorrhoids were found during retroflexion. The hemorrhoids were Grade II (internal hemorrhoids that prolapse but reduce spontaneously). The endoscope was withdrawn. A hemorrhoid was isolated with anoscopy. The ShortShot ligator was positioned over the hemorrhoid at the left lateral position. Suction was applied and one rubber band was placed over the hemorrhoid. This was checked to make certain that the muscularis was free of the band. The patient appeared stable and comfortable at the end of the procedure. Impression: - Non-patent end-to-side colo-colonic anastomosis, characterized by healthy appearing mucosa. - The examination was otherwise normal on direct and retroflexion views. - Anal fissure. - Bleeding internal hemorrhoids. Banded. - No specimens collected. Recommendation: - Repeat colonoscopy in 10 years for screening purposes. - Continue present medications. Procedure Code(s): --- Professional --- 80409, Hemorrhoidectomy, internal, by rubber band ligation(s) 94028, Colonoscopy, flexible; diagnostic, including collection of specimen(s) by brushing or washing, when performed (separate procedure) CPT copyright 2021 [employer]. All rights reserved. The codes documented in this report are preliminary and upon sports bookmaker review may be revised to meet current compliance requirements. José Alvarado DO 02/22/2025 12:43:53 PM This report has been signed electronically. Number of Addenda: 0 Note Initiated On: 02/22/2025 10:46 AM
--- NOTE | 2025-02-22 12:44 | OP.CCLET_ITS ---
02/22/2025 Marlyn Smith [place] [address] [place] [address] Re : Colonoscopy procedure for Delia Espinal Dear Dr. Smith This procedure was performed on January. My impressions and recommendations are as follows: Impressions : - Non-patent end-to-side colo-colonic anastomosis, characterized by healthy appearing mucosa. - The examination was otherwise normal on direct and retroflexion views. - Anal fissure. - Bleeding internal hemorrhoids. Banded. - No specimens collected. Recommendations : - Repeat colonoscopy in 10 years for screening purposes. - Continue present medications. My findings are described in the full procedure note, which is enclosed. If I can be of further assistance, please feel free to contact me at . Sincerely, José Alvarado, 02/22/2025 12:43:53 PM This report has been signed electronically.
--- NOTE | 2025-02-22 12:46 | PCM.POST.ANE ---
Anesthesia: Postop Eval I Current Vital Signs Temperature: 98 F Pulse Rate: 77 Blood Pressure: 99/67 Respiratory Rate: 16 Pulse Ox: 99 Oxygen Delivery Method: Room Air Assessment Airway patent: Yes Spontaneous unlabored respirations: Yes Mental status: Awake and Calm nausea: No Vomiting: No Anesthesia Complication: No Fluid Hydration Crystalloid volume administer (ml): 800 Total IV fluid infused: 800 Progress Note Anesthesia document: Postop Eval 1 completed: Yes
--- NOTE | 2025-02-22 14:20 | PCM.POSTANE2 ---
Anesthesia Postop Eval I Sum Postop Eval Completion status Anesthesia document: Postop Eval 1 completed: Yes Anesthesia Postop Eval I Summary Anesthesia Postop Eval I Summary: Anesthesia Postop Eval I: Assessment Summary Airway patent Yes 02/22/25 12:47 [email or web address] Spontaneous unlabored Yes 02/22/25 12:47 [email or web address] respirations Mental status Awake,Calm 02/22/25 12:47 [email or web address] nausea No 02/22/25 12:47 [email or web address] Vomiting No 02/22/25 12:47 [email or web address] Anesthesia Postop Eval I: Fluid Summary Crystalloid volume administer 800 02/22/25 12:47 [email or web address] (ml) Colloids volume administered ( ml) Blood Product volume administered (ml) Total IV fluid infused 800 02/22/25 12:47 [email or web address] Anesthesia Postop Eval I: Summary Notes Anesthesia Complication No 02/22/25 12:47 [email or web address] Anesthesia Complication Comment: Post-operative progress note Anesthesia: Postop Eval II Evaluation Mental status: Awake and Calm Pain Level: 0 nausea: No Vomiting: No Complications Anesthesia Complication: No
== END 2025-02-22 13:23 | disposition home or self-care (01) ==
LOC: EN 10:25 → AC 10:25
PROVIDERS: PCP Family Medicine; Referring Provider Family Medicine; Visit Provider Internal Medicine Gastroenterology
PROC: 0DJD8ZZ Inspection of Lower Intestinal Tract, Via Natural or Artificial Opening Endoscopic (ICD-10-PCS; CPT 45378; principal; 2025-02-22 11:25)
DX: K60.2 Anal fissure, unspecified (principal); Z79.4 Long term (current) use of insulin; E11.9 Type 2 diabetes mellitus without complications; K64.1 Second degree hemorrhoids; H54.8 Legal blindness, as defined in USA; G47.33 Obstructive sleep apnea (adult) (pediatric); Z79.85 Long-term (current) use of injectable non-insulin antidiabetic drugs; Z79.84 Long term (current) use of oral hypoglycemic drugs; Z79.51 Long term (current) use of inhaled steroids; Z86.73 Personal history of transient ischemic attack (TIA), and cerebral infarction without residual deficits
CPT/HCPCS: 45378; 46221; 82962; J2405

== ENCOUNTER → 2025-03-20 | Outpatient (CLI) | payer BC, SELFPAY ==
[2025-03-20 09:47] VITALS: BP 123/81; PULSE 84; RESP 16; O2SAT 94; BMI 29.2
--- NOTE | 2025-03-20 10:55 | MRI_ITS ---
EXAM: ENTEROGRAPHY ABD/PEL 03/20/2025 CLINICAL HISTORY: K58.0 - IRRITABLE BOWEL SYNDROME WITH DIARRHEA. TECHNIQUE: MRI of the abdomen/pelvis was performed. Multiplanar and multisequence images were obtained without and with intravenous gadolinium contrast. Oral contrast also administered per enterography protocol. COMPARISON: CT abdomen pelvis December 06, 2024 FINDINGS: Appendectomy. Stomach, small bowel, and colon are normal in distribution, diameter, and mural thickness. Fold patterns are normal. No inflammatory changes are seen. The previously noted dilated fluid- filled small bowel segment in the right lower quadrant (December 2024) has resolved. No bowel stricture or tethering is seen. Terminal ileum is normal. No adenopathy. No fibrofatty proliferation. Mild hepatomegaly is noted. Craniocaudal dimension of the right hepatic lobe is 20 cm, unchanged. No liver masses. Hepatic vasculature is patent. Cholecystectomy. No biliary dilatation. Pancreas and main pancreatic duct are normal. Spleen is unremarkable. Normal adrenal glands and kidneys. No marrow lesions identified. No evidence of sacroiliitis. MRI/Enterography Abd/Pel IMPRESSION: Appendectomy. Otherwise normal gastrointestinal tract. No signs of acute or c hronic inflammatory bowel disease. Interval resolution of previously dilated small bowel in the right lower quadrant from F ebruary (was likely a transient mild enteritis). Reading Location: [facility]
[2025-03-20] MEDS: Glucagon 1 MG/ML Syringe IV (11:18)
[2025-03-20 11:45] VITALS: BP 99/69; PULSE 83; RESP 16; O2SAT 98
== END | disposition home or self-care (01) ==
LOC: OPMRI 09:13
PROVIDERS: PCP Family Medicine
DX: K58.0 Irritable bowel syndrome with diarrhea (principal); K62.5 Hemorrhage of anus and rectum
CPT/HCPCS: 74183; A9575; A4216; J1610

== ENCOUNTER → 2025-07-11 | Outpatient (CLI) | payer BC, SELFPAY ==
[2025-07-11 12:55] LABS: Hematocrit 38.9 % (37-47); Hemoglobin 12.9 g/dL (12.0-15.0); Immature Granulocytes Count 0.020 X10^3/uL (0.0-0.0); Mean Corp Hgb Conc 33.2 g/dL (32-36); Mean Corpuscular Volume 87.6 fL (81-99); Mean Platelet Vol. 9.6 fl (6.2-12.0); NRBC Flagged by Analyzer 0 % (0-5); Platelet Count 342 K/mm3 (150-450); RBC Distribution Width CV 12.4 % (11.6-14.6); RBC Distribution Width SD 40.0 fl (35.1-43.9); Red Blood Count 4.44 M/mm3 (4.2-5.4); White Blood Count 8.4 K/mm3 (4.4-11.0)
[2025-07-11 12:59] LABS: Creatinine, Urine (random) 192.00 mg/dL (28.00-217.00); Microalbumin,Random Urine < 12.0 mg/L (<20 mg/L)
[2025-07-11 13:24] LABS: AST(SGOT) 24 U/L (<=31); Alanine Aminotransfer ALT/SGPT 21 U/L (<=34); Albumin, Serum 4.3 g/dL (3.5-5.0); Alkaline Phosphatase 63 U/L (35-104); Anion Gap 10 (5-15); BUN 17 mg/dL (4-19); BUN/Creat Ratio 17.7 RATIO (10-20); Calcium,Total 9.6 mg/dL (7.6-11.0); Carbon Dioxide 25.8 mmol/L (21.0-32.0); Chloride 105 mmol/L (98-108); Cholesterol 151 mg/dL (<=200); Globulin 3.3 g/dL (2.2-4.2); Glucose 90 mg/dL (70-99); Low Density Lipoprotein Calc. 79 mg/dL; Potassium 4.8 mmol/L (3.3-5.1); Triglycerides 133 mg/dL; Very Low Density Lipoprotein 27 mg/dL (5-40); cholesterol:hdl ratio screen 3.30
== END | disposition home or self-care (01) ==
LOC: BFHLAB 10:24
PROVIDERS: PCP Family Medicine; Referring Provider Family Medicine; Visit Provider Family Medicine
DX: Z00.00 Encounter for general adult medical examination without abnormal findings (principal); E11.9 Type 2 diabetes mellitus without complications; E03.9 Hypothyroidism, unspecified
CPT/HCPCS: 36415; 80053; 80061; 82043; 82570; 83036; 84443; 85025